=== PATIENT | male | born 1940 | race Caucasian/White ===

== ENCOUNTER 2016-09-27 18:45 | Inpatient (IN) | payer MEDICARE, BC ==
[~2016-09-27] VITALS: Ht 162.6 cm; Wt 65.9 kg
--- NOTE | 2016-09-27 19:11 | EKG ---
[address] [address] Test Date: 2016-09-27 Test Time: 19:10:01 Pat Name: DARIUS HAYS Department: Room: Gender: M Home Aide: : 1940 Requested By: ANTONIO BRANDON Order Number: [id number] Reading MD: Te Garcia Measurements Intervals [place] Rate: 66 P: [place]: QRS: -23 QRSD: 146 T: 24 QT: 434 QTc: 457 Interpretive Statements ATRIAL FLUTTER LEFTWARD AXIS RIGHT BUNDLE BRANCH BLOCK Electronically Signed On 10-04-2016 14:20:34 CDT by Te Garcia
--- NOTE | 2016-09-27 19:40 | ED.ADGEN ---
Past History Past Medical History: A-Fib (ANTONIO SINGH DO) Adult General Chief Complaint Chief Complaint Encounter for medical clearance for psychiatric admission (ANTONIO SINGH DO) HPI HPI Patient is a 76[facility] with history of [facility] who presents for medical evaluation for psychiatric admission after demonstrating aggressive and combative behavior to [facility] staff members. Patient's alert, cooperative on ED evaluation. Patient reported recent illnesses , fall injury or missed medications. Patient denies complaint on exam. History is limited by cognitive impairment. (ANTONIO SINGH DO) Review of Systems Review of Systems Review symptoms as per history of present illness. All other review symptoms are negative. (ANTONIO SINGH DO) Physical Exam Physical Exam Constitutional: Well developed, well nourished, no acute distress, non-toxic appearance. HENT: Normocephalic, atraumatic, bilateral external ears normal, oropharynx moist, no oral exudates, nose normal. Eyes: PERRLA, EOMI, conjunctiva normal. Neck: Normal range of motion, no tenderness. Cardiovascular:Heart rate regular rhythm, no murmur. Lungs & Thorax: Respirations nonlabored, lung sounds clear. Abdomen: Bowel sounds normal, soft, no tenderness. Skin: Warm, dry, no erythema. Back: No tenderness, no CVA tenderness. Extremities: No tenderness. Neurologic: Alert and oriented X 1, normal motor function, normal sensory function, no focal deficits noted. Psychologic: Affect normal, judgement normal, mood normal. (ANTONIO SINGH DO) Current Patient Data Vital Signs Vital Signs Date Time Temp Pulse Resp B/P Pulse Ox O2 Delivery O2 Flow Rate FiO2 09/27/16 19:00 98.6 66 20 97 Room Air (JASEN STAPLES MD) Lab Results Laboratory Tests Test 09/27/16 19:00 09/27/16 19:15 White Blood Count 7.8x10^3/uL (4.0-11.0) Red Blood Count 4.28x10^6/uL (4.30-5.70) L Hemoglobin 11.7g/dL (13.0-17.5) L Hematocrit 35.4% (39.0-53.0) L Mean Corpuscular Volume 83fL (79-100) Mean Corpuscular Hemoglobin 27pg (25-35) Mean Corpuscular Hemoglobin Concent 33g/dL (31-37) Red Cell Distribution Width 15.3% (11.5-14.5) H Platelet Count 439x10^3/uL (140-400) H Neutrophils (%) (Auto) 64% (31-73) Lymphocytes (%) (Auto) 21% (24-48) L Monocytes (%) (Auto) 9% (0-9) Eosinophils (%) (Auto) 6% (0-3) H Basophils (%) (Auto) 1% (0-3) Neutrophils # (Auto) 5.0x10^3uL (1.8-7.7) Lymphocytes # (Auto) 1.7x10^3/uL (1.0-4.8) Monocytes # (Auto) 0.7x10^3/uL (0.0-1.1) Eosinophils # (Auto) 0.4x10^3/uL (0.0-0.7) Basophils # (Auto) 0.0x10^3/uL (0.0-0.2) Prothrombin Time 10.8SEC (9.4-11.4) Prothrombin Time INR 1.1 (0.9-1.1) Sodium Level 136mmol/L (136-145) Potassium Level 4.5mmol/L (3.5-5.1) Chloride Level 100mmol/L (98-107) Carbon Dioxide Level 30mmol/L (21-32) Anion Gap 6 (6-14) Blood Urea Nitrogen 26mg/dL (8-26) Creatinine 1.4mg/dL (0.7-1.3) H Estimated GFR (Cockcroft-Gault) 49.0 BUN/Creatinine Ratio 19 (6-20) Glucose Level 140mg/dL (70-99) H Calcium Level 8.9mg/dL (8.5-10.1) Magnesium Level 2.1mg/dL (1.8-2.4) Total Bilirubin 0.3mg/dL (0.2-1.0) Aspartate Amino Transferase (AST) 15U/L (15-37) Alanine Aminotransferase (ALT) 23U/L (16-63) Alkaline Phosphatase 131U/L (46-116) H Total Protein 7.3g/dL (6.4-8.2) Albumin 3.3g/dL (3.4-5.0) L Albumin/Globulin Ratio 0.8 (1.0-1.7) L Urine Collection Type Unknown Urine Color Yellow Urine Clarity Clear Urine pH 6.5 Urine Specific [place] 1.015 Urine Protein Neg (NEG-TRACE) Urine Glucose (UA) 250mg/dL (NEG) Urine Ketones (Stick) Negmg/dL (NEG) Urine Blood Trace (NEG) Urine Nitrite Neg (NEG) Urine Bilirubin Neg (NEG) Urine Urobilinogen Dipstick 0.2mg/dL (0.2 mg/dL) Urine Leukocyte Esterase Neg (NEG) Urine RBC Occ/HPF (0-2) Urine WBC Occ/HPF (0-4) Urine Squamous Epithelial Cells Few/LPF Urine Bacteria 0/HPF (0-FEW) (JASEN STAPLES MD) EKG EKG [EKG: A flutter, ventricular rate 66.] (ANTONIO SINGH DO) Radiology/Procedures Radiology/Procedures [] (ANTONIO SINGH DO) Impressions: Encounter for medical clearance. (ANTONIO SINGH DO) Course & Med Decision Making Course & Med Decision Making Pertinent Labs and Imaging studies reviewed. (See chart for details) [] (ANTONIO SINGH DO) Course & Med Decision Making Patient checked out to me pending labs and medical clearance for [facility]. Patient's been resting comfortably ER. He is awake alert. He is oriented to person and place but not to year or date. He does know the month. He doesn't recall why he is here today. He is asked for some chips and soda which I provided for EKG today shows atrial flutter with a slight left axis deviation. There is some early right bundle-branch block. There is no acute ST or T-wave changes noted. Per Dr. Singh, atrial flutter is previously known and is chronic. He is rate controlled. Labs are essentially clinically unremarkable today. Urinalysis shows no evidence of infection. Chest x-ray shows surgical hardware but no acute changes per the emergency physician. As noted, he is resting currently, stable vital signs, awake and alert and cooperative. He is medically cleared for admission to [facility] unit. (JASEN STAPLES MD) Final Impression Final Impression [] Problems: (ANTONIO SINGH DO) Dragon Disclaimer Dragon Disclaimer This electronic medical record was generated, in whole or in part, using a voice recognition dictation system. (ANTONIO SINGH DO) ANTONIO SINGH DO Sep 27, 2016 19:39 JASEN STAPLES MD Sep 27, 2016 21:51
[2016-09-27 19:46] LABS: BASO % 1 % (0-3); EOS # 0.4 x10^3/uL (0.0-0.7); EOS % 6 % (0-3); HEMATOCRIT 35.4 % (39.0-53.0); HEMOGLOBIN 11.7 g/dL (13.0-17.5); LYMPH # 1.7 x10^3/uL (1.0-4.8); LYMPH % 21 % (24-48); MEAN CORPUSCULAR HEMOGLOBIN 27 pg (25-35); MEAN CORPUSCULAR HGB CONC 33 g/dL (31-37); MEAN CORPUSCULAR VOLUME 83 fL (79-100); MONO # 0.7 x10^3/uL (0.0-1.1); MONO % 9 % (0-9); NEUT % 64 % (31-73); PLATELET COUNT 439 x10^3/uL (140-400); RED BLOOD COUNT 4.28 x10^6/uL (4.30-5.70); RED CELL DISTRIBUTION WIDTH 15.3 % (11.5-14.5); WHITE BLOOD COUNT 7.8 x10^3/uL (4.0-11.0)
[2016-09-27 19:55] LABS: ALBUMIN 3.3 g/dL (3.4-5.0); ALBUMIN/GLOBULIN RATIO 0.8 (1.0-1.7); CALCIUM 8.9 mg/dL (8.5-10.1); CREATININE 1.4 mg/dL (0.7-1.3); MAGNESIUM 2.1 mg/dL (1.8-2.4); POTASSIUM 4.5 mmol/L (3.5-5.1); TOTAL BILIRUBIN 0.3 mg/dL (0.2-1.0); TOTAL PROTEIN 7.3 g/dL (6.4-8.2)
[2016-09-27 20:28] LABS: BILIRUBIN,URINE NEG (NEG); CLARITY,URINE CLEAR; COLOR,URINE YELLOW; GLUCOSE,URINE 250 mg/dL (NEG); NITRITE,URINE NEG (NEG); UROBILINOGEN,URINE 0.2 mg/dL (0.2 mg/dL)
[2016-09-27 20:29] LABS: BACTERIA,URINE 0 /HPF (0-FEW); RBC,URINE OCC /HPF (0-2); SQUAMOUS EPITHELIAL CELL,UR FEW /LPF; WBC,URINE OCC /HPF (0-4)
[2016-09-27] MEDS ORDERED: METO25TA4 PO (22:09)
[2016-09-27] MEDS ORDERED: MIRT15TA3 PO (22:10)
[2016-09-27] MEDS ORDERED: MULT-208 PO (22:11)
[2016-09-27] MEDS ORDERED: ASPI325T4 PO (22:13)
[2016-09-27] MEDS ORDERED: ATOR40TA59 PO (22:14)
[2016-09-27] MEDS ORDERED: FERR-26 PO (22:15)
[2016-09-27] MEDS ORDERED: FLUV50TA2 PO (22:17)
[2016-09-27] MEDS ORDERED: GABA-585 PO (22:18)
[2016-09-27] MEDS ORDERED: METF500T4 PO (22:19)
[2016-09-27] MEDS ORDERED: HYDR50CA2 PO (22:20)
[2016-09-27] MEDS ORDERED: ACET325T9 PO (22:22)
[2016-09-27] MEDS ORDERED: MAG355OR12 PO (22:23)
[2016-09-27] MEDS ORDERED: MAG HYDROX/AL HYDROX/SIMETH 30 ML ORAL.SUSP PO PRN (22:45)
[2016-09-27] MEDS ORDERED: ACETAMINOPHEN 325 MG TABLET PO PRN (22:45)
[2016-09-27 22:47] VITALS: BP 159/95
--- NOTE | 2016-09-28 01:18 | ACF ---
Admission Criteria Forms PSYCHIATRIC DISORDERS Clinical Indications for Inpatient Care (Place 'X' for any and all applicable criteria): Ongoing inpatient care may be needed for ANY ONE of the following(1)(2)(3)(4)(6) (7)(8): [X]I. Danger to self or others not manageable at lower level of care. [ ]II. Grave disability (eg, inability to perform self care necessary at lower level of care) [ ]III. Agitation or inappropriate behavior interfering with care for primary condition (eg, attempting to discontinue lines or drains prematurely, unable to cooperate with respiratory care) [ ]IV. Severe disability or disorder indicated by ALL of the following: [ ]a) Severe behavioral health disorder-related symptoms or condition indicated by ANY ONE of the following: [ ]i) Severe problem with cognition, memory, judgment, or impulse control [ ]ii) Severe clinical manifestations (eg, hallucinations, delusions, other acute psychotic symptoms, mino, extreme agitation or anxiety) [ ]b) Patient management at lower level of care is not feasible until acute intervention or modification is initiated. Extended stay beyond goal length of stay for the primary condition may be indicated when ANY ONE of the following is present: (1)(2)(3)(4): [ ]a) Patient is a danger to self or others and not manageable at lower level of care. [ ]b) Behavior crisis management, including physical or chemical restraints, is required and is not available at a lower level of care. [ ]c) Behavioral symptoms (e.g., agitation, somnolence, inappropriate behavior) are present, and are not manageable at a lower level of care. [ ]d) Patient cannot understand follow-up treatment and crisis plan. [ ]e) Provider and supports are not sufficiently available at lower level of care. [ ]f) Patient cannot participate (e.g., verify absence of plan for harm) and is in needed of monitoring. The original [employer] content created by [employer] has been revised. The portions of the content which have been revised are identified through the use of italic text or in bold, and [facility] has neither reviewed nor approved the modified material. All other unmodified content is copyright [facility]. Please see references footnoted in the original [facility] edition 2016 Admission Criteria Met?: Yes LIAM MCDANIEL Sep 28, 2016 01:18
[2016-09-28] MEDS: HYDROXYZINE HCL 25 MG TABLET PO SCH ×3 (05:26→19:54)
[2016-09-28 07:17] VITALS: BP 105/64
[2016-09-28] MEDS: METFORMIN 500 MG TABLET. PO SCH ×2 (08:00→17:00)
[2016-09-28] MEDS: ASPIRIN 325 MG TABLET PO SCH (08:34)
[2016-09-28] MEDS: FERROUS SULFATE 325 MG TABLET PO SCH (08:34)
[2016-09-28] MEDS: MULTIVITAMIN with MINERAL TABLET. PO SCH (08:35)
[2016-09-28] MEDS: METOPROLOL TART IMMED RELEASE 25 MG TABLET PO SCH ×2 (08:35→19:53)
[2016-09-28] MEDS: GABAPENTIN 100 MG CAPSULE. PO SCH ×3 (08:35→19:53)
--- NOTE | 2016-09-28 08:49 | RAD ---
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 The heart appears to be within normal limits in size. The pulmonary vascularity is normal. There is minimal atelectasis or scarring in the left lateral costophrenic angle. The lungs are otherwise clear. No significant pleural fluid is seen. IMPRESSION: 1. 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 2. Minimal atelectasis or scarring in the left lateral costophrenic angle.
--- NOTE | 2016-09-28 13:20 | HP ---
ADMIT DATE: 09/28/2016 This is a medical history and physical for the senior behavior unit. REASON FOR ADMISSION TO THE SENIOR BEHAVIORAL UNIT: This is a 76-year-old gentleman, who resides at [facility], seen him multiple times out and about in the senior care, although I do not personally take care of him. Basically, the patient has been swearing, having tactile hallucinations such as thinking he has bugs or tapes on him, pacing, exit seeking, yelling at staff in a threatening manner and very intimidating and picking at the skin. Indeed, in the multiple times that I have had occasion to observe him at [facility], he does pace and wondered continuously; however, he has been usually nonverbal and does not get into any kind of to altercations with anyone. PAST MEDICAL HISTORY: Significant for TIAs, type 2 diabetes, major depressive disorder, he has a history of scabies, repeated falls, Alzheimer's disease, chronic atrial fibrillation, BPH, hyperlipidemia, hypertension, coronary artery disease, status post bypass, and weakness. ALLERGIES: None. MEDICATIONS: Reviewed and are available on the MAR. Noted fluvoxamine was increased to 50 mg on 08/08/2016 at bedtime, gabapentin 100 mg t.i.d. added on 08/08/2016, and hydroxyzine for itching. No other added medications. SOCIAL HISTORY: The patient denies tobacco or alcohol use. 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 PAST SURGICAL HISTORY: Open heart surgery, 5-vessel. REVIEW OF SYSTEMS: He has no particular complaints. OBJECTIVE: VITAL SIGNS: Blood pressure 105/64, temperature 97.5, pulse is 49 this morning, and O2 sat 95% on room air. Height 64 inches, weight 145.31 pounds. GENERAL: A 76-year-old male, in no acute distress. The patient is extremely hard of hearing. HEENT: His TMs were intact. There were not occluded by wax. His eyes were clear. Pupils are equal, round, and reactive to light. Extraocular muscles are intact. His vision is 20/50 without glasses. Mouth is clear. He only has a few teeth. NECK: Supple, without adenopathy. There were no carotid bruits. LUNGS: Clear to auscultation. CARDIOVASCULAR: Regular rhythm and rate. Did not discern any atrial fibrillation at the moment. ABDOMEN: Soft, nontender. EXTREMITIES: Without edema. SKIN: The patient has multiple areas of previous scratching with white scars, but he also has three open sores on his posterior neck that are around the size of a dime about stage II wounds with some drainage. MUSCULOSKELETAL: Passes to get up and go test. 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 NEUROLOGIC: Cranial nerves able to follow directions, a little bit more difficult with the hearing problem. The patient also has a mental state, funny , which gives him time to process the information. We have to speak him very loudly. LABORATORY DATA: Hemoglobin 11.7, hematocrit 35.4. Chemistry: Creatinine 1.4. Alkaline phosphatase 131, albumin is 3.3. Urinalysis is clear. Coags are negative. ASSESSMENT: A 76-year-old with, 1. Tactile hallucinations. 2. Neurocognitive impairment. 3. Chronic picking behavior with open sores on his posterior neck. 4. Coronary artery disease. 5. Bradycardia. 6. History of atrial fibrillation. 7. Chronic kidney disease, stage 3. 8. Mild protein malnutrition. PLAN: Wound care consult may have to decrease his metoprolol because of the bradycardia. Monitor his other problems and follow along with Dr. Chacon. LYNNE CR DO DR: CAROL/tiny JOB#: [id number] / [id number]
[2016-09-28 16:18] VITALS: BP 147/65
[2016-09-28 18:11] LABS: T3 TOTAL 82 ng/dL (71-180); THYROXINE 5.4 ug/dL (4.5-12.0)
[2016-09-28] MEDS: FLUVOXAMINE MALEATE 25 MG TABLET PO SCH (19:55)
[2016-09-28] MEDS: MIRTAZAPINE 7.5 MG TABLET. PO SCH (19:56)
[2016-09-28] MEDS: ATORVASTATIN CALCIUM 20 MG TABLET PO SCH (19:56)
--- NOTE | 2016-09-28 21:05 | PDOC ---
Exam Mendez Demential Exam: Mendez Note: Please also refer to the separate dictated note~for this date of service dictated separately.~Patient seen individually. Discussed the patient with Nursing staff reviewed the chart.~Reviewed interim history and current functioning. Reviewed vital signs,~Labs/ Radiology~and current medications noted below. Continue current treatment with the changes noted in the dictated addendum note Assessment: Vital Signs: Vital Signs Date Time Temp Pulse Resp B/P Pulse Ox O2 Delivery O2 Flow Rate FiO2 09/28/16 19:53 98 147/65 09/28/16 16:18 97.7 18 97 09/27/16 22:47 Room Air I&O Intake and Output 09/28/16 07:00 # Voids 1 Current Medications: Meds: Current Medications Acetaminophen (Tylenol) 650 mg PRN Q4HRS PRN PO PAIN / TEMP; Start 09/27/16 at 22:45 Gabapentin (Neurontin) 100 mg TID PO Last administered on 09/28/16 19:53; Start 09/28/16 at 09:00 Metoprolol Tartrate (Lopressor) 37.5 mg BID PO Last administered on 09/28/16 19:53; Start 09/28/16 at 09:00 Mirtazapine (Remeron) 7.5 mg QHS PO Last administered on 09/28/16 19:56; Start 09/28/16 at 21:00 Atorvastatin Calcium (Lipitor) 40 mg QHS PO Last administered on 09/28/16 19: 56; Start 09/28/16 at 21:00 Fluvoxamine Maleate (Luvox) 50 mg HS PO Last administered on 09/28/16 19:55; Start 09/28/16 at 21:00 Hydroxyzine HCl (Atarax) 50 mg Q8HRS PO Last administered on 09/28/16 19:54; Start 09/28/16 at 06:00 Aspirin (Kayli Aspirin) 325 mg DAILY PO Last administered on 09/28/16 08:34; Start 09/28/16 at 09:00 Ferrous Sulfate (Feosol) 325 mg DAILY PO Last administered on 09/28/16 08:34; Start 09/28/16 at 09:00 Al Hydroxide/Mg Hydroxide (Mylanta Plus Xs) 30 ml PRN Q6HRS PRN PO Upset Stomach; Start 09/27/16 at 22:45 Metformin HCl (Glucophage) 500 mg BIDWMEALS PO Last administered on 09/28/16 17:00; Start 09/28/16 at 08:00 Multivitamins/ Calcium (Thera-M Plus) 1 tab DAILY PO Last administered on 08:35; Start 09/28/16 at 09:00 Neomycin/ Polymyxin/ Bacitracin (Triple Antibiotic Ointment) 1 pkt DAILY TP ; Start 09/29/16 at 09:00 Active Scripts Active Reported Maalox Maximum Strength Susp (Mag Hydrox/Al Hydrox/Simeth) 355 Ml Oral.susp 30 Ml PO PRN Q6HRS PRN LAST DOSE GIVEN: DATE: TIME: NEXT DOSE DUE: DATE: TIME: Tylenol (Acetaminophen) 325 Mg Tablet 650 Mg PO PRN Q4HRS PRN LAST DOSE GIVEN: DATE: TIME: NEXT DOSE DUE: DATE: TIME: Hydroxyzine Pamoate 50 Mg Capsule 50 Mg PO Q8HRS LAST DOSE GIVEN: DATE: TIME: NEXT DOSE DUE: DATE: TIME: Metformin Hcl 500 Mg Tablet 500 Mg PO BIDWMEALS LAST DOSE GIVEN: DATE: TIME: NEXT DOSE DUE: DATE: TIME: Gabapentin 100 Mg Capsule 100 Mg PO TID LAST DOSE GIVEN: DATE: TIME: NEXT DOSE DUE: DATE: TIME: Fluvoxamine Maleate 50 Mg Tablet 50 Mg PO HS LAST DOSE GIVEN: DATE: TIME: NEXT DOSE DUE: DATE: TIME: Ferrous Sulfate 325 Mg Tablet 325 Mg PO DAILY LAST DOSE GIVEN: DATE: TIME: NEXT DOSE DUE: DATE: TIME: Atorvastatin Calcium 40 Mg Tablet 40 Mg PO QHS LAST DOSE GIVEN: DATE: TIME: NEXT DOSE DUE: DATE: TIME: Aspirin 325 Mg Tablet 325 Mg PO DAILY LAST DOSE GIVEN: DATE: TIME: NEXT DOSE DUE: DATE: TIME: Multi-Day Vitamins (Multivitamin) 1 Each Tablet 1 Tab PO DAILY LAST DOSE GIVEN: DATE: TIME: NEXT DOSE DUE: DATE: TIME: Mirtazapine 15 Mg Tablet 7.5 Mg PO HS LAST DOSE GIVEN: DATE: TIME: NEXT DOSE DUE: DATE: TIME: Metoprolol Tartrate 25 Mg Tablet 37.5 Mg PO BID LAST DOSE GIVEN: DATE: TIME: NEXT DOSE DUE: DATE: TIME: Diagnosis: Problems: (1) Agitation (2) Anxiety disorder (3) Dementia in Alzheimer's disease with delusions (4) Dementia in Alzheimer's disease with depression (5) Impulse control disorder AZEEM GEORGE MD Sep 28, 2016 21:05
[2016-09-29 03:09] LABS: HEMOGLOBIN A1C 7.6 % (4.8-5.6)
[2016-09-29] MEDS: HYDROXYZINE HCL 25 MG TABLET PO SCH ×3 (05:32→19:37)
[2016-09-29 05:56] VITALS: BP 157/65
[2016-09-29] MEDS: GABAPENTIN 100 MG CAPSULE. PO SCH ×3 (08:59→19:36)
[2016-09-29] MEDS: FERROUS SULFATE 325 MG TABLET PO SCH (08:59)
[2016-09-29] MEDS: ASPIRIN 325 MG TABLET PO SCH (08:59)
[2016-09-29] MEDS: MULTIVITAMIN with MINERAL TABLET. PO SCH (08:59)
[2016-09-29] MEDS: METFORMIN 500 MG TABLET. PO SCH ×2 (08:59→16:49)
[2016-09-29] MEDS: METOPROLOL TART IMMED RELEASE 25 MG TABLET PO SCH ×2 (09:00→19:34)
[2016-09-29] MEDS: NEOMY/BACITR/POLYMYXIN OINT PACKET. TP SCH (09:01)
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
[2016-09-29 15:42] VITALS: BP 126/74
[2016-09-29] MEDS: FLUVOXAMINE MALEATE 25 MG TABLET PO SCH (19:35)
[2016-09-29] MEDS: MIRTAZAPINE 7.5 MG TABLET. PO SCH (19:36)
[2016-09-29] MEDS: ATORVASTATIN CALCIUM 20 MG TABLET PO SCH (19:36)
--- NOTE | 2016-09-29 21:11 | PDOC ---
Exam Mendez Demential Exam: Mendez Note: Please also refer to the separate dictated note~for this date of service dictated separately.~Patient seen individually. Discussed the patient with Nursing staff reviewed the chart.~Reviewed interim history and current functioning. Reviewed vital signs,~Labs/ Radiology~and current medications noted below. Continue current treatment with the changes noted in the dictated addendum note Assessment: Vital Signs: Vital Signs Date Time Temp Pulse Resp B/P Pulse Ox O2 Delivery O2 Flow Rate FiO2 09/29/16 19:34 70 126/74 09/29/16 15:42 97.6 20 98 09/27/16 22:47 Room Air I&O Intake and Output 09/29/16 07:00 Intake Total 1200 ml Balance 1200 ml Intake Oral 1200 ml Current Medications: Meds: Current Medications Acetaminophen (Tylenol) 650 mg PRN Q4HRS PRN PO PAIN / TEMP; Start 09/27/16 at 22:45 Gabapentin (Neurontin) 100 mg TID PO Last administered on 09/29/16 19:36; Start 09/28/16 at 09:00 Metoprolol Tartrate (Lopressor) 37.5 mg BID PO Last administered on 09/29/16 19:34; Start 09/28/16 at 09:00 Mirtazapine (Remeron) 7.5 mg QHS PO Last administered on 09/29/16 19:36; Start 09/28/16 at 21:00 Atorvastatin Calcium (Lipitor) 40 mg QHS PO Last administered on 09/29/16 19: 36; Start 09/28/16 at 21:00 Fluvoxamine Maleate (Luvox) 50 mg HS PO Last administered on 09/29/16 19:35; Start 09/28/16 at 21:00 Hydroxyzine HCl (Atarax) 50 mg Q8HRS PO Last administered on 09/29/16 19:37; Start 09/28/16 at 06:00 Aspirin (Kayli Aspirin) 325 mg DAILY PO Last administered on 09/29/16 08:59; Start 09/28/16 at 09:00 Ferrous Sulfate (Feosol) 325 mg DAILY PO Last administered on 09/29/16 08:59; Start 09/28/16 at 09:00 Al Hydroxide/Mg Hydroxide (Mylanta Plus Xs) 30 ml PRN Q6HRS PRN PO Upset Stomach; Start 09/27/16 at 22:45 Metformin HCl (Glucophage) 500 mg BIDWMEALS PO Last administered on 09/29/16 16:49; Start 09/28/16 at 08:00 Multivitamins/ Calcium (Thera-M Plus) 1 tab DAILY PO Last administered on 08:59; Start 09/28/16 at 09:00 Neomycin/ Polymyxin/ Bacitracin (Triple Antibiotic Ointment) 1 pkt DAILY TP Last administered on 09/29/16 09:01; Start 09/29/16 at 09:00 Active Scripts Active Reported Maalox Maximum Strength Susp (Mag Hydrox/Al Hydrox/Simeth) 355 Ml Oral.susp 30 Ml PO PRN Q6HRS PRN LAST DOSE GIVEN: DATE: TIME: NEXT DOSE DUE: DATE: TIME: Tylenol (Acetaminophen) 325 Mg Tablet 650 Mg PO PRN Q4HRS PRN LAST DOSE GIVEN: DATE: TIME: NEXT DOSE DUE: DATE: TIME: Hydroxyzine Pamoate 50 Mg Capsule 50 Mg PO Q8HRS LAST DOSE GIVEN: DATE: TIME: NEXT DOSE DUE: DATE: TIME: Metformin Hcl 500 Mg Tablet 500 Mg PO BIDWMEALS LAST DOSE GIVEN: DATE: TIME: NEXT DOSE DUE: DATE: TIME: Gabapentin 100 Mg Capsule 100 Mg PO TID LAST DOSE GIVEN: DATE: TIME: NEXT DOSE DUE: DATE: TIME: Fluvoxamine Maleate 50 Mg Tablet 50 Mg PO HS LAST DOSE GIVEN: DATE: TIME: NEXT DOSE DUE: DATE: TIME: Ferrous Sulfate 325 Mg Tablet 325 Mg PO DAILY LAST DOSE GIVEN: DATE: TIME: NEXT DOSE DUE: DATE: TIME: Atorvastatin Calcium 40 Mg Tablet 40 Mg PO QHS LAST DOSE GIVEN: DATE: TIME: NEXT DOSE DUE: DATE: TIME: Aspirin 325 Mg Tablet 325 Mg PO DAILY LAST DOSE GIVEN: DATE: TIME: NEXT DOSE DUE: DATE: TIME: Multi-Day Vitamins (Multivitamin) 1 Each Tablet 1 Tab PO DAILY LAST DOSE GIVEN: DATE: TIME: NEXT DOSE DUE: DATE: TIME: Mirtazapine 15 Mg Tablet 7.5 Mg PO HS LAST DOSE GIVEN: DATE: TIME: NEXT DOSE DUE: DATE: TIME: Metoprolol Tartrate 25 Mg Tablet 37.5 Mg PO BID LAST DOSE GIVEN: DATE: TIME: NEXT DOSE DUE: DATE: TIME: Diagnosis: Problems: (1) Agitation (2) Anxiety disorder (3) Dementia in Alzheimer's disease with delusions (4) Dementia in Alzheimer's disease with depression (5) Impulse control disorder AZEEM GEORGE MD Sep 29, 2016 21:11
[2016-09-30] MEDS: HYDROXYZINE HCL 25 MG TABLET PO SCH ×3 (05:11→19:35)
[2016-09-30] MEDS: GABAPENTIN 100 MG CAPSULE. PO SCH ×3 (08:40→19:28)
[2016-09-30] MEDS: FERROUS SULFATE 325 MG TABLET PO SCH (08:41)
[2016-09-30] MEDS: METFORMIN 500 MG TABLET. PO SCH ×2 (08:41→17:29)
[2016-09-30] MEDS: MULTIVITAMIN with MINERAL TABLET. PO SCH (08:41)
[2016-09-30] MEDS: ASPIRIN 325 MG TABLET PO SCH (08:41)
[2016-09-30] MEDS: METOPROLOL TART IMMED RELEASE 25 MG TABLET PO SCH ×2 (08:42→19:28)
[2016-09-30] MEDS: NEOMY/BACITR/POLYMYXIN OINT PACKET. TP SCH (08:44)
[2016-09-30 15:28] VITALS: BP 115/64
[2016-09-30] MEDS: ATORVASTATIN CALCIUM 20 MG TABLET PO SCH (19:27)
[2016-09-30] MEDS: MIRTAZAPINE 7.5 MG TABLET. PO SCH (19:28)
[2016-09-30] MEDS: FLUVOXAMINE MALEATE 25 MG TABLET PO SCH (19:35)
[2016-09-30] MEDS: QUEtiapine 25 MG TABLET. PO SCH (19:37)
--- NOTE | 2016-09-30 21:03 | PDOC ---
Exam Mendez Demential Exam: Mendez Note: Please also refer to the separate dictated note~for this date of service dictated separately.~Patient seen individually. Discussed the patient with Nursing staff reviewed the chart.~Reviewed interim history and current functioning. Reviewed vital signs,~Labs/ Radiology~and current medications noted below. Continue current treatment with the changes noted in the dictated addendum note Assessment: Vital Signs: Vital Signs Date Time Temp Pulse Resp B/P Pulse Ox O2 Delivery O2 Flow Rate FiO2 09/30/16 19:28 62 115/64 09/30/16 15:28 97.7 20 96 09/27/16 22:47 Room Air I&O Intake and Output 09/30/16 07:00 Intake Total 1320 ml Balance 1320 ml Intake Oral 1320 ml # Voids 1 Current Medications: Meds: Current Medications Acetaminophen (Tylenol) 650 mg PRN Q4HRS PRN PO PAIN / TEMP; Start 09/27/16 at 22:45 Gabapentin (Neurontin) 100 mg TID PO Last administered on 09/30/16 19:28; Start 09/28/16 at 09:00 Metoprolol Tartrate (Lopressor) 37.5 mg BID PO Last administered on 09/30/16 19:28; Start 09/28/16 at 09:00 Mirtazapine (Remeron) 7.5 mg QHS PO Last administered on 09/30/16 19:28; Start 09/28/16 at 21:00 Atorvastatin Calcium (Lipitor) 40 mg QHS PO Last administered on 09/30/16 19: 27; Start 09/28/16 at 21:00 Fluvoxamine Maleate (Luvox) 50 mg HS PO Last administered on 09/29/16 19:35; Start 09/28/16 at 21:00; Stop 09/30/16 at 15:32; Status DC Hydroxyzine HCl (Atarax) 50 mg Q8HRS PO Last administered on 09/30/16 19:35; Start 09/28/16 at 06:00 Aspirin (Kayli Aspirin) 325 mg DAILY PO Last administered on 09/30/16 08:41; Start 09/28/16 at 09:00 Ferrous Sulfate (Feosol) 325 mg DAILY PO Last administered on 09/30/16 08:41; Start 09/28/16 at 09:00 Al Hydroxide/Mg Hydroxide (Mylanta Plus Xs) 30 ml PRN Q6HRS PRN PO Upset Stomach; Start 09/27/16 at 22:45 Metformin HCl (Glucophage) 500 mg BIDWMEALS PO Last administered on 09/30/16 17:29; Start 09/28/16 at 08:00 Multivitamins/ Calcium (Thera-M Plus) 1 tab DAILY PO Last administered on 08:41; Start 09/28/16 at 09:00 Neomycin/ Polymyxin/ Bacitracin (Triple Antibiotic Ointment) 1 pkt DAILY TP Last administered on 09/30/16 08:44; Start 09/29/16 at 09:00 Fluvoxamine Maleate (Luvox) 75 mg HS PO Last administered on 09/30/16 19:35; Start 09/30/16 at 21:00 Quetiapine Fumarate (SEROquel) 25 mg HS PO Last administered on 09/30/16 19:37 ; Start 09/30/16 at 21:00 Active Scripts Active Reported Maalox Maximum Strength Susp (Mag Hydrox/Al Hydrox/Simeth) 355 Ml Oral.susp 30 Ml PO PRN Q6HRS PRN LAST DOSE GIVEN: DATE: TIME: NEXT DOSE DUE: DATE: TIME: Tylenol (Acetaminophen) 325 Mg Tablet 650 Mg PO PRN Q4HRS PRN LAST DOSE GIVEN: DATE: TIME: NEXT DOSE DUE: DATE: TIME: Hydroxyzine Pamoate 50 Mg Capsule 50 Mg PO Q8HRS LAST DOSE GIVEN: DATE: TIME: NEXT DOSE DUE: DATE: TIME: Metformin Hcl 500 Mg Tablet 500 Mg PO BIDWMEALS LAST DOSE GIVEN: DATE: TIME: NEXT DOSE DUE: DATE: TIME: Gabapentin 100 Mg Capsule 100 Mg PO TID LAST DOSE GIVEN: DATE: TIME: NEXT DOSE DUE: DATE: TIME: Fluvoxamine Maleate 50 Mg Tablet 50 Mg PO HS LAST DOSE GIVEN: DATE: TIME: NEXT DOSE DUE: DATE: TIME: Ferrous Sulfate 325 Mg Tablet 325 Mg PO DAILY LAST DOSE GIVEN: DATE: TIME: NEXT DOSE DUE: DATE: TIME: Atorvastatin Calcium 40 Mg Tablet 40 Mg PO QHS LAST DOSE GIVEN: DATE: TIME: NEXT DOSE DUE: DATE: TIME: Aspirin 325 Mg Tablet 325 Mg PO DAILY LAST DOSE GIVEN: DATE: TIME: NEXT DOSE DUE: DATE: TIME: Multi-Day Vitamins (Multivitamin) 1 Each Tablet 1 Tab PO DAILY LAST DOSE GIVEN: DATE: TIME: NEXT DOSE DUE: DATE: TIME: Mirtazapine 15 Mg Tablet 7.5 Mg PO HS LAST DOSE GIVEN: DATE: TIME: NEXT DOSE DUE: DATE: TIME: Metoprolol Tartrate 25 Mg Tablet 37.5 Mg PO BID LAST DOSE GIVEN: DATE: TIME: NEXT DOSE DUE: DATE: TIME: Diagnosis: Problems: (1) Agitation (2) Anxiety disorder (3) Dementia in Alzheimer's disease with delusions (4) Dementia in Alzheimer's disease with depression (5) Impulse control disorder AZEEM GEORGE MD Sep 30, 2016 21:03
--- NOTE | 2016-09-30 23:09 | PN ---
DATE: 09/29/2016 PSYCHIATRIC PROGRESS NOTE This is a late entry 09/29/2016 covers the elements not covered in my initial note. SUBJECTIVE: The patient was staffed at a treatment team meeting with the entire team morning of 09/29/2016. Reviewed the patient's history at length, diagnosis, medications. Sleeping about 5 hours. Appetite 100%, cooperative, withdrawn, a little labile. He denies active hallucinations as I met with him in the evening 09/29/2016. REVIEW OF SYSTEMS: No CV, , pulmonary, eye, ENT system symptoms on review, still somewhat dysphoric, anxious. MENTAL STATUS EXAM: Oriented to himself and situation. Speech has some latency, coherent. Abstraction fair, computation impaired, language function intact, attention span short, mood and affect somewhat withdrawn. LABORATORY DATA: Reviewed. IMPRESSION: Major neurocognitive disorder, vascular with delusion, depression; anxiety disorder, unspecified; OCD. PLAN: Continue Remeron 7.5 mg at bedtime, Luvox is 50 mg at bedtime will be increased to 75 mg at bedtime and we will add Seroquel 25 mg at bedtime to augment as a mood stabilizer. Adjust further as clinically indicated. AZEEM GEORGE MD DR: FERMÍN/tiny JOB#: [id number] / [id number]
[2016-10-01] MEDS: HYDROXYZINE HCL 25 MG TABLET PO SCH ×3 (06:01→19:40)
[2016-10-01 06:32] VITALS: BP 107/52
[2016-10-01] MEDS: METOPROLOL TART IMMED RELEASE 25 MG TABLET PO SCH ×2 (09:00→19:39)
[2016-10-01] MEDS: FERROUS SULFATE 325 MG TABLET PO SCH (09:16)
[2016-10-01] MEDS: ASPIRIN 325 MG TABLET PO SCH (09:16)
[2016-10-01] MEDS: METFORMIN 500 MG TABLET. PO SCH ×2 (09:16→17:07)
[2016-10-01] MEDS: MULTIVITAMIN with MINERAL TABLET. PO SCH (09:17)
[2016-10-01] MEDS: GABAPENTIN 100 MG CAPSULE. PO SCH ×3 (09:18→19:41)
[2016-10-01] MEDS: NEOMY/BACITR/POLYMYXIN OINT PACKET. TP SCH (09:18)
[2016-10-01] MEDS: AMOXICILLIN/K CLAV 875/125MG TABLET. PO SCH ×3 (12:11→19:39)
[2016-10-01 16:14] VITALS: BP 124/66
[2016-10-01] MEDS: MIRTAZAPINE 7.5 MG TABLET. PO SCH (19:39)
[2016-10-01] MEDS: FLUVOXAMINE MALEATE 25 MG TABLET PO SCH (19:40)
[2016-10-01] MEDS: QUEtiapine 25 MG TABLET. PO SCH (19:40)
[2016-10-01] MEDS: ATORVASTATIN CALCIUM 20 MG TABLET PO SCH (19:40)
--- NOTE | 2016-10-01 21:11 | PDOC ---
Exam Mendez Demential Exam: Mendez Note: Please also refer to the separate dictated note~for this date of service dictated separately.~Patient seen individually. Discussed the patient with Nursing staff reviewed the chart.~Reviewed interim history and current functioning. Reviewed vital signs,~Labs/ Radiology~and current medications noted below. Continue current treatment with the changes noted in the dictated addendum note Assessment: Vital Signs: Vital Signs Date Time Temp Pulse Resp B/P Pulse Ox O2 Delivery O2 Flow Rate FiO2 10/01/16 19:39 73 124/66 10/01/16 16:14 97.8 16 96 10/01/16 06:32 Room Air I&O Intake and Output 10/01/16 07:00 Intake Total 840 ml Balance 840 ml Intake Oral 840 ml Current Medications: Meds: Current Medications Acetaminophen (Tylenol) 650 mg PRN Q4HRS PRN PO PAIN / TEMP; Start 09/27/16 at 22:45 Gabapentin (Neurontin) 100 mg TID PO Last administered on 10/01/16 19:41; Start 09/28/16 at 09:00 Metoprolol Tartrate (Lopressor) 37.5 mg BID PO Last administered on 10/01/16 19:39; Start 09/28/16 at 09:00 Mirtazapine (Remeron) 7.5 mg QHS PO Last administered on 10/01/16 19:39; Start 09/28/16 at 21:00 Atorvastatin Calcium (Lipitor) 40 mg QHS PO Last administered on 10/01/16 19: 40; Start 09/28/16 at 21:00 Fluvoxamine Maleate (Luvox) 50 mg HS PO Last administered on 09/29/16 19:35; Start 09/28/16 at 21:00; Stop 09/30/16 at 15:32; Status DC Hydroxyzine HCl (Atarax) 50 mg Q8HRS PO Last administered on 10/01/16 19:40; Start 09/28/16 at 06:00 Aspirin (Kayli Aspirin) 325 mg DAILY PO Last administered on 10/01/16 09:16; Start 09/28/16 at 09:00 Ferrous Sulfate (Feosol) 325 mg DAILY PO Last administered on 10/01/16 09:16; Start 09/28/16 at 09:00 Al Hydroxide/Mg Hydroxide (Mylanta Plus Xs) 30 ml PRN Q6HRS PRN PO Upset Stomach; Start 09/27/16 at 22:45 Metformin HCl (Glucophage) 500 mg BIDWMEALS PO Last administered on 10/01/16 17:07; Start 09/28/16 at 08:00 Multivitamins/ Calcium (Thera-M Plus) 1 tab DAILY PO Last administered on 09:17; Start 09/28/16 at 09:00 Neomycin/ Polymyxin/ Bacitracin (Triple Antibiotic Ointment) 1 pkt DAILY TP Last administered on 10/01/16 09:18; Start 09/29/16 at 09:00 Fluvoxamine Maleate (Luvox) 75 mg HS PO Last administered on 10/01/16 19:40; Start 09/30/16 at 21:00 Quetiapine Fumarate (SEROquel) 25 mg HS PO Last administered on 10/01/16 19:40 ; Start 09/30/16 at 21:00 Amoxicillin/ Clavulanate Potassium (Augmentin 875/ 125mg) 1 tab BID PO Last administered on 10/01/16 19:39; Start 10/01/16 at 10:30; Stop 10/11/16 at 10:29 Active Scripts Active Reported Maalox Maximum Strength Susp (Mag Hydrox/Al Hydrox/Simeth) 355 Ml Oral.susp 30 Ml PO PRN Q6HRS PRN LAST DOSE GIVEN: DATE: TIME: NEXT DOSE DUE: DATE: TIME: Tylenol (Acetaminophen) 325 Mg Tablet 650 Mg PO PRN Q4HRS PRN LAST DOSE GIVEN: DATE: TIME: NEXT DOSE DUE: DATE: TIME: Hydroxyzine Pamoate 50 Mg Capsule 50 Mg PO Q8HRS LAST DOSE GIVEN: DATE: TIME: NEXT DOSE DUE: DATE: TIME: Metformin Hcl 500 Mg Tablet 500 Mg PO BIDWMEALS LAST DOSE GIVEN: DATE: TIME: NEXT DOSE DUE: DATE: TIME: Gabapentin 100 Mg Capsule 100 Mg PO TID LAST DOSE GIVEN: DATE: TIME: NEXT DOSE DUE: DATE: TIME: Fluvoxamine Maleate 50 Mg Tablet 50 Mg PO HS LAST DOSE GIVEN: DATE: TIME: NEXT DOSE DUE: DATE: TIME: Ferrous Sulfate 325 Mg Tablet 325 Mg PO DAILY LAST DOSE GIVEN: DATE: TIME: NEXT DOSE DUE: DATE: TIME: Atorvastatin Calcium 40 Mg Tablet 40 Mg PO QHS LAST DOSE GIVEN: DATE: TIME: NEXT DOSE DUE: DATE: TIME: Aspirin 325 Mg Tablet 325 Mg PO DAILY LAST DOSE GIVEN: DATE: TIME: NEXT DOSE DUE: DATE: TIME: Multi-Day Vitamins (Multivitamin) 1 Each Tablet 1 Tab PO DAILY LAST DOSE GIVEN: DATE: TIME: NEXT DOSE DUE: DATE: TIME: Mirtazapine 15 Mg Tablet 7.5 Mg PO HS LAST DOSE GIVEN: DATE: TIME: NEXT DOSE DUE: DATE: TIME: Metoprolol Tartrate 25 Mg Tablet 37.5 Mg PO BID LAST DOSE GIVEN: DATE: TIME: NEXT DOSE DUE: DATE: TIME: Diagnosis: Problems: (1) Agitation (2) Anxiety disorder (3) Dementia in Alzheimer's disease with delusions (4) Dementia in Alzheimer's disease with depression (5) Impulse control disorder AZEEM GEORGE MD Oct 01, 2016 21:11
[2016-10-02] MEDS: HYDROXYZINE HCL 25 MG TABLET PO SCH ×3 (06:41→19:50)
[2016-10-02 07:05] VITALS: BP 117/75
[2016-10-02 08:14] LABS: BASO % 1 % (0-3); EOS # 0.4 x10^3/uL (0.0-0.7); EOS % 6 % (0-3); HEMATOCRIT 37.7 % (39.0-53.0); HEMOGLOBIN 12.2 g/dL (13.0-17.5); LYMPH # 1.9 x10^3/uL (1.0-4.8); LYMPH % 25 % (24-48); MEAN CORPUSCULAR HEMOGLOBIN 27 pg (25-35); MEAN CORPUSCULAR HGB CONC 32 g/dL (31-37); MEAN CORPUSCULAR VOLUME 83 fL (79-100); MONO # 0.5 x10^3/uL (0.0-1.1); MONO % 6 % (0-9); NEUT % 63 % (31-73); PLATELET COUNT 458 x10^3/uL (140-400); RED BLOOD COUNT 4.54 x10^6/uL (4.30-5.70); RED CELL DISTRIBUTION WIDTH 15.3 % (11.5-14.5); WHITE BLOOD COUNT 7.8 x10^3/uL (4.0-11.0)
[2016-10-02 08:22] LABS: ALBUMIN 3.5 g/dL (3.4-5.0); ALBUMIN/GLOBULIN RATIO 0.8 (1.0-1.7); CREATININE 1.5 mg/dL (0.7-1.3); GFR 45.3; POTASSIUM 4.7 mmol/L (3.5-5.1); TOTAL BILIRUBIN 0.4 mg/dL (0.2-1.0); TOTAL PROTEIN 7.7 g/dL (6.4-8.2)
[2016-10-02] MEDS: AMOXICILLIN/K CLAV 875/125MG TABLET. PO SCH ×2 (08:41→19:49)
[2016-10-02] MEDS: FERROUS SULFATE 325 MG TABLET PO SCH (08:41)
[2016-10-02] MEDS: ASPIRIN 325 MG TABLET PO SCH (08:41)
[2016-10-02] MEDS: METFORMIN 500 MG TABLET. PO SCH ×2 (08:41→17:10)
[2016-10-02] MEDS: GABAPENTIN 100 MG CAPSULE. PO SCH ×3 (08:42→19:49)
[2016-10-02] MEDS: MULTIVITAMIN with MINERAL TABLET. PO SCH (08:42)
[2016-10-02] MEDS: METOPROLOL TART IMMED RELEASE 25 MG TABLET PO SCH ×2 (08:42→19:49)
[2016-10-02] MEDS: NEOMY/BACITR/POLYMYXIN OINT PACKET. TP SCH (08:42)
[2016-10-02 17:08] VITALS: BP 133/77
--- NOTE | 2016-10-02 18:43 | PN ---
DATE: 09/30/2016 PSYCHIATRIC PROGRESS NOTE This is late entry of 09/30/2016, covers elements not covered in my initial note. SUBJECTIVE: Per nursing report, the patient has been isolated, slept 7-1/4 hours. No hallucinations/tactile hallucinations noted by nursing staff, but he is obsessive, anxious. REVIEW OF SYSTEMS: No CV, , pulmonary, eye system symptoms on review. I met with him in his room. Reliability somewhat poor. MENTAL STATUS EXAMINATION: Oriented to himself and situation. Speech has some latency, often responses monosyllabic. Abstraction fair, computation impaired, language function intact. Mood and affect remain somewhat withdrawn. No active suicidal or homicidal ideation. LABORATORY DATA: Reviewed. IMPRESSION: Major neurocognitive disorder, early Alzheimer, vascular with depression, delusions, obsessive compulsive disorder; anxiety disorder, unspecified. PLAN: Luvox is increased to 75 mg a day, Remeron 7.5 at bedtime, Seroquel 25 mg at bedtime. Adjust further as clinically indicated. MAN Cristóbal GEORGE MD DR: FERMÍN/tiny JOB#: [id number] / [id number]
--- NOTE | 2016-10-02 18:43 | PN ---
DATE: 10/01/2016 PSYCHIATRIC PROGRESS NOTE This is a late entry of 10/01/2016 covers elements not covered in my initial note. SUBJECTIVE: The previous evening the patient was complaining of bugs crawling on his skin, picking on scabs, disorganized during the day on 10/01/2016, but not having the same tactile hallucinations. Slept 6-3/4 hours. I met with him in his room. REVIEW OF SYSTEMS: Positive for tiredness. No CV, , pulmonary, eye, ENT system symptoms on review. MENTAL STATUS EXAM: Oriented to himself at times to situation. Speech moderate latency, often responses monosyllabic. Insight, judgment, recent memory is impaired. Language function intact. He is anxious, obsessive, but improved. LABORATORY DATA: Reviewed. IMPRESSION: Major neurocognitive disorder, Alzheimer, vascular with delusion, depression, obsessive compulsive disorder; anxiety disorder, unspecified. PLAN: Remeron continue to 7.5 mg at bedtime, Luvox 75 mg a day, Seroquel 25 mg at bedtime, hydroxyzine p.r.n. We will increase the Seroquel to 37.5 mg at bedtime. Make further adjustments as clinically indicated. MAN Cristóbal GEORGE MD DR: FERMÍN/tiny JOB#: [id number] / [id number]
[2016-10-02] MEDS: FLUVOXAMINE MALEATE 25 MG TABLET PO SCH (19:49)
[2016-10-02] MEDS: ATORVASTATIN CALCIUM 20 MG TABLET PO SCH (19:49)
[2016-10-02] MEDS: MIRTAZAPINE 7.5 MG TABLET. PO SCH (19:49)
[2016-10-02] MEDS ORDERED: QUEtiapine 25 MG TABLET. PO SCH (21:00)
--- NOTE | 2016-10-02 21:09 | PDOC ---
Exam Mendez Demential Exam: Mendez Note: Please also refer to the separate dictated note~for this date of service dictated separately.~Patient seen individually. Discussed the patient with Nursing staff reviewed the chart.~Reviewed interim history and current functioning. Reviewed vital signs,~Labs/ Radiology~and current medications noted below. Continue current treatment with the changes noted in the dictated addendum note Assessment: Vital Signs: Vital Signs Date Time Temp Pulse Resp B/P Pulse Ox O2 Delivery O2 Flow Rate FiO2 10/02/16 19:49 81 133/77 10/02/16 17:08 97.6 16 97 10/01/16 06:32 Room Air I&O Intake and Output 10/02/16 07:00 Intake Total 960 ml Balance 960 ml Intake Oral 960 ml Labs: Laboratory Tests Test 10/02/16 07:40 White Blood Count 7.8x10^3/uL (4.0-11.0) Red Blood Count 4.54x10^6/uL (4.30-5.70) Hemoglobin 12.2g/dL (13.0-17.5) L Hematocrit 37.7% (39.0-53.0) L Mean Corpuscular Volume 83fL (79-100) Mean Corpuscular Hemoglobin 27pg (25-35) Mean Corpuscular Hemoglobin Concent 32g/dL (31-37) Red Cell Distribution Width 15.3% (11.5-14.5) H Platelet Count 458x10^3/uL (140-400) H Neutrophils (%) (Auto) 63% (31-73) Lymphocytes (%) (Auto) 25% (24-48) Monocytes (%) (Auto) 6% (0-9) Eosinophils (%) (Auto) 6% (0-3) H Basophils (%) (Auto) 1% (0-3) Neutrophils # (Auto) 5.0x10^3uL (1.8-7.7) Lymphocytes # (Auto) 1.9x10^3/uL (1.0-4.8) Monocytes # (Auto) 0.5x10^3/uL (0.0-1.1) Eosinophils # (Auto) 0.4x10^3/uL (0.0-0.7) Basophils # (Auto) 0.0x10^3/uL (0.0-0.2) Sodium Level 140mmol/L (136-145) Potassium Level 4.7mmol/L (3.5-5.1) Chloride Level 103mmol/L (98-107) Carbon Dioxide Level 30mmol/L (21-32) Anion Gap 7 (6-14) Blood Urea Nitrogen 20mg/dL (8-26) Creatinine 1.5mg/dL (0.7-1.3) H Estimated GFR (Cockcroft-Gault) 45.3 BUN/Creatinine Ratio 13 (6-20) Glucose Level 120mg/dL (70-99) H Calcium Level 9.0mg/dL (8.5-10.1) Total Bilirubin 0.4mg/dL (0.2-1.0) Aspartate Amino Transferase (AST) 16U/L (15-37) Alanine Aminotransferase (ALT) 22U/L (16-63) Alkaline Phosphatase 124U/L (46-116) H Total Protein 7.7g/dL (6.4-8.2) Albumin 3.5g/dL (3.4-5.0) Albumin/Globulin Ratio 0.8 (1.0-1.7) L Current Medications: Meds: Current Medications Acetaminophen (Tylenol) 650 mg PRN Q4HRS PRN PO PAIN / TEMP; Start 09/27/16 at 22:45 Gabapentin (Neurontin) 100 mg TID PO Last administered on 10/02/16 19:49; Start 09/28/16 at 09:00 Metoprolol Tartrate (Lopressor) 37.5 mg BID PO Last administered on 10/02/16 19:49; Start 09/28/16 at 09:00 Mirtazapine (Remeron) 7.5 mg QHS PO Last administered on 10/02/16 19:49; Start 09/28/16 at 21:00 Atorvastatin Calcium (Lipitor) 40 mg QHS PO Last administered on 10/02/16 19: 49; Start 09/28/16 at 21:00 Fluvoxamine Maleate (Luvox) 50 mg HS PO Last administered on 09/29/16 19:35; Start 09/28/16 at 21:00; Stop 09/30/16 at 15:32; Status DC Hydroxyzine HCl (Atarax) 50 mg Q8HRS PO Last administered on 10/02/16 19:50; Start 09/28/16 at 06:00 Aspirin (Kayli Aspirin) 325 mg DAILY PO Last administered on 10/02/16 08:41; Start 09/28/16 at 09:00 Ferrous Sulfate (Feosol) 325 mg DAILY PO Last administered on 10/02/16 08:41; Start 09/28/16 at 09:00 Al Hydroxide/Mg Hydroxide (Mylanta Plus Xs) 30 ml PRN Q6HRS PRN PO Upset Stomach; Start 09/27/16 at 22:45 Metformin HCl (Glucophage) 500 mg BIDWMEALS PO Last administered on 10/02/16 17:10; Start 09/28/16 at 08:00; Stop 10/02/16 at 17:57; Status DC Multivitamins/ Calcium (Thera-M Plus) 1 tab DAILY PO Last administered on 08:42; Start 09/28/16 at 09:00 Neomycin/ Polymyxin/ Bacitracin (Triple Antibiotic Ointment) 1 pkt DAILY TP Last administered on 10/02/16 08:42; Start 09/29/16 at 09:00 Fluvoxamine Maleate (Luvox) 75 mg HS PO Last administered on 10/02/16 19:49; Start 09/30/16 at 21:00 Quetiapine Fumarate (SEROquel) 25 mg HS PO Last administered on 10/01/16 19:40 ; Start 09/30/16 at 21:00; Stop 10/02/16 at 11:10; Status DC Amoxicillin/ Clavulanate Potassium (Augmentin 875/ 125mg) 1 tab BID PO Last administered on 10/02/16 19:49; Start 10/01/16 at 10:30; Stop 10/11/16 at 10:29 Quetiapine Fumarate (SEROquel) 37.5 mg HS PO Last administered on 10/02/16 19: 51; Start 10/02/16 at 21:00 Active Scripts Active Reported Maalox Maximum Strength Susp (Mag Hydrox/Al Hydrox/Simeth) 355 Ml Oral.susp 30 Ml PO PRN Q6HRS PRN LAST DOSE GIVEN: DATE: TIME: NEXT DOSE DUE: DATE: TIME: Tylenol (Acetaminophen) 325 Mg Tablet 650 Mg PO PRN Q4HRS PRN LAST DOSE GIVEN: DATE: TIME: NEXT DOSE DUE: DATE: TIME: Hydroxyzine Pamoate 50 Mg Capsule 50 Mg PO Q8HRS LAST DOSE GIVEN: DATE: TIME: NEXT DOSE DUE: DATE: TIME: Metformin Hcl 500 Mg Tablet 500 Mg PO BIDWMEALS LAST DOSE GIVEN: DATE: TIME: NEXT DOSE DUE: DATE: TIME: Gabapentin 100 Mg Capsule 100 Mg PO TID LAST DOSE GIVEN: DATE: TIME: NEXT DOSE DUE: DATE: TIME: Fluvoxamine Maleate 50 Mg Tablet 50 Mg PO HS LAST DOSE GIVEN: DATE: TIME: NEXT DOSE DUE: DATE: TIME: Ferrous Sulfate 325 Mg Tablet 325 Mg PO DAILY LAST DOSE GIVEN: DATE: TIME: NEXT DOSE DUE: DATE: TIME: Atorvastatin Calcium 40 Mg Tablet 40 Mg PO QHS LAST DOSE GIVEN: DATE: TIME: NEXT DOSE DUE: DATE: TIME: Aspirin 325 Mg Tablet 325 Mg PO DAILY LAST DOSE GIVEN: DATE: TIME: NEXT DOSE DUE: DATE: TIME: Multi-Day Vitamins (Multivitamin) 1 Each Tablet 1 Tab PO DAILY LAST DOSE GIVEN: DATE: TIME: NEXT DOSE DUE: DATE: TIME: Mirtazapine 15 Mg Tablet 7.5 Mg PO HS LAST DOSE GIVEN: DATE: TIME: NEXT DOSE DUE: DATE: TIME: Metoprolol Tartrate 25 Mg Tablet 37.5 Mg PO BID LAST DOSE GIVEN: DATE: TIME: NEXT DOSE DUE: DATE: TIME: Diagnosis: Problems: (1) Agitation (2) Anxiety disorder (3) Dementia in Alzheimer's disease with delusions (4) Dementia in Alzheimer's disease with depression (5) Impulse control disorder AZEEM GEORGE MD Oct 02, 2016 21:09
[2016-10-03] MEDS: HYDROXYZINE HCL 25 MG TABLET PO SCH ×3 (06:15→19:27)
[2016-10-03 06:59] VITALS: BP 143/82
[2016-10-03] MEDS: ASPIRIN 325 MG TABLET PO SCH (08:46)
[2016-10-03] MEDS: AMOXICILLIN/K CLAV 875/125MG TABLET. PO SCH ×2 (08:46→19:26)
[2016-10-03] MEDS: FERROUS SULFATE 325 MG TABLET PO SCH (08:46)
[2016-10-03] MEDS: METOPROLOL TART IMMED RELEASE 25 MG TABLET PO SCH ×2 (08:47→19:27)
[2016-10-03] MEDS: MULTIVITAMIN with MINERAL TABLET. PO SCH (08:47)
[2016-10-03] MEDS: NEOMY/BACITR/POLYMYXIN OINT PACKET. TP SCH (08:47)
[2016-10-03] MEDS: GABAPENTIN 100 MG CAPSULE. PO SCH ×3 (08:47→19:27)
[2016-10-03 16:16] VITALS: BP 145/75
--- NOTE | 2016-10-03 18:12 | PN ---
DATE: 10/02/2016 PSYCHIATRIC PROGRESS NOTE This is late entry of 10/02/2016, covers elements not covered in my initial note. SUBJECTIVE: Overall, the patient remains somewhat withdrawn, has not been aggressive, remains hard of hearing, refuses to keep the dressing on the back of his neck, picks at wound, pulled that dressing, anxious, restless. REVIEW OF SYSTEMS: No CV, , pulmonary, eye, ENT system symptoms on review. Reliability poor. I met with him in his room. MENTAL STATUS EXAMINATION: Oriented to himself and situation, somewhat hard of hearing. Speech is coherent, abstraction fair, computation impaired, language function intact, attention span short, mood and affect somewhat labile. LABORATORY DATA: Reviewed. IMPRESSION: Major neurocognitive disorder, Alzheimer, vascular with depression, delusions; anxiety disorder, unspecified; impulse control disorder, unspecified; obsessive-compulsive disorder. PLAN: Maintain Remeron 7.5 at bedtime, Luvox 75 mg a day, increase Seroquel to 50 mg at bedtime and continue hydroxyzine p.r.n. Adjust as clinically indicated. MAN Cristóbal GEORGE MD DR: FERMÍN/tiny JOB#: [id number] / [id number]
[2016-10-03] MEDS: ATORVASTATIN CALCIUM 20 MG TABLET PO SCH (19:26)
[2016-10-03] MEDS: FLUVOXAMINE MALEATE 25 MG TABLET PO SCH (19:27)
[2016-10-03] MEDS: MIRTAZAPINE 7.5 MG TABLET. PO SCH (19:27)
[2016-10-03] MEDS: QUEtiapine 50 MG TABLET. PO SCH (20:11)
--- NOTE | 2016-10-03 23:48 | PDOC ---
Exam Mendez Demential Exam: Mendez Note: Please also refer to the separate dictated note~for this date of service dictated separately.~Patient seen individually. Discussed the patient with Nursing staff reviewed the chart.~Reviewed interim history and current functioning. Reviewed vital signs,~Labs/ Radiology~and current medications noted below. Continue current treatment with the changes noted in the dictated addendum note Assessment: Vital Signs: Vital Signs Date Time Temp Pulse Resp B/P Pulse Ox O2 Delivery O2 Flow Rate FiO2 10/03/16 19:27 99 145/75 10/03/16 16:16 98.2 22 96 10/01/16 06:32 Room Air I&O Intake and Output 10/03/16 07:00 Intake Total 840 ml Balance 840 ml Intake Oral 840 ml Current Medications: Meds: Current Medications Acetaminophen (Tylenol) 650 mg PRN Q4HRS PRN PO PAIN / TEMP; Start 09/27/16 at 22:45 Gabapentin (Neurontin) 100 mg TID PO Last administered on 10/03/16 19:27; Start 09/28/16 at 09:00 Metoprolol Tartrate (Lopressor) 37.5 mg BID PO Last administered on 10/03/16 19:27; Start 09/28/16 at 09:00 Mirtazapine (Remeron) 7.5 mg QHS PO Last administered on 10/03/16 19:27; Start 09/28/16 at 21:00 Atorvastatin Calcium (Lipitor) 40 mg QHS PO Last administered on 10/03/16 19: 26; Start 09/28/16 at 21:00 Fluvoxamine Maleate (Luvox) 50 mg HS PO Last administered on 09/29/16 19:35; Start 09/28/16 at 21:00; Stop 09/30/16 at 15:32; Status DC Hydroxyzine HCl (Atarax) 50 mg Q8HRS PO Last administered on 10/03/16 19:27; Start 09/28/16 at 06:00 Aspirin (Kayli Aspirin) 325 mg DAILY PO Last administered on 10/03/16 08:46; Start 09/28/16 at 09:00 Ferrous Sulfate (Feosol) 325 mg DAILY PO Last administered on 10/03/16 08:46; Start 09/28/16 at 09:00 Al Hydroxide/Mg Hydroxide (Mylanta Plus Xs) 30 ml PRN Q6HRS PRN PO Upset Stomach; Start 09/27/16 at 22:45 Metformin HCl (Glucophage) 500 mg BIDWMEALS PO Last administered on 10/02/16 17:10; Start 09/28/16 at 08:00; Stop 10/02/16 at 17:57; Status DC Multivitamins/ Calcium (Thera-M Plus) 1 tab DAILY PO Last administered on 08:47; Start 09/28/16 at 09:00 Neomycin/ Polymyxin/ Bacitracin (Triple Antibiotic Ointment) 1 pkt DAILY TP Last administered on 10/03/16 08:47; Start 09/29/16 at 09:00 Fluvoxamine Maleate (Luvox) 75 mg HS PO Last administered on 10/03/16 19:27; Start 09/30/16 at 21:00 Quetiapine Fumarate (SEROquel) 25 mg HS PO Last administered on 10/01/16 19:40 ; Start 09/30/16 at 21:00; Stop 10/02/16 at 11:10; Status DC Amoxicillin/ Clavulanate Potassium (Augmentin 875/ 125mg) 1 tab BID PO Last administered on 10/03/16 19:26; Start 10/01/16 at 10:30; Stop 10/11/16 at 10:29 Quetiapine Fumarate (SEROquel) 37.5 mg HS PO Last administered on 10/02/16 19: 51; Start 10/02/16 at 21:00; Stop 10/03/16 at 13:44; Status DC Quetiapine Fumarate (SEROquel) 50 mg HS PO Last administered on 10/03/16 20:11 ; Start 10/03/16 at 21:00 Active Scripts Active Reported Maalox Maximum Strength Susp (Mag Hydrox/Al Hydrox/Simeth) 355 Ml Oral.susp 30 Ml PO PRN Q6HRS PRN LAST DOSE GIVEN: DATE: TIME: NEXT DOSE DUE: DATE: TIME: Tylenol (Acetaminophen) 325 Mg Tablet 650 Mg PO PRN Q4HRS PRN LAST DOSE GIVEN: DATE: TIME: NEXT DOSE DUE: DATE: TIME: Hydroxyzine Pamoate 50 Mg Capsule 50 Mg PO Q8HRS LAST DOSE GIVEN: DATE: TIME: NEXT DOSE DUE: DATE: TIME: Metformin Hcl 500 Mg Tablet 500 Mg PO BIDWMEALS LAST DOSE GIVEN: DATE: TIME: NEXT DOSE DUE: DATE: TIME: Gabapentin 100 Mg Capsule 100 Mg PO TID LAST DOSE GIVEN: DATE: TIME: NEXT DOSE DUE: DATE: TIME: Fluvoxamine Maleate 50 Mg Tablet 50 Mg PO HS LAST DOSE GIVEN: DATE: TIME: NEXT DOSE DUE: DATE: TIME: Ferrous Sulfate 325 Mg Tablet 325 Mg PO DAILY LAST DOSE GIVEN: DATE: TIME: NEXT DOSE DUE: DATE: TIME: Atorvastatin Calcium 40 Mg Tablet 40 Mg PO QHS LAST DOSE GIVEN: DATE: TIME: NEXT DOSE DUE: DATE: TIME: Aspirin 325 Mg Tablet 325 Mg PO DAILY LAST DOSE GIVEN: DATE: TIME: NEXT DOSE DUE: DATE: TIME: Multi-Day Vitamins (Multivitamin) 1 Each Tablet 1 Tab PO DAILY LAST DOSE GIVEN: DATE: TIME: NEXT DOSE DUE: DATE: TIME: Mirtazapine 15 Mg Tablet 7.5 Mg PO HS LAST DOSE GIVEN: DATE: TIME: NEXT DOSE DUE: DATE: TIME: Metoprolol Tartrate 25 Mg Tablet 37.5 Mg PO BID LAST DOSE GIVEN: DATE: TIME: NEXT DOSE DUE: DATE: TIME: Diagnosis: Problems: (1) Anxiety disorder (2) Dementia in Alzheimer's disease with delusions (3) Dementia in Alzheimer's disease with depression (4) Impulse control disorder (5) Agitation AZEEM GEORGE MD Oct 03, 2016 23:48
[2016-10-04] MEDS: HYDROXYZINE HCL 25 MG TABLET PO SCH ×3 (05:35→21:14)
[2016-10-04 06:21] VITALS: BP 121/74
[2016-10-04] MEDS: GABAPENTIN 100 MG CAPSULE. PO SCH ×3 (10:12→21:14)
[2016-10-04] MEDS: AMOXICILLIN/K CLAV 875/125MG TABLET. PO SCH ×2 (10:12→21:13)
[2016-10-04] MEDS: MULTIVITAMIN with MINERAL TABLET. PO SCH (10:13)
[2016-10-04] MEDS: FERROUS SULFATE 325 MG TABLET PO SCH (10:13)
[2016-10-04] MEDS: ASPIRIN 325 MG TABLET PO SCH (10:13)
[2016-10-04] MEDS: METOPROLOL TART IMMED RELEASE 25 MG TABLET PO SCH ×2 (10:13→21:14)
[2016-10-04] MEDS: NEOMY/BACITR/POLYMYXIN OINT PACKET. TP SCH (10:14)
[2016-10-04 16:23] VITALS: BP 131/71
[2016-10-04] MEDS: FLUVOXAMINE MALEATE 25 MG TABLET PO SCH (21:13)
[2016-10-04] MEDS: ATORVASTATIN CALCIUM 20 MG TABLET PO SCH (21:13)
[2016-10-04] MEDS: QUEtiapine 50 MG TABLET. PO SCH (21:14)
[2016-10-04] MEDS: MIRTAZAPINE 15 MG TABLET PO SCH (21:15)
--- NOTE | 2016-10-04 21:46 | PDOC ---
Exam Mendez Demential Exam: Mendez Note: Please also refer to the separate dictated note~for this date of service dictated separately.~Patient seen individually. Discussed the patient with Nursing staff reviewed the chart.~Reviewed interim history and current functioning. Reviewed vital signs,~Labs/ Radiology~and current medications noted below. Continue current treatment with the changes noted in the dictated addendum note Assessment: Vital Signs: Vital Signs Date Time Temp Pulse Resp B/P Pulse Ox O2 Delivery O2 Flow Rate FiO2 10/04/16 21:14 80 131/71 10/04/16 16:23 98.4 16 97 10/01/16 06:32 Room Air I&O Intake and Output 10/04/16 07:00 Intake Total 840 ml Balance 840 ml Intake Oral 840 ml Current Medications: Meds: Current Medications Acetaminophen (Tylenol) 650 mg PRN Q4HRS PRN PO PAIN / TEMP; Start 09/27/16 at 22:45 Gabapentin (Neurontin) 100 mg TID PO Last administered on 10/04/16 21:14; Start 09/28/16 at 09:00 Metoprolol Tartrate (Lopressor) 37.5 mg BID PO Last administered on 10/04/16 21:14; Start 09/28/16 at 09:00 Mirtazapine (Remeron) 7.5 mg QHS PO Last administered on 10/03/16 19:27; Start 09/28/16 at 21:00; Stop 10/04/16 at 19:10; Status DC Atorvastatin Calcium (Lipitor) 40 mg QHS PO Last administered on 10/04/16 21: 13; Start 09/28/16 at 21:00 Fluvoxamine Maleate (Luvox) 50 mg HS PO Last administered on 09/29/16 19:35; Start 09/28/16 at 21:00; Stop 09/30/16 at 15:32; Status DC Hydroxyzine HCl (Atarax) 50 mg Q8HRS PO Last administered on 10/04/16 21:14; Start 09/28/16 at 06:00 Aspirin (Kayli Aspirin) 325 mg DAILY PO Last administered on 10/04/16 10:13; Start 09/28/16 at 09:00 Ferrous Sulfate (Feosol) 325 mg DAILY PO Last administered on 10/04/16 10:13; Start 09/28/16 at 09:00 Al Hydroxide/Mg Hydroxide (Mylanta Plus Xs) 30 ml PRN Q6HRS PRN PO Upset Stomach; Start 09/27/16 at 22:45 Metformin HCl (Glucophage) 500 mg BIDWMEALS PO Last administered on 10/02/16 17:10; Start 09/28/16 at 08:00; Stop 10/02/16 at 17:57; Status DC Multivitamins/ Calcium (Thera-M Plus) 1 tab DAILY PO Last administered on 10:13; Start 09/28/16 at 09:00 Neomycin/ Polymyxin/ Bacitracin (Triple Antibiotic Ointment) 1 pkt DAILY TP Last administered on 10/04/16 10:14; Start 09/29/16 at 09:00 Fluvoxamine Maleate (Luvox) 75 mg HS PO Last administered on 10/04/16 21:13; Start 09/30/16 at 21:00 Quetiapine Fumarate (SEROquel) 25 mg HS PO Last administered on 10/01/16 19:40 ; Start 09/30/16 at 21:00; Stop 10/02/16 at 11:10; Status DC Amoxicillin/ Clavulanate Potassium (Augmentin 875/ 125mg) 1 tab BID PO Last administered on 10/04/16 21:13; Start 10/01/16 at 10:30; Stop 10/11/16 at 10:29 Quetiapine Fumarate (SEROquel) 37.5 mg HS PO Last administered on 10/02/16 19: 51; Start 10/02/16 at 21:00; Stop 10/03/16 at 13:44; Status DC Quetiapine Fumarate (SEROquel) 50 mg HS PO Last administered on 10/04/16 21:14 ; Start 10/03/16 at 21:00 Mirtazapine (Remeron) 15 mg QHS PO Last administered on 10/04/16 21:15; Start 10/04/16 at 21:00 Active Scripts Active Reported Maalox Maximum Strength Susp (Mag Hydrox/Al Hydrox/Simeth) 355 Ml Oral.susp 30 Ml PO PRN Q6HRS PRN LAST DOSE GIVEN: DATE: TIME: NEXT DOSE DUE: DATE: TIME: Tylenol (Acetaminophen) 325 Mg Tablet 650 Mg PO PRN Q4HRS PRN LAST DOSE GIVEN: DATE: TIME: NEXT DOSE DUE: DATE: TIME: Hydroxyzine Pamoate 50 Mg Capsule 50 Mg PO Q8HRS LAST DOSE GIVEN: DATE: TIME: NEXT DOSE DUE: DATE: TIME: Metformin Hcl 500 Mg Tablet 500 Mg PO BIDWMEALS LAST DOSE GIVEN: DATE: TIME: NEXT DOSE DUE: DATE: TIME: Gabapentin 100 Mg Capsule 100 Mg PO TID LAST DOSE GIVEN: DATE: TIME: NEXT DOSE DUE: DATE: TIME: Fluvoxamine Maleate 50 Mg Tablet 50 Mg PO HS LAST DOSE GIVEN: DATE: TIME: NEXT DOSE DUE: DATE: TIME: Ferrous Sulfate 325 Mg Tablet 325 Mg PO DAILY LAST DOSE GIVEN: DATE: TIME: NEXT DOSE DUE: DATE: TIME: Atorvastatin Calcium 40 Mg Tablet 40 Mg PO QHS LAST DOSE GIVEN: DATE: TIME: NEXT DOSE DUE: DATE: TIME: Aspirin 325 Mg Tablet 325 Mg PO DAILY LAST DOSE GIVEN: DATE: TIME: NEXT DOSE DUE: DATE: TIME: Multi-Day Vitamins (Multivitamin) 1 Each Tablet 1 Tab PO DAILY LAST DOSE GIVEN: DATE: TIME: NEXT DOSE DUE: DATE: TIME: Mirtazapine 15 Mg Tablet 7.5 Mg PO HS LAST DOSE GIVEN: DATE: TIME: NEXT DOSE DUE: DATE: TIME: Metoprolol Tartrate 25 Mg Tablet 37.5 Mg PO BID LAST DOSE GIVEN: DATE: TIME: NEXT DOSE DUE: DATE: TIME: Diagnosis: Problems: (1) Agitation (2) Anxiety disorder (3) Dementia in Alzheimer's disease with delusions (4) Dementia in Alzheimer's disease with depression (5) Impulse control disorder AZEEM GEORGE MD Oct 04, 2016 21:46
--- NOTE | 2016-10-05 03:57 | PN ---
DATE: 10/03/2016 This is a late entry for 10/03/2016, covers the elements not covered in my initial note. SUBJECTIVE: The patient did reasonably well the previous night, somewhat withdrawn to his room, quite hard of hearing. No CV, , Pulmonary, eye system symptoms on review. Hard of hearing. Reliability poor. MENTAL STATUS EXAM: Oriented to himself and situation. Speech moderate latency, often responses monosyllabic. Abstraction fair, computation impaired, language function intact. Mood and affect somewhat withdrawn. LABORATORY DATA: Reviewed. IMPRESSION: Major neurocognitive disorder, Alzheimer, vascular with depression, delusions and behavioral disturbance. Rest diagnosis unchanged. PLAN: Maintain Remeron 7.5 at bedtime, Luvox 75 at bedtime for his marked OCD symptoms, Seroquel 50 at bedtime, hydroxyzine p.r.n. May need to increase Luvox further in due course. AZEEM GEORGE MD DR: FERMÍN/tiny JOB#: [id number] / [id number]
[2016-10-05] MEDS: HYDROXYZINE HCL 25 MG TABLET PO SCH ×3 (06:00→19:42)
[2016-10-05] MEDS: METOPROLOL TART IMMED RELEASE 25 MG TABLET PO SCH ×2 (09:00→19:42)
[2016-10-05] MEDS: NEOMY/BACITR/POLYMYXIN OINT PACKET. TP SCH (09:33)
[2016-10-05] MEDS: AMOXICILLIN/K CLAV 875/125MG TABLET. PO SCH ×2 (09:33→19:37)
[2016-10-05] MEDS: GABAPENTIN 100 MG CAPSULE. PO SCH ×3 (09:33→19:41)
[2016-10-05] MEDS: ASPIRIN 325 MG TABLET PO SCH (09:33)
[2016-10-05] MEDS: MULTIVITAMIN with MINERAL TABLET. PO SCH (09:33)
[2016-10-05] MEDS: FERROUS SULFATE 325 MG TABLET PO SCH (09:33)
[2016-10-05 15:57] VITALS: BP 136/63
[2016-10-05] MEDS: FLUVOXAMINE MALEATE 25 MG TABLET PO SCH (19:37)
[2016-10-05] MEDS: MIRTAZAPINE 15 MG TABLET PO SCH (19:41)
[2016-10-05] MEDS: QUEtiapine 50 MG TABLET. PO SCH (19:41)
[2016-10-05] MEDS: ATORVASTATIN CALCIUM 20 MG TABLET PO SCH (19:42)
--- NOTE | 2016-10-05 21:13 | PDOC ---
Exam Mendez Demential Exam: Mendez Note: Please also refer to the separate dictated note~for this date of service dictated separately.~Patient seen individually. Discussed the patient with Nursing staff reviewed the chart.~Reviewed interim history and current functioning. Reviewed vital signs,~Labs/ Radiology~and current medications noted below. Continue current treatment with the changes noted in the dictated addendum note Assessment: Vital Signs: Vital Signs Date Time Temp Pulse Resp B/P Pulse Ox O2 Delivery O2 Flow Rate FiO2 10/05/16 19:42 75 136/63 10/05/16 15:57 97.8 20 97 10/01/16 06:32 Room Air I&O Intake and Output 10/05/16 07:00 Intake Total 840 ml Balance 840 ml Intake Oral 840 ml Current Medications: Meds: Current Medications Acetaminophen (Tylenol) 650 mg PRN Q4HRS PRN PO PAIN / TEMP; Start 09/27/16 at 22:45 Gabapentin (Neurontin) 100 mg TID PO Last administered on 10/05/16 19:41; Start 09/28/16 at 09:00 Metoprolol Tartrate (Lopressor) 37.5 mg BID PO Last administered on 10/05/16 19:42; Start 09/28/16 at 09:00 Mirtazapine (Remeron) 7.5 mg QHS PO Last administered on 10/03/16 19:27; Start 09/28/16 at 21:00; Stop 10/04/16 at 19:10; Status DC Atorvastatin Calcium (Lipitor) 40 mg QHS PO Last administered on 10/05/16 19: 42; Start 09/28/16 at 21:00 Fluvoxamine Maleate (Luvox) 50 mg HS PO Last administered on 09/29/16 19:35; Start 09/28/16 at 21:00; Stop 09/30/16 at 15:32; Status DC Hydroxyzine HCl (Atarax) 50 mg Q8HRS PO Last administered on 10/05/16 19:42; Start 09/28/16 at 06:00 Aspirin (Kayli Aspirin) 325 mg DAILY PO Last administered on 10/05/16 09:33; Start 09/28/16 at 09:00 Ferrous Sulfate (Feosol) 325 mg DAILY PO Last administered on 10/05/16 09:33; Start 09/28/16 at 09:00 Al Hydroxide/Mg Hydroxide (Mylanta Plus Xs) 30 ml PRN Q6HRS PRN PO Upset Stomach; Start 09/27/16 at 22:45 Metformin HCl (Glucophage) 500 mg BIDWMEALS PO Last administered on 10/02/16 17:10; Start 09/28/16 at 08:00; Stop 10/02/16 at 17:57; Status DC Multivitamins/ Calcium (Thera-M Plus) 1 tab DAILY PO Last administered on 09:33; Start 09/28/16 at 09:00 Neomycin/ Polymyxin/ Bacitracin (Triple Antibiotic Ointment) 1 pkt DAILY TP Last administered on 10/05/16 09:33; Start 09/29/16 at 09:00 Fluvoxamine Maleate (Luvox) 75 mg HS PO Last administered on 10/05/16 19:37; Start 09/30/16 at 21:00 Quetiapine Fumarate (SEROquel) 25 mg HS PO Last administered on 10/01/16 19:40 ; Start 09/30/16 at 21:00; Stop 10/02/16 at 11:10; Status DC Amoxicillin/ Clavulanate Potassium (Augmentin 875/ 125mg) 1 tab BID PO Last administered on 10/05/16 19:37; Start 10/01/16 at 10:30; Stop 10/11/16 at 10:29 Quetiapine Fumarate (SEROquel) 37.5 mg HS PO Last administered on 10/02/16 19: 51; Start 10/02/16 at 21:00; Stop 10/03/16 at 13:44; Status DC Quetiapine Fumarate (SEROquel) 50 mg HS PO Last administered on 10/05/16 19:41 ; Start 10/03/16 at 21:00 Mirtazapine (Remeron) 15 mg QHS PO Last administered on 10/05/16 19:41; Start 10/04/16 at 21:00 Buspirone HCl (Buspar) 5 mg DAILY PO ; Start 10/06/16 at 09:00 Active Scripts Active Reported Maalox Maximum Strength Susp (Mag Hydrox/Al Hydrox/Simeth) 355 Ml Oral.susp 30 Ml PO PRN Q6HRS PRN LAST DOSE GIVEN: DATE: TIME: NEXT DOSE DUE: DATE: TIME: Tylenol (Acetaminophen) 325 Mg Tablet 650 Mg PO PRN Q4HRS PRN LAST DOSE GIVEN: DATE: TIME: NEXT DOSE DUE: DATE: TIME: Hydroxyzine Pamoate 50 Mg Capsule 50 Mg PO Q8HRS LAST DOSE GIVEN: DATE: TIME: NEXT DOSE DUE: DATE: TIME: Metformin Hcl 500 Mg Tablet 500 Mg PO BIDWMEALS LAST DOSE GIVEN: DATE: TIME: NEXT DOSE DUE: DATE: TIME: Gabapentin 100 Mg Capsule 100 Mg PO TID LAST DOSE GIVEN: DATE: TIME: NEXT DOSE DUE: DATE: TIME: Fluvoxamine Maleate 50 Mg Tablet 50 Mg PO HS LAST DOSE GIVEN: DATE: TIME: NEXT DOSE DUE: DATE: TIME: Ferrous Sulfate 325 Mg Tablet 325 Mg PO DAILY LAST DOSE GIVEN: DATE: TIME: NEXT DOSE DUE: DATE: TIME: Atorvastatin Calcium 40 Mg Tablet 40 Mg PO QHS LAST DOSE GIVEN: DATE: TIME: NEXT DOSE DUE: DATE: TIME: Aspirin 325 Mg Tablet 325 Mg PO DAILY LAST DOSE GIVEN: DATE: TIME: NEXT DOSE DUE: DATE: TIME: Multi-Day Vitamins (Multivitamin) 1 Each Tablet 1 Tab PO DAILY LAST DOSE GIVEN: DATE: TIME: NEXT DOSE DUE: DATE: TIME: Mirtazapine 15 Mg Tablet 7.5 Mg PO HS LAST DOSE GIVEN: DATE: TIME: NEXT DOSE DUE: DATE: TIME: Metoprolol Tartrate 25 Mg Tablet 37.5 Mg PO BID LAST DOSE GIVEN: DATE: TIME: NEXT DOSE DUE: DATE: TIME: Diagnosis: Problems: (1) Agitation (2) Anxiety disorder (3) Dementia in Alzheimer's disease with delusions (4) Dementia in Alzheimer's disease with depression (5) Impulse control disorder AZEEM GEORGE MD Oct 05, 2016 21:13
[2016-10-06] MEDS: HYDROXYZINE HCL 25 MG TABLET PO SCH ×3 (06:25→20:45)
[2016-10-06 06:51] VITALS: BP 173/138
[2016-10-06 08:12] VITALS: BP 155/88
[2016-10-06] MEDS: NEOMY/BACITR/POLYMYXIN OINT PACKET. TP SCH (09:00)
--- NOTE | 2016-10-06 09:58 | PN ---
DATE: 10/04/2016 This is a late entry for 10/04/2016, covers elements not covered in my initial note. SUBJECTIVE: The patient remains isolated, spends much time in his room, somewhat obsessively scratching compulsively the wound on his neck. REVIEW OF SYSTEMS: Hard of hearing, I had to talk loudly into his ear, slept just 5 hours. No CV, , pulmonary, eye system symptoms on review. Reliability poor. MENTAL STATUS EXAM: Oriented to himself and at times to situation. Speech has some latency, often responses monosyllabic. Abstraction fair, computation impaired, language function intact, attention span short. Mood and affect still somewhat anxious, labile and withdrawn, but better than before. LABORATORY DATA: Reviewed. IMPRESSION: Major neurocognitive disorder, Alzheimer, vascular with depression, history of delusions, obsessive compulsive disorder; anxiety disorder, unspecified. PLAN: Increase Remeron to 15 mg at bedtime, maintain Luvox 75 mg at bedtime, Seroquel 50 at bedtime, hydroxyzine p.r.n. Adjust further as clinically indicated. MAN Cristóbal GEORGE MD DR: FERMÍN/tiny JOB#: [id number] / [id number]
[2016-10-06] MEDS: busPIRone 5 MG TABLET. PO SCH (10:07)
[2016-10-06] MEDS: METOPROLOL TART IMMED RELEASE 25 MG TABLET PO SCH ×2 (10:08→20:42)
[2016-10-06] MEDS: MULTIVITAMIN with MINERAL TABLET. PO SCH (10:08)
[2016-10-06] MEDS: AMOXICILLIN/K CLAV 875/125MG TABLET. PO SCH ×2 (10:08→20:42)
[2016-10-06] MEDS: GABAPENTIN 100 MG CAPSULE. PO SCH ×3 (10:08→20:42)
[2016-10-06] MEDS: FERROUS SULFATE 325 MG TABLET PO SCH (10:08)
[2016-10-06] MEDS: ASPIRIN 325 MG TABLET PO SCH (10:08)
[2016-10-06 15:52] VITALS: BP 128/65
[2016-10-06] MEDS: FLUVOXAMINE MALEATE 25 MG TABLET PO SCH (20:41)
[2016-10-06] MEDS: ATORVASTATIN CALCIUM 20 MG TABLET PO SCH (20:42)
[2016-10-06] MEDS: QUEtiapine 50 MG TABLET. PO SCH (20:42)
[2016-10-06] MEDS: MIRTAZAPINE 15 MG TABLET PO SCH (20:42)
--- NOTE | 2016-10-06 21:15 | PDOC ---
Exam Mendez Demential Exam: Mendez Note: Please also refer to the separate dictated note~for this date of service dictated separately.~Patient seen individually. Discussed the patient with Nursing staff reviewed the chart.~Reviewed interim history and current functioning. Reviewed vital signs,~Labs/ Radiology~and current medications noted below. Continue current treatment with the changes noted in the dictated addendum note Assessment: Vital Signs: Vital Signs Date Time Temp Pulse Resp B/P Pulse Ox O2 Delivery O2 Flow Rate FiO2 10/06/16 20:42 80 128/65 10/06/16 15:52 98.1 20 97 10/01/16 06:32 Room Air I&O Intake and Output 10/06/16 07:00 Intake Total 1440 ml Balance 1440 ml Intake Oral 1440 ml Current Medications: Meds: Current Medications Acetaminophen (Tylenol) 650 mg PRN Q4HRS PRN PO PAIN / TEMP; Start 09/27/16 at 22:45 Gabapentin (Neurontin) 100 mg TID PO Last administered on 10/06/16 20:42; Start 09/28/16 at 09:00 Metoprolol Tartrate (Lopressor) 37.5 mg BID PO Last administered on 10/06/16 20:42; Start 09/28/16 at 09:00 Mirtazapine (Remeron) 7.5 mg QHS PO Last administered on 10/03/16 19:27; Start 09/28/16 at 21:00; Stop 10/04/16 at 19:10; Status DC Atorvastatin Calcium (Lipitor) 40 mg QHS PO Last administered on 10/06/16 20: 42; Start 09/28/16 at 21:00 Fluvoxamine Maleate (Luvox) 50 mg HS PO Last administered on 09/29/16 19:35; Start 09/28/16 at 21:00; Stop 09/30/16 at 15:32; Status DC Hydroxyzine HCl (Atarax) 50 mg Q8HRS PO Last administered on 10/06/16 20:45; Start 09/28/16 at 06:00 Aspirin (Kayli Aspirin) 325 mg DAILY PO Last administered on 10/06/16 10:08; Start 09/28/16 at 09:00 Ferrous Sulfate (Feosol) 325 mg DAILY PO Last administered on 10/06/16 10:08; Start 09/28/16 at 09:00 Al Hydroxide/Mg Hydroxide (Mylanta Plus Xs) 30 ml PRN Q6HRS PRN PO Upset Stomach; Start 09/27/16 at 22:45 Metformin HCl (Glucophage) 500 mg BIDWMEALS PO Last administered on 10/02/16 17:10; Start 09/28/16 at 08:00; Stop 10/02/16 at 17:57; Status DC Multivitamins/ Calcium (Thera-M Plus) 1 tab DAILY PO Last administered on 10:08; Start 09/28/16 at 09:00 Neomycin/ Polymyxin/ Bacitracin (Triple Antibiotic Ointment) 1 pkt DAILY TP Last administered on 10/06/16 09:00; Start 09/29/16 at 09:00 Fluvoxamine Maleate (Luvox) 75 mg HS PO Last administered on 10/06/16 20:41; Start 09/30/16 at 21:00 Quetiapine Fumarate (SEROquel) 25 mg HS PO Last administered on 10/01/16 19:40 ; Start 09/30/16 at 21:00; Stop 10/02/16 at 11:10; Status DC Amoxicillin/ Clavulanate Potassium (Augmentin 875/ 125mg) 1 tab BID PO Last administered on 10/06/16 20:42; Start 10/01/16 at 10:30; Stop 10/11/16 at 10:29 Quetiapine Fumarate (SEROquel) 37.5 mg HS PO Last administered on 10/02/16 19: 51; Start 10/02/16 at 21:00; Stop 10/03/16 at 13:44; Status DC Quetiapine Fumarate (SEROquel) 50 mg HS PO Last administered on 10/06/16 20:42 ; Start 10/03/16 at 21:00 Mirtazapine (Remeron) 15 mg QHS PO Last administered on 10/06/16 20:42; Start 10/04/16 at 21:00 Buspirone HCl (Buspar) 5 mg DAILY PO Last administered on 10/06/16 10:07; Start 10/06/16 at 09:00 Active Scripts Active Reported Maalox Maximum Strength Susp (Mag Hydrox/Al Hydrox/Simeth) 355 Ml Oral.susp 30 Ml PO PRN Q6HRS PRN LAST DOSE GIVEN: DATE: TIME: NEXT DOSE DUE: DATE: TIME: Tylenol (Acetaminophen) 325 Mg Tablet 650 Mg PO PRN Q4HRS PRN LAST DOSE GIVEN: DATE: TIME: NEXT DOSE DUE: DATE: TIME: Hydroxyzine Pamoate 50 Mg Capsule 50 Mg PO Q8HRS LAST DOSE GIVEN: DATE: TIME: NEXT DOSE DUE: DATE: TIME: Metformin Hcl 500 Mg Tablet 500 Mg PO BIDWMEALS LAST DOSE GIVEN: DATE: TIME: NEXT DOSE DUE: DATE: TIME: Gabapentin 100 Mg Capsule 100 Mg PO TID LAST DOSE GIVEN: DATE: TIME: NEXT DOSE DUE: DATE: TIME: Fluvoxamine Maleate 50 Mg Tablet 50 Mg PO HS LAST DOSE GIVEN: DATE: TIME: NEXT DOSE DUE: DATE: TIME: Ferrous Sulfate 325 Mg Tablet 325 Mg PO DAILY LAST DOSE GIVEN: DATE: TIME: NEXT DOSE DUE: DATE: TIME: Atorvastatin Calcium 40 Mg Tablet 40 Mg PO QHS LAST DOSE GIVEN: DATE: TIME: NEXT DOSE DUE: DATE: TIME: Aspirin 325 Mg Tablet 325 Mg PO DAILY LAST DOSE GIVEN: DATE: TIME: NEXT DOSE DUE: DATE: TIME: Multi-Day Vitamins (Multivitamin) 1 Each Tablet 1 Tab PO DAILY LAST DOSE GIVEN: DATE: TIME: NEXT DOSE DUE: DATE: TIME: Mirtazapine 15 Mg Tablet 7.5 Mg PO HS LAST DOSE GIVEN: DATE: TIME: NEXT DOSE DUE: DATE: TIME: Metoprolol Tartrate 25 Mg Tablet 37.5 Mg PO BID LAST DOSE GIVEN: DATE: TIME: NEXT DOSE DUE: DATE: TIME: Diagnosis: Problems: (1) Agitation (2) Anxiety disorder (3) Dementia in Alzheimer's disease with delusions (4) Dementia in Alzheimer's disease with depression (5) Impulse control disorder AZEEM GEORGE MD Oct 06, 2016 21:15
[2016-10-07 05:57] VITALS: BP 152/75
[2016-10-07] MEDS: HYDROXYZINE HCL 25 MG TABLET PO SCH ×3 (06:12→19:20)
[2016-10-07] MEDS: AMOXICILLIN/K CLAV 875/125MG TABLET. PO SCH ×2 (08:33→19:19)
[2016-10-07] MEDS: FERROUS SULFATE 325 MG TABLET PO SCH (08:33)
[2016-10-07] MEDS: MULTIVITAMIN with MINERAL TABLET. PO SCH (08:34)
[2016-10-07] MEDS: GABAPENTIN 100 MG CAPSULE. PO SCH ×3 (08:34→19:19)
[2016-10-07] MEDS: METOPROLOL TART IMMED RELEASE 25 MG TABLET PO SCH ×2 (08:34→19:20)
[2016-10-07] MEDS: ASPIRIN 325 MG TABLET PO SCH (08:34)
[2016-10-07] MEDS: busPIRone 5 MG TABLET. PO SCH ×2 (08:34→19:21)
[2016-10-07] MEDS: NEOMY/BACITR/POLYMYXIN OINT PACKET. TP SCH (08:36)
[2016-10-07 15:47] VITALS: BP 139/84
[2016-10-07] MEDS: FLUVOXAMINE MALEATE 25 MG TABLET PO SCH (19:19)
[2016-10-07] MEDS: QUEtiapine 50 MG TABLET. PO SCH (19:19)
[2016-10-07] MEDS: MIRTAZAPINE 15 MG TABLET PO SCH (19:19)
[2016-10-07] MEDS: ATORVASTATIN CALCIUM 20 MG TABLET PO SCH (19:20)
--- NOTE | 2016-10-08 01:38 | PDOC ---
Exam Mendez Demential Exam: Mendez Note: Please also refer to the separate dictated note~for this date of service dictated separately.~Patient seen individually. Discussed the patient with Nursing staff reviewed the chart.~Reviewed interim history and current functioning. Reviewed vital signs,~Labs/ Radiology~and current medications noted below. Continue current treatment with the changes noted in the dictated addendum note Assessment: Vital Signs: Vital Signs Date Time Temp Pulse Resp B/P Pulse Ox O2 Delivery O2 Flow Rate FiO2 10/07/16 19:20 81 139/84 10/07/16 15:47 97.7 18 98 Room Air I&O Intake and Output 10/07/16 07:00 Intake Total 1040 ml Balance 1040 ml Intake Oral 1040 ml # Voids 2 Labs: Laboratory Tests Test 10/07/16 16:40 Glucose (Fingerstick) 167mg/dL (70-99) H Current Medications: Meds: Current Medications Acetaminophen (Tylenol) 650 mg PRN Q4HRS PRN PO PAIN / TEMP; Start 09/27/16 at 22:45 Gabapentin (Neurontin) 100 mg TID PO Last administered on 10/07/16 19:19; Start 09/28/16 at 09:00 Metoprolol Tartrate (Lopressor) 37.5 mg BID PO Last administered on 10/07/16 19:20; Start 09/28/16 at 09:00 Mirtazapine (Remeron) 7.5 mg QHS PO Last administered on 10/03/16 19:27; Start 09/28/16 at 21:00; Stop 10/04/16 at 19:10; Status DC Atorvastatin Calcium (Lipitor) 40 mg QHS PO Last administered on 10/07/16 19: 20; Start 09/28/16 at 21:00 Fluvoxamine Maleate (Luvox) 50 mg HS PO Last administered on 09/29/16 19:35; Start 09/28/16 at 21:00; Stop 09/30/16 at 15:32; Status DC Hydroxyzine HCl (Atarax) 50 mg Q8HRS PO Last administered on 10/07/16 19:20; Start 09/28/16 at 06:00 Aspirin (Kayli Aspirin) 325 mg DAILY PO Last administered on 10/07/16 08:34; Start 09/28/16 at 09:00 Ferrous Sulfate (Feosol) 325 mg DAILY PO Last administered on 10/07/16 08:33; Start 09/28/16 at 09:00 Al Hydroxide/Mg Hydroxide (Mylanta Plus Xs) 30 ml PRN Q6HRS PRN PO Upset Stomach; Start 09/27/16 at 22:45 Metformin HCl (Glucophage) 500 mg BIDWMEALS PO Last administered on 10/02/16 17:10; Start 09/28/16 at 08:00; Stop 10/02/16 at 17:57; Status DC Multivitamins/ Calcium (Thera-M Plus) 1 tab DAILY PO Last administered on 08:34; Start 09/28/16 at 09:00 Neomycin/ Polymyxin/ Bacitracin (Triple Antibiotic Ointment) 1 pkt DAILY TP Last administered on 10/07/16 08:36; Start 09/29/16 at 09:00 Fluvoxamine Maleate (Luvox) 75 mg HS PO Last administered on 10/07/16 19:19; Start 09/30/16 at 21:00 Quetiapine Fumarate (SEROquel) 25 mg HS PO Last administered on 10/01/16 19:40 ; Start 09/30/16 at 21:00; Stop 10/02/16 at 11:10; Status DC Amoxicillin/ Clavulanate Potassium (Augmentin 875/ 125mg) 1 tab BID PO Last administered on 10/07/16 19:19; Start 10/01/16 at 10:30; Stop 10/11/16 at 10:29 Quetiapine Fumarate (SEROquel) 37.5 mg HS PO Last administered on 10/02/16 19: 51; Start 10/02/16 at 21:00; Stop 10/03/16 at 13:44; Status DC Quetiapine Fumarate (SEROquel) 50 mg HS PO Last administered on 10/07/16 19:19 ; Start 10/03/16 at 21:00 Mirtazapine (Remeron) 15 mg QHS PO Last administered on 10/07/16 19:19; Start 10/04/16 at 21:00 Buspirone HCl (Buspar) 5 mg DAILY PO Last administered on 10/07/16 08:34; Start 10/06/16 at 09:00; Stop 10/07/16 at 16:51; Status DC Buspirone HCl (Buspar) 5 mg BID PO Last administered on 10/07/16 19:21; Start 10/07/16 at 21:00 Glimepiride (Amaryl) 1 mg DAILYWBKFT PO ; Start 10/08/16 at 08:00 Active Scripts Active Reported Maalox Maximum Strength Susp (Mag Hydrox/Al Hydrox/Simeth) 355 Ml Oral.susp 30 Ml PO PRN Q6HRS PRN LAST DOSE GIVEN: DATE: TIME: NEXT DOSE DUE: DATE: TIME: Tylenol (Acetaminophen) 325 Mg Tablet 650 Mg PO PRN Q4HRS PRN LAST DOSE GIVEN: DATE: TIME: NEXT DOSE DUE: DATE: TIME: Hydroxyzine Pamoate 50 Mg Capsule 50 Mg PO Q8HRS LAST DOSE GIVEN: DATE: TIME: NEXT DOSE DUE: DATE: TIME: Metformin Hcl 500 Mg Tablet 500 Mg PO BIDWMEALS LAST DOSE GIVEN: DATE: TIME: NEXT DOSE DUE: DATE: TIME: Gabapentin 100 Mg Capsule 100 Mg PO TID LAST DOSE GIVEN: DATE: TIME: NEXT DOSE DUE: DATE: TIME: Fluvoxamine Maleate 50 Mg Tablet 50 Mg PO HS LAST DOSE GIVEN: DATE: TIME: NEXT DOSE DUE: DATE: TIME: Ferrous Sulfate 325 Mg Tablet 325 Mg PO DAILY LAST DOSE GIVEN: DATE: TIME: NEXT DOSE DUE: DATE: TIME: Atorvastatin Calcium 40 Mg Tablet 40 Mg PO QHS LAST DOSE GIVEN: DATE: TIME: NEXT DOSE DUE: DATE: TIME: Aspirin 325 Mg Tablet 325 Mg PO DAILY LAST DOSE GIVEN: DATE: TIME: NEXT DOSE DUE: DATE: TIME: Multi-Day Vitamins (Multivitamin) 1 Each Tablet 1 Tab PO DAILY LAST DOSE GIVEN: DATE: TIME: NEXT DOSE DUE: DATE: TIME: Mirtazapine 15 Mg Tablet 7.5 Mg PO HS LAST DOSE GIVEN: DATE: TIME: NEXT DOSE DUE: DATE: TIME: Metoprolol Tartrate 25 Mg Tablet 37.5 Mg PO BID LAST DOSE GIVEN: DATE: TIME: NEXT DOSE DUE: DATE: TIME: Diagnosis: Problems: (1) Agitation (2) Anxiety disorder (3) Dementia in Alzheimer's disease with delusions (4) Dementia in Alzheimer's disease with depression (5) Impulse control disorder DORIS,MAN M MD Oct 07, 2016 21:06
[2016-10-08] MEDS: HYDROXYZINE HCL 25 MG TABLET PO SCH ×3 (04:51→20:11)
[2016-10-08 06:06] VITALS: BP 119/70
[2016-10-08] MEDS: AMOXICILLIN/K CLAV 875/125MG TABLET. PO SCH ×2 (09:27→20:11)
[2016-10-08] MEDS: GLIMEPIRIDE 1 MG TABLET PO SCH (09:27)
[2016-10-08] MEDS: ASPIRIN 325 MG TABLET PO SCH (09:27)
[2016-10-08] MEDS: busPIRone 5 MG TABLET. PO SCH ×2 (09:28→20:11)
[2016-10-08] MEDS: FERROUS SULFATE 325 MG TABLET PO SCH (09:28)
[2016-10-08] MEDS: MULTIVITAMIN with MINERAL TABLET. PO SCH (09:31)
[2016-10-08] MEDS: GABAPENTIN 100 MG CAPSULE. PO SCH ×3 (09:31→20:11)
[2016-10-08] MEDS: METOPROLOL TART IMMED RELEASE 25 MG TABLET PO SCH ×2 (09:31→20:13)
[2016-10-08] MEDS: NEOMY/BACITR/POLYMYXIN OINT PACKET. TP SCH (09:32)
[2016-10-08 09:41] LABS: BASO % 1 % (0-3); EOS # 0.6 x10^3/uL (0.0-0.7); EOS % 7 % (0-3); HEMATOCRIT 36.4 % (39.0-53.0); HEMOGLOBIN 11.9 g/dL (13.0-17.5); LYMPH # 1.6 x10^3/uL (1.0-4.8); LYMPH % 20 % (24-48); MEAN CORPUSCULAR HEMOGLOBIN 27 pg (25-35); MEAN CORPUSCULAR HGB CONC 33 g/dL (31-37); MEAN CORPUSCULAR VOLUME 83 fL (79-100); MONO # 0.6 x10^3/uL (0.0-1.1); MONO % 8 % (0-9); NEUT # 5.2 x10^3uL (1.8-7.7); NEUT % 65 % (31-73); PLATELET COUNT 407 x10^3/uL (140-400); RED BLOOD COUNT 4.38 x10^6/uL (4.30-5.70); RED CELL DISTRIBUTION WIDTH 14.9 % (11.5-14.5)
[2016-10-08 09:42] LABS: BASO # 0.1 x10^3/uL (0.0-0.2)
[2016-10-08 09:59] LABS: ALBUMIN 3.1 g/dL (3.4-5.0); ALBUMIN/GLOBULIN RATIO 0.8 (1.0-1.7); CALCIUM 8.6 mg/dL (8.5-10.1); CREATININE 1.6 mg/dL (0.7-1.3); POTASSIUM 4.4 mmol/L (3.5-5.1); TOTAL BILIRUBIN 0.4 mg/dL (0.2-1.0)
--- NOTE | 2016-10-08 12:00 | PN ---
DATE: 10/05/2016 PSYCHIATRIC PROGRESS NOTE This is a late entry of 10/05/2016 covers elements not covered in my initial note. SUBJECTIVE: Per nursing report, the patient has been withdrawn, spends much time in his room. Yelled at nursing staff that he was hungry even though he just had his meal, gets little anxious. REVIEW OF SYSTEMS: Hard of hearing. No CV, , Pulmonary, eye system symptoms on review. MENTAL STATUS EXAM: Oriented to himself, often verbal responses monosyllabic. Insight, judgment, recent and remote memory, attention, concentration, fund of knowledge poor, consistent with his diagnosis as mentioned in my initial note. PLAN: Start BuSpar 5 mg daily increase gradually. Maintain Remeron, Luvox, Seroquel along with hydroxyzine p.r.n. Adjust as indicated. MAN Cristóbal GEORGE MD DR: FERMÍN/tiny JOB#: [id number] / [id number]
--- NOTE | 2016-10-08 12:04 | PN ---
DATE: 10/06/2016 PSYCHIATRIC PROGRESS NOTE This is a late entry of 10/06/2016 covers elements not covered in my initial note. SUBJECTIVE: The patient was staffed at treatment team meeting the morning of 10/06/2016 seen individually at some length. The patient is sleeping about 7 hours. Appetite 90% somewhat withdrawn, isolated, not aggressive. He is anxious obsessively picking on his wounds gets agitated, very easily. REVIEW OF SYSTEMS: Hard of hearing. No CV, , Pulmonary, eye system symptoms on review. MENTAL STATUS EXAM: Oriented to himself. Insight, judgment, recent and remote memory, attention, concentration, fund of knowledge poor, consistent with his diagnosis mentioned in my initial note. PLAN: Continue current psychotropics. We will increase the BuSpar to 5 mg twice a day. Make further adjustments as clinically indicated. MAN Cristóabl GEORGE MD DR: FERMÍN/tiny JOB#: [id number] / [id number]
[2016-10-08 16:36] VITALS: BP 126/59
[2016-10-08] MEDS: FLUVOXAMINE MALEATE 25 MG TABLET PO SCH (20:10)
[2016-10-08] MEDS: QUEtiapine 50 MG TABLET. PO SCH (20:11)
[2016-10-08] MEDS: MIRTAZAPINE 15 MG TABLET PO SCH (20:11)
[2016-10-08] MEDS: ATORVASTATIN CALCIUM 20 MG TABLET PO SCH (20:11)
--- NOTE | 2016-10-08 22:33 | PDOC ---
Exam Mendez Demential Exam: Mendez Note: Please also refer to the separate dictated note~for this date of service dictated separately.~Patient seen individually. Discussed the patient with Nursing staff reviewed the chart.~Reviewed interim history and current functioning. Reviewed vital signs,~Labs/ Radiology~and current medications noted below. Continue current treatment with the changes noted in the dictated addendum note Assessment: Vital Signs: Vital Signs Date Time Temp Pulse Resp B/P Pulse Ox O2 Delivery O2 Flow Rate FiO2 10/08/16 20:13 68 126/59 10/08/16 16:36 97.9 18 97 10/08/16 06:06 99.0 10/07/16 15:47 Room Air I&O Intake and Output 10/08/16 07:00 Intake Total 1260 ml Balance 1260 ml Intake Oral 1260 ml # Voids 1 Labs: Laboratory Tests Test 10/08/16 09:25 White Blood Count 8.0x10^3/uL (4.0-11.0) Red Blood Count 4.38x10^6/uL (4.30-5.70) Hemoglobin 11.9g/dL (13.0-17.5) L Hematocrit 36.4% (39.0-53.0) L Mean Corpuscular Volume 83fL (79-100) Mean Corpuscular Hemoglobin 27pg (25-35) Mean Corpuscular Hemoglobin Concent 33g/dL (31-37) Red Cell Distribution Width 14.9% (11.5-14.5) H Platelet Count 407x10^3/uL (140-400) H Neutrophils (%) (Auto) 65% (31-73) Lymphocytes (%) (Auto) 20% (24-48) L Monocytes (%) (Auto) 8% (0-9) Eosinophils (%) (Auto) 7% (0-3) H Basophils (%) (Auto) 1% (0-3) Neutrophils # (Auto) 5.2x10^3uL (1.8-7.7) Lymphocytes # (Auto) 1.6x10^3/uL (1.0-4.8) Monocytes # (Auto) 0.6x10^3/uL (0.0-1.1) Eosinophils # (Auto) 0.6x10^3/uL (0.0-0.7) Basophils # (Auto) 0.1x10^3/uL (0.0-0.2) Sodium Level 140mmol/L (136-145) Potassium Level 4.4mmol/L (3.5-5.1) Chloride Level 103mmol/L (98-107) Carbon Dioxide Level 31mmol/L (21-32) Anion Gap 6 (6-14) Blood Urea Nitrogen 21mg/dL (8-26) Creatinine 1.6mg/dL (0.7-1.3) H Estimated GFR (Cockcroft-Gault) 42.0 BUN/Creatinine Ratio 13 (6-20) Glucose Level 233mg/dL (70-99) H Calcium Level 8.6mg/dL (8.5-10.1) Total Bilirubin 0.4mg/dL (0.2-1.0) Aspartate Amino Transferase (AST) 14U/L (15-37) L Alanine Aminotransferase (ALT) 22U/L (16-63) Alkaline Phosphatase 117U/L (46-116) H Total Protein 7.0g/dL (6.4-8.2) Albumin 3.1g/dL (3.4-5.0) L Albumin/Globulin Ratio 0.8 (1.0-1.7) L Current Medications: Meds: Current Medications Acetaminophen (Tylenol) 650 mg PRN Q4HRS PRN PO PAIN / TEMP; Start 09/27/16 at 22:45 Gabapentin (Neurontin) 100 mg TID PO Last administered on 10/08/16 20:11; Start 09/28/16 at 09:00 Metoprolol Tartrate (Lopressor) 37.5 mg BID PO Last administered on 10/08/16 20:13; Start 09/28/16 at 09:00 Mirtazapine (Remeron) 7.5 mg QHS PO Last administered on 10/03/16 19:27; Start 09/28/16 at 21:00; Stop 10/04/16 at 19:10; Status DC Atorvastatin Calcium (Lipitor) 40 mg QHS PO Last administered on 10/08/16 20: 11; Start 09/28/16 at 21:00 Fluvoxamine Maleate (Luvox) 50 mg HS PO Last administered on 09/29/16 19:35; Start 09/28/16 at 21:00; Stop 09/30/16 at 15:32; Status DC Hydroxyzine HCl (Atarax) 50 mg Q8HRS PO Last administered on 10/08/16 20:11; Start 09/28/16 at 06:00 Aspirin (Kayli Aspirin) 325 mg DAILY PO Last administered on 10/08/16 09:27; Start 09/28/16 at 09:00 Ferrous Sulfate (Feosol) 325 mg DAILY PO Last administered on 10/08/16 09:28; Start 09/28/16 at 09:00 Al Hydroxide/Mg Hydroxide (Mylanta Plus Xs) 30 ml PRN Q6HRS PRN PO Upset Stomach; Start 09/27/16 at 22:45 Metformin HCl (Glucophage) 500 mg BIDWMEALS PO Last administered on 10/02/16 17:10; Start 09/28/16 at 08:00; Stop 10/02/16 at 17:57; Status DC Multivitamins/ Calcium (Thera-M Plus) 1 tab DAILY PO Last administered on 09:31; Start 09/28/16 at 09:00 Neomycin/ Polymyxin/ Bacitracin (Triple Antibiotic Ointment) 1 pkt DAILY TP Last administered on 10/08/16 09:32; Start 09/29/16 at 09:00 Fluvoxamine Maleate (Luvox) 75 mg HS PO Last administered on 10/08/16 20:10; Start 09/30/16 at 21:00 Quetiapine Fumarate (SEROquel) 25 mg HS PO Last administered on 10/01/16 19:40 ; Start 09/30/16 at 21:00; Stop 10/02/16 at 11:10; Status DC Amoxicillin/ Clavulanate Potassium (Augmentin 875/ 125mg) 1 tab BID PO Last administered on 10/08/16 20:11; Start 10/01/16 at 10:30; Stop 10/11/16 at 10:29 Quetiapine Fumarate (SEROquel) 37.5 mg HS PO Last administered on 10/02/16 19: 51; Start 10/02/16 at 21:00; Stop 10/03/16 at 13:44; Status DC Quetiapine Fumarate (SEROquel) 50 mg HS PO Last administered on 10/08/16 20:11 ; Start 10/03/16 at 21:00 Mirtazapine (Remeron) 15 mg QHS PO Last administered on 10/08/16 20:11; Start 10/04/16 at 21:00 Buspirone HCl (Buspar) 5 mg DAILY PO Last administered on 10/07/16 08:34; Start 10/06/16 at 09:00; Stop 10/07/16 at 16:51; Status DC Buspirone HCl (Buspar) 5 mg BID PO Last administered on 10/08/16 20:11; Start 10/07/16 at 21:00 Glimepiride (Amaryl) 1 mg DAILYWBKFT PO Last administered on 10/08/16 09:27; Start 10/08/16 at 08:00 Active Scripts Active Reported Maalox Maximum Strength Susp (Mag Hydrox/Al Hydrox/Simeth) 355 Ml Oral.susp 30 Ml PO PRN Q6HRS PRN LAST DOSE GIVEN: DATE: TIME: NEXT DOSE DUE: DATE: TIME: Tylenol (Acetaminophen) 325 Mg Tablet 650 Mg PO PRN Q4HRS PRN LAST DOSE GIVEN: DATE: TIME: NEXT DOSE DUE: DATE: TIME: Hydroxyzine Pamoate 50 Mg Capsule 50 Mg PO Q8HRS LAST DOSE GIVEN: DATE: TIME: NEXT DOSE DUE: DATE: TIME: Metformin Hcl 500 Mg Tablet 500 Mg PO BIDWMEALS LAST DOSE GIVEN: DATE: TIME: NEXT DOSE DUE: DATE: TIME: Gabapentin 100 Mg Capsule 100 Mg PO TID LAST DOSE GIVEN: DATE: TIME: NEXT DOSE DUE: DATE: TIME: Fluvoxamine Maleate 50 Mg Tablet 50 Mg PO HS LAST DOSE GIVEN: DATE: TIME: NEXT DOSE DUE: DATE: TIME: Ferrous Sulfate 325 Mg Tablet 325 Mg PO DAILY LAST DOSE GIVEN: DATE: TIME: NEXT DOSE DUE: DATE: TIME: Atorvastatin Calcium 40 Mg Tablet 40 Mg PO QHS LAST DOSE GIVEN: DATE: TIME: NEXT DOSE DUE: DATE: TIME: Aspirin 325 Mg Tablet 325 Mg PO DAILY LAST DOSE GIVEN: DATE: TIME: NEXT DOSE DUE: DATE: TIME: Multi-Day Vitamins (Multivitamin) 1 Each Tablet 1 Tab PO DAILY LAST DOSE GIVEN: DATE: TIME: NEXT DOSE DUE: DATE: TIME: Mirtazapine 15 Mg Tablet 7.5 Mg PO HS LAST DOSE GIVEN: DATE: TIME: NEXT DOSE DUE: DATE: TIME: Metoprolol Tartrate 25 Mg Tablet 37.5 Mg PO BID LAST DOSE GIVEN: DATE: TIME: NEXT DOSE DUE: DATE: TIME: Diagnosis: Problems: (1) Agitation (2) Anxiety disorder (3) Dementia in Alzheimer's disease with delusions (4) Dementia in Alzheimer's disease with depression (5) Impulse control disorder AZEEM GEORGE MD Oct 08, 2016 22:33
[2016-10-09] MEDS: HYDROXYZINE HCL 25 MG TABLET PO SCH ×3 (05:06→20:41)
[2016-10-09 06:12] VITALS: BP 151/95
[2016-10-09] MEDS: AMOXICILLIN/K CLAV 875/125MG TABLET. PO SCH ×2 (08:51→20:41)
[2016-10-09] MEDS: GLIMEPIRIDE 1 MG TABLET PO SCH (08:51)
[2016-10-09] MEDS: FERROUS SULFATE 325 MG TABLET PO SCH (08:52)
[2016-10-09] MEDS: busPIRone 5 MG TABLET. PO SCH ×2 (08:52→20:42)
[2016-10-09] MEDS: ASPIRIN 325 MG TABLET PO SCH (08:52)
[2016-10-09] MEDS: METOPROLOL TART IMMED RELEASE 25 MG TABLET PO SCH ×2 (08:52→20:42)
[2016-10-09] MEDS: NEOMY/BACITR/POLYMYXIN OINT PACKET. TP SCH (08:53)
[2016-10-09] MEDS: GABAPENTIN 100 MG CAPSULE. PO SCH ×3 (08:53→20:41)
[2016-10-09] MEDS: MULTIVITAMIN with MINERAL TABLET. PO SCH (08:53)
[2016-10-09 17:43] VITALS: BP 128/80
[2016-10-09] MEDS: ATORVASTATIN CALCIUM 20 MG TABLET PO SCH (20:33)
[2016-10-09] MEDS: FLUVOXAMINE MALEATE 25 MG TABLET PO SCH (20:33)
[2016-10-09] MEDS: QUEtiapine 50 MG TABLET. PO SCH (20:41)
[2016-10-09] MEDS: MIRTAZAPINE 15 MG TABLET PO SCH (20:41)
[2016-10-10] MEDS ORDERED: GLIM1TAB2 PO (02:37)
[2016-10-10] MEDS ORDERED: AMOX1TAB11 PO (02:40)
[2016-10-10] MEDS ORDERED: NEOM1PAC TP (02:46)
[2016-10-10] MEDS ORDERED: QUET50TA5 PO (02:50)
[2016-10-10] MEDS ORDERED: BUSP5TAB PO (02:53)
--- NOTE | 2016-10-10 04:31 | PN ---
DATE: 10/08/2016 PSYCHIATRIC PROGRESS NOTE This is a late entry for 10/08/2016, covers elements not covered in my initial note. SUBJECTIVE: The patient remains confused, withdrawn, spending much time in bed, not aggressive. REVIEW OF SYSTEMS: No CV, , pulmonary, eye system symptoms on review. Reliability poor. MENTAL STATUS EXAM: Often verbal responses monosyllabic, hard of hearing. Insight, judgment, recent and remote memory, attention, concentration, fund of knowledge poor, consistent with his diagnosis mentioned in my initial note. LABORATORY DATA: Reviewed. IMPRESSION: As mentioned in my initial note. PLAN: Continue current psychotropics. MAN Cristóbal GEORGE MD DR: FERMÍN/tiny JOB#: [id number] / [id number]
[2016-10-10] MEDS: HYDROXYZINE HCL 25 MG TABLET PO SCH (05:48)
[2016-10-10 06:11] VITALS: BP 145/75
[2016-10-10] MEDS: AMOXICILLIN/K CLAV 875/125MG TABLET. PO SCH (08:30)
[2016-10-10] MEDS: busPIRone 5 MG TABLET. PO SCH (08:30)
[2016-10-10] MEDS: MULTIVITAMIN with MINERAL TABLET. PO SCH (08:30)
[2016-10-10] MEDS: FERROUS SULFATE 325 MG TABLET PO SCH (08:30)
[2016-10-10] MEDS: ASPIRIN 325 MG TABLET PO SCH (08:30)
[2016-10-10] MEDS: GLIMEPIRIDE 1 MG TABLET PO SCH (08:30)
[2016-10-10] MEDS: GABAPENTIN 100 MG CAPSULE. PO SCH (08:30)
[2016-10-10 08:31] VITALS: BP 145/75
[2016-10-10] MEDS: METOPROLOL TART IMMED RELEASE 25 MG TABLET PO SCH (08:31)
[2016-10-10] MEDS: NEOMY/BACITR/POLYMYXIN OINT PACKET. TP SCH (08:33)
--- NOTE | 2016-10-10 14:15 | PN ---
DATE: 10/07/2016 PSYCHIATRIC PROGRESS NOTE This is a late entry for 10/07/2016, covers the elements not covered in my initial note. SUBJECTIVE: The patient remains confused, hard of hearing. REVIEW OF SYSTEMS: No CV, , pulmonary, eye system symptoms on review. Reliability poor. MENTAL STATUS EXAM: Oriented to himself. Insight, judgment, recent and remote memory, attention, concentration, fund of knowledge poor, consistent with his diagnosis mentioned in my initial note. LABORATORY DATA: Reviewed. IMPRESSION: Unchanged from initial note. PLAN: Continue psychotropics, Remeron, Luvox, Seroquel, hydroxyzine p.r.n. and BuSpar. Adjust as indicated. AZEEM GEORGE MD DR: FERMÍN/tiny JOB#: [id number] / [id number]
--- NOTE | 2016-10-11 07:16 | PN ---
DATE: 10/09/2016 PSYCHIATRIC PROGRESS NOTE This is a late entry for 10/09/2016. SUBJECTIVE: The patient was seen individually evening of 10/09/2016. Discussed with nursing staff, reviewed the chart. Overall, per nursing report, the patient had a good night and good day on 10/09/2016. He remains confused. OBJECTIVE: VITAL SIGNS: Temperature 97.4, pulse 83, BP 145/75. REVIEW OF SYSTEMS: Hard of hearing. No CV, , pulmonary, eye, ENT system symptoms on review. Reliability poor. MENTAL STATUS EXAM: Oriented to himself. Insight, judgment, recent and remote memory, attention, concentration, fund of knowledge poor, consistent with his IMPRESSION: Major neurocognitive disorder, Alzheimer, vascular with depression, delusion and behavioral disturbance; anxiety disorder, unspecified; impulse control disorder, unspecified. PLAN: Continue BuSpar 5 mg b.i.d., hydroxyzine 50 mg b.i.d., may need to be reduced plus p.r.n., Seroquel 50 mg at bedtime, Luvox 75 mg a day, Remeron 15 mg h.s. MAN Cristóbal GEORGE MD DR: FERMÍN/tiny JOB#: [id number] / [id number]
--- NOTE | 2016-10-11 18:32 | DS ---
DATE OF DISCHARGE: 10/10/2016 DISCHARGE SUMMARY/PSYCHIATRIC PROGRESS NOTE REASON FOR ADMISSION: Please refer to the admission history for details. Briefly, the patient is a 76-year-old male referred to us from [facility] by Dr. Tavarez, his primary care physician after the patient was cursing, having tactile hallucination, believed there were bugs on him on the nape of his neck. He was picking at his skin obsessively, pacing, exit seeking, yelling in staff spaces and threatening staff members. jail staff had called me as an emergency. We had attempted adjustments in his psychotropics with antipsychotics, he failed all of this thus resulting in this referral. SIGNIFICANT FINDINGS AND CLINICAL COURSE: Following admission, the patient was seen daily individually by myself, followed medically per Dr. Coronel and Dr. Turner. He remained extremely hard of hearing, confused, paranoid, delusional, aggressive initially at admission, but at times would withdraw to his room. Adjustments were made in his psychotropics and he seemed to respond to a combination of Remeron 15 mg at bedtime, Luvox 75 mg at bedtime, Seroquel 50 mg at bedtime, hydroxyzine 50 mg q.8h. p.r.n. and 50 mg b.i.d. along with BuSpar 5 mg b.i.d. Prior to discharge on 10/10/2016, temperature 97.4, BP 145/75, pulse 83, respirations 18. REVIEW OF SYSTEMS: Hard of hearing. No CV, , pulmonary, eye system symptoms on review. Reliability poor. MENTAL STATUS EXAMINATION: Oriented to himself. Insight, judgment, recent memory is impaired. Language function is intact. Attention span is short. Mood and affect, lability was improved. Not aggressive. No suicidal or homicidal ideation at discharge. FINAL DIAGNOSES: Major neurocognitive disorder, Alzheimer, vascular with delusion, depression, obsessive compulsive disorder; anxiety disorder, unspecified; impulse control disorder, unspecified, rest diagnoses unchanged. DISCHARGE MEDICATIONS: Please refer to the MRAD. DISCHARGE INSTRUCTIONS: Outpatient psychiatric and medical followup at the custodial with Dr. Tavarez and myself. Time for discharge day management greater than 30 minutes. AZEEM GEORGE MD DR: FERMÍN/tiny JOB#: [id number] / [id number]
== END 2016-10-10 12:10 | DRG 884 ==
LOC: ER 18:45 → GEROPSY 22:25
PROVIDERS: ADMIT Psychiatry & Neurology Psychiatry; ATTEND Psychiatry & Neurology Psychiatry
DX: F01.51 Vascular dementia, unspecified severity, with behavioral disturbance (principal); R44.2 Other hallucinations; E44.1 Mild protein-calorie malnutrition; F02.81 Dementia in other diseases classified elsewhere, unspecified severity, with behavioral disturbance; G30.0 Alzheimer's disease with early onset; E11.22 Type 2 diabetes mellitus with diabetic chronic kidney disease; E78.5 Hyperlipidemia, unspecified; F42.9 Obsessive-compulsive disorder, unspecified; F63.9 Impulse disorder, unspecified; F41.9 Anxiety disorder, unspecified; F32.9 Major depressive disorder, single episode, unspecified; I12.9 Hypertensive chronic kidney disease with stage 1 through stage 4 chronic kidney disease, or unspecified chronic kidney disease; I25.10 Atherosclerotic heart disease of native coronary artery without angina pectoris; N18.3 Chronic kidney disease, stage 3 (moderate); Z66 Do not resuscitate; N40.0 Benign prostatic hyperplasia without lower urinary tract symptoms; H91.90 Unspecified hearing loss, unspecified ear; R00.1 Bradycardia, unspecified; R29.6 Repeated falls; I48.2 Chronic atrial fibrillation; Z79.899 Other long term (current) drug therapy; Z86.73 Personal history of transient ischemic attack (TIA), and cerebral infarction without residual deficits; Z95.1 Presence of aortocoronary bypass graft; Z68.24 Body mass index [BMI] 24.0-24.9, adult
CPT/HCPCS: 36415; 71010; 80053; 80061; 81001; 82306; 82607; 82947; 83036; 83540; 83550; 83735; 84436; 84443; 84480; 85027; 85610; 86592; 86593; 87070; 87186; 93005; 99285-25

== ENCOUNTER 2017-04-12 21:10 | Inpatient (IN) | payer MEDICARE ==
[~2017-04-12] VITALS: Ht 172.7 cm; Wt 71.8 kg
[~2017-04-12 21:10] MED LIST: ACET325T9 PO; AMOX1TAB11 PO; ASPI325T8 PO; ATOR40TA59 PO; BUSP5TAB PO; FERR-26 PO; FLUV50TA2 PO; GABA-585 PO; GLIM1TAB2 PO; HYDR50CA2 PO; MAG355OR12 PO; METF500T4 PO; METO25TA4 PO; MIRT15TA3 PO; MULT-208 PO; NEOM1PAC TP; QUET50TA5 PO
[2017-04-12 21:44] LABS: BASO # 0.1 x10^3/uL (0.0-0.2); BASO % 1 % (0-3); EOS # 0.2 x10^3/uL (0.0-0.7); EOS % 3 % (0-3); HEMATOCRIT 38.1 % (39.0-53.0); HEMOGLOBIN 12.7 g/dL (13.0-17.5); LYMPH # 1.4 x10^3/uL (1.0-4.8); LYMPH % 22 % (24-48); MEAN CORPUSCULAR HEMOGLOBIN 27 pg (25-35); MEAN CORPUSCULAR HGB CONC 33 g/dL (31-37); MEAN CORPUSCULAR VOLUME 80 fL (79-100); MONO # 0.9 x10^3/uL (0.0-1.1); MONO % 14 % (0-9); NEUT # 3.9 x10^3uL (1.8-7.7); NEUT % 60 % (31-73); PLATELET COUNT 396 x10^3/uL (140-400); RED CELL DISTRIBUTION WIDTH 15.3 % (11.5-14.5); WHITE BLOOD COUNT 6.5 x10^3/uL (4.0-11.0)
--- NOTE | 2017-04-12 21:55 | EKG ---
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
[2017-04-12 21:58] LABS: ALBUMIN 3.3 g/dL (3.4-5.0); ALBUMIN/GLOBULIN RATIO 0.7 (1.0-1.7); CALCIUM 8.5 mg/dL (8.5-10.1); CREATININE 1.8 mg/dL (0.7-1.3); GFR 36.6; POTASSIUM 4.3 mmol/L (3.5-5.1); TOTAL BILIRUBIN 0.2 mg/dL (0.2-1.0); TOTAL PROTEIN 8.2 g/dL (6.4-8.2)
[2017-04-12] MEDS ORDERED: ONDANSETRON PF 4 MG/2 ML VIAL. IV PRN (22:30)
[2017-04-12 23:37] VITALS: BP 165/81
[2017-04-13] MEDS ORDERED: FLUV100T2 PO
[2017-04-13] MEDS ORDERED: ASPI325T11 PO
[2017-04-13] MEDS ORDERED: QUET25TA PO (00:06)
[2017-04-13] MEDS ORDERED: MULT1TAB52 PO (00:06)
[2017-04-13] MEDS ORDERED: GLIP5TAB10 PO (00:07)
[2017-04-13] MEDS ORDERED: TAMS0.4C97 PO (00:55)
[2017-04-13 03:28] LABS: BASO % 0 % (0-3); EOS # 0.1 x10^3/uL (0.0-0.7); EOS % 2 % (0-3); HEMATOCRIT 37.6 % (39.0-53.0); HEMOGLOBIN 12.4 g/dL (13.0-17.5); LYMPH # 1.5 x10^3/uL (1.0-4.8); LYMPH % 20 % (24-48); MEAN CORPUSCULAR HEMOGLOBIN 26 pg (25-35); MEAN CORPUSCULAR HGB CONC 33 g/dL (31-37); MEAN CORPUSCULAR VOLUME 79 fL (79-100); MONO % 14 % (0-9); NEUT # 4.9 x10^3uL (1.8-7.7); NEUT % 64 % (31-73); PLATELET COUNT 368 x10^3/uL (140-400); RED BLOOD COUNT 4.75 x10^6/uL (4.30-5.70); RED CELL DISTRIBUTION WIDTH 14.8 % (11.5-14.5); WHITE BLOOD COUNT 7.7 x10^3/uL (4.0-11.0)
[2017-04-13] MEDS ORDERED: Influenza vaccine per PROTOCOL. MC PRN (03:30)
[2017-04-13 04:12] LABS: CALCIUM 8.2 mg/dL (8.5-10.1); CREATININE 1.8 mg/dL (0.7-1.3); GFR 36.6; POTASSIUM 4.3 mmol/L (3.5-5.1)
--- NOTE | 2017-04-13 04:25 | ED.ADGEN ---
Past History Past Medical History: A-Fib Past Surgical History: Other Alcohol Use: None Drug Use: None Adult General Chief Complaint Chief Complaint Chest pain HPI HPI Patient is a 77-year-old male with advanced dementia who presents with complaints of chest pain and possible indigestion after eating meal. Patient found belching clutching chest prior to ED arrival at nursing facility. On EMS transport States Symptoms Returned after Belching. Patient Currently Denies Pain on ED Arrival. He Denies All Complaints. History Is Limited Due To the Patient's Dementia. [] Review of Systems Review of Systems Review symptoms as per history of present illness. Current Medications Current Medications Current Medications Medications (Trade) Dose Ordered Sig/Felipe Start Time Stop Time Status Last Admin Dose Admin Ondansetron HCl (Zofran) 4 mg PRN Q4HRS PRN 04/12/17 22:30 04/13/17 22:29 Allergies Allergies Allergies Coded Allergies Type Severity Reaction Last Updated Verified No Known Drug Allergies 09/27/16 No Physical Exam Physical Exam Constitutional: Well developed, well nourished, no acute distress, non-toxic appearance. [] HENT: Normocephalic, atraumatic, bilateral external ears normal, oropharynx moist, no oral exudates, nose normal. [] Eyes: PERRLA, EOMI, conjunctiva normal, no discharge. [] Neck: Normal range of motion, no tenderness, supple, no stridor. [] Cardiovascular:Heart rate regular rhythm, no murmur [] Lungs & Thorax: Bilateral breath sounds clear to auscultation [] Abdomen: Bowel sounds normal, soft, no tenderness, no masses, no pulsatile masses. [] Skin: Warm, dry, no erythema, no rash. [] Back: No tenderness, no CVA tenderness. [] Extremities: No tenderness, no cyanosis, no clubbing, ROM intact, no edema. [] Neurologic: Alert and oriented to person, normal motor function, normal sensory function, no focal deficits noted. [] Psychologic: Affect normal, judgement normal, mood normal. [] Current Patient Data Vital Signs Vital Signs Date Time Temp Pulse Resp B/P (MAP) Pulse Ox O2 Delivery O2 Flow Rate FiO2 04/12/17 22:43 79 16 134/77 (96) 96 Room Air 04/12/17 21:38 98.3 Lab Results Laboratory Tests Test 04/12/17 21:27 White Blood Count 6.5 x10^3/uL (4.0-11.0) Red Blood Count 4.80 x10^6/uL (4.30-5.70) Hemoglobin 12.7 g/dL (13.0-17.5) L Hematocrit 38.1 % (39.0-53.0) L Mean Corpuscular Volume 80 fL (79-100) Mean Corpuscular Hemoglobin 27 pg (25-35) Mean Corpuscular Hemoglobin Concent 33 g/dL (31-37) Red Cell Distribution Width 15.3 % (11.5-14.5) H Platelet Count 396 x10^3/uL (140-400) Neutrophils (%) (Auto) 60 % (31-73) Lymphocytes (%) (Auto) 22 % (24-48) L Monocytes (%) (Auto) 14 % (0-9) H Eosinophils (%) (Auto) 3 % (0-3) Basophils (%) (Auto) 1 % (0-3) Neutrophils # (Auto) 3.9 x10^3uL (1.8-7.7) Lymphocytes # (Auto) 1.4 x10^3/uL (1.0-4.8) Monocytes # (Auto) 0.9 x10^3/uL (0.0-1.1) Eosinophils # (Auto) 0.2 x10^3/uL (0.0-0.7) Basophils # (Auto) 0.1 x10^3/uL (0.0-0.2) Sodium Level 138 mmol/L (136-145) Potassium Level 4.3 mmol/L (3.5-5.1) Chloride Level 101 mmol/L (98-107) Carbon Dioxide Level 27 mmol/L (21-32) Anion Gap 10 (6-14) Blood Urea Nitrogen 32 mg/dL (8-26) H Creatinine 1.8 mg/dL (0.7-1.3) H Estimated GFR (Cockcroft-Gault) 36.6 BUN/Creatinine Ratio 18 (6-20) Glucose Level 196 mg/dL (70-99) H Calcium Level 8.5 mg/dL (8.5-10.1) Total Bilirubin 0.2 mg/dL (0.2-1.0) Aspartate Amino Transferase (AST) 20 U/L (15-37) Alanine Aminotransferase (ALT) 28 U/L (16-63) Alkaline Phosphatase 150 U/L (46-116) H Creatine Kinase 64 U/L (39-308) Troponin I Quantitative < 0.017 ng/mL (0-0.055) Total Protein 8.2 g/dL (6.4-8.2) Albumin 3.3 g/dL (3.4-5.0) L Albumin/Globulin Ratio 0.7 (1.0-1.7) L EKG EKG [EKG reviewed, no acute changes.] Radiology/Procedures Radiology/Procedures [Chest x-ray: No infiltrate on urinary ED read.] Course & Med Decision Making Course & Med Decision Making Pertinent Labs and Imaging studies reviewed. (See chart for details) [] Final Impression Final Impression [] Problems: Dragon Disclaimer Dragon Disclaimer This electronic medical record was generated, in whole or in part, using a voice recognition dictation system. ANTONIO BRANDON DO Apr 13, 2017 04:25
[2017-04-13 06:03] VITALS: BP 115/69
[2017-04-13] MEDS ORDERED: MAG HYDROX/AL HYDROX/SIMETH 30 ML ORAL.SUSP PO PRN (07:45)
[2017-04-13] MEDS ORDERED: ACETAMINOPHEN 325 MG TABLET PO PRN (07:45)
--- NOTE | 2017-04-13 08:08 | RAD ---
Portable chest, 04/12/2017: History: Chest pain An aortic valvular prosthesis is in place. The heart is at the upper limits of normal in size. There is an increasing opacity in the left lateral costophrenic angle suggesting atelectasis/infiltrate. A prominent epicardial fat pad accentuated by patient rotation may be contributing to this appearance. The right lung is clear. Moderate spurring is present in the spine. IMPRESSION: Mild left basilar atelectasis/infiltrate.
--- NOTE | 2017-04-13 08:49 | EKG ---
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
[2017-04-13] MEDS: NEOMYCIN/BACITRAC/POLY TOPICAL OINTMENT 28GM TUBE. TP SCH ×3 (09:00→20:11)
[2017-04-13] MEDS ORDERED: PANTOPRAZOLE IV PUSH 40 MG VIAL. IVP ONE (09:00)
[2017-04-13 09:55] VITALS: BP 114/69
[2017-04-13] MEDS: SUCRALFATE 1 GM/10 ML ORAL.SUSP. PEG SCH ×4 (09:57→20:04)
[2017-04-13] MEDS: METOPROLOL TART IMMED RELEASE 25 MG TABLET PO SCH ×2 (09:59→20:05)
[2017-04-13] MEDS: glipiZIDE 5 MG TABLET PO SCH (09:59)
[2017-04-13] MEDS: GABAPENTIN 100 MG CAPSULE. PO SCH ×3 (09:59→20:05)
[2017-04-13] MEDS ORDERED: FLU VACC QS2017-18 (36MOS+)/PF 0.5 ML SYRINGE. VAX IM ONE (10:00)
[2017-04-13] MEDS ORDERED: MVI, ADULT NO.4 WITH VIT K 10 ML, FOLIC ACID 1 MG, THIAMINE 100 MG in IV DEXTROSE 5 %-0... IV SCH ×4 (10:00)
--- NOTE | 2017-04-13 12:10 | EKG ---
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
--- NOTE | 2017-04-13 12:43 | PDOC2 ---
CONSULT Date of Admission DATE: 04/13/17 TIME: 12:43 Reason for Consult: chest pain Problem List Problems Medical Problems: (1) Chest pain Status: Acute History of Present Illness Mr Govea is a 77 year old male with history of coronary artery disease and dementia who was transported from a nursing facility for complaints of chest pain. He was apparently found after a meal belching and clutching his chest complaining of pain. He was transported to the ED for evaluation. this am he apparently had a reoccurance of symptoms after eating breakfast. He very hard of hearing and much of his history is obtained from the chart. He currently is resting quietly and denies chest pain, dyspnea or other complaints. Past Medical History CAD, hypertension, hyperlipidemia, atrial fibrillation, TIA, Alzheimer's dementia, BPH, diabetes mellitus, anxiety and depression, recurrent falls. 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 Current Medications Current Medications Ondansetron HCl (Zofran) 4 mg PRN Q4HRS PRN IV NAUSEA/VOMITING Last administered on 04/13/17 09:59; Start 04/12/17 at 22:30; Stop 04/13/17 at 22:29 Influenza Virus Vaccine Quadrival (Fluarix Quad [id number] Syringe) 0.5 ml ONCE ONCE VAX IM ; Start 04/13/17 at 10:00; Stop 04/13/17 at 10:01; Status DC Info (FLU VACCINE per PROTOCOL) 1 ea PRN 1X PRN MC PER PROTOCOL; Start at 03:30; Status Cancel Acetaminophen (Tylenol) 650 mg PRN Q4HRS PRN PO PAIN / TEMP; Start 04/13/17 at 07:45 Aspirin (Aspirin Enteric Coated) 325 mg DAILY08 PO ; Start 04/13/17 at 08:00 Buspirone HCl (Buspar) 5 mg BID PO ; Start 04/13/17 at 09:00 Ferrous Sulfate (Feosol) 325 mg DAILY PO ; Start 04/13/17 at 09:00 Fluvoxamine Maleate (Luvox) 100 mg DAILY PO ; Start 04/13/17 at 09:00 Gabapentin (Neurontin) 100 mg TID PO Last administered on 04/13/17 09:59; Start 04/13/17 at 09:00 Glipizide (Glucotrol) 5 mg DAILY PO Last administered on 04/13/17 09:59; Start 04/13/17 at 09:00 Al Hydroxide/Mg Hydroxide (Mylanta Plus Xs) 30 ml PRN Q6HRS PRN PO Upset Stomach; Start 04/13/17 at 07:45 Metoprolol Tartrate (Lopressor) 37.5 mg BID PO Last administered on 04/13/17 09:59; Start 04/13/17 at 09:00 Mirtazapine (Remeron) 15 mg HS PO ; Start 04/13/17 at 21:00 Neomycin/ Polymyxin/ Bacitracin (Triple Antibiotic) 1 jenaro TID TP ; Start at 09:00 Quetiapine Fumarate (SEROquel) 25 mg HS PO ; Start 04/13/17 at 21:00 Atorvastatin Calcium (Lipitor) 40 mg QHS PO ; Start 04/13/17 at 21:00 Hydroxyzine Pamoate (Vistaril) 50 mg Q8HRS PO ; Start 04/13/17 at 09:00 Multivitamins/ Calcium (Thera-M Plus) 1 tab DAILY PO ; Start 04/13/17 at 09:00 Pantoprazole Sodium (Protonix Vial) 40 mg 1X ONCE IVP Last administered on 09:57; Start 04/13/17 at 09:00; Stop 04/13/17 at 09:01; Status DC Sucralfate (Carafate) 1 gm QIDACHS PEG Last administered on 04/13/17 11:59; Start 04/13/17 at 08:45 Multivitamins/ Minerals 10 ml/ Folic Acid 1 mg/ Thiamine HCl 100 mg/Dextrose/ Sodium Chloride 1,011.2 ml @ 100.009 mls/hr DAILY IV Last administered on 04/13 12:00; Start 04/13/17 at 10:00 Nitroglycerin (Nitrostat) 0.4 mg PRN Q5MIN PRN SL CHEST PAIN; Start 04/13/17 at 12:30; Status UNV Active Scripts Active Reported Glipizide 5 Mg Tablet 5 Mg PO DAILY Multivitamins (Multivitamin) 1 Each Tablet 1 Each PO DAILY Quetiapine Fumarate 25 Mg Tablet 25 Mg PO HS Fluvoxamine Maleate 100 Mg Tablet 100 Mg PO DAILY Aspirin Ec (Aspirin) 325 Mg Tablet.dr 325 Mg PO DAILY08 Buspirone Hcl 5 Mg Tablet 5 Mg PO BID Triple Antibiotic Ointment (Neomy Sulf/Bacitra/Polymyxin B) 1 Each Packet 1 Each TP TID Maalox Maximum Strength Susp (Mag Hydrox/Al Hydrox/Simeth) 355 Ml Oral.susp 30 Ml PO PRN Q6HRS PRN LAST DOSE GIVEN: DATE: TIME: NEXT DOSE DUE: DATE: TIME: Tylenol (Acetaminophen) 325 Mg Tablet 650 Mg PO PRN Q4HRS PRN LAST DOSE GIVEN: DATE: TIME: NEXT DOSE DUE: DATE: TIME: Hydroxyzine Pamoate 50 Mg Capsule 50 Mg PO Q8HRS LAST DOSE GIVEN: DATE: TIME: NEXT DOSE DUE: DATE: TIME: Gabapentin 100 Mg Capsule 100 Mg PO TID LAST DOSE GIVEN: DATE: TIME: NEXT DOSE DUE: DATE: TIME: Ferrous Sulfate 325 Mg Tablet 325 Mg PO DAILY LAST DOSE GIVEN: DATE: TIME: NEXT DOSE DUE: DATE: TIME: Atorvastatin Calcium 40 Mg Tablet 40 Mg PO QHS LAST DOSE GIVEN: DATE: TIME: NEXT DOSE DUE: DATE: TIME: Mirtazapine 15 Mg Tablet 15 Mg PO HS LAST DOSE GIVEN: DATE: TIME: NEXT DOSE DUE: DATE: TIME: Metoprolol Tartrate 25 Mg Tablet 37.5 Mg PO BID LAST DOSE GIVEN: DATE: TIME: NEXT DOSE DUE: DATE: TIME: Allergies: Coded Allergies: No Known Drug Allergies (Unverified , 09/27/16) Review of System as per HPI General: Alert, Cooperative, No acute distress Lungs: Clear to auscultation, Normal air movement Heart: Other (IRR without gallops, clicks or rubs) Abdomen: Normal bowel sounds, Soft Extremities: No cyanosis, Normal pulses Neuro: Normal speech, Strength at 5/5 X4 ext Psych/Mental Status: Mood NL VITALS Vital Signs Date Time Temp Pulse Resp B/P (MAP) Pulse Ox O2 Delivery O2 Flow Rate FiO2 04/13/17 09:59 114 114/69 04/13/17 09:55 97.9 18 95 Room Air Labs Laboratory Tests Test 04/12/17 21:27 04/13/17 03:20 04/13/17 09:13 04/13/17 10:04 White Blood Count 6.5 x10^3/uL (4.0-11.0) 7.7 x10^3/uL (4.0-11.0) Red Blood Count 4.80 x10^6/uL (4.30-5.70) 4.75 x10^6/uL (4.30-5.70) Hemoglobin 12.7 g/dL (13.0-17.5) 12.4 g/dL (13.0-17.5) Hematocrit 38.1 % (39.0-53.0) 37.6 % (39.0-53.0) Mean Corpuscular Volume 80 fL (79-100) 79 fL (79-100) Mean Corpuscular Hemoglobin 27 pg (25-35) 26 pg (25-35) Mean Corpuscular Hemoglobin Concent 33 g/dL (31-37) 33 g/dL (31-37) Red Cell Distribution Width 15.3 % (11.5-14.5) 14.8 % (11.5-14.5) Platelet Count 396 x10^3/uL (140-400) 368 x10^3/uL (140-400) Neutrophils (%) (Auto) 60 % (31-73) 64 % (31-73) Lymphocytes (%) (Auto) 22 % (24-48) 20 % (24-48) Monocytes (%) (Auto) 14 % (0-9) 14 % (0-9) Eosinophils (%) (Auto) 3 % (0-3) 2 % (0-3) Basophils (%) (Auto) 1 % (0-3) 0 % (0-3) Neutrophils # (Auto) 3.9 x10^3uL (1.8-7.7) 4.9 x10^3uL (1.8-7.7) Lymphocytes # (Auto) 1.4 x10^3/uL (1.0-4.8) 1.5 x10^3/uL (1.0-4.8) Monocytes # (Auto) 0.9 x10^3/uL (0.0-1.1) 1.0 x10^3/uL (0.0-1.1) Eosinophils # (Auto) 0.2 x10^3/uL (0.0-0.7) 0.1 x10^3/uL (0.0-0.7) Basophils # (Auto) 0.1 x10^3/uL (0.0-0.2) 0.0 x10^3/uL (0.0-0.2) Sodium Level 138 mmol/L (136-145) 137 mmol/L (136-145) Potassium Level 4.3 mmol/L (3.5-5.1) 4.3 mmol/L (3.5-5.1) Chloride Level 101 mmol/L (98-107) 102 mmol/L (98-107) Carbon Dioxide Level 27 mmol/L (21-32) 24 mmol/L (21-32) Anion Gap 10 (6-14) 11 (6-14) Blood Urea Nitrogen 32 mg/dL (8-26) 27 mg/dL (8-26) Creatinine 1.8 mg/dL (0.7-1.3) 1.8 mg/dL (0.7-1.3) Estimated GFR (Cockcroft-Gault) 36.6 36.6 BUN/Creatinine Ratio 18 (6-20) Glucose Level 196 mg/dL (70-99) 189 mg/dL (70-99) Calcium Level 8.5 mg/dL (8.5-10.1) 8.2 mg/dL (8.5-10.1) Total Bilirubin 0.2 mg/dL (0.2-1.0) Aspartate Amino Transf (AST/SGOT) 20 U/L (15-37) Alanine Aminotransferase (ALT/SGPT) 28 U/L (16-63) Alkaline Phosphatase 150 U/L (46-116) Creatine Kinase 64 U/L (39-308) Troponin I Quantitative < 0.017 ng/mL (0-0.055) < 0.017 ng/mL (0-0.055) < 0.017 ng/mL (0-0.055) Total Protein 8.2 g/dL (6.4-8.2) Albumin 3.3 g/dL (3.4-5.0) Albumin/Globulin Ratio 0.7 (1.0-1.7) Glucose (Fingerstick) 201 mg/dL (70-99) Test 04/13/17 11:51 Glucose (Fingerstick) 153 mg/dL (70-99) Images EKG - atrial flutter, RBBB, no acute abn CXR - IMPRESSION: Mild left basilar atelectasis/infiltrate. Assessment/Plan 1. chest pain, atypical 2. CAD/CABG status 3. atrial flutter 4. hypertension 5. hyperlipidemia 6. renal insufficiency 7. diabetes mellitus 8. Alzheimer dementia Chest pain is more atypical in nature, CE negative x 3, suspect GI etiology. Will check echocardiogram. Suggest resume home medications including ASA, statin, beta hossein. Check lipids. Increase metoprolol as needed/tolerated for rate control. No anticoagulation due to frequent falls. Continue supportive care. 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
[2017-04-13] MEDS ORDERED: NITROGLYCERIN SUBLINGUAL 0.4 MG BOTTLE OF 25. SL PRN (13:30)
[2017-04-13] MEDS: hydrOXYzine PAMOATE 25 MG CAPSULE PO SCH ×3 (14:00→20:04)
[2017-04-13] MEDS: MULTIVITAMIN with MINERAL TABLET. PO SCH (15:27)
[2017-04-13] MEDS: FERROUS SULFATE 325 MG TABLET. PO SCH (15:27)
[2017-04-13] MEDS: ASPIRIN ENTERIC COATED 325 MG TABLET.DR. PO SCH (15:27)
[2017-04-13] MEDS: busPIRone 5 MG TABLET. PO SCH ×2 (15:27→20:05)
--- NOTE | 2017-04-13 17:08 | HP ---
ADMIT DATE: REASON FOR ADMISSION: Chest pain. HISTORY OF PRESENT ILLNESS: This is a 77-year-old gentleman who resides at [facility] in [place]. Last night according to the nursing staff, who I called myself, he was in the room, doubled over in pain, was having chest pain, short of breath, pale and nausea, and complained of dizziness. His vital signs at that time were blood pressure 155/85, pulse of 98 and his sats were 99%. They were not able to get hold anyone of his family and he was transferred to the Emergency Room at [place]. PAST MEDICAL HISTORY: TIAs, severe hearing loss, type 2 diabetes, major depressive disorder, history of scabies, repeated falls, Alzheimer's disease, chronic AFib, BPH, hyperlipidemia, hypertension, coronary artery disease, status post bypass and weakness. [facility] because of increasing hallucinations and yelling at staff, which is not characteristic of his personality. SOCIAL HISTORY: Denies tobacco or alcohol use. 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 PAST SURGICAL HISTORY: Open heart surgery, 5-vessel. REVIEW OF SYSTEMS: The patient does not have his hearing aid, is very hard to interview, but right now, he had just thrown up his breakfast and is not feeling particularly well. Review of systems according to the nursing staff is positive for some GERD symptoms. OBJECTIVE: VITAL SIGNS: Blood pressure 114/69, pulse of 114, respirations 18, pulse ox 95% on room air. GENERAL: The patient was lying in bed. He is very hard of hearing. HEENT: His eyes were clear. Nose patent. Throat clear. NECK: Supple. LUNGS: Clear. CARDIOVASCULAR: Irregular rhythm and rate. ABDOMEN: Soft, nontender. EXTREMITIES: Without edema. SKIN: He has chronic picking behavior and several open lesions. LABORATORY DATA: Hemoglobin 12.4, hematocrit 37.6. Glucose is high 100s and low 200s. Troponins negative x 2. BUN 27, creatinine 1.8, slightly more than his normal. IMAGING: EKG, questionable atrial fibrillation/flutter. Please see Cardiology note. ASSESSMENT: 1. Chest pain, suspicious for angina. 2. Questionable gastroesophageal reflux disease with esophagitis. 3. Severe hard of hearing. 4. History of atrial fibrillation. 5. Chronic kidney disease, stage 3. 6. Mild protein malnutrition. PLAN: To establish how further to go on him as far as aggressiveness as he is a DNR and Cardiology is helping with this. We will do an upper GI with small bowel followthrough tomorrow, put him on Protonix and some Carafate and we will get a repeat EKG. LYNNE CR DO DR: CAROL/tiny JOB#: [id number] / [id number]
--- NOTE | 2017-04-13 17:14 | CARD ---
APPROVED REPORT EXAM: Two-dimensional and M-mode echocardiogram with Doppler and color Doppler. Other Information Quality : Average INDICATION CAD Chest Pain 2D DIMENSIONS Left Atrium(2D)4.6 (1.6-4.0cm)IVSd1.3 (0.7-1.1cm) Aortic Root(2D)2.7 (2.0-3.7cm)LVDd4.0 (3.9-5.9cm) LVOT Diameter2.0 (1.8-2.4cm)PWd1.3 (0.7-1.1cm) LVDs2.9 (2.5-4.0cm)FS (%) 28.0 % SV38.3 mlLVEF(%)54.7 (>50%) Aortic Valve AoV Peak Harjit.216.4cm/sAoV VTI38.9cm AO Peak GR.18.7mmHgLVOT Peak Harjit.92.5cm/s LVOT VTI 18.97cmAO Mean GR.11mmHg CASH (VMAX)1.45ex5QSX (VTI)1.51cm2 Mitral Valve MV E Njaqwysd208.1cm/sMV DECEL [id number] MV A Velocity0.4cm/sE/A Osnxd305.3 Tricuspid Valve TR P. Ynaznpcz279kk/sRAP [id number] TR Peak Gr.68apNmZUSE91pnTj LEFT VENTRICLE The left ventricle is normal size. There is mild to moderate concentric left ventricular hypertrophy. Left ventricle systolic function is normal. The Ejection Fraction is 50-55%. There is normal LV segm ental wall motion. RIGHT VENTRICLE The right ventricle is normal size. The right ventricular systolic function is normal. ATRIA The left atrium is moderately dilated. The right atrium is moderately dilated. Interatrial septum jenaro ears mobile. AORTIC VALVE The aortic valve is calcified but opens well. Doppler and Color Flow revealed trace aortic regurgitat ion. There is mild valvular aortic stenosis. MITRAL VALVE The mitral valve is calcified but opens well. There is no evidence of mitral valve prolapse. There is no mitral valve stenosis. Doppler and Color-flow revealed mild mitral regurgitation. TRICUSPID VALVE The tricuspid valve is normal in structure and function. Doppler and Color Flow revealed mild tricusp id regurgitation. There is no pulmonary hypertension. The PA pressure was estimated at 21 mmHg. There is no tricuspid valve stenosis. PULMONIC VALVE The pulmonary valve is normal in structure and function. Doppler and Color Flow revealed no pulmonic valvular regurgitation. There is no pulmonic valvular stenosis. GREAT VESSELS The aortic root is normal in size. The ascending aorta is normal in size. The IVC is normal in size a nd collapses >50% with inspiration. PERICARDIAL EFFUSION There is no pleural effusion. There is no evidence of significant pericardial effusion. Critical Notification Critical Value: No <Conclusion> Left ventricle systolic function is normal. The Ejection Fraction is 50-55%. There is normal LV segmental wall motion. The left atrium is moderately dilated. Mild valvular aortic stenosis. Mild mitral regurgitation. Mild tricuspid regurgitation. The PA pressure was estimated at 21 mmHg. There is no evidence of significant pericardial effusion.
[2017-04-13 18:05] VITALS: BP 117/70
[2017-04-13] MEDS ORDERED: ATORVASTATIN CALCIUM 20 MG TABLET PO SCH (21:00)
[2017-04-13] MEDS ORDERED: MIRTAZAPINE 15 MG TABLET PO SCH (21:00)
[2017-04-13] MEDS ORDERED: QUEtiapine 25 MG TABLET. PO SCH (21:00)
[2017-04-13 21:41] VITALS: BP 110/70
[2017-04-14] MEDS: hydrOXYzine PAMOATE 25 MG CAPSULE PO SCH (06:00)
[2017-04-14 07:19] VITALS: BP 122/62
--- NOTE | 2017-04-14 09:14 | PDOC ---
PROGRESS NOTES Diagnosis Problem Problems Medical Problems: (1) Chest pain Status: Acute Assessment Problems Medical Problems: (1) Chest pain Status: Acute 1. chest pain, atypical - SD ruled out. Normal LV function and wall motion by echo. No recurrent pain. Continue medical therapy with aspirin, beta hossein and statin. 2. CAD/CABG status - angina free. Continue medical therapy. 3. atrial flutter - chronic, rate controlled 4. hypertension - controlled. 5. hyperlipidemia - lipids pending, continue statin. 6. renal insufficiency - improved with fluids, likely CKD stage 3 7. diabetes mellitus - per PCP 8. Alzheimer dementia - per PCP Problems: Subjective pain free, denies dyspnea, palpitations or lightheadedness. resting quietly Objective Echo - Left ventricle systolic function is normal. The Ejection Fraction is 50-55%. There is normal LV segmental wall motion. The left atrium is moderately dilated. Mild valvular aortic stenosis. Mild mitral regurgitation. Mild tricuspid regurgitation. The PA pressure was estimated at 21 mmHg. There is no evidence of significant pericardial effusion. Vital Signs Date Time Temp Pulse Resp B/P (MAP) Pulse Ox O2 Delivery O2 Flow Rate FiO2 04/14/17 07:19 98.2 91 20 122/62 (82) 94 Room Air Abdomen: Normal bowel sounds, Soft, No tenderness Heart: Normal S1, Normal S2, Other (irregular rhythm, no significant murmurs, no gallops, clicks or rubs) Extremities: No cyanosis, Normal pulses General: Alert, Cooperative, No acute distress HEENT: Atraumatic, EOMI, Other (very hard of hearing) Lungs: Clear to auscultation, Normal air movement Neuro: Normal speech Psych/Mental Status: Mood NL Review of Relevant I have reviewed the following items kai (where applicable) has been applied. Labs Laboratory Tests Test 04/12/17 21:27 04/13/17 02:25 04/13/17 03:20 04/13/17 09:13 White Blood Count 6.5 x10^3/uL (4.0-11.0) 7.7 x10^3/uL (4.0-11.0) Red Blood Count 4.80 x10^6/uL (4.30-5.70) 4.75 x10^6/uL (4.30-5.70) Hemoglobin 12.7 g/dL (13.0-17.5) 12.4 g/dL (13.0-17.5) Hematocrit 38.1 % (39.0-53.0) 37.6 % (39.0-53.0) Mean Corpuscular Volume 80 fL (79-100) 79 fL (79-100) Mean Corpuscular Hemoglobin 27 pg (25-35) 26 pg (25-35) Mean Corpuscular Hemoglobin Concent 33 g/dL (31-37) 33 g/dL (31-37) Red Cell Distribution Width 15.3 % (11.5-14.5) 14.8 % (11.5-14.5) Platelet Count 396 x10^3/uL (140-400) 368 x10^3/uL (140-400) Neutrophils (%) (Auto) 60 % (31-73) 64 % (31-73) Lymphocytes (%) (Auto) 22 % (24-48) 20 % (24-48) Monocytes (%) (Auto) 14 % (0-9) 14 % (0-9) Eosinophils (%) (Auto) 3 % (0-3) 2 % (0-3) Basophils (%) (Auto) 1 % (0-3) 0 % (0-3) Neutrophils # (Auto) 3.9 x10^3uL (1.8-7.7) 4.9 x10^3uL (1.8-7.7) Lymphocytes # (Auto) 1.4 x10^3/uL (1.0-4.8) 1.5 x10^3/uL (1.0-4.8) Monocytes # (Auto) 0.9 x10^3/uL (0.0-1.1) 1.0 x10^3/uL (0.0-1.1) Eosinophils # (Auto) 0.2 x10^3/uL (0.0-0.7) 0.1 x10^3/uL (0.0-0.7) Basophils # (Auto) 0.1 x10^3/uL (0.0-0.2) 0.0 x10^3/uL (0.0-0.2) Sodium Level 138 mmol/L (136-145) 137 mmol/L (136-145) Potassium Level 4.3 mmol/L (3.5-5.1) 4.3 mmol/L (3.5-5.1) Chloride Level 101 mmol/L (98-107) 102 mmol/L (98-107) Carbon Dioxide Level 27 mmol/L (21-32) 24 mmol/L (21-32) Anion Gap 10 (6-14) 11 (6-14) Blood Urea Nitrogen 32 mg/dL (8-26) 27 mg/dL (8-26) Creatinine 1.8 mg/dL (0.7-1.3) 1.8 mg/dL (0.7-1.3) Estimated GFR (Cockcroft-Gault) 36.6 36.6 BUN/Creatinine Ratio 18 (6-20) Glucose Level 196 mg/dL (70-99) 189 mg/dL (70-99) Calcium Level 8.5 mg/dL (8.5-10.1) 8.2 mg/dL (8.5-10.1) Total Bilirubin 0.2 mg/dL (0.2-1.0) Aspartate Amino Transf (AST/SGOT) 20 U/L (15-37) Alanine Aminotransferase (ALT/SGPT) 28 U/L (16-63) Alkaline Phosphatase 150 U/L (46-116) Creatine Kinase 64 U/L (39-308) Troponin I Quantitative < 0.017 ng/mL (0-0.055) < 0.017 ng/mL (0-0.055) < 0.017 ng/mL (0-0.055) Total Protein 8.2 g/dL (6.4-8.2) Albumin 3.3 g/dL (3.4-5.0) Albumin/Globulin Ratio 0.7 (1.0-1.7) Nasal Screen MRSA (PCR) Negative (Negative) Test 04/13/17 10:04 04/13/17 11:51 04/13/17 16:23 04/13/17 19:13 Glucose (Fingerstick) 201 mg/dL (70-99) 153 mg/dL (70-99) 219 mg/dL (70-99) 283 mg/dL (70-99) Test 04/14/17 07:14 Glucose (Fingerstick) 131 mg/dL (70-99) Medications Current Medications Ondansetron HCl (Zofran) 4 mg PRN Q4HRS PRN IV NAUSEA/VOMITING Last administered on 04/13/17 09:59; Start 04/12/17 at 22:30; Stop 04/13/17 at 22:30 ; Status DC Influenza Virus Vaccine Quadrival (Fluarix Quad [id number] Syringe) 0.5 ml ONCE ONCE VAX IM Last administered on 04/13/17 20:09; Start 04/13/17 at 10:00; Stop 04/13/17 at 10:01; Status DC Info (FLU VACCINE per PROTOCOL) 1 ea PRN 1X PRN MC PER PROTOCOL; Start at 03:30; Status Cancel Acetaminophen (Tylenol) 650 mg PRN Q4HRS PRN PO PAIN / TEMP; Start 04/13/17 at 07:45 Aspirin (Aspirin Enteric Coated) 325 mg DAILY08 PO Last administered on 15:27; Start 04/13/17 at 08:00 Buspirone HCl (Buspar) 5 mg BID PO Last administered on 04/13/17 20:05; Start 04/13/17 at 09:00 Ferrous Sulfate (Feosol) 325 mg DAILY PO Last administered on 04/13/17 15:27; Start 04/13/17 at 09:00 Fluvoxamine Maleate (Luvox) 100 mg DAILY PO Last administered on 04/13/17 15: 27; Start 04/13/17 at 09:00 Gabapentin (Neurontin) 100 mg TID PO Last administered on 04/13/17 20:05; Start 04/13/17 at 09:00 Glipizide (Glucotrol) 5 mg DAILY PO Last administered on 04/13/17 09:59; Start 04/13/17 at 09:00 Al Hydroxide/Mg Hydroxide (Mylanta Plus Xs) 30 ml PRN Q6HRS PRN PO Upset Stomach; Start 04/13/17 at 07:45 Metoprolol Tartrate (Lopressor) 37.5 mg BID PO Last administered on 04/13/17 09:59; Start 04/13/17 at 09:00 Mirtazapine (Remeron) 15 mg HS PO Last administered on 04/13/17 20:04; Start 04/13/17 at 21:00 Neomycin/ Polymyxin/ Bacitracin (Triple Antibiotic) 1 jenaro TID TP Last administered on 04/13/17 20:11; Start 04/13/17 at 09:00 Quetiapine Fumarate (SEROquel) 25 mg HS PO Last administered on 04/13/17 20:04 ; Start 04/13/17 at 21:00 Atorvastatin Calcium (Lipitor) 40 mg QHS PO Last administered on 04/13/17 20: 05; Start 04/13/17 at 21:00 Hydroxyzine Pamoate (Vistaril) 50 mg Q8HRS PO Last administered on 04/13/17 20 :04; Start 04/13/17 at 09:00 Multivitamins/ Calcium (Thera-M Plus) 1 tab DAILY PO Last administered on 15:27; Start 04/13/17 at 09:00 Pantoprazole Sodium (Protonix Vial) 40 mg 1X ONCE IVP Last administered on 09:57; Start 04/13/17 at 09:00; Stop 04/13/17 at 09:01; Status DC Sucralfate (Carafate) 1 gm QIDACHS PEG Last administered on 04/13/17 20:04; Start 04/13/17 at 08:45 Multivitamins/ Minerals 10 ml/ Folic Acid 1 mg/ Thiamine HCl 100 mg/Dextrose/ Sodium Chloride 1,011.2 ml @ 100.009 mls/hr DAILY IV Last administered on 04/13 12:00; Start 04/13/17 at 10:00 Nitroglycerin (Nitrostat) 0.4 mg PRN Q5MIN PRN SL CHEST PAIN; Start 04/13/17 at 13:30 Active Scripts Active Reported Glipizide 5 Mg Tablet 5 Mg PO DAILY Multivitamins (Multivitamin) 1 Each Tablet 1 Each PO DAILY Quetiapine Fumarate 25 Mg Tablet 25 Mg PO HS Fluvoxamine Maleate 100 Mg Tablet 100 Mg PO DAILY Aspirin Ec (Aspirin) 325 Mg Tablet.dr 325 Mg PO DAILY08 Buspirone Hcl 5 Mg Tablet 5 Mg PO BID Triple Antibiotic Ointment (Neomy Sulf/Bacitra/Polymyxin B) 1 Each Packet 1 Each TP TID Maalox Maximum Strength Susp (Mag Hydrox/Al Hydrox/Simeth) 355 Ml Oral.susp 30 Ml PO PRN Q6HRS PRN LAST DOSE GIVEN: DATE: TIME: NEXT DOSE DUE: DATE: TIME: Tylenol (Acetaminophen) 325 Mg Tablet 650 Mg PO PRN Q4HRS PRN LAST DOSE GIVEN: DATE: TIME: NEXT DOSE DUE: DATE: TIME: Hydroxyzine Pamoate 50 Mg Capsule 50 Mg PO Q8HRS LAST DOSE GIVEN: DATE: TIME: NEXT DOSE DUE: DATE: TIME: Gabapentin 100 Mg Capsule 100 Mg PO TID LAST DOSE GIVEN: DATE: TIME: NEXT DOSE DUE: DATE: TIME: Ferrous Sulfate 325 Mg Tablet 325 Mg PO DAILY LAST DOSE GIVEN: DATE: TIME: NEXT DOSE DUE: DATE: TIME: Atorvastatin Calcium 40 Mg Tablet 40 Mg PO QHS LAST DOSE GIVEN: DATE: TIME: NEXT DOSE DUE: DATE: TIME: Mirtazapine 15 Mg Tablet 15 Mg PO HS LAST DOSE GIVEN: DATE: TIME: NEXT DOSE DUE: DATE: TIME: Metoprolol Tartrate 25 Mg Tablet 37.5 Mg PO BID LAST DOSE GIVEN: DATE: TIME: NEXT DOSE DUE: DATE: TIME: Vitals/I & O Vital Sign - Last 24 Hours 04/13/17 04/13/17 04/13/17 04/13/17 09:55 09:59 18:05 20:00 Temp 97.9 98.1 Pulse 114 114 62 Resp 18 20 B/P (MAP) 114/69 (84) 114/69 117/70 (86) Pulse Ox 95 96 O2 Delivery Room Air Room Air Room Air 04/13/17 04/13/17 04/14/17 20:05 21:41 07:19 Temp 97.5 98.2 Pulse 49 79 91 Resp 20 20 B/P (MAP) 117/70 110/70 (83) 122/62 (82) Pulse Ox 95 94 O2 Delivery Room Air Room Air GEORGETTE SOSA APRN Apr 14, 2017 09:14
[2017-04-14 09:22] VITALS: BP 122/62
[2017-04-14] MEDS: MULTIVITAMIN with MINERAL TABLET. PO SCH (09:22)
[2017-04-14] MEDS: busPIRone 5 MG TABLET. PO SCH (09:22)
[2017-04-14] MEDS: glipiZIDE 5 MG TABLET PO SCH (09:22)
[2017-04-14] MEDS: ASPIRIN ENTERIC COATED 325 MG TABLET.DR. PO SCH (09:22)
[2017-04-14] MEDS: SUCRALFATE 1 GM/10 ML ORAL.SUSP. PEG SCH (09:22)
[2017-04-14] MEDS: FERROUS SULFATE 325 MG TABLET. PO SCH (09:22)
[2017-04-14] MEDS: METOPROLOL TART IMMED RELEASE 25 MG TABLET PO SCH (09:22)
[2017-04-14] MEDS: GABAPENTIN 100 MG CAPSULE. PO SCH (09:22)
[2017-04-14] MEDS: NEOMYCIN/BACITRAC/POLY TOPICAL OINTMENT 28GM TUBE. TP SCH (09:23)
--- NOTE | 2017-04-14 09:24 | RAD ---
Indication: Vomiting. Patient ingested thin and thick barium and imaging of the esophagus, stomach and proximal small bowel was performed. 2.1 minutes of fluoroscopy time was utilized. 10 images were obtained. The preliminary radiograph is unremarkable. The esophagus has a smooth contour. No mass or stricture is identified. No significant hiatal hernia or gastroesophageal reflux is identified. The stomach has a normal contour. There is prompt emptying into the small bowel loops. No mass or ulceration is seen. Impression: Unremarkable upper GI.
[2017-04-14] MEDS ORDERED: PANT40TA3 PO (10:24)
--- NOTE | 2017-04-14 11:56 | PDOC3 ---
Discharge Summary Visit Information Date of Admission: Apr 13, 2017 Date of Discharge: Apr 14, 2017 Final Diagnosis Problems Medical Problems: (1) Chest pain Status: Acute Problems: (1) Chest pain Status: Acute 1. chest pain, atypical - UT ruled out. Normal LV function and wall motion by echo. No recurrent pain. Continue medical therapy with aspirin, beta hossein and statin. 2. CAD/CABG status - angina free. Continue medical therapy. 3. atrial flutter - chronic, rate controlled 4. hypertension - controlled. 5. hyperlipidemia - lipids pending, continue statin. 6. renal insufficiency - improved with fluids, likely CKD stage 3 7. diabetes mellitus - per PCP 8. Alzheimer dementia - per PCP 9.GERD Problems: Brief Hospital Course Allergies Allergies Coded Allergies Type Severity Reaction Last Updated Verified No Known Drug Allergies 09/27/16 No Vital Signs Vital Signs Date Time Temp Pulse Resp B/P (MAP) Pulse Ox O2 Delivery O2 Flow Rate FiO2 04/14/17 09:22 91 122/62 04/14/17 08:00 Room Air 04/14/17 07:19 98.2 20 94 Lab Results Laboratory Tests Test 04/12/17 21:27 04/13/17 02:25 04/13/17 03:20 04/13/17 09:13 White Blood Count 6.5 x10^3/uL (4.0-11.0) 7.7 x10^3/uL (4.0-11.0) Red Blood Count 4.80 x10^6/uL (4.30-5.70) 4.75 x10^6/uL (4.30-5.70) Hemoglobin 12.7 g/dL (13.0-17.5) 12.4 g/dL (13.0-17.5) Hematocrit 38.1 % (39.0-53.0) 37.6 % (39.0-53.0) Mean Corpuscular Volume 80 fL (79-100) 79 fL (79-100) Mean Corpuscular Hemoglobin 27 pg (25-35) 26 pg (25-35) Mean Corpuscular Hemoglobin Concent 33 g/dL (31-37) 33 g/dL (31-37) Red Cell Distribution Width 15.3 % (11.5-14.5) 14.8 % (11.5-14.5) Platelet Count 396 x10^3/uL (140-400) 368 x10^3/uL (140-400) Neutrophils (%) (Auto) 60 % (31-73) 64 % (31-73) Lymphocytes (%) (Auto) 22 % (24-48) 20 % (24-48) Monocytes (%) (Auto) 14 % (0-9) 14 % (0-9) Eosinophils (%) (Auto) 3 % (0-3) 2 % (0-3) Basophils (%) (Auto) 1 % (0-3) 0 % (0-3) Neutrophils # (Auto) 3.9 x10^3uL (1.8-7.7) 4.9 x10^3uL (1.8-7.7) Lymphocytes # (Auto) 1.4 x10^3/uL (1.0-4.8) 1.5 x10^3/uL (1.0-4.8) Monocytes # (Auto) 0.9 x10^3/uL (0.0-1.1) 1.0 x10^3/uL (0.0-1.1) Eosinophils # (Auto) 0.2 x10^3/uL (0.0-0.7) 0.1 x10^3/uL (0.0-0.7) Basophils # (Auto) 0.1 x10^3/uL (0.0-0.2) 0.0 x10^3/uL (0.0-0.2) Sodium Level 138 mmol/L (136-145) 137 mmol/L (136-145) Potassium Level 4.3 mmol/L (3.5-5.1) 4.3 mmol/L (3.5-5.1) Chloride Level 101 mmol/L (98-107) 102 mmol/L (98-107) Carbon Dioxide Level 27 mmol/L (21-32) 24 mmol/L (21-32) Anion Gap 10 (6-14) 11 (6-14) Blood Urea Nitrogen 32 mg/dL (8-26) 27 mg/dL (8-26) Creatinine 1.8 mg/dL (0.7-1.3) 1.8 mg/dL (0.7-1.3) Estimated GFR (Cockcroft-Gault) 36.6 36.6 BUN/Creatinine Ratio 18 (6-20) Glucose Level 196 mg/dL (70-99) 189 mg/dL (70-99) Calcium Level 8.5 mg/dL (8.5-10.1) 8.2 mg/dL (8.5-10.1) Total Bilirubin 0.2 mg/dL (0.2-1.0) Aspartate Amino Transf (AST/SGOT) 20 U/L (15-37) Alanine Aminotransferase (ALT/SGPT) 28 U/L (16-63) Alkaline Phosphatase 150 U/L (46-116) Creatine Kinase 64 U/L (39-308) Troponin I Quantitative < 0.017 ng/mL (0-0.055) < 0.017 ng/mL (0-0.055) < 0.017 ng/mL (0-0.055) Total Protein 8.2 g/dL (6.4-8.2) Albumin 3.3 g/dL (3.4-5.0) Albumin/Globulin Ratio 0.7 (1.0-1.7) Nasal Screen MRSA (PCR) Negative (Negative) Test 04/13/17 10:04 04/13/17 11:51 04/13/17 16:23 04/13/17 19:13 Glucose (Fingerstick) 201 mg/dL (70-99) 153 mg/dL (70-99) 219 mg/dL (70-99) 283 mg/dL (70-99) Test 04/14/17 07:14 04/14/17 11:16 Glucose (Fingerstick) 131 mg/dL (70-99) 162 mg/dL (70-99) Brief Hospital Course Mr. Govea is a 77 old [sex] who presented with [ ] HISTORY OF PRESENT ILLNESS: This is a 77-year-old gentleman who resides at [facility] in [place]. Last night 04/12 according to the nursing staff, who I called myself, he was in the room, doubled over in pain, was having chest pain, short of breath, pale and nausea, and complained of dizziness. His vital signs at that time were blood pressure 155/85, pulse of 98 and his sats were 99%. They were not able to get hold anyone of his family and he was transferred to the Emergency Room at [facility]. HE WAS WORKED UP AND UT WAS RULED OUT. UGI NORMAL. NO EKG CHANGES. [facility] WAS CONC[facility] RBBB BUT THAT WAS PRESENT ON AN EKG IN SEPTEMBER OF 2016. HE WILL BE SENT HOME ON A SHORT COURSE OF PROTONIX. Discharge Information Condition at Discharge: Improved Disposition/Orders: D/C to Another Facility Dischare Medications Current Medications Ondansetron HCl (Zofran) 4 mg PRN Q4HRS PRN IV NAUSEA/VOMITING Last administered on 04/13/17 09:59; Start 04/12/17 at 22:30; Stop 04/13/17 at 22:30 ; Status DC Influenza Virus Vaccine Quadrival (Fluarix Quad [id number] Syringe) 0.5 ml ONCE ONCE VAX IM Last administered on 04/13/17 20:09; Start 04/13/17 at 10:00; Stop 04/13/17 at 10:01; Status DC Info (FLU VACCINE per PROTOCOL) 1 ea PRN 1X PRN MC PER PROTOCOL; Start at 03:30; Status Cancel Acetaminophen (Tylenol) 650 mg PRN Q4HRS PRN PO PAIN / TEMP; Start 04/13/17 at 07:45 Aspirin (Aspirin Enteric Coated) 325 mg DAILY08 PO Last administered on 09:22; Start 04/13/17 at 08:00 Buspirone HCl (Buspar) 5 mg BID PO Last administered on 04/14/17 09:22; Start 04/13/17 at 09:00 Ferrous Sulfate (Feosol) 325 mg DAILY PO Last administered on 04/14/17 09:22; Start 04/13/17 at 09:00 Fluvoxamine Maleate (Luvox) 100 mg DAILY PO Last administered on 04/14/17 09: 23; Start 04/13/17 at 09:00 Gabapentin (Neurontin) 100 mg TID PO Last administered on 04/14/17 09:22; Start 04/13/17 at 09:00 Glipizide (Glucotrol) 5 mg DAILY PO Last administered on 04/14/17 09:22; Start 04/13/17 at 09:00 Al Hydroxide/Mg Hydroxide (Mylanta Plus Xs) 30 ml PRN Q6HRS PRN PO Upset Stomach; Start 04/13/17 at 07:45 Metoprolol Tartrate (Lopressor) 37.5 mg BID PO Last administered on 04/14/17 09:22; Start 04/13/17 at 09:00 Mirtazapine (Remeron) 15 mg HS PO Last administered on 04/13/17 20:04; Start 04/13/17 at 21:00 Neomycin/ Polymyxin/ Bacitracin (Triple Antibiotic) 1 jenaro TID TP Last administered on 04/14/17 09:23; Start 04/13/17 at 09:00 Quetiapine Fumarate (SEROquel) 25 mg HS PO Last administered on 04/13/17 20:04 ; Start 04/13/17 at 21:00 Atorvastatin Calcium (Lipitor) 40 mg QHS PO Last administered on 04/13/17 20: 05; Start 04/13/17 at 21:00 Hydroxyzine Pamoate (Vistaril) 50 mg Q8HRS PO Last administered on 04/13/17 20 :04; Start 04/13/17 at 09:00 Multivitamins/ Calcium (Thera-M Plus) 1 tab DAILY PO Last administered on 09:22; Start 04/13/17 at 09:00 Pantoprazole Sodium (Protonix Vial) 40 mg 1X ONCE IVP Last administered on 09:57; Start 04/13/17 at 09:00; Stop 04/13/17 at 09:01; Status DC Sucralfate (Carafate) 1 gm QIDACHS PEG Last administered on 04/14/17 09:22; Start 04/13/17 at 08:45 Multivitamins/ Minerals 10 ml/ Folic Acid 1 mg/ Thiamine HCl 100 mg/Dextrose/ Sodium Chloride 1,011.2 ml @ 100.009 mls/hr DAILY IV Last administered on 04/13 12:00; Start 04/13/17 at 10:00 Nitroglycerin (Nitrostat) 0.4 mg PRN Q5MIN PRN SL CHEST PAIN; Start 04/13/17 at 13:30 Active Scripts Active Protonix (Pantoprazole Sodium) 40 Mg Tablet. 1 Tab PO DAILY Reported Glipizide 5 Mg Tablet 5 Mg PO DAILY LAST DOSE GIVEN: DATE: TODAY TIME: AM NEXT DOSE DUE: DATE: ORR TIME: AM Multivitamins (Multivitamin) 1 Each Tablet 1 Each PO DAILY LAST DOSE GIVEN: DATE: TIME: AM NEXT DOSE DUE: DATE: TIME: AM Quetiapine Fumarate 25 Mg Tablet 25 Mg PO HS LAST DOSE GIVEN: DATE: YES TIME: AT BEDTIME NEXT DOSE DUE: DATE: TIME: AT BEDTIME Fluvoxamine Maleate 100 Mg Tablet 100 Mg PO DAILY LAST DOSE GIVEN: DATE: TODAY TIME: AM NEXT DOSE DUE: DATE: ORR TIME: AM Aspirin Ec (Aspirin) 325 Mg Tablet.dr 325 Mg PO DAILY08 LAST DOSE GIVEN: DATE: TODAY TIME: AM NEXT DOSE DUE: DATE: TIME: AM Buspirone Hcl 5 Mg Tablet 5 Mg PO BID LAST DOSE GIVEN: DATE: TIME: AM NEXT DOSE DUE: DATE: TODAY TIME: PM Triple Antibiotic Ointment (Neomy Sulf/Bacitra/Polymyxin B) 1 Each Packet 1 Each TP TID LAST DOSE GIVEN: DATE: TIME: AM NEXT DOSE DUE: DATE: TODAY TIME: AFTERNOON Maalox Maximum Strength Susp (Mag Hydrox/Al Hydrox/Simeth) 355 Ml Oral.susp 30 Ml PO PRN Q6HRS PRN LAST DOSE GIVEN: DATE: NOT GIVEN TODAY NEXT DOSE DUE: DATE: TIME: IF AND WHEN NEEDED Tylenol (Acetaminophen) 325 Mg Tablet 650 Mg PO PRN Q4HRS PRN LAST DOSE GIVEN: DATE: NOT GIVEN TODAY TIME: NEXT DOSE DUE: DATE: TIME: IF AND WHEN NEEDED Hydroxyzine Pamoate 50 Mg Capsule 50 Mg PO Q8HRS LAST DOSE GIVEN: DATE: TODAY TIME: 0600 NEXT DOSE DUE: DATE: TODAY TIME: 1400 Gabapentin 100 Mg Capsule 100 Mg PO TID LAST DOSE GIVEN: DATE: TIME: AM NEXT DOSE DUE: DATE: TODAY TIME: AFTERNOON Ferrous Sulfate 325 Mg Tablet 325 Mg PO DAILY LAST DOSE GIVEN: DATE: TIME: AM NEXT DOSE DUE: DATE: TIME: AM Atorvastatin Calcium 40 Mg Tablet 40 Mg PO QHS LAST DOSE GIVEN: DATE: YESTER TIME: AT BEDTIME NEXT DOSE DUE: DATE: TIME: AT BEDTIME Mirtazapine 15 Mg Tablet 15 Mg PO HS LAST DOSE GIVEN: DATE: YESTER TIME: AT BEDTIME NEXT DOSE DUE: DATE: TODAY TIME: AT BEDTIME Metoprolol Tartrate 25 Mg Tablet 37.5 Mg PO BID LAST DOSE GIVEN: DATE: TODAY TIME: AM NEXT DOSE DUE: DATE: TODAY TIME: PM Patient Instructions Patient Instuctions DISCHARGE BACK TO [facility] [place]. FOR MEDICATIONS SEE LYNNE DEL CID DO Apr 14, 2017 11:56
== END 2017-04-14 12:30 | disposition home or self-care (01) | DRG 313 ==
LOC: ER 21:10 → 1 SOUTH 22:58 → OBSVTOIN 04-13 10:32
PROVIDERS: ADMIT Family Medicine; ATTEND Family Medicine
DX: R07.89 Other chest pain (principal); I25.10 Atherosclerotic heart disease of native coronary artery without angina pectoris; E11.22 Type 2 diabetes mellitus with diabetic chronic kidney disease; I48.92 Unspecified atrial flutter; I48.2 Chronic atrial fibrillation; E44.1 Mild protein-calorie malnutrition; G30.9 Alzheimer's disease, unspecified; F02.80 Dementia in other diseases classified elsewhere, unspecified severity, without behavioral disturbance, psychotic disturbance, mood disturbance, and anxiety; E78.5 Hyperlipidemia, unspecified; F32.9 Major depressive disorder, single episode, unspecified; H91.90 Unspecified hearing loss, unspecified ear; Z68.24 Body mass index [BMI] 24.0-24.9, adult; F41.9 Anxiety disorder, unspecified; I12.9 Hypertensive chronic kidney disease with stage 1 through stage 4 chronic kidney disease, or unspecified chronic kidney disease; K21.9 Gastro-esophageal reflux disease without esophagitis; N18.3 Chronic kidney disease, stage 3 (moderate); N40.0 Benign prostatic hyperplasia without lower urinary tract symptoms; R29.6 Repeated falls; Z66 Do not resuscitate; Z79.84 Long term (current) use of oral hypoglycemic drugs; Z79.899 Other long term (current) drug therapy; Z86.73 Personal history of transient ischemic attack (TIA), and cerebral infarction without residual deficits; Z95.1 Presence of aortocoronary bypass graft
CPT/HCPCS: 36415; 71010; 74240; 80048; 80053; 80061; 82550; 82947; 84484; 85025; 87641; 90686; 93005; 93306; C9113; G0378; G0379; J2405; Q0177; 99285-25

== ENCOUNTER 2017-12-11 20:15 | Inpatient (IN) | payer OTHER, MEDICARE ==
[~2017-12-11] VITALS: Ht 165.1 cm; Wt 73.3 kg
[~2017-12-11 20:15] MED LIST changes: +ASPI325T11 PO; -FERR-26 PO; +FERR325T14 PO; +FLUV100T2 PO; +GLIP5TAB10 PO; -METF500T4 PO; +METF500T5 PO; +MULT1TAB52 PO; +PANT40TA3 PO; +QUET25TA PO; +TAMS0.4C97 PO
--- NOTE | 2017-12-11 20:56 | PDOC ---
Exam Note: Mendez Note: Please also refer to the separate dictated note~for this date of service dictated separately.~Patient seen individually. Discussed the patient with Nursing staff reviewed the chart.~Reviewed interim history and current functioning. Reviewed vital signs,~Labs/ Radiology~and current medications noted below. Continue current treatment with the changes noted in the dictated addendum note Current Medications: Meds: Active Scripts Active Protonix (Pantoprazole Sodium) 40 Mg Tablet. 1 Tab PO DAILY Reported Glipizide 5 Mg Tablet 5 Mg PO DAILY LAST DOSE GIVEN: DATE: TODAY TIME: AM NEXT DOSE DUE: DATE: TOMORROW TIME: AM Multivitamins (Multivitamin) 1 Each Tablet 1 Each PO DAILY LAST DOSE GIVEN: DATE: TIME: AM NEXT DOSE DUE: DATE: TOMORROW TIME: AM Quetiapine Fumarate 25 Mg Tablet 25 Mg PO HS LAST DOSE GIVEN: DATE: YESTERDAY TIME: AT BEDTIME NEXT DOSE DUE: DATE: TODAY TIME: AT BEDTIME Fluvoxamine Maleate 100 Mg Tablet 100 Mg PO DAILY LAST DOSE GIVEN: DATE: TIME: AM NEXT DOSE DUE: DATE: TOMORROW TIME: AM Aspirin Ec (Aspirin) 325 Mg Tablet. 325 Mg PO DAILY08 LAST DOSE GIVEN: DATE: TIME: AM NEXT DOSE DUE: DATE: TOMORROW TIME: AM Buspirone Hcl 5 Mg Tablet 5 Mg PO BID LAST DOSE GIVEN: DATE: TIME: AM NEXT DOSE DUE: DATE: TODAY TIME: PM Triple Antibiotic Ointment (Neomy Sulf/Bacitra/Polymyxin B) 1 Each Packet 1 Each TP TID LAST DOSE GIVEN: DATE: TIME: AM NEXT DOSE DUE: DATE: TODAY TIME: AFTERNOON Maalox Maximum Strength Susp (Mag Hydrox/Al Hydrox/Simeth) 355 Ml Oral.susp 30 Ml PO PRN Q6HRS PRN LAST DOSE GIVEN: DATE: NOT GIVEN TODAY NEXT DOSE DUE: DATE: TODAY TIME: IF AND WHEN NEEDED Tylenol (Acetaminophen) 325 Mg Tablet 650 Mg PO PRN Q4HRS PRN LAST DOSE GIVEN: DATE: NOT GIVEN TODAY TIME: NEXT DOSE DUE: DATE: TODAY TIME: IF AND WHEN NEEDED Hydroxyzine Pamoate 50 Mg Capsule 50 Mg PO Q8HRS LAST DOSE GIVEN: DATE: TIME: 0600 NEXT DOSE DUE: DATE: TODAY TIME: 1400 Gabapentin 100 Mg Capsule 100 Mg PO TID LAST DOSE GIVEN: DATE: TODAY TIME: AM NEXT DOSE DUE: DATE: TODAY TIME: AFTERNOON Ferrous Sulfate 325 Mg Tablet 325 Mg PO DAILY LAST DOSE GIVEN: DATE: TODAY TIME: AM NEXT DOSE DUE: DATE: TOMORROW TIME: AM Atorvastatin Calcium 40 Mg Tablet 40 Mg PO QHS LAST DOSE GIVEN: DATE: YESTER TIME: AT BEDTIME NEXT DOSE DUE: DATE: TODAY TIME: AT BEDTIME Mirtazapine 15 Mg Tablet 15 Mg PO HS LAST DOSE GIVEN: DATE: YESTER TIME: AT BEDTIME NEXT DOSE DUE: DATE: TODAY TIME: AT BEDTIME Metoprolol Tartrate 25 Mg Tablet 37.5 Mg PO BID LAST DOSE GIVEN: DATE: TODAY TIME: AM NEXT DOSE DUE: DATE: TODAY TIME: PM I have reviewed the current psychotropics carefully including drug interactions. Risk benefit ratio favors no change other than as noted in my dictated progress note. Diagnosis: Problems: (1) Agitation (2) Anxiety disorder (3) Dementia in Alzheimer's disease with delusions (4) Dementia in Alzheimer's disease with depression (5) Impulse control disorder AZEEM GEORGE MD Dec 11, 2017 20:56
[2017-12-11] MEDS ORDERED: ACETAMINOPHEN 325 MG TABLET PO PRN ×2 (22:00→22:30)
[2017-12-11] MEDS ORDERED: MAGNESIUM HYDROXIDE 2,400 MG/30 ML ORAL.SUSP. PO PRN (22:00)
[2017-12-11] MEDS ORDERED: METHYL SALICYLATE/MENTHOL TOPICAL OINTMENT 29GM TUBE. TP PRN (22:00)
[2017-12-11] MEDS ORDERED: MAG HYDROX/AL HYDROX/SIMETH 30 ML ORAL.SUSP PO PRN ×2 (22:00→22:30)
[2017-12-11] MEDS ORDERED: FLUV50TA2 PO (22:26)
[2017-12-11] MEDS ORDERED: GLIP5TAB10 PO (22:26)
--- NOTE | 2017-12-11 22:30 | EKG ---
[address] [address] Test Date: 2017-12-11 Test Time: 22:25:43 Pat Name: DARIUS HAYS Department: Room: [facility] 1 Gender: M Regional Driver: KAJAL : [id number] Requested By: AZEEM GEORGE Order Number: [id number] Reading MD: Te Garcia MD Measurements Intervals [place] Rate: 65 P: 35 AK: 198 QRS: 11 QRSD: 94 T: 28 QT: 382 QTc: 398 Interpretive Statements SINUS RHYTHM NON-SPECIFIC ST/T CHANGES Electronically Signed On 12-12-2017 11:12:07 CDT by Te Garcia MD
[2017-12-11 22:43] LABS: BASO # 0.1 x10^3/uL (0.0-0.2); BASO % 1 % (0-3); EOS # 0.3 x10^3/uL (0.0-0.7); EOS % 5 % (0-3); HEMATOCRIT 36.3 % (39.0-53.0); HEMOGLOBIN 11.7 g/dL (13.0-17.5); LYMPH # 1.6 x10^3/uL (1.0-4.8); LYMPH % 23 % (24-48); MEAN CORPUSCULAR HEMOGLOBIN 25 pg (25-35); MEAN CORPUSCULAR HGB CONC 32 g/dL (31-37); MEAN CORPUSCULAR VOLUME 77 fL (79-100); MONO # 0.5 x10^3/uL (0.0-1.1); MONO % 7 % (0-9); NEUT # 4.7 x10^3uL (1.8-7.7); NEUT % 65 % (31-73); PLATELET COUNT 399 x10^3/uL (140-400); RED BLOOD COUNT 4.73 x10^6/uL (4.30-5.70); RED CELL DISTRIBUTION WIDTH 14.6 % (11.5-14.5); WHITE BLOOD COUNT 7.3 x10^3/uL (4.0-11.0)
[2017-12-11 22:53] LABS: ALBUMIN 3.2 g/dL (3.4-5.0); ALBUMIN/GLOBULIN RATIO 0.8 (1.0-1.7); CALCIUM 8.6 mg/dL (8.5-10.1); CREATININE 1.9 mg/dL (0.7-1.3); GFR 34.4; MAGNESIUM 1.9 mg/dL (1.8-2.4); POTASSIUM 4.4 mmol/L (3.5-5.1); TOTAL BILIRUBIN 0.3 mg/dL (0.2-1.0); TOTAL PROTEIN 7.4 g/dL (6.4-8.2)
[2017-12-12 01:45] VITALS: BP 145/84
[2017-12-12] MEDS: QUEtiapine 25 MG TABLET. PO SCH ×3 (02:26→20:21)
[2017-12-12] MEDS: hydrOXYzine PAMOATE 25 MG CAPSULE PO SCH ×4 (02:26→20:19)
[2017-12-12] MEDS: busPIRone 5 MG TABLET. PO SCH ×2 (02:26→08:36)
[2017-12-12] MEDS: GABAPENTIN 100 MG CAPSULE. PO SCH ×4 (02:26→20:18)
[2017-12-12] MEDS: MIRTAZAPINE 15 MG TABLET PO SCH ×2 (02:27→20:19)
[2017-12-12 04:11] LABS: BACTERIA,URINE 0 /HPF (0-FEW); BILIRUBIN,URINE NEG (NEG); CLARITY,URINE CLEAR; COLOR,URINE YELLOW; GLUCOSE,URINE 100 mg/dL (NEG); NITRITE,URINE NEG (NEG); SQUAMOUS EPITHELIAL CELL,UR OCC /LPF; UROBILINOGEN,URINE 0.2 mg/dL (0.2 mg/dL); WBC,URINE 0 /HPF (0-4)
[2017-12-12 04:12] LABS: RBC,URINE 0 /HPF (0-2)
[2017-12-12] MEDS ORDERED: hydrOXYzine PAMOATE 25 MG CAPSULE PO SCH (06:00)
[2017-12-12 06:33] VITALS: BP 104/67
[2017-12-12] MEDS: MULTIVITAMIN with MINERAL TABLET. PO SCH (08:40)
[2017-12-12] MEDS: METOPROLOL TART IMMED RELEASE 25 MG TABLET PO SCH ×2 (08:41→20:20)
[2017-12-12] MEDS: PANTOPRAZOLE 40 MG TABLET. PO SCH (08:41)
[2017-12-12] MEDS: FERROUS SULFATE 325 MG TABLET. PO SCH (08:41)
[2017-12-12] MEDS: ASPIRIN ENTERIC COATED 325 MG TABLET.DR. PO SCH (08:41)
[2017-12-12] MEDS: glipiZIDE 5 MG TABLET PO SCH ×2 (08:41→17:14)
[2017-12-12] MEDS: NEOMY/BACITR/POLYMYXIN OINT PACKET. TP SCH ×3 (08:43→20:25)
[2017-12-12] MEDS ORDERED: busPIRone 5 MG TABLET. PO SCH (09:00)
[2017-12-12] MEDS ORDERED: QUEtiapine 25 MG TABLET. PO SCH (09:00)
[2017-12-12] MEDS ORDERED: GABAPENTIN 100 MG CAPSULE. PO SCH (09:00)
[2017-12-12 14:52] LABS: THYROID STIM HORMONE (TSH) 1.968 uIU/mL (0.358-3.740)
[2017-12-12 16:21] VITALS: BP 136/79
[2017-12-12] MEDS: ATORVASTATIN CALCIUM 20 MG TABLET PO SCH (20:25)
[2017-12-12] MEDS: busPIRone 10 MG TABLET. PO SCH (20:26)
--- NOTE | 2017-12-12 20:37 | PDOC ---
Exam Note: Mendez Note: Please also refer to the separate dictated note~for this date of service dictated separately.~Patient seen individually. Discussed the patient with Nursing staff reviewed the chart.~Reviewed interim history and current functioning. Reviewed vital signs,~Labs/ Radiology~and current medications noted below. Continue current treatment with the changes noted in the dictated addendum note Assessment: Vital Signs: Vital Signs Date Time Temp Pulse Resp B/P (MAP) Pulse Ox O2 Delivery O2 Flow Rate FiO2 12/12/17 20:20 67 136/79 12/12/17 16:21 97.1 18 95 12/12/17 01:45 Room Air I&O Intake and Output 12/12/17 06:59 Intake Total 120 ml Balance 120 ml Intake Oral 120 ml Labs: Laboratory Tests Test 12/11/17 22:34 12/12/17 03:30 12/12/17 07:39 12/12/17 19:05 White Blood Count 7.3 x10^3/uL (4.0-11.0) Red Blood Count 4.73 x10^6/uL (4.30-5.70) Hemoglobin 11.7 g/dL (13.0-17.5) L Hematocrit 36.3 % (39.0-53.0) L Mean Corpuscular Volume 77 fL (79-100) L Mean Corpuscular Hemoglobin 25 pg (25-35) Mean Corpuscular Hemoglobin Concent 32 g/dL (31-37) Red Cell Distribution Width 14.6 % (11.5-14.5) H Platelet Count 399 x10^3/uL (140-400) Neutrophils (%) (Auto) 65 % (31-73) Lymphocytes (%) (Auto) 23 % (24-48) L Monocytes (%) (Auto) 7 % (0-9) Eosinophils (%) (Auto) 5 % (0-3) H Basophils (%) (Auto) 1 % (0-3) Neutrophils # (Auto) 4.7 x10^3uL (1.8-7.7) Lymphocytes # (Auto) 1.6 x10^3/uL (1.0-4.8) Monocytes # (Auto) 0.5 x10^3/uL (0.0-1.1) Eosinophils # (Auto) 0.3 x10^3/uL (0.0-0.7) Basophils # (Auto) 0.1 x10^3/uL (0.0-0.2) Sodium Level 135 mmol/L (136-145) L Potassium Level 4.4 mmol/L (3.5-5.1) Chloride Level 100 mmol/L (98-107) Carbon Dioxide Level 31 mmol/L (21-32) Anion Gap 4 (6-14) L Blood Urea Nitrogen 25 mg/dL (8-26) Creatinine 1.9 mg/dL (0.7-1.3) H Estimated GFR (Cockcroft-Gault) 34.4 BUN/Creatinine Ratio 13 (6-20) Glucose Level 236 mg/dL (70-99) H Calcium Level 8.6 mg/dL (8.5-10.1) Magnesium Level 1.9 mg/dL (1.8-2.4) Iron Level 48 ug/dL (65-175) L Total Iron Binding Capacity 264 ug/dL (250-450) Iron Saturation 18 % (15-34) Total Bilirubin 0.3 mg/dL (0.2-1.0) Aspartate Amino Transferase (AST) 13 U/L (15-37) L Alanine Aminotransferase (ALT) 16 U/L (16-63) Alkaline Phosphatase 150 U/L (46-116) H Total Protein 7.4 g/dL (6.4-8.2) Albumin 3.2 g/dL (3.4-5.0) L Albumin/Globulin Ratio 0.8 (1.0-1.7) L Triglycerides Level 159 mg/dL (0-150) H Cholesterol Level 166 mg/dL (0-200) LDL Cholesterol, Calculated 98 mg/dL (0-100) VLDL Cholesterol, Calculated 31 mg/dL (0-40) Non-HDL Cholesterol Calculated 129 mg/dL (0-129) HDL Cholesterol 37 mg/dL (40-60) L Cholesterol/HDL Ratio 4.0 Vitamin B12 Level 508 pg/mL (247-911) 25-Hydroxy Vitamin D Total 21.5 ng/mL (30-100) L Thyroid Stimulating Hormone (TSH) 1.968 uIU/mL (0.358-3.740) Treponema pallidum Antibody Nonreactive (Nonreactive) Urine Collection Type Unknown Urine Color Yellow Urine Clarity Clear Urine pH 6.0 Urine Specific [place] 1.015 Urine Protein Neg (NEG-TRACE) Urine Glucose (UA) 100 mg/dL (NEG) Urine Ketones (Stick) Neg mg/dL (NEG) Urine Blood Neg (NEG) Urine Nitrite Neg (NEG) Urine Bilirubin Neg (NEG) Urine Urobilinogen Dipstick 0.2 mg/dL (0.2 mg/dL) Urine Leukocyte Esterase Neg (NEG) Urine RBC 0 /HPF (0-2) Urine WBC 0 /HPF (0-4) Urine Squamous Epithelial Cells Occ /LPF Urine Bacteria 0 /HPF (0-FEW) Glucose (Fingerstick) 142 mg/dL (70-99) H 270 mg/dL (70-99) H Current Medications: Meds: Current Medications Acetaminophen (Tylenol) 650 mg PRN Q6HRS PRN PO PAIN / TEMP; Start 12/11/17 at 22:00; Status Cancel Multi-Ingredient Ointment (Analgesic [place]) 1 jenaro PRN QID PRN TP MUSCLE PAIN; Start 12/11/17 at 22:00 Al Hydroxide/Mg Hydroxide (Mylanta Plus Xs) 15 ml PRN AFTMEALHC PRN PO DYSPEPSIA; Start 12/11/17 at 22:00; Status Cancel Magnesium Hydroxide (Milk Of Magnesia) 2,400 mg PRN QHS PRN PO CONSTIPATION; Start 12/11/17 at 22:00 Buspirone HCl (Buspar) 5 mg BID PO ; Start 12/12/17 at 09:00; Stop 12/12/17 at 09: 00; Status DC Hydroxyzine Pamoate (Vistaril) 50 mg Q8HRS PO ; Start 12/12/17 at 06:00; Stop 12/12/17 at 06:00; Status DC Mirtazapine (Remeron) 15 mg QHS PO ; Start 12/12/17 at 21:00; Stop 12/12/17 at 21: 00; Status DC Acetaminophen (Tylenol) 650 mg PRN Q4HRS PRN PO PAIN / TEMP; Start 12/11/17 at 22:30 Aspirin (Aspirin Enteric Coated) 325 mg DAILY08 PO Last administered on at 08:41; Start 12/12/17 at 08:00 Ferrous Sulfate (Feosol) 325 mg DAILY PO Last administered on 12/12/17at 08:41; Start 12/12/17 at 09:00 Gabapentin (Neurontin) 100 mg TID PO ; Start 12/12/17 at 09:00; Stop 12/12/17 at 09:00; Status DC Al Hydroxide/Mg Hydroxide (Mylanta Plus Xs) 30 ml PRN Q6HRS PRN PO Upset Stomach; Start 12/11/17 at 22:30 Metoprolol Tartrate (Lopressor) 37.5 mg BID PO Last administered on 12/12/17at 20 :20; Start 12/12/17 at 09:00 Neomycin/ Polymyxin/ Bacitracin (Triple Antibiotic Ointment) 1 pkt TID TP Last administered on 12/12/17 20:25; Start 12/12/17 at 09:00 Atorvastatin Calcium (Lipitor) 40 mg QHS PO Last administered on 12/12/17at 20:25 ; Start 12/12/17 at 21:00 Glipizide (Glucotrol) 5 mg BIDBFRMEAL PO Last administered on 12/12/17at 17:14; Start 12/12/17 at 07:30 Multivitamins/ Calcium (Thera-M Plus) 1 tab DAILY PO Last administered on at 08:40; Start 12/12/17 at 09:00 Pantoprazole Sodium (Protonix) 40 mg DAILY PO Last administered on 12/12/17at 08: 41; Start 12/12/17 at 09:00 Fluvoxamine Maleate (Luvox) 75 mg DAILY PO Last administered on 12/12/17at 08:40 ; Start 12/12/17 at 09:00 Quetiapine Fumarate (SEROquel) 25 mg BID PO ; Start 12/12/17 at 09:00; Stop at 09:00; Status DC Buspirone HCl (Buspar) 5 mg BID PO Last administered on 12/12/17at 08:36; Start 12/12/17 at 02:30; Stop 12/12/17 at 18:30; Status DC Gabapentin (Neurontin) 100 mg TID PO Last administered on 12/12/17at 20:18; Start 12/12/17 at 02:30 Hydroxyzine Pamoate (Vistaril) 50 mg Q8HRS PO Last administered on 12/12/17at 20: 19; Start 12/12/17 at 02:30 Mirtazapine (Remeron) 15 mg QHS PO Last administered on 12/12/17at 20:19; Start 12/12/17 at 02:30 Quetiapine Fumarate (SEROquel) 25 mg BID PO Last administered on 12/12/17at 20:21 ; Start 12/12/17 at 02:30 Buspirone HCl (Buspar) 10 mg BID PO Last administered on 12/12/17at 20:26; Start 12/12/17 at 21:00 Trazodone HCl (Desyrel) 50 mg PRN DAILY PRN PO INSOMNIA, OCTOBER REPEAT X1; Start 12/12/17 at 18:30 Active Scripts Active Protonix (Pantoprazole Sodium) 40 Mg Tablet. 1 Tab PO DAILY Reported Glipizide 5 Mg Tablet 5 Mg PO BID Fluvoxamine Maleate 50 Mg Tablet 75 Mg PO DAILY Multivitamins (Multivitamin) 1 Each Tablet 1 Each PO DAILY LAST DOSE GIVEN: DATE: TODAY TIME: AM NEXT DOSE DUE: DATE: TOMORROW TIME: AM Quetiapine Fumarate 25 Mg Tablet 25 Mg PO BID LAST DOSE GIVEN: DATE: YESTERDAY TIME: AT BEDTIME NEXT DOSE DUE: DATE: TODAY TIME: AT BEDTIME Aspirin Ec (Aspirin) 325 Mg Tablet. 325 Mg PO DAILY08 LAST DOSE GIVEN: DATE: TODAY TIME: AM NEXT DOSE DUE: DATE: TOMORROW TIME: AM Buspirone Hcl 5 Mg Tablet 5 Mg PO BID LAST DOSE GIVEN: DATE: TODAY TIME: AM NEXT DOSE DUE: DATE: TODAY TIME: PM Triple Antibiotic Ointment (Neomy Sulf/Bacitra/Polymyxin B) 1 Each Packet 1 Each TP TID LAST DOSE GIVEN: DATE: TODAY TIME: AM NEXT DOSE DUE: DATE: TODAY TIME: AFTERNOON Maalox Maximum Strength Susp (Mag Hydrox/Al Hydrox/Simeth) 355 Ml Oral.susp 30 Ml PO PRN Q6HRS PRN LAST DOSE GIVEN: DATE: NOT GIVEN TODAY NEXT DOSE DUE: DATE: TODAY TIME: IF AND WHEN NEEDED Tylenol (Acetaminophen) 325 Mg Tablet 650 Mg PO PRN Q4HRS PRN LAST DOSE GIVEN: DATE: NOT GIVEN TODAY TIME: NEXT DOSE DUE: DATE: TODAY TIME: IF AND WHEN NEEDED Hydroxyzine Pamoate 50 Mg Capsule 50 Mg PO Q8HRS LAST DOSE GIVEN: DATE: TODAY TIME: 0600 NEXT DOSE DUE: DATE: TODAY TIME: 1400 Gabapentin 100 Mg Capsule 100 Mg PO TID LAST DOSE GIVEN: DATE: TIME: AM NEXT DOSE DUE: DATE: TODAY TIME: AFTERNOON Ferrous Sulfate 325 Mg Tablet 325 Mg PO DAILY LAST DOSE GIVEN: DATE: TIME: AM NEXT DOSE DUE: DATE: TOMORROW TIME: AM Atorvastatin Calcium 40 Mg Tablet 40 Mg PO QHS LAST DOSE GIVEN: DATE: YESTERDAY TIME: AT BEDTIME NEXT DOSE DUE: DATE: TODAY TIME: AT BEDTIME Mirtazapine 15 Mg Tablet 15 Mg PO HS LAST DOSE GIVEN: DATE: YES TIME: AT BEDTIME NEXT DOSE DUE: DATE: TIME: AT BEDTIME Metoprolol Tartrate 25 Mg Tablet 37.5 Mg PO BID LAST DOSE GIVEN: DATE: TIME: AM NEXT DOSE DUE: DATE: TIME: PM I have reviewed the current psychotropics carefully including drug interactions. Risk benefit ratio favors no change other than as noted in my dictated progress note. Diagnosis: Problems: (1) Anxiety disorder (2) Dementia in Alzheimer's disease with delusions (3) Dementia in Alzheimer's disease with depression (4) Impulse control disorder (5) Agitation AZEEM GEORGE MD Dec 12, 2017 20:37
[2017-12-12] MEDS ORDERED: MIRTAZAPINE 15 MG TABLET PO SCH (21:00)
[2017-12-12 21:12] LABS: THYROXINE 5.7 ug/dL (4.5-12.0)
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
[2017-12-12] MEDS: traZODone 50 MG TABLET. PO PRN (23:20)
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
[2017-12-13] MEDS: traZODone 50 MG TABLET. PO PRN ×2 (03:06→22:57)
[2017-12-13 04:11] LABS: HEMOGLOBIN A1C 9.2 % (4.8-5.6)
[2017-12-13] MEDS: hydrOXYzine PAMOATE 25 MG CAPSULE PO SCH ×3 (05:47→20:09)
[2017-12-13 06:13] VITALS: BP 121/59
[2017-12-13] MEDS: METOPROLOL TART IMMED RELEASE 25 MG TABLET PO SCH ×2 (08:12→20:08)
[2017-12-13] MEDS: PANTOPRAZOLE 40 MG TABLET. PO SCH (08:14)
[2017-12-13] MEDS: busPIRone 10 MG TABLET. PO SCH ×2 (08:14→20:09)
[2017-12-13] MEDS: glipiZIDE 5 MG TABLET PO SCH ×2 (08:14→17:00)
[2017-12-13] MEDS: QUEtiapine 25 MG TABLET. PO SCH (08:14)
[2017-12-13] MEDS: GABAPENTIN 100 MG CAPSULE. PO SCH ×4 (08:14→20:09)
[2017-12-13] MEDS: ASPIRIN ENTERIC COATED 325 MG TABLET.DR. PO SCH (08:14)
[2017-12-13] MEDS: FERROUS SULFATE 325 MG TABLET. PO SCH (08:14)
[2017-12-13] MEDS: MULTIVITAMIN with MINERAL TABLET. PO SCH (08:14)
[2017-12-13] MEDS: NEOMY/BACITR/POLYMYXIN OINT PACKET. TP SCH ×3 (08:15→20:10)
[2017-12-13 16:12] VITALS: BP 133/81
[2017-12-13] MEDS: ATORVASTATIN CALCIUM 20 MG TABLET PO SCH (20:09)
[2017-12-13] MEDS: MIRTAZAPINE 15 MG TABLET PO SCH (20:09)
[2017-12-13] MEDS: QUEtiapine 50 MG TABLET. PO SCH (20:11)
--- NOTE | 2017-12-13 20:32 | PDOC ---
Exam Note: Mendez Note: Please also refer to the separate dictated note~for this date of service dictated separately.~Patient seen individually. Discussed the patient with Nursing staff reviewed the chart.~Reviewed interim history and current functioning. Reviewed vital signs,~Labs/ Radiology~and current medications noted below. Continue current treatment with the changes noted in the dictated addendum note Assessment: Vital Signs: Vital Signs Date Time Temp Pulse Resp B/P (MAP) Pulse Ox O2 Delivery O2 Flow Rate FiO2 12/13/17 20:08 87 133/81 12/13/17 16:12 18 97 12/12/17 16:21 97.1 12/12/17 01:45 Room Air I&O Intake and Output 12/13/17 07:00 Intake Total 1740 ml Balance 1740 ml Intake Oral 1740 ml # Bowel Movements 1 Labs: Laboratory Tests Test 12/13/17 07:01 Glucose (Fingerstick) 260 mg/dL (70-99) H Current Medications: Meds: Current Medications Acetaminophen (Tylenol) 650 mg PRN Q6HRS PRN PO PAIN / TEMP; Start 12/11/17 at 22:00; Status Cancel Multi-Ingredient Ointment (Analgesic [place]) 1 jenaro PRN QID PRN TP MUSCLE PAIN; Start 12/11/17 at 22:00 Al Hydroxide/Mg Hydroxide (Mylanta Plus Xs) 15 ml PRN AFTMEALHC PRN PO DYSPEPSIA; Start 12/11/17 at 22:00; Status Cancel Magnesium Hydroxide (Milk Of Magnesia) 2,400 mg PRN QHS PRN PO CONSTIPATION; Start 12/11/17 at 22:00 Buspirone HCl (Buspar) 5 mg BID PO ; Start 12/12/17 at 09:00; Stop 12/12/17 at 09: 00; Status DC Hydroxyzine Pamoate (Vistaril) 50 mg Q8HRS PO ; Start 12/12/17 at 06:00; Stop 12/12/17 at 06:00; Status DC Mirtazapine (Remeron) 15 mg QHS PO ; Start 12/12/17 at 21:00; Stop 12/12/17 at 21: 00; Status DC Acetaminophen (Tylenol) 650 mg PRN Q4HRS PRN PO PAIN / TEMP; Start 12/11/17 at 22:30 Aspirin (Aspirin Enteric Coated) 325 mg DAILY08 PO Last administered on 08:14; Start 12/12/17 at 08:00 Ferrous Sulfate (Feosol) 325 mg DAILY PO Last administered on 12/13/17at 08:14; Start 12/12/17 at 09:00 Gabapentin (Neurontin) 100 mg TID PO ; Start 12/12/17 at 09:00; Stop 12/12/17 at 09:00; Status DC Al Hydroxide/Mg Hydroxide (Mylanta Plus Xs) 30 ml PRN Q6HRS PRN PO Upset Stomach; Start 12/11/17 at 22:30 Metoprolol Tartrate (Lopressor) 37.5 mg BID PO Last administered on 12/13/17 20 :08; Start 12/12/17 at 09:00 Neomycin/ Polymyxin/ Bacitracin (Triple Antibiotic Ointment) 1 pkt TID TP Last administered on 12/13/17 20:10; Start 12/12/17 at 09:00 Atorvastatin Calcium (Lipitor) 40 mg QHS PO Last administered on 12/13/17 20:09 ; Start 12/12/17 at 21:00 Glipizide (Glucotrol) 5 mg BIDBFRMEAL PO Last administered on 12/13/17 17:00; Start 12/12/17 at 07:30 Multivitamins/ Calcium (Thera-M Plus) 1 tab DAILY PO Last administered on 08:14; Start 12/12/17 at 09:00 Pantoprazole Sodium (Protonix) 40 mg DAILY PO Last administered on 12/13/17 08: 14; Start 12/12/17 at 09:00 Fluvoxamine Maleate (Luvox) 75 mg DAILY PO Last administered on 12/13/17 08:14 ; Start 12/12/17 at 09:00 Quetiapine Fumarate (SEROquel) 25 mg BID PO ; Start 12/12/17 at 09:00; Stop at 09:00; Status DC Buspirone HCl (Buspar) 5 mg BID PO Last administered on 12/12/17at 08:36; Start 12/12/17 at 02:30; Stop 12/12/17 at 18:30; Status DC Gabapentin (Neurontin) 100 mg TID PO Last administered on 12/13/17 20:09; Start 12/12/17 at 02:30 Hydroxyzine Pamoate (Vistaril) 50 mg Q8HRS PO Last administered on 12/13/17at 20: 09; Start 12/12/17 at 02:30 Mirtazapine (Remeron) 15 mg QHS PO Last administered on 12/13/17 20:09; Start 12/12/17 at 02:30 Quetiapine Fumarate (SEROquel) 25 mg BID PO Last administered on 12/13/17at 08:14 ; Start 12/12/17 at 02:30; Stop 12/13/17 at 17:14; Status DC Buspirone HCl (Buspar) 10 mg BID PO Last administered on 12/13/17at 20:09; Start 12/12/17 at 21:00 Trazodone HCl (Desyrel) 50 mg PRN DAILY PRN PO INSOMNIA, MAY REPEAT X1 Last administered on 12/13/17at 03:06; Start 12/12/17 at 18:30 Quetiapine Fumarate (SEROquel) 25 mg DAILY PO ; Start 12/14/17 at 09:00 Quetiapine Fumarate (SEROquel) 50 mg QHS PO Last administered on 12/13/17at 20:11 ; Start 12/13/17 at 21:00 Active Scripts Active Protonix (Pantoprazole Sodium) 40 Mg Tablet. 1 Tab PO DAILY Reported Glipizide 5 Mg Tablet 5 Mg PO BID Fluvoxamine Maleate 50 Mg Tablet 75 Mg PO DAILY Multivitamins (Multivitamin) 1 Each Tablet 1 Each PO DAILY LAST DOSE GIVEN: DATE: TODAY TIME: AM NEXT DOSE DUE: DATE: TOMORROW TIME: AM Quetiapine Fumarate 25 Mg Tablet 25 Mg PO BID LAST DOSE GIVEN: DATE: YESTERDAY TIME: AT BEDTIME NEXT DOSE DUE: DATE: TODAY TIME: AT BEDTIME Aspirin Ec (Aspirin) 325 Mg Tablet. 325 Mg PO DAILY08 LAST DOSE GIVEN: DATE: TODAY TIME: AM NEXT DOSE DUE: DATE: TOMORROW TIME: AM Buspirone Hcl 5 Mg Tablet 5 Mg PO BID LAST DOSE GIVEN: DATE: TODAY TIME: AM NEXT DOSE DUE: DATE: TODAY TIME: PM Triple Antibiotic Ointment (Neomy Sulf/Bacitra/Polymyxin B) 1 Each Packet 1 Each TP TID LAST DOSE GIVEN: DATE: TODAY TIME: AM NEXT DOSE DUE: DATE: TODAY TIME: AFTERNOON Maalox Maximum Strength Susp (Mag Hydrox/Al Hydrox/Simeth) 355 Ml Oral.susp 30 Ml PO PRN Q6HRS PRN LAST DOSE GIVEN: DATE: NOT GIVEN TODAY NEXT DOSE DUE: DATE: TIME: IF AND WHEN NEEDED Tylenol (Acetaminophen) 325 Mg Tablet 650 Mg PO PRN Q4HRS PRN LAST DOSE GIVEN: DATE: NOT GIVEN TODAY TIME: NEXT DOSE DUE: DATE: TODAY TIME: IF AND WHEN NEEDED Hydroxyzine Pamoate 50 Mg Capsule 50 Mg PO Q8HRS LAST DOSE GIVEN: DATE: TODAY TIME: 0600 NEXT DOSE DUE: DATE: TODAY TIME: 1400 Gabapentin 100 Mg Capsule 100 Mg PO TID LAST DOSE GIVEN: DATE: TIME: AM NEXT DOSE DUE: DATE: TIME: AFTERNOON Ferrous Sulfate 325 Mg Tablet 325 Mg PO DAILY LAST DOSE GIVEN: DATE: TIME: AM NEXT DOSE DUE: DATE: TOMORROW TIME: AM Atorvastatin Calcium 40 Mg Tablet 40 Mg PO QHS LAST DOSE GIVEN: DATE: YESTERDAY TIME: AT BEDTIME NEXT DOSE DUE: DATE: TODAY TIME: AT BEDTIME Mirtazapine 15 Mg Tablet 15 Mg PO HS LAST DOSE GIVEN: DATE: YESTER TIME: AT BEDTIME NEXT DOSE DUE: DATE: TODAY TIME: AT BEDTIME Metoprolol Tartrate 25 Mg Tablet 37.5 Mg PO BID LAST DOSE GIVEN: DATE: TIME: AM NEXT DOSE DUE: DATE: TIME: PM I have reviewed the current psychotropics carefully including drug interactions. Risk benefit ratio favors no change other than as noted in my dictated progress note. Diagnosis: Problems: (1) Anxiety disorder (2) Dementia in Alzheimer's disease with delusions (3) Dementia in Alzheimer's disease with depression (4) Impulse control disorder (5) Agitation AZEEM GEORGE MD Dec 13, 2017 20:32
[2017-12-14 05:45] VITALS: BP 109/51
[2017-12-14] MEDS: hydrOXYzine PAMOATE 25 MG CAPSULE PO SCH ×4 (06:35→20:23)
[2017-12-14] MEDS ORDERED: QUEtiapine 25 MG TABLET. PO SCH (09:00)
[2017-12-14] MEDS: FERROUS SULFATE 325 MG TABLET. PO SCH (09:17)
[2017-12-14] MEDS: MULTIVITAMIN with MINERAL TABLET. PO SCH (09:18)
[2017-12-14] MEDS: NEOMY/BACITR/POLYMYXIN OINT PACKET. TP SCH ×3 (09:18→20:23)
[2017-12-14] MEDS: GABAPENTIN 100 MG CAPSULE. PO SCH ×3 (10:17→20:18)
[2017-12-14] MEDS: METOPROLOL TART IMMED RELEASE 25 MG TABLET PO SCH ×2 (10:17→20:17)
[2017-12-14] MEDS: PANTOPRAZOLE 40 MG TABLET. PO SCH (10:18)
[2017-12-14] MEDS: busPIRone 10 MG TABLET. PO SCH ×2 (10:18→20:18)
[2017-12-14] MEDS: ASPIRIN ENTERIC COATED 325 MG TABLET.DR. PO SCH (10:18)
[2017-12-14] MEDS: glipiZIDE 5 MG TABLET PO SCH ×2 (10:18→20:26)
[2017-12-14 15:57] VITALS: BP 139/82
[2017-12-14] MEDS: DIVALPROEX 125 MG CAP.SPRINK PO SCH (17:00)
[2017-12-14] MEDS: MIRTAZAPINE 15 MG TABLET PO SCH (20:16)
[2017-12-14] MEDS: QUEtiapine 50 MG TABLET. PO SCH (20:18)
[2017-12-14] MEDS: ATORVASTATIN CALCIUM 20 MG TABLET PO SCH (20:18)
--- NOTE | 2017-12-14 20:54 | PDOC ---
Exam Note: Mendez Note: Please also refer to the separate dictated note~for this date of service dictated separately.~Patient seen individually. Discussed the patient with Nursing staff reviewed the chart.~Reviewed interim history and current functioning. Reviewed vital signs,~Labs/ Radiology~and current medications noted below. Continue current treatment with the changes noted in the dictated addendum note Assessment: Vital Signs: Vital Signs Date Time Temp Pulse Resp B/P (MAP) Pulse Ox O2 Delivery O2 Flow Rate FiO2 12/14/17 20:17 89 139/82 12/14/17 15:57 98.0 18 97 12/12/17 01:45 Room Air I&O Intake and Output 12/14/17 06:59 Intake Total 1422 ml Balance 1422 ml Intake Oral 1422 ml Current Medications: Meds: Current Medications Acetaminophen (Tylenol) 650 mg PRN Q6HRS PRN PO PAIN / TEMP; Start 12/11/17 at 22:00; Status Cancel Multi-Ingredient Ointment (Analgesic [place]) 1 jenaro PRN QID PRN TP MUSCLE PAIN; Start 12/11/17 at 22:00 Al Hydroxide/Mg Hydroxide (Mylanta Plus Xs) 15 ml PRN AFTMEALHC PRN PO DYSPEPSIA; Start 12/11/17 at 22:00; Status Cancel Magnesium Hydroxide (Milk Of Magnesia) 2,400 mg PRN QHS PRN PO CONSTIPATION; Start 12/11/17 at 22:00 Buspirone HCl (Buspar) 5 mg BID PO ; Start 12/12/17 at 09:00; Stop 12/12/17 at 09: 00; Status DC Hydroxyzine Pamoate (Vistaril) 50 mg Q8HRS PO ; Start 12/12/17 at 06:00; Stop 12/12/17 at 06:00; Status DC Mirtazapine (Remeron) 15 mg QHS PO ; Start 12/12/17 at 21:00; Stop 12/12/17 at 21: 00; Status DC Acetaminophen (Tylenol) 650 mg PRN Q4HRS PRN PO PAIN / TEMP; Start 12/11/17 at 22:30 Aspirin (Aspirin Enteric Coated) 325 mg DAILY08 PO Last administered on at 10:18; Start 12/12/17 at 08:00 Ferrous Sulfate (Feosol) 325 mg DAILY PO Last administered on 12/13/17at 08:14; Start 12/12/17 at 09:00 Gabapentin (Neurontin) 100 mg TID PO ; Start 12/12/17 at 09:00; Stop 12/12/17 at 09:00; Status DC Al Hydroxide/Mg Hydroxide (Mylanta Plus Xs) 30 ml PRN Q6HRS PRN PO Upset Stomach; Start 12/11/17 at 22:30 Metoprolol Tartrate (Lopressor) 37.5 mg BID PO Last administered on 12/14/17at 20 :17; Start 12/12/17 at 09:00 Neomycin/ Polymyxin/ Bacitracin (Triple Antibiotic Ointment) 1 pkt TID TP Last administered on 12/14/17 20:23; Start 12/12/17 at 09:00 Atorvastatin Calcium (Lipitor) 40 mg QHS PO Last administered on 12/14/17 20:18 ; Start 12/12/17 at 21:00 Glipizide (Glucotrol) 5 mg BIDBFRMEAL PO Last administered on 12/14/17at 10:18; Start 12/12/17 at 07:30; Stop 12/14/17 at 16:08; Status DC Multivitamins/ Calcium (Thera-M Plus) 1 tab DAILY PO Last administered on at 08:14; Start 12/12/17 at 09:00 Pantoprazole Sodium (Protonix) 40 mg DAILY PO Last administered on 12/14/17at 10: 18; Start 12/12/17 at 09:00 Fluvoxamine Maleate (Luvox) 75 mg DAILY PO Last administered on 12/14/17at 10:18 ; Start 12/12/17 at 09:00; Stop 12/14/17 at 12:24; Status DC Quetiapine Fumarate (SEROquel) 25 mg BID PO ; Start 12/12/17 at 09:00; Stop at 09:00; Status DC Buspirone HCl (Buspar) 5 mg BID PO Last administered on 12/12/17at 08:36; Start 12/12/17 at 02:30; Stop 12/12/17 at 18:30; Status DC Gabapentin (Neurontin) 100 mg TID PO Last administered on 12/14/17 20:18; Start 12/12/17 at 02:30 Hydroxyzine Pamoate (Vistaril) 50 mg Q8HRS PO Last administered on 12/14/17 20: 23; Start 12/12/17 at 02:30 Mirtazapine (Remeron) 15 mg QHS PO Last administered on 12/14/17 20:16; Start 12/12/17 at 02:30 Quetiapine Fumarate (SEROquel) 25 mg BID PO Last administered on 12/13/17at 08:14 ; Start 12/12/17 at 02:30; Stop 12/13/17 at 17:14; Status DC Buspirone HCl (Buspar) 10 mg BID PO Last administered on 12/14/17 20:18; Start 12/12/17 at 21:00 Trazodone HCl (Desyrel) 50 mg PRN DAILY PRN PO INSOMNIA, MAY REPEAT X1 Last administered on 12/13/17at 22:57; Start 12/12/17 at 18:30 Quetiapine Fumarate (SEROquel) 25 mg DAILY PO Last administered on 12/14/17at 10: 19; Start 12/14/17 at 09:00; Stop 12/14/17 at 12:09; Status DC Quetiapine Fumarate (SEROquel) 50 mg QHS PO Last administered on 12/14/17at 20:18 ; Start 12/13/17 at 21:00 Fluvoxamine Maleate (Luvox) 100 mg QHS PO ; Start 12/14/17 at 21:00; Stop at 21:00; Status DC Divalproex Sodium (Depakote Sprinkles) 125 mg BID@0900,1700 PO Last administered on 12/14/17at 17:00; Start 12/14/17 at 17:00 Olanzapine (ZyPREXA ZYDIS) 2.5 mg PRN Q2HR PRN PO PSYCHOSIS/AGITATION; Start at 12:15 Quetiapine Fumarate (SEROquel) 25 mg DAILY PO ; Start 12/15/17 at 09:00 Fluvoxamine Maleate (Luvox) 100 mg DAILY PO ; Start 12/15/17 at 09:00 Glipizide (Glucotrol) 10 mg DAILY PO ; Start 12/15/17 at 09:00 Glipizide (Glucotrol) 5 mg QHS PO Last administered on 12/14/17at 20:26; Start at 21:00 Insulin Glargine (Lantus) 10 units QHS SQ ; Start 12/14/17 at 21:00 Active Scripts Active Protonix (Pantoprazole Sodium) 40 Mg Tablet. 1 Tab PO DAILY Reported Glipizide 5 Mg Tablet 5 Mg PO BID Fluvoxamine Maleate 50 Mg Tablet 75 Mg PO DAILY Multivitamins (Multivitamin) 1 Each Tablet 1 Each PO DAILY LAST DOSE GIVEN: DATE: TODAY TIME: AM NEXT DOSE DUE: DATE: TOMORROW TIME: AM Quetiapine Fumarate 25 Mg Tablet 25 Mg PO BID LAST DOSE GIVEN: DATE: YESTERDAY TIME: AT BEDTIME NEXT DOSE DUE: DATE: TODAY TIME: AT BEDTIME Aspirin Ec (Aspirin) 325 Mg Tablet.dr 325 Mg PO DAILY08 LAST DOSE GIVEN: DATE: TODAY TIME: AM NEXT DOSE DUE: DATE: TOMORROW TIME: AM Buspirone Hcl 5 Mg Tablet 5 Mg PO BID LAST DOSE GIVEN: DATE: TODAY TIME: AM NEXT DOSE DUE: DATE: TODAY TIME: PM Triple Antibiotic Ointment (Neomy Sulf/Bacitra/Polymyxin B) 1 Each Packet 1 Each TP TID LAST DOSE GIVEN: DATE: TODAY TIME: AM NEXT DOSE DUE: DATE: TODAY TIME: AFTERNOON Maalox Maximum Strength Susp (Mag Hydrox/Al Hydrox/Simeth) 355 Ml Oral.susp 30 Ml PO PRN Q6HRS PRN LAST DOSE GIVEN: DATE: NOT GIVEN TODAY NEXT DOSE DUE: DATE: TODAY TIME: IF AND WHEN NEEDED Tylenol (Acetaminophen) 325 Mg Tablet 650 Mg PO PRN Q4HRS PRN LAST DOSE GIVEN: DATE: NOT GIVEN TODAY TIME: NEXT DOSE DUE: DATE: TODAY TIME: IF AND WHEN NEEDED Hydroxyzine Pamoate 50 Mg Capsule 50 Mg PO Q8HRS LAST DOSE GIVEN: DATE: TODAY TIME: 0600 NEXT DOSE DUE: DATE: TODAY TIME: 1400 Gabapentin 100 Mg Capsule 100 Mg PO TID LAST DOSE GIVEN: DATE: TODAY TIME: AM NEXT DOSE DUE: DATE: TODAY TIME: AFTERNOON Ferrous Sulfate 325 Mg Tablet 325 Mg PO DAILY LAST DOSE GIVEN: DATE: TODAY TIME: AM NEXT DOSE DUE: DATE: TOMORROW TIME: AM Atorvastatin Calcium 40 Mg Tablet 40 Mg PO QHS LAST DOSE GIVEN: DATE: YESTERDAY TIME: AT BEDTIME NEXT DOSE DUE: DATE: TODAY TIME: AT BEDTIME Mirtazapine 15 Mg Tablet 15 Mg PO HS LAST DOSE GIVEN: DATE: YESTERDAY TIME: AT BEDTIME NEXT DOSE DUE: DATE: TODAY TIME: AT BEDTIME Metoprolol Tartrate 25 Mg Tablet 37.5 Mg PO BID LAST DOSE GIVEN: DATE: TODAY TIME: AM NEXT DOSE DUE: DATE: TODAY TIME: PM I have reviewed the current psychotropics carefully including drug interactions. Risk benefit ratio favors no change other than as noted in my dictated progress note. Diagnosis: Problems: (1) Anxiety disorder (2) Dementia in Alzheimer's disease with delusions (3) Dementia in Alzheimer's disease with depression (4) Impulse control disorder (5) Agitation AZEEM GEORGE MD Dec 14, 2017 20:54
--- NOTE | 2017-12-14 21:43 | PN ---
DATE: 12/13/2017 PSYCHIATRIC PROGRESS NOTE This late entry 12/13/2017 covers elements not covered in my initial note 12/13/2017. SUBJECTIVE: I met with the patient in the evening. The patient slept 2-1/4 hours previous evening, extremely hard of hearing, appeared quite confused, wanting a tractor in the morning because he needs to get the bailey for the cows. UA on 12/11/2017 was negative. Slept 2-1/4 hours. REVIEW OF SYSTEMS: Hard of hearing. No CV, , pulmonary, eye system symptoms on review. Reliability poor. MENTAL STATUS EXAM: Oriented to himself. Insight, judgment, recent and remote memory, attention, concentration, fund of knowledge poor, consistent with his diagnosis mentioned in my initial note. PLAN: Increase Seroquel from 25 mg b.i.d. to 25 mg in the morning and 50 mg at night. Continue rest psychotropics unchanged from initial note. AZEEM GEORGE MD DR: FERMÍN/tiny JOB#: [id number] / [id number]
[2017-12-14] MEDS: INSULIN GLARGINE 300 UNITS/3 ML INSULN.PEN. SQ SCH (23:00)
[2017-12-15 05:45] VITALS: BP 105/71
[2017-12-15] MEDS: hydrOXYzine PAMOATE 25 MG CAPSULE PO SCH ×3 (06:14→20:06)
[2017-12-15] MEDS: PANTOPRAZOLE 40 MG TABLET. PO SCH (10:38)
[2017-12-15] MEDS: ASPIRIN ENTERIC COATED 325 MG TABLET.DR. PO SCH (10:38)
[2017-12-15] MEDS: DIVALPROEX 125 MG CAP.SPRINK PO SCH ×2 (10:38→17:36)
[2017-12-15] MEDS: MULTIVITAMIN with MINERAL TABLET. PO SCH (10:38)
[2017-12-15] MEDS: FERROUS SULFATE 325 MG TABLET. PO SCH (10:39)
[2017-12-15] MEDS: METOPROLOL TART IMMED RELEASE 25 MG TABLET PO SCH ×2 (10:39→20:01)
[2017-12-15] MEDS: busPIRone 10 MG TABLET. PO SCH ×2 (10:39→19:46)
[2017-12-15] MEDS: GABAPENTIN 100 MG CAPSULE. PO SCH ×3 (10:39→19:46)
[2017-12-15] MEDS: QUEtiapine 25 MG TABLET. PO SCH (10:41)
[2017-12-15] MEDS: NEOMY/BACITR/POLYMYXIN OINT PACKET. TP SCH ×3 (10:41→20:04)
[2017-12-15] MEDS: glipiZIDE 5 MG TABLET PO SCH ×3 (10:41→20:03)
[2017-12-15 16:34] VITALS: BP 132/70
[2017-12-15] MEDS: MIRTAZAPINE 15 MG TABLET PO SCH (19:46)
[2017-12-15] MEDS: ATORVASTATIN CALCIUM 20 MG TABLET PO SCH (19:46)
[2017-12-15] MEDS: QUEtiapine 50 MG TABLET. PO SCH (19:47)
[2017-12-15] MEDS: INSULIN GLARGINE 300 UNITS/3 ML INSULN.PEN. SQ SCH (20:06)
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
--- NOTE | 2017-12-15 23:01 | PDOC ---
Exam Note: Mendez Note: Please also refer to the separate dictated note~for this date of service dictated separately.~Patient seen individually. Discussed the patient with Nursing staff reviewed the chart.~Reviewed interim history and current functioning. Reviewed vital signs,~Labs/ Radiology~and current medications noted below. Continue current treatment with the changes noted in the dictated addendum note Assessment: Vital Signs: Vital Signs Date Time Temp Pulse Resp B/P (MAP) Pulse Ox O2 Delivery O2 Flow Rate FiO2 12/15/17 20:01 64 132/70 12/15/17 16:34 97.9 16 95 Room Air I&O Intake and Output 12/15/17 06:59 Intake Total 320 ml Balance 320 ml Intake Oral 320 ml # Voids 1 Labs: Laboratory Tests Test 12/15/17 06:59 Glucose (Fingerstick) 124 mg/dL (70-99) H Current Medications: Meds: Current Medications Acetaminophen (Tylenol) 650 mg PRN Q6HRS PRN PO PAIN / TEMP; Start 12/11/17 at 22:00; Status Cancel Multi-Ingredient Ointment (Analgesic [place]) 1 jenaro PRN QID PRN TP MUSCLE PAIN; Start 12/11/17 at 22:00 Al Hydroxide/Mg Hydroxide (Mylanta Plus Xs) 15 ml PRN AFTMEALHC PRN PO DYSPEPSIA; Start 12/11/17 at 22:00; Status Cancel Magnesium Hydroxide (Milk Of Magnesia) 2,400 mg PRN QHS PRN PO CONSTIPATION; Start 12/11/17 at 22:00 Buspirone HCl (Buspar) 5 mg BID PO ; Start 12/12/17 at 09:00; Stop 12/12/17 at 09: 00; Status DC Hydroxyzine Pamoate (Vistaril) 50 mg Q8HRS PO ; Start 12/12/17 at 06:00; Stop 12/12/17 at 06:00; Status DC Mirtazapine (Remeron) 15 mg QHS PO ; Start 12/12/17 at 21:00; Stop 12/12/17 at 21: 00; Status DC Acetaminophen (Tylenol) 650 mg PRN Q4HRS PRN PO PAIN / TEMP; Start 12/11/17 at 22:30 Aspirin (Aspirin Enteric Coated) 325 mg DAILY08 PO Last administered on 10:38; Start 12/12/17 at 08:00 Ferrous Sulfate (Feosol) 325 mg DAILY PO Last administered on 12/15/17 10:39; Start 12/12/17 at 09:00 Gabapentin (Neurontin) 100 mg TID PO ; Start 12/12/17 at 09:00; Stop 12/12/17 at 09:00; Status DC Al Hydroxide/Mg Hydroxide (Mylanta Plus Xs) 30 ml PRN Q6HRS PRN PO Upset Stomach; Start 12/11/17 at 22:30 Metoprolol Tartrate (Lopressor) 37.5 mg BID PO Last administered on 12/15/17 20 :01; Start 12/12/17 at 09:00 Neomycin/ Polymyxin/ Bacitracin (Triple Antibiotic Ointment) 1 pkt TID TP Last administered on 12/14/17 20:23; Start 12/12/17 at 09:00 Atorvastatin Calcium (Lipitor) 40 mg QHS PO Last administered on 12/15/17at 19:46 ; Start 12/12/17 at 21:00 Glipizide (Glucotrol) 5 mg BIDBFRMEAL PO Last administered on 12/14/17 10:18; Start 12/12/17 at 07:30; Stop 12/14/17 at 16:08; Status DC Multivitamins/ Calcium (Thera-M Plus) 1 tab DAILY PO Last administered on 10:38; Start 12/12/17 at 09:00 Pantoprazole Sodium (Protonix) 40 mg DAILY PO Last administered on 12/15/17at 10: 38; Start 12/12/17 at 09:00 Fluvoxamine Maleate (Luvox) 75 mg DAILY PO Last administered on 12/14/17 10:18 ; Start 12/12/17 at 09:00; Stop 12/14/17 at 12:24; Status DC Quetiapine Fumarate (SEROquel) 25 mg BID PO ; Start 12/12/17 at 09:00; Stop at 09:00; Status DC Buspirone HCl (Buspar) 5 mg BID PO Last administered on 12/12/17at 08:36; Start 12/12/17 at 02:30; Stop 12/12/17 at 18:30; Status DC Gabapentin (Neurontin) 100 mg TID PO Last administered on 12/15/17 19:46; Start 12/12/17 at 02:30 Hydroxyzine Pamoate (Vistaril) 50 mg Q8HRS PO Last administered on 12/15/17 20: 06; Start 12/12/17 at 02:30 Mirtazapine (Remeron) 15 mg QHS PO Last administered on 12/15/17 19:46; Start 12/12/17 at 02:30 Quetiapine Fumarate (SEROquel) 25 mg BID PO Last administered on 12/13/17 08:14 ; Start 12/12/17 at 02:30; Stop 12/13/17 at 17:14; Status DC Buspirone HCl (Buspar) 10 mg BID PO Last administered on 12/15/17 19:46; Start 12/12/17 at 21:00 Trazodone HCl (Desyrel) 50 mg PRN DAILY PRN PO INSOMNIA, MAY REPEAT X1 Last administered on 12/13/17at 22:57; Start 12/12/17 at 18:30 Quetiapine Fumarate (SEROquel) 25 mg DAILY PO Last administered on 12/14/17 10: 19; Start 12/14/17 at 09:00; Stop 12/14/17 at 12:09; Status DC Quetiapine Fumarate (SEROquel) 50 mg QHS PO Last administered on 12/15/17at 19:47 ; Start 12/13/17 at 21:00 Fluvoxamine Maleate (Luvox) 100 mg QHS PO ; Start 12/14/17 at 21:00; Stop at 21:00; Status DC Divalproex Sodium (Depakote Sprinkles) 125 mg BID@0900,1700 PO Last administered on 12/15/17at 17:36; Start 12/14/17 at 17:00 Olanzapine (ZyPREXA ZYDIS) 2.5 mg PRN Q2HR PRN PO PSYCHOSIS/AGITATION; Start at 12:15 Quetiapine Fumarate (SEROquel) 25 mg DAILY PO Last administered on 12/15/17at 10: 41; Start 12/15/17 at 09:00 Fluvoxamine Maleate (Luvox) 100 mg DAILY PO Last administered on 12/15/17at 10:41 ; Start 12/15/17 at 09:00 Glipizide (Glucotrol) 10 mg DAILY PO Last administered on 12/15/17at 10:41; Start 12/15/17 at 09:00 Glipizide (Glucotrol) 5 mg QHS PO Last administered on 12/14/17at 20:26; Start at 21:00 Insulin Glargine (Lantus) 10 units QHS SQ Last administered on 12/15/17at 20:06; Start 12/14/17 at 21:00 Active Scripts Active Protonix (Pantoprazole Sodium) 40 Mg Tablet. 1 Tab PO DAILY Reported Glipizide 5 Mg Tablet 5 Mg PO BID Fluvoxamine Maleate 50 Mg Tablet 75 Mg PO DAILY Multivitamins (Multivitamin) 1 Each Tablet 1 Each PO DAILY LAST DOSE GIVEN: DATE: TODAY TIME: AM NEXT DOSE DUE: DATE: TOMORROW TIME: AM Quetiapine Fumarate 25 Mg Tablet 25 Mg PO BID LAST DOSE GIVEN: DATE: YESTERDAY TIME: AT BEDTIME NEXT DOSE DUE: DATE: TODAY TIME: AT BEDTIME Aspirin Ec (Aspirin) 325 Mg Tablet. 325 Mg PO DAILY08 LAST DOSE GIVEN: DATE: TODAY TIME: AM NEXT DOSE DUE: DATE: TOMORROW TIME: AM Buspirone Hcl 5 Mg Tablet 5 Mg PO BID LAST DOSE GIVEN: DATE: TODAY TIME: AM NEXT DOSE DUE: DATE: TODAY TIME: PM Triple Antibiotic Ointment (Neomy Sulf/Bacitra/Polymyxin B) 1 Each Packet 1 Each TP TID LAST DOSE GIVEN: DATE: TODAY TIME: AM NEXT DOSE DUE: DATE: TODAY TIME: AFTERNOON Maalox Maximum Strength Susp (Mag Hydrox/Al Hydrox/Simeth) 355 Ml Oral.susp 30 Ml PO PRN Q6HRS PRN LAST DOSE GIVEN: DATE: NOT GIVEN TODAY NEXT DOSE DUE: DATE: TODAY TIME: IF AND WHEN NEEDED Tylenol (Acetaminophen) 325 Mg Tablet 650 Mg PO PRN Q4HRS PRN LAST DOSE GIVEN: DATE: NOT GIVEN TODAY TIME: NEXT DOSE DUE: DATE: TODAY TIME: IF AND WHEN NEEDED Hydroxyzine Pamoate 50 Mg Capsule 50 Mg PO Q8HRS LAST DOSE GIVEN: DATE: TODAY TIME: 0600 NEXT DOSE DUE: DATE: TODAY TIME: 1400 Gabapentin 100 Mg Capsule 100 Mg PO TID LAST DOSE GIVEN: DATE: TIME: AM NEXT DOSE DUE: DATE: TODAY TIME: AFTERNOON Ferrous Sulfate 325 Mg Tablet 325 Mg PO DAILY LAST DOSE GIVEN: DATE: TODAY TIME: AM NEXT DOSE DUE: DATE: TOMORROW TIME: AM Atorvastatin Calcium 40 Mg Tablet 40 Mg PO QHS LAST DOSE GIVEN: DATE: YESTER TIME: AT BEDTIME NEXT DOSE DUE: DATE: TIME: AT BEDTIME Mirtazapine 15 Mg Tablet 15 Mg PO HS LAST DOSE GIVEN: DATE: YESTER TIME: AT BEDTIME NEXT DOSE DUE: DATE: TIME: AT BEDTIME Metoprolol Tartrate 25 Mg Tablet 37.5 Mg PO BID LAST DOSE GIVEN: DATE: TODAY TIME: AM NEXT DOSE DUE: DATE: TODAY TIME: PM I have reviewed the current psychotropics carefully including drug interactions. Risk benefit ratio favors no change other than as noted in my dictated progress note. Diagnosis: Problems: (1) Anxiety disorder (2) Dementia in Alzheimer's disease with delusions (3) Dementia in Alzheimer's disease with depression (4) Impulse control disorder (5) Agitation AZEEM GEORGE MD Dec 15, 2017 23:01
[2017-12-16] MEDS: hydrOXYzine PAMOATE 25 MG CAPSULE PO SCH ×3 (06:00→08:16)
[2017-12-16 06:14] VITALS: BP 130/70
[2017-12-16] MEDS: METOPROLOL TART IMMED RELEASE 25 MG TABLET PO SCH ×2 (08:13→20:19)
[2017-12-16] MEDS: PANTOPRAZOLE 40 MG TABLET. PO SCH (08:13)
[2017-12-16] MEDS: FERROUS SULFATE 325 MG TABLET. PO SCH (08:14)
[2017-12-16] MEDS: DIVALPROEX 125 MG CAP.SPRINK PO SCH ×2 (08:14→17:22)
[2017-12-16] MEDS: ASPIRIN ENTERIC COATED 325 MG TABLET.DR. PO SCH (08:14)
[2017-12-16] MEDS: GABAPENTIN 100 MG CAPSULE. PO SCH ×3 (08:14→20:20)
[2017-12-16] MEDS: QUEtiapine 25 MG TABLET. PO SCH (08:14)
[2017-12-16] MEDS: busPIRone 10 MG TABLET. PO SCH ×2 (08:15→20:18)
[2017-12-16] MEDS: MULTIVITAMIN with MINERAL TABLET. PO SCH (08:15)
[2017-12-16] MEDS: glipiZIDE 5 MG TABLET PO SCH ×2 (08:21→20:18)
[2017-12-16] MEDS: NEOMY/BACITR/POLYMYXIN OINT PACKET. TP SCH ×3 (09:11→20:27)
[2017-12-16 16:13] VITALS: BP 112/60
[2017-12-16] MEDS: QUEtiapine 50 MG TABLET. PO SCH (20:17)
[2017-12-16] MEDS: ATORVASTATIN CALCIUM 20 MG TABLET PO SCH (20:17)
[2017-12-16] MEDS: MIRTAZAPINE 15 MG TABLET PO SCH (20:20)
[2017-12-16] MEDS: INSULIN GLARGINE 300 UNITS/3 ML INSULN.PEN. SQ SCH (20:26)
--- NOTE | 2017-12-16 22:32 | PDOC ---
Exam Note: Mendez Note: Please also refer to the separate dictated note~for this date of service dictated separately.~Patient seen individually. Discussed the patient with Nursing staff reviewed the chart.~Reviewed interim history and current functioning. Reviewed vital signs,~Labs/ Radiology~and current medications noted below. Continue current treatment with the changes noted in the dictated addendum note Assessment: Vital Signs: Vital Signs Date Time Temp Pulse Resp B/P (MAP) Pulse Ox O2 Delivery O2 Flow Rate FiO2 12/16/17 20:19 76 112/60 12/16/17 16:13 98.2 18 95 Room Air I&O Intake and Output 12/16/17 06:59 Intake Total 840 ml Balance 840 ml Intake Oral 840 ml Current Medications: Meds: Current Medications Acetaminophen (Tylenol) 650 mg PRN Q6HRS PRN PO PAIN / TEMP; Start 12/11/17 at 22:00; Status Cancel Multi-Ingredient Ointment (Analgesic [place]) 1 jenaro PRN QID PRN TP MUSCLE PAIN; Start 12/11/17 at 22:00 Al Hydroxide/Mg Hydroxide (Mylanta Plus Xs) 15 ml PRN AFTMEALHC PRN PO DYSPEPSIA; Start 12/11/17 at 22:00; Status Cancel Magnesium Hydroxide (Milk Of Magnesia) 2,400 mg PRN QHS PRN PO CONSTIPATION; Start 12/11/17 at 22:00 Buspirone HCl (Buspar) 5 mg BID PO ; Start 12/12/17 at 09:00; Stop 12/12/17 at 09: 00; Status DC Hydroxyzine Pamoate (Vistaril) 50 mg Q8HRS PO ; Start 12/12/17 at 06:00; Stop 12/12/17 at 06:00; Status DC Mirtazapine (Remeron) 15 mg QHS PO ; Start 12/12/17 at 21:00; Stop 12/12/17 at 21: 00; Status DC Acetaminophen (Tylenol) 650 mg PRN Q4HRS PRN PO PAIN / TEMP; Start 12/11/17 at 22:30 Aspirin (Aspirin Enteric Coated) 325 mg DAILY08 PO Last administered on at 08:14; Start 12/12/17 at 08:00 Ferrous Sulfate (Feosol) 325 mg DAILY PO Last administered on 12/16/17at 08:14; Start 12/12/17 at 09:00 Gabapentin (Neurontin) 100 mg TID PO ; Start 12/12/17 at 09:00; Stop 12/12/17 at 09:00; Status DC Al Hydroxide/Mg Hydroxide (Mylanta Plus Xs) 30 ml PRN Q6HRS PRN PO Upset Stomach; Start 12/11/17 at 22:30 Metoprolol Tartrate (Lopressor) 37.5 mg BID PO Last administered on 12/16/17at 20 :19; Start 12/12/17 at 09:00 Neomycin/ Polymyxin/ Bacitracin (Triple Antibiotic Ointment) 1 pkt TID TP Last administered on 12/16/17 20:27; Start 12/12/17 at 09:00 Atorvastatin Calcium (Lipitor) 40 mg QHS PO Last administered on 12/16/17 20:17 ; Start 12/12/17 at 21:00 Glipizide (Glucotrol) 5 mg BIDBFRMEAL PO Last administered on 12/14/17at 10:18; Start 12/12/17 at 07:30; Stop 12/14/17 at 16:08; Status DC Multivitamins/ Calcium (Thera-M Plus) 1 tab DAILY PO Last administered on 08:15; Start 12/12/17 at 09:00 Pantoprazole Sodium (Protonix) 40 mg DAILY PO Last administered on 12/16/17at 08: 13; Start 12/12/17 at 09:00 Fluvoxamine Maleate (Luvox) 75 mg DAILY PO Last administered on 12/14/17at 10:18 ; Start 12/12/17 at 09:00; Stop 12/14/17 at 12:24; Status DC Quetiapine Fumarate (SEROquel) 25 mg BID PO ; Start 12/12/17 at 09:00; Stop at 09:00; Status DC Buspirone HCl (Buspar) 5 mg BID PO Last administered on 12/12/17at 08:36; Start 12/12/17 at 02:30; Stop 12/12/17 at 18:30; Status DC Gabapentin (Neurontin) 100 mg TID PO Last administered on 12/16/17at 20:20; Start 12/12/17 at 02:30 Hydroxyzine Pamoate (Vistaril) 50 mg Q8HRS PO Last administered on 12/16/17 08: 14; Start 12/12/17 at 02:30 Mirtazapine (Remeron) 15 mg QHS PO Last administered on 12/16/17 20:20; Start 12/12/17 at 02:30 Quetiapine Fumarate (SEROquel) 25 mg BID PO Last administered on 12/13/17 08:14 ; Start 12/12/17 at 02:30; Stop 12/13/17 at 17:14; Status DC Buspirone HCl (Buspar) 10 mg BID PO Last administered on 12/16/17 20:18; Start 12/12/17 at 21:00 Trazodone HCl (Desyrel) 50 mg PRN DAILY PRN PO INSOMNIA, MAY REPEAT X1 Last administered on 12/13/17at 22:57; Start 12/12/17 at 18:30 Quetiapine Fumarate (SEROquel) 25 mg DAILY PO Last administered on 12/14/17 10: 19; Start 12/14/17 at 09:00; Stop 12/14/17 at 12:09; Status DC Quetiapine Fumarate (SEROquel) 50 mg QHS PO Last administered on 12/16/17 20:17 ; Start 12/13/17 at 21:00 Fluvoxamine Maleate (Luvox) 100 mg QHS PO ; Start 12/14/17 at 21:00; Stop at 21:00; Status DC Divalproex Sodium (Depakote Sprinkles) 125 mg BID@0900,1700 PO Last administered on 12/16/17 17:22; Start 12/14/17 at 17:00 Olanzapine (ZyPREXA ZYDIS) 2.5 mg PRN Q2HR PRN PO PSYCHOSIS/AGITATION; Start at 12:15 Quetiapine Fumarate (SEROquel) 25 mg DAILY PO Last administered on 12/16/17 08: 14; Start 12/15/17 at 09:00 Fluvoxamine Maleate (Luvox) 100 mg DAILY PO Last administered on 12/16/17 08:14 ; Start 12/15/17 at 09:00 Glipizide (Glucotrol) 10 mg DAILY PO Last administered on 12/16/17at 08:21; Start 12/15/17 at 09:00 Glipizide (Glucotrol) 5 mg QHS PO Last administered on 12/16/17at 20:18; Start at 21:00 Insulin Glargine (Lantus) 10 units QHS SQ Last administered on 12/16/17at 20:26; Start 12/14/17 at 21:00 Active Scripts Active Protonix (Pantoprazole Sodium) 40 Mg Tablet. 1 Tab PO DAILY Reported Glipizide 5 Mg Tablet 5 Mg PO BID Fluvoxamine Maleate 50 Mg Tablet 75 Mg PO DAILY Multivitamins (Multivitamin) 1 Each Tablet 1 Each PO DAILY LAST DOSE GIVEN: DATE: TODAY TIME: AM NEXT DOSE DUE: DATE: TOMORROW TIME: AM Quetiapine Fumarate 25 Mg Tablet 25 Mg PO BID LAST DOSE GIVEN: DATE: YESTERDAY TIME: AT BEDTIME NEXT DOSE DUE: DATE: TODAY TIME: AT BEDTIME Aspirin Ec (Aspirin) 325 Mg Tablet.dr 325 Mg PO DAILY08 LAST DOSE GIVEN: DATE: TODAY TIME: AM NEXT DOSE DUE: DATE: TOMORROW TIME: AM Buspirone Hcl 5 Mg Tablet 5 Mg PO BID LAST DOSE GIVEN: DATE: TODAY TIME: AM NEXT DOSE DUE: DATE: TODAY TIME: PM Triple Antibiotic Ointment (Neomy Sulf/Bacitra/Polymyxin B) 1 Each Packet 1 Each TP TID LAST DOSE GIVEN: DATE: TODAY TIME: AM NEXT DOSE DUE: DATE: TODAY TIME: AFTERNOON Maalox Maximum Strength Susp (Mag Hydrox/Al Hydrox/Simeth) 355 Ml Oral.susp 30 Ml PO PRN Q6HRS PRN LAST DOSE GIVEN: DATE: NOT GIVEN TODAY NEXT DOSE DUE: DATE: TODAY TIME: IF AND WHEN NEEDED Tylenol (Acetaminophen) 325 Mg Tablet 650 Mg PO PRN Q4HRS PRN LAST DOSE GIVEN: DATE: NOT GIVEN TODAY TIME: NEXT DOSE DUE: DATE: TODAY TIME: IF AND WHEN NEEDED Hydroxyzine Pamoate 50 Mg Capsule 50 Mg PO Q8HRS LAST DOSE GIVEN: DATE: TODAY TIME: 0600 NEXT DOSE DUE: DATE: TODAY TIME: 1400 Gabapentin 100 Mg Capsule 100 Mg PO TID LAST DOSE GIVEN: DATE: TODAY TIME: AM NEXT DOSE DUE: DATE: TODAY TIME: AFTERNOON Ferrous Sulfate 325 Mg Tablet 325 Mg PO DAILY LAST DOSE GIVEN: DATE: TODAY TIME: AM NEXT DOSE DUE: DATE: TOMORROW TIME: AM Atorvastatin Calcium 40 Mg Tablet 40 Mg PO QHS LAST DOSE GIVEN: DATE: YESTERDAY TIME: AT BEDTIME NEXT DOSE DUE: DATE: TODAY TIME: AT BEDTIME Mirtazapine 15 Mg Tablet 15 Mg PO HS LAST DOSE GIVEN: DATE: YESTER TIME: AT BEDTIME NEXT DOSE DUE: DATE: TODAY TIME: AT BEDTIME Metoprolol Tartrate 25 Mg Tablet 37.5 Mg PO BID LAST DOSE GIVEN: DATE: TODAY TIME: AM NEXT DOSE DUE: DATE: TODAY TIME: PM I have reviewed the current psychotropics carefully including drug interactions. Risk benefit ratio favors no change other than as noted in my dictated progress note. Diagnosis: Problems: (1) Anxiety disorder (2) Dementia in Alzheimer's disease with delusions (3) Dementia in Alzheimer's disease with depression (4) Impulse control disorder (5) Agitation AZEEM GEORGE MD Dec 16, 2017 22:32
[2017-12-17 06:02] VITALS: BP 142/73
[2017-12-17] MEDS: hydrOXYzine PAMOATE 25 MG CAPSULE PO SCH ×3 (06:06→20:44)
[2017-12-17] MEDS: busPIRone 10 MG TABLET. PO SCH ×2 (07:20→20:44)
[2017-12-17] MEDS: FERROUS SULFATE 325 MG TABLET. PO SCH (07:20)
[2017-12-17] MEDS: DIVALPROEX 125 MG CAP.SPRINK PO SCH ×2 (07:20→16:52)
[2017-12-17] MEDS: glipiZIDE 5 MG TABLET PO SCH ×2 (07:20→20:44)
[2017-12-17] MEDS: QUEtiapine 25 MG TABLET. PO SCH (07:20)
[2017-12-17] MEDS: METOPROLOL TART IMMED RELEASE 25 MG TABLET PO SCH ×2 (07:21→20:42)
[2017-12-17] MEDS: ASPIRIN ENTERIC COATED 325 MG TABLET.DR. PO SCH (07:22)
[2017-12-17] MEDS: MULTIVITAMIN with MINERAL TABLET. PO SCH (07:22)
[2017-12-17] MEDS: GABAPENTIN 100 MG CAPSULE. PO SCH ×3 (07:22→20:45)
[2017-12-17] MEDS: PANTOPRAZOLE 40 MG TABLET. PO SCH (07:22)
[2017-12-17] MEDS: NEOMY/BACITR/POLYMYXIN OINT PACKET. TP SCH ×3 (07:24→20:46)
[2017-12-17 16:13] VITALS: BP 127/65
--- NOTE | 2017-12-17 19:09 | PN ---
DATE: 12/16/2017 This is a late entry 12/16/2017, covers elements not covered in my initial note. SUBJECTIVE: I met with the patient in the evening. The patient slept 5-3/4 hours, somewhat withdrawn, compliant with medications. Appetite fair. Refused blood sugar fingerstick, gets a little irritable, not aggressive. REVIEW OF SYSTEMS: No CV, , pulmonary, eye system symptoms on review. Extremely hard of hearing, met with him in his room. MENTAL STATUS EXAM: Oriented to himself. Insight, judgment, recent and remote memory, attention, concentration, fund of knowledge poor, consistent with his diagnosis mentioned in my initial note. PLAN: Continue current psychotropics. Check labs on 12/18/2017. Adjust Depakote thereafter. MAN Cristóbal GEORGE MD DR: FERMÍN/tiny JOB#: [id number] / [id number]
--- NOTE | 2017-12-17 19:11 | PN ---
DATE: 12/15/2017 This late entry 12/15/2017 covers elements not covered in my initial note. SUBJECTIVE: I met with the patient in the evening. The patient slept 7-1/2 hours, slept much of the day, withdrawn, not aggressive. He is extremely hard of hearing. No CV, , pulmonary, eye system symptoms on review. MENTAL STATUS EXAM: Oriented to himself. Insight, judgment, recent and remote memory, attention, concentration, fund of knowledge poor, consistent with his diagnosis mentioned in my initial note. PLAN: No change from a psychiatric standpoint. Depakote will be adjusted following labs on 12/18/2017. MAN Cristóbal GEORGE MD DR: FERMÍN/tiny JOB#: [id number] / [id number]
[2017-12-17] MEDS: ATORVASTATIN CALCIUM 20 MG TABLET PO SCH (20:42)
--- NOTE | 2017-12-17 20:42 | PDOC ---
Exam Note: Mendez Note: Please also refer to the separate dictated note~for this date of service dictated separately.~Patient seen individually. Discussed the patient with Nursing staff reviewed the chart.~Reviewed interim history and current functioning. Reviewed vital signs,~Labs/ Radiology~and current medications noted below. Continue current treatment with the changes noted in the dictated addendum note Assessment: Vital Signs: Vital Signs Date Time Temp Pulse Resp B/P (MAP) Pulse Ox O2 Delivery O2 Flow Rate FiO2 12/17/17 16:13 98.2 77 18 127/65 (85) 95 12/17/17 06:02 Room Air I&O Intake and Output 12/17/17 06:59 Intake Total 800 ml Balance 800 ml Intake Oral 800 ml Labs: Laboratory Tests Test 12/17/17 07:10 Glucose (Fingerstick) 114 mg/dL (70-99) H Current Medications: Meds: Current Medications Acetaminophen (Tylenol) 650 mg PRN Q6HRS PRN PO PAIN / TEMP; Start 12/11/17 at 22:00; Status Cancel Multi-Ingredient Ointment (Analgesic [place]) 1 jenaro PRN QID PRN TP MUSCLE PAIN; Start 12/11/17 at 22:00 Al Hydroxide/Mg Hydroxide (Mylanta Plus Xs) 15 ml PRN AFTMEALHC PRN PO DYSPEPSIA; Start 12/11/17 at 22:00; Status Cancel Magnesium Hydroxide (Milk Of Magnesia) 2,400 mg PRN QHS PRN PO CONSTIPATION; Start 12/11/17 at 22:00 Buspirone HCl (Buspar) 5 mg BID PO ; Start 12/12/17 at 09:00; Stop 12/12/17 at 09: 00; Status DC Hydroxyzine Pamoate (Vistaril) 50 mg Q8HRS PO ; Start 12/12/17 at 06:00; Stop 12/12/17 at 06:00; Status DC Mirtazapine (Remeron) 15 mg QHS PO ; Start 12/12/17 at 21:00; Stop 12/12/17 at 21: 00; Status DC Acetaminophen (Tylenol) 650 mg PRN Q4HRS PRN PO PAIN / TEMP; Start 12/11/17 at 22:30 Aspirin (Aspirin Enteric Coated) 325 mg DAILY08 PO Last administered on 7/8/ 18at 07:22; Start 12/12/17 at 08:00 Ferrous Sulfate (Feosol) 325 mg DAILY PO Last administered on 12/17/17 07:20; Start 12/12/17 at 09:00 Gabapentin (Neurontin) 100 mg TID PO ; Start 12/12/17 at 09:00; Stop 12/12/17 at 09:00; Status DC Al Hydroxide/Mg Hydroxide (Mylanta Plus Xs) 30 ml PRN Q6HRS PRN PO Upset Stomach; Start 12/11/17 at 22:30 Metoprolol Tartrate (Lopressor) 37.5 mg BID PO Last administered on 12/17/17 07 :21; Start 12/12/17 at 09:00 Neomycin/ Polymyxin/ Bacitracin (Triple Antibiotic Ointment) 1 pkt TID TP Last administered on 12/17/17 13:39; Start 12/12/17 at 09:00 Atorvastatin Calcium (Lipitor) 40 mg QHS PO Last administered on 12/16/17 20:17 ; Start 12/12/17 at 21:00 Glipizide (Glucotrol) 5 mg BIDBFRMEAL PO Last administered on 12/14/17 10:18; Start 12/12/17 at 07:30; Stop 12/14/17 at 16:08; Status DC Multivitamins/ Calcium (Thera-M Plus) 1 tab DAILY PO Last administered on 07:22; Start 12/12/17 at 09:00 Pantoprazole Sodium (Protonix) 40 mg DAILY PO Last administered on 12/17/17 07: 22; Start 12/12/17 at 09:00 Fluvoxamine Maleate (Luvox) 75 mg DAILY PO Last administered on 12/14/17 10:18 ; Start 12/12/17 at 09:00; Stop 12/14/17 at 12:24; Status DC Quetiapine Fumarate (SEROquel) 25 mg BID PO ; Start 12/12/17 at 09:00; Stop at 09:00; Status DC Buspirone HCl (Buspar) 5 mg BID PO Last administered on 12/12/17at 08:36; Start 12/12/17 at 02:30; Stop 12/12/17 at 18:30; Status DC Gabapentin (Neurontin) 100 mg TID PO Last administered on 12/17/17 13:39; Start 12/12/17 at 02:30 Hydroxyzine Pamoate (Vistaril) 50 mg Q8HRS PO Last administered on 12/17/17 13: 39; Start 12/12/17 at 02:30 Mirtazapine (Remeron) 15 mg QHS PO Last administered on 12/16/17 20:20; Start 12/12/17 at 02:30 Quetiapine Fumarate (SEROquel) 25 mg BID PO Last administered on 12/13/17 08:14 ; Start 12/12/17 at 02:30; Stop 12/13/17 at 17:14; Status DC Buspirone HCl (Buspar) 10 mg BID PO Last administered on 12/17/17 07:20; Start 12/12/17 at 21:00 Trazodone HCl (Desyrel) 50 mg PRN DAILY PRN PO INSOMNIA, MAY REPEAT X1 Last administered on 12/13/17at 22:57; Start 12/12/17 at 18:30 Quetiapine Fumarate (SEROquel) 25 mg DAILY PO Last administered on 12/14/17 10: 19; Start 12/14/17 at 09:00; Stop 12/14/17 at 12:09; Status DC Quetiapine Fumarate (SEROquel) 50 mg QHS PO Last administered on 12/16/17 20:17 ; Start 12/13/17 at 21:00 Fluvoxamine Maleate (Luvox) 100 mg QHS PO ; Start 12/14/17 at 21:00; Stop at 21:00; Status DC Divalproex Sodium (Depakote Sprinkles) 125 mg BID@0900,1700 PO Last administered on 12/17/17 16:52; Start 12/14/17 at 17:00 Olanzapine (ZyPREXA ZYDIS) 2.5 mg PRN Q2HR PRN PO PSYCHOSIS/AGITATION; Start at 12:15 Quetiapine Fumarate (SEROquel) 25 mg DAILY PO Last administered on 12/17/17at 07: 20; Start 12/15/17 at 09:00 Fluvoxamine Maleate (Luvox) 100 mg DAILY PO Last administered on 12/17/17at 07:21 ; Start 12/15/17 at 09:00 Glipizide (Glucotrol) 10 mg DAILY PO Last administered on 12/17/17at 07:20; Start 12/15/17 at 09:00 Glipizide (Glucotrol) 5 mg QHS PO Last administered on 12/16/17at 20:18; Start at 21:00 Insulin Glargine (Lantus) 10 units QHS SQ Last administered on 12/16/17at 20:26; Start 12/14/17 at 21:00 Active Scripts Active Protonix (Pantoprazole Sodium) 40 Mg Tablet. 1 Tab PO DAILY Reported Glipizide 5 Mg Tablet 5 Mg PO BID Fluvoxamine Maleate 50 Mg Tablet 75 Mg PO DAILY Multivitamins (Multivitamin) 1 Each Tablet 1 Each PO DAILY LAST DOSE GIVEN: DATE: TODAY TIME: AM NEXT DOSE DUE: DATE: TOMORROW TIME: AM Quetiapine Fumarate 25 Mg Tablet 25 Mg PO BID LAST DOSE GIVEN: DATE: YESTERDAY TIME: AT BEDTIME NEXT DOSE DUE: DATE: TODAY TIME: AT BEDTIME Aspirin Ec (Aspirin) 325 Mg Tablet.dr 325 Mg PO DAILY08 LAST DOSE GIVEN: DATE: TODAY TIME: AM NEXT DOSE DUE: DATE: TOMORROW TIME: AM Buspirone Hcl 5 Mg Tablet 5 Mg PO BID LAST DOSE GIVEN: DATE: TODAY TIME: AM NEXT DOSE DUE: DATE: TODAY TIME: PM Triple Antibiotic Ointment (Neomy Sulf/Bacitra/Polymyxin B) 1 Each Packet 1 Each TP TID LAST DOSE GIVEN: DATE: TODAY TIME: AM NEXT DOSE DUE: DATE: TODAY TIME: AFTERNOON Maalox Maximum Strength Susp (Mag Hydrox/Al Hydrox/Simeth) 355 Ml Oral.susp 30 Ml PO PRN Q6HRS PRN LAST DOSE GIVEN: DATE: NOT GIVEN TODAY NEXT DOSE DUE: DATE: TODAY TIME: IF AND WHEN NEEDED Tylenol (Acetaminophen) 325 Mg Tablet 650 Mg PO PRN Q4HRS PRN LAST DOSE GIVEN: DATE: NOT GIVEN TODAY TIME: NEXT DOSE DUE: DATE: TODAY TIME: IF AND WHEN NEEDED Hydroxyzine Pamoate 50 Mg Capsule 50 Mg PO Q8HRS LAST DOSE GIVEN: DATE: TODAY TIME: 0600 NEXT DOSE DUE: DATE: TODAY TIME: 1400 Gabapentin 100 Mg Capsule 100 Mg PO TID LAST DOSE GIVEN: DATE: TIME: AM NEXT DOSE DUE: DATE: TODAY TIME: AFTERNOON Ferrous Sulfate 325 Mg Tablet 325 Mg PO DAILY LAST DOSE GIVEN: DATE: TODAY TIME: AM NEXT DOSE DUE: DATE: TOMORROW TIME: AM Atorvastatin Calcium 40 Mg Tablet 40 Mg PO QHS LAST DOSE GIVEN: DATE: YESTER TIME: AT BEDTIME NEXT DOSE DUE: DATE: TIME: AT BEDTIME Mirtazapine 15 Mg Tablet 15 Mg PO HS LAST DOSE GIVEN: DATE: YESTER TIME: AT BEDTIME NEXT DOSE DUE: DATE: TIME: AT BEDTIME Metoprolol Tartrate 25 Mg Tablet 37.5 Mg PO BID LAST DOSE GIVEN: DATE: TODAY TIME: AM NEXT DOSE DUE: DATE: TODAY TIME: PM I have reviewed the current psychotropics carefully including drug interactions. Risk benefit ratio favors no change other than as noted in my dictated progress note. Diagnosis: Problems: (1) Anxiety disorder (2) Dementia in Alzheimer's disease with delusions (3) Dementia in Alzheimer's disease with depression (4) Impulse control disorder (5) Agitation AZEEM GEORGE MD Dec 17, 2017 20:42
[2017-12-17] MEDS: MIRTAZAPINE 15 MG TABLET PO SCH (20:44)
[2017-12-17] MEDS: QUEtiapine 50 MG TABLET. PO SCH (20:44)
[2017-12-17] MEDS: INSULIN GLARGINE 300 UNITS/3 ML INSULN.PEN. SQ SCH ×2 (20:46→20:57)
[2017-12-18] MEDS: hydrOXYzine PAMOATE 25 MG CAPSULE PO SCH ×3 (05:57→19:19)
[2017-12-18 06:03] VITALS: BP 136/66
[2017-12-18 07:25] LABS: BASO # 0.1 x10^3/uL (0.0-0.2); BASO % 1 % (0-3); EOS # 0.5 x10^3/uL (0.0-0.7); EOS % 7 % (0-3); HEMATOCRIT 38.8 % (39.0-53.0); HEMOGLOBIN 12.7 g/dL (13.0-17.5); LYMPH % 26 % (24-48); MEAN CORPUSCULAR HEMOGLOBIN 25 pg (25-35); MEAN CORPUSCULAR HGB CONC 33 g/dL (31-37); MEAN CORPUSCULAR VOLUME 77 fL (79-100); MONO # 0.7 x10^3/uL (0.0-1.1); MONO % 9 % (0-9); NEUT # 4.4 x10^3uL (1.8-7.7); NEUT % 57 % (31-73); PLATELET COUNT 429 x10^3/uL (140-400); RED BLOOD COUNT 5.06 x10^6/uL (4.30-5.70); RED CELL DISTRIBUTION WIDTH 14.5 % (11.5-14.5); WHITE BLOOD COUNT 7.6 x10^3/uL (4.0-11.0)
[2017-12-18 07:34] LABS: ALBUMIN 3.2 g/dL (3.4-5.0); ALBUMIN/GLOBULIN RATIO 0.7 (1.0-1.7); ALK PHOS 130 U/L (46-116); ALT (SGPT) 20 U/L (16-63); ANION GAP 6 (6-14); AST (SGOT) 14 U/L (15-37); BLOOD UREA NITROGEN 25 mg/dL (8-26); BUN/CREATININE RATIO 16 (6-20); CALCIUM 8.9 mg/dL (8.5-10.1); CARBON DIOXIDE 33 mmol/L (21-32); CHLORIDE 102 mmol/L (98-107); CREATININE 1.6 mg/dL (0.7-1.3); GFR 41.9; GLUCOSE 117 mg/dL (70-99); POTASSIUM 4.9 mmol/L (3.5-5.1); SODIUM 141 mmol/L (136-145); TOTAL BILIRUBIN 0.3 mg/dL (0.2-1.0); TOTAL PROTEIN 7.7 g/dL (6.4-8.2)
[2017-12-18 07:36] LABS: VAL ACID 22 mcg/mL (50-100)
[2017-12-18] MEDS: FERROUS SULFATE 325 MG TABLET. PO SCH (08:16)
[2017-12-18] MEDS: busPIRone 10 MG TABLET. PO SCH ×2 (08:16→19:20)
[2017-12-18] MEDS: DIVALPROEX 125 MG CAP.SPRINK PO SCH ×3 (08:16→21:00)
[2017-12-18] MEDS: ASPIRIN ENTERIC COATED 325 MG TABLET.DR. PO SCH (08:16)
[2017-12-18] MEDS: glipiZIDE 5 MG TABLET PO SCH ×2 (08:17→19:21)
[2017-12-18] MEDS: QUEtiapine 25 MG TABLET. PO SCH (08:19)
[2017-12-18] MEDS: GABAPENTIN 100 MG CAPSULE. PO SCH ×3 (08:19→19:19)
[2017-12-18] MEDS: PANTOPRAZOLE 40 MG TABLET. PO SCH (08:19)
[2017-12-18] MEDS: METOPROLOL TART IMMED RELEASE 25 MG TABLET PO SCH ×2 (08:19→19:21)
[2017-12-18] MEDS: MULTIVITAMIN with MINERAL TABLET. PO SCH (08:20)
[2017-12-18] MEDS: NEOMY/BACITR/POLYMYXIN OINT PACKET. TP SCH ×3 (08:20→21:00)
[2017-12-18 16:01] VITALS: BP 115/53
[2017-12-18] MEDS: ATORVASTATIN CALCIUM 20 MG TABLET PO SCH (19:19)
[2017-12-18] MEDS: MIRTAZAPINE 15 MG TABLET PO SCH (19:19)
[2017-12-18] MEDS: QUEtiapine 50 MG TABLET. PO SCH (19:20)
[2017-12-18] MEDS: INSULIN GLARGINE 300 UNITS/3 ML INSULN.PEN. SQ SCH (19:26)
--- NOTE | 2017-12-18 19:58 | PDOC ---
Exam Note: Mendez Note: Please also refer to the separate dictated note~for this date of service dictated separately.~Patient seen individually. Discussed the patient with Nursing staff reviewed the chart.~Reviewed interim history and current functioning. Reviewed vital signs,~Labs/ Radiology~and current medications noted below. Continue current treatment with the changes noted in the dictated addendum note Assessment: Vital Signs: Vital Signs Date Time Temp Pulse Resp B/P (MAP) Pulse Ox O2 Delivery O2 Flow Rate FiO2 12/18/17 19:21 59 115/53 12/18/17 16:01 98.3 19 98 12/17/17 06:02 Room Air I&O Intake and Output 12/18/17 06:59 Intake Total 720 ml Balance 720 ml Intake Oral 720 ml Labs: Laboratory Tests Test 12/18/17 07:06 12/18/17 07:10 Glucose (Fingerstick) 99 mg/dL (70-99) White Blood Count 7.6 x10^3/uL (4.0-11.0) Red Blood Count 5.06 x10^6/uL (4.30-5.70) Hemoglobin 12.7 g/dL (13.0-17.5) L Hematocrit 38.8 % (39.0-53.0) L Mean Corpuscular Volume 77 fL (79-100) L Mean Corpuscular Hemoglobin 25 pg (25-35) Mean Corpuscular Hemoglobin Concent 33 g/dL (31-37) Red Cell Distribution Width 14.5 % (11.5-14.5) Platelet Count 429 x10^3/uL (140-400) H Neutrophils (%) (Auto) 57 % (31-73) Lymphocytes (%) (Auto) 26 % (24-48) Monocytes (%) (Auto) 9 % (0-9) Eosinophils (%) (Auto) 7 % (0-3) H Basophils (%) (Auto) 1 % (0-3) Neutrophils # (Auto) 4.4 x10^3uL (1.8-7.7) Lymphocytes # (Auto) 2.0 x10^3/uL (1.0-4.8) Monocytes # (Auto) 0.7 x10^3/uL (0.0-1.1) Eosinophils # (Auto) 0.5 x10^3/uL (0.0-0.7) Basophils # (Auto) 0.1 x10^3/uL (0.0-0.2) Sodium Level 141 mmol/L (136-145) Potassium Level 4.9 mmol/L (3.5-5.1) Chloride Level 102 mmol/L (98-107) Carbon Dioxide Level 33 mmol/L (21-32) H Anion Gap 6 (6-14) Blood Urea Nitrogen 25 mg/dL (8-26) Creatinine 1.6 mg/dL (0.7-1.3) H Estimated GFR (Cockcroft-Gault) 41.9 BUN/Creatinine Ratio 16 (6-20) Glucose Level 117 mg/dL (70-99) H Calcium Level 8.9 mg/dL (8.5-10.1) Total Bilirubin 0.3 mg/dL (0.2-1.0) Aspartate Amino Transferase (AST) 14 U/L (15-37) L Alanine Aminotransferase (ALT) 20 U/L (16-63) Alkaline Phosphatase 130 U/L (46-116) H Total Protein 7.7 g/dL (6.4-8.2) Albumin 3.2 g/dL (3.4-5.0) L Albumin/Globulin Ratio 0.7 (1.0-1.7) L Valproic Acid Level 22 mcg/mL (50-100) L Valproic Acid Last Dose Date 12/17/17 Valproic Acid Last Dose Time 1700 Current Medications: Meds: Current Medications Acetaminophen (Tylenol) 650 mg PRN Q6HRS PRN PO PAIN / TEMP; Start 12/11/17 at 22:00; Status Cancel Multi-Ingredient Ointment (Analgesic [place]) 1 jenaro PRN QID PRN TP MUSCLE PAIN; Start 12/11/17 at 22:00 Al Hydroxide/Mg Hydroxide (Mylanta Plus Xs) 15 ml PRN AFTMEALHC PRN PO DYSPEPSIA; Start 12/11/17 at 22:00; Status Cancel Magnesium Hydroxide (Milk Of Magnesia) 2,400 mg PRN QHS PRN PO CONSTIPATION; Start 12/11/17 at 22:00 Buspirone HCl (Buspar) 5 mg BID PO ; Start 12/12/17 at 09:00; Stop 12/12/17 at 09: 00; Status DC Hydroxyzine Pamoate (Vistaril) 50 mg Q8HRS PO ; Start 12/12/17 at 06:00; Stop 12/12/17 at 06:00; Status DC Mirtazapine (Remeron) 15 mg QHS PO ; Start 12/12/17 at 21:00; Stop 12/12/17 at 21: 00; Status DC Acetaminophen (Tylenol) 650 mg PRN Q4HRS PRN PO PAIN / TEMP; Start 12/11/17 at 22:30 Aspirin (Aspirin Enteric Coated) 325 mg DAILY08 PO Last administered on at 08:16; Start 12/12/17 at 08:00 Ferrous Sulfate (Feosol) 325 mg DAILY PO Last administered on 12/18/17at 08:16; Start 12/12/17 at 09:00 Gabapentin (Neurontin) 100 mg TID PO ; Start 12/12/17 at 09:00; Stop 12/12/17 at 09:00; Status DC Al Hydroxide/Mg Hydroxide (Mylanta Plus Xs) 30 ml PRN Q6HRS PRN PO Upset Stomach; Start 12/11/17 at 22:30 Metoprolol Tartrate (Lopressor) 37.5 mg BID PO Last administered on 12/18/17 08 :19; Start 12/12/17 at 09:00 Neomycin/ Polymyxin/ Bacitracin (Triple Antibiotic Ointment) 1 pkt TID TP Last administered on 12/18/17at 13:40; Start 12/12/17 at 09:00 Atorvastatin Calcium (Lipitor) 40 mg QHS PO Last administered on 12/18/17 19:19 ; Start 12/12/17 at 21:00 Glipizide (Glucotrol) 5 mg BIDBFRMEAL PO Last administered on 12/14/17at 10:18; Start 12/12/17 at 07:30; Stop 12/14/17 at 16:08; Status DC Multivitamins/ Calcium (Thera-M Plus) 1 tab DAILY PO Last administered on at 08:20; Start 12/12/17 at 09:00 Pantoprazole Sodium (Protonix) 40 mg DAILY PO Last administered on 12/18/17at 08: 19; Start 12/12/17 at 09:00 Fluvoxamine Maleate (Luvox) 75 mg DAILY PO Last administered on 12/14/17 10:18 ; Start 12/12/17 at 09:00; Stop 12/14/17 at 12:24; Status DC Quetiapine Fumarate (SEROquel) 25 mg BID PO ; Start 12/12/17 at 09:00; Stop at 09:00; Status DC Buspirone HCl (Buspar) 5 mg BID PO Last administered on 12/12/17at 08:36; Start 12/12/17 at 02:30; Stop 12/12/17 at 18:30; Status DC Gabapentin (Neurontin) 100 mg TID PO Last administered on 12/18/17 19:19; Start 12/12/17 at 02:30 Hydroxyzine Pamoate (Vistaril) 50 mg Q8HRS PO Last administered on 12/18/17 19: 19; Start 12/12/17 at 02:30 Mirtazapine (Remeron) 15 mg QHS PO Last administered on 12/18/17 19:19; Start 12/12/17 at 02:30 Quetiapine Fumarate (SEROquel) 25 mg BID PO Last administered on 12/13/17 08:14 ; Start 12/12/17 at 02:30; Stop 12/13/17 at 17:14; Status DC Buspirone HCl (Buspar) 10 mg BID PO Last administered on 12/18/17 19:20; Start 12/12/17 at 21:00 Trazodone HCl (Desyrel) 50 mg PRN DAILY PRN PO INSOMNIA, MAY REPEAT X1 Last administered on 12/13/17at 22:57; Start 12/12/17 at 18:30 Quetiapine Fumarate (SEROquel) 25 mg DAILY PO Last administered on 12/14/17 10: 19; Start 12/14/17 at 09:00; Stop 12/14/17 at 12:09; Status DC Quetiapine Fumarate (SEROquel) 50 mg QHS PO Last administered on 12/18/17 19:20 ; Start 12/13/17 at 21:00 Fluvoxamine Maleate (Luvox) 100 mg QHS PO ; Start 12/14/17 at 21:00; Stop at 21:00; Status DC Divalproex Sodium (Depakote Sprinkles) 125 mg BID@0900,1700 PO Last administered on 12/18/17at 17:20; Start 12/14/17 at 17:00; Stop 12/18/17 at 18:50; Status DC Olanzapine (ZyPREXA ZYDIS) 2.5 mg PRN Q2HR PRN PO PSYCHOSIS/AGITATION; Start at 12:15 Quetiapine Fumarate (SEROquel) 25 mg DAILY PO Last administered on 12/18/17at 08: 19; Start 12/15/17 at 09:00 Fluvoxamine Maleate (Luvox) 100 mg DAILY PO Last administered on 12/18/17at 08:19 ; Start 12/15/17 at 09:00 Glipizide (Glucotrol) 10 mg DAILY PO Last administered on 12/18/17at 08:17; Start 12/15/17 at 09:00 Glipizide (Glucotrol) 5 mg QHS PO Last administered on 12/17/17at 20:44; Start at 21:00 Insulin Glargine (Lantus) 10 units QHS SQ Last administered on 12/18/17at 19:26; Start 12/14/17 at 21:00 Divalproex Sodium (Depakote Sprinkles) 250 mg HS PO ; Start 12/18/17 at 21:00 Active Scripts Active Protonix (Pantoprazole Sodium) 40 Mg Tablet. 1 Tab PO DAILY Reported Glipizide 5 Mg Tablet 5 Mg PO BID Fluvoxamine Maleate 50 Mg Tablet 75 Mg PO DAILY Multivitamins (Multivitamin) 1 Each Tablet 1 Each PO DAILY LAST DOSE GIVEN: DATE: TODAY TIME: AM NEXT DOSE DUE: DATE: TOMORROW TIME: AM Quetiapine Fumarate 25 Mg Tablet 25 Mg PO BID LAST DOSE GIVEN: DATE: YESTERDAY TIME: AT BEDTIME NEXT DOSE DUE: DATE: TODAY TIME: AT BEDTIME Aspirin Ec (Aspirin) 325 Mg Tablet. 325 Mg PO DAILY08 LAST DOSE GIVEN: DATE: TODAY TIME: AM NEXT DOSE DUE: DATE: TOMORROW TIME: AM Buspirone Hcl 5 Mg Tablet 5 Mg PO BID LAST DOSE GIVEN: DATE: TODAY TIME: AM NEXT DOSE DUE: DATE: TODAY TIME: PM Triple Antibiotic Ointment (Neomy Sulf/Bacitra/Polymyxin B) 1 Each Packet 1 Each TP TID LAST DOSE GIVEN: DATE: TIME: AM NEXT DOSE DUE: DATE: TODAY TIME: AFTERNOON Maalox Maximum Strength Susp (Mag Hydrox/Al Hydrox/Simeth) 355 Ml Oral.susp 30 Ml PO PRN Q6HRS PRN LAST DOSE GIVEN: DATE: NOT GIVEN TODAY NEXT DOSE DUE: DATE: TIME: IF AND WHEN NEEDED Tylenol (Acetaminophen) 325 Mg Tablet 650 Mg PO PRN Q4HRS PRN LAST DOSE GIVEN: DATE: NOT GIVEN TODAY TIME: NEXT DOSE DUE: DATE: TIME: IF AND WHEN NEEDED Hydroxyzine Pamoate 50 Mg Capsule 50 Mg PO Q8HRS LAST DOSE GIVEN: DATE: TODAY TIME: 0600 NEXT DOSE DUE: DATE: TODAY TIME: 1400 Gabapentin 100 Mg Capsule 100 Mg PO TID LAST DOSE GIVEN: DATE: TIME: AM NEXT DOSE DUE: DATE: TIME: AFTERNOON Ferrous Sulfate 325 Mg Tablet 325 Mg PO DAILY LAST DOSE GIVEN: DATE: TODAY TIME: AM NEXT DOSE DUE: DATE: TOMORROW TIME: AM Atorvastatin Calcium 40 Mg Tablet 40 Mg PO QHS LAST DOSE GIVEN: DATE: YESTER TIME: AT BEDTIME NEXT DOSE DUE: DATE: TIME: AT BEDTIME Mirtazapine 15 Mg Tablet 15 Mg PO HS LAST DOSE GIVEN: DATE: YESTER TIME: AT BEDTIME NEXT DOSE DUE: DATE: TIME: AT BEDTIME Metoprolol Tartrate 25 Mg Tablet 37.5 Mg PO BID LAST DOSE GIVEN: DATE: TIME: AM NEXT DOSE DUE: DATE: TODAY TIME: PM I have reviewed the current psychotropics carefully including drug interactions. Risk benefit ratio favors no change other than as noted in my dictated progress note. Diagnosis: Problems: (1) Anxiety disorder (2) Dementia in Alzheimer's disease with delusions (3) Dementia in Alzheimer's disease with depression (4) Impulse control disorder (5) Agitation AZEEM GEORGE MD Dec 18, 2017 19:58
--- NOTE | 2017-12-18 22:49 | PN ---
DATE: 12/17/2017 This late entry for 12/17/2017 covers elements not covered in my initial note of 12/17/2017. SUBJECTIVE: I met with the patient in his room. The patient slept 4-1/4 hours previous evening, somewhat withdrawn, confused. REVIEW OF SYSTEMS: Hard of hearing. No CV, , pulmonary, eye, ENT system symptoms on review. MENTAL STATUS EXAM: Oriented to himself. Insight, judgment, recent and remote memory, attention, concentration, fund of knowledge poor, consistent with his diagnosis mentioned in my initial note. PLAN: Continue psychotropics from initial note. MAN Cristóbal GEORGE MD DR: FERMÍN/tiny JOB#: [id number] / [id number]
[2017-12-19] MEDS: hydrOXYzine PAMOATE 25 MG CAPSULE PO SCH ×3 (06:00→19:47)
[2017-12-19 06:06] VITALS: BP 161/89
[2017-12-19] MEDS: glipiZIDE 5 MG TABLET PO SCH ×2 (07:48→19:50)
[2017-12-19] MEDS: FERROUS SULFATE 325 MG TABLET. PO SCH (07:48)
[2017-12-19] MEDS: GABAPENTIN 100 MG CAPSULE. PO SCH ×3 (07:48→19:51)
[2017-12-19] MEDS: MULTIVITAMIN with MINERAL TABLET. PO SCH (07:49)
[2017-12-19] MEDS: QUEtiapine 25 MG TABLET. PO SCH (07:49)
[2017-12-19] MEDS: PANTOPRAZOLE 40 MG TABLET. PO SCH (07:49)
[2017-12-19] MEDS: busPIRone 10 MG TABLET. PO SCH ×2 (07:49→19:50)
[2017-12-19] MEDS: ASPIRIN ENTERIC COATED 325 MG TABLET.DR. PO SCH (07:49)
[2017-12-19] MEDS: METOPROLOL TART IMMED RELEASE 25 MG TABLET PO SCH ×2 (07:51→19:49)
[2017-12-19] MEDS: NEOMY/BACITR/POLYMYXIN OINT PACKET. TP SCH ×3 (07:53→19:50)
[2017-12-19 16:13] VITALS: BP 122/63
[2017-12-19] MEDS: DIVALPROEX 125 MG CAP.SPRINK PO SCH (19:48)
[2017-12-19] MEDS: ATORVASTATIN CALCIUM 20 MG TABLET PO SCH (19:48)
[2017-12-19] MEDS: QUEtiapine 50 MG TABLET. PO SCH (19:50)
[2017-12-19] MEDS: MIRTAZAPINE 15 MG TABLET PO SCH (19:50)
[2017-12-19] MEDS: INSULIN GLARGINE 300 UNITS/3 ML INSULN.PEN. SQ SCH (21:00)
--- NOTE | 2017-12-19 21:39 | PDOC ---
Exam Note: Mendez Note: Please also refer to the separate dictated note~for this date of service dictated separately.~Patient seen individually. Discussed the patient with Nursing staff reviewed the chart.~Reviewed interim history and current functioning. Reviewed vital signs,~Labs/ Radiology~and current medications noted below. Continue current treatment with the changes noted in the dictated addendum note Assessment: Vital Signs: Vital Signs Date Time Temp Pulse Resp B/P (MAP) Pulse Ox O2 Delivery O2 Flow Rate FiO2 12/19/17 19:49 78 122/63 12/19/17 16:13 97.2 20 97 Room Air I&O Intake and Output 12/19/17 07:00 Intake Total 1260 ml Balance 1260 ml Intake Oral 1260 ml Current Medications: Meds: Current Medications Acetaminophen (Tylenol) 650 mg PRN Q6HRS PRN PO PAIN / TEMP; Start 12/11/17 at 22:00; Status Cancel Multi-Ingredient Ointment (Analgesic [place]) 1 jenaro PRN QID PRN TP MUSCLE PAIN; Start 12/11/17 at 22:00 Al Hydroxide/Mg Hydroxide (Mylanta Plus Xs) 15 ml PRN AFTMEALHC PRN PO DYSPEPSIA; Start 12/11/17 at 22:00; Status Cancel Magnesium Hydroxide (Milk Of Magnesia) 2,400 mg PRN QHS PRN PO CONSTIPATION; Start 12/11/17 at 22:00 Buspirone HCl (Buspar) 5 mg BID PO ; Start 12/12/17 at 09:00; Stop 12/12/17 at 09: 00; Status DC Hydroxyzine Pamoate (Vistaril) 50 mg Q8HRS PO ; Start 12/12/17 at 06:00; Stop 12/12/17 at 06:00; Status DC Mirtazapine (Remeron) 15 mg QHS PO ; Start 12/12/17 at 21:00; Stop 12/12/17 at 21: 00; Status DC Acetaminophen (Tylenol) 650 mg PRN Q4HRS PRN PO PAIN / TEMP; Start 12/11/17 at 22:30 Aspirin (Aspirin Enteric Coated) 325 mg DAILY08 PO Last administered on at 07:49; Start 12/12/17 at 08:00 Ferrous Sulfate (Feosol) 325 mg DAILY PO Last administered on 12/19/17at 07:48; Start 12/12/17 at 09:00 Gabapentin (Neurontin) 100 mg TID PO ; Start 12/12/17 at 09:00; Stop 12/12/17 at 09:00; Status DC Al Hydroxide/Mg Hydroxide (Mylanta Plus Xs) 30 ml PRN Q6HRS PRN PO Upset Stomach; Start 12/11/17 at 22:30 Metoprolol Tartrate (Lopressor) 37.5 mg BID PO Last administered on 12/19/17at 19:49; Start 12/12/17 at 09:00 Neomycin/ Polymyxin/ Bacitracin (Triple Antibiotic Ointment) 1 pkt TID TP Last administered on 12/19/17 19:50; Start 12/12/17 at 09:00 Atorvastatin Calcium (Lipitor) 40 mg QHS PO Last administered on 12/19/17 19: 48; Start 12/12/17 at 21:00 Glipizide (Glucotrol) 5 mg BIDBFRMEAL PO Last administered on 12/14/17at 10:18; Start 12/12/17 at 07:30; Stop 12/14/17 at 16:08; Status DC Multivitamins/ Calcium (Thera-M Plus) 1 tab DAILY PO Last administered on at 07:49; Start 12/12/17 at 09:00 Pantoprazole Sodium (Protonix) 40 mg DAILY PO Last administered on 12/19/17at 07 :49; Start 12/12/17 at 09:00 Fluvoxamine Maleate (Luvox) 75 mg DAILY PO Last administered on 12/14/17at 10:18 ; Start 12/12/17 at 09:00; Stop 12/14/17 at 12:24; Status DC Quetiapine Fumarate (SEROquel) 25 mg BID PO ; Start 12/12/17 at 09:00; Stop at 09:00; Status DC Buspirone HCl (Buspar) 5 mg BID PO Last administered on 12/12/17at 08:36; Start 12/12/17 at 02:30; Stop 12/12/17 at 18:30; Status DC Gabapentin (Neurontin) 100 mg TID PO Last administered on 12/19/17at 19:51; Start 12/12/17 at 02:30 Hydroxyzine Pamoate (Vistaril) 50 mg Q8HRS PO Last administered on 12/19/17at 19 :47; Start 12/12/17 at 02:30 Mirtazapine (Remeron) 15 mg QHS PO Last administered on 12/19/17at 19:50; Start 12/12/17 at 02:30 Quetiapine Fumarate (SEROquel) 25 mg BID PO Last administered on 12/13/17at 08:14 ; Start 12/12/17 at 02:30; Stop 12/13/17 at 17:14; Status DC Buspirone HCl (Buspar) 10 mg BID PO Last administered on 12/19/17 19:50; Start 12/12/17 at 21:00 Trazodone HCl (Desyrel) 50 mg PRN DAILY PRN PO INSOMNIA, MAY REPEAT X1 Last administered on 12/13/17at 22:57; Start 12/12/17 at 18:30 Quetiapine Fumarate (SEROquel) 25 mg DAILY PO Last administered on 12/14/17at 10: 19; Start 12/14/17 at 09:00; Stop 12/14/17 at 12:09; Status DC Quetiapine Fumarate (SEROquel) 50 mg QHS PO Last administered on 12/19/17at 19: 50; Start 12/13/17 at 21:00 Fluvoxamine Maleate (Luvox) 100 mg QHS PO ; Start 12/14/17 at 21:00; Stop at 21:00; Status DC Divalproex Sodium (Depakote Sprinkles) 125 mg BID@0900,1700 PO Last administered on 12/18/17 17:20; Start 12/14/17 at 17:00; Stop 12/18/17 at 18:50; Status DC Olanzapine (ZyPREXA ZYDIS) 2.5 mg PRN Q2HR PRN PO PSYCHOSIS/AGITATION; Start at 12:15 Quetiapine Fumarate (SEROquel) 25 mg DAILY PO Last administered on 12/19/17at 07 :49; Start 12/15/17 at 09:00 Fluvoxamine Maleate (Luvox) 100 mg DAILY PO Last administered on 12/19/17 07: 49; Start 12/15/17 at 09:00 Glipizide (Glucotrol) 10 mg DAILY PO Last administered on 12/19/17 07:48; Start 12/15/17 at 09:00 Glipizide (Glucotrol) 5 mg QHS PO Last administered on 12/19/17 19:50; Start 12/14/17 at 21:00 Insulin Glargine (Lantus) 10 units QHS SQ Last administered on 12/18/17 19:26; Start 12/14/17 at 21:00 Divalproex Sodium (Depakote Sprinkles) 250 mg HS PO Last administered on 19:48; Start 12/18/17 at 21:00 Active Scripts Active Protonix (Pantoprazole Sodium) 40 Mg Tablet. 1 Tab PO DAILY Reported Glipizide 5 Mg Tablet 5 Mg PO BID Fluvoxamine Maleate 50 Mg Tablet 75 Mg PO DAILY Multivitamins (Multivitamin) 1 Each Tablet 1 Each PO DAILY LAST DOSE GIVEN: DATE: TODAY TIME: AM NEXT DOSE DUE: DATE: TOMORROW TIME: AM Quetiapine Fumarate 25 Mg Tablet 25 Mg PO BID LAST DOSE GIVEN: DATE: YESTERDAY TIME: AT BEDTIME NEXT DOSE DUE: DATE: TODAY TIME: AT BEDTIME Aspirin Ec (Aspirin) 325 Mg Tablet. 325 Mg PO DAILY08 LAST DOSE GIVEN: DATE: TODAY TIME: AM NEXT DOSE DUE: DATE: TOMORROW TIME: AM Buspirone Hcl 5 Mg Tablet 5 Mg PO BID LAST DOSE GIVEN: DATE: TODAY TIME: AM NEXT DOSE DUE: DATE: TODAY TIME: PM Triple Antibiotic Ointment (Neomy Sulf/Bacitra/Polymyxin B) 1 Each Packet 1 Each TP TID LAST DOSE GIVEN: DATE: TODAY TIME: AM NEXT DOSE DUE: DATE: TODAY TIME: AFTERNOON Maalox Maximum Strength Susp (Mag Hydrox/Al Hydrox/Simeth) 355 Ml Oral.susp 30 Ml PO PRN Q6HRS PRN LAST DOSE GIVEN: DATE: NOT GIVEN TODAY NEXT DOSE DUE: DATE: TODAY TIME: IF AND WHEN NEEDED Tylenol (Acetaminophen) 325 Mg Tablet 650 Mg PO PRN Q4HRS PRN LAST DOSE GIVEN: DATE: NOT GIVEN TODAY TIME: NEXT DOSE DUE: DATE: TODAY TIME: IF AND WHEN NEEDED Hydroxyzine Pamoate 50 Mg Capsule 50 Mg PO Q8HRS LAST DOSE GIVEN: DATE: TODAY TIME: 0600 NEXT DOSE DUE: DATE: TODAY TIME: 1400 Gabapentin 100 Mg Capsule 100 Mg PO TID LAST DOSE GIVEN: DATE: TIME: AM NEXT DOSE DUE: DATE: TIME: AFTERNOON Ferrous Sulfate 325 Mg Tablet 325 Mg PO DAILY LAST DOSE GIVEN: DATE: TIME: AM NEXT DOSE DUE: DATE: TOMORROW TIME: AM Atorvastatin Calcium 40 Mg Tablet 40 Mg PO QHS LAST DOSE GIVEN: DATE: YESTER TIME: AT BEDTIME NEXT DOSE DUE: DATE: TODAY TIME: AT BEDTIME Mirtazapine 15 Mg Tablet 15 Mg PO HS LAST DOSE GIVEN: DATE: YES TIME: AT BEDTIME NEXT DOSE DUE: DATE: TIME: AT BEDTIME Metoprolol Tartrate 25 Mg Tablet 37.5 Mg PO BID LAST DOSE GIVEN: DATE: TIME: AM NEXT DOSE DUE: DATE: TIME: PM I have reviewed the current psychotropics carefully including drug interactions. Risk benefit ratio favors no change other than as noted in my dictated progress note. Diagnosis: Problems: (1) Anxiety disorder (2) Dementia in Alzheimer's disease with delusions (3) Dementia in Alzheimer's disease with depression (4) Impulse control disorder (5) Agitation AZEEM GEORGE MD Dec 19, 2017 21:39
--- NOTE | 2017-12-20 01:15 | PN ---
DATE: 12/18/2017 This late entry, 12/18/2017, covers the elements not covered in my initial note, 12/18/2017. SUBJECTIVE: I met with the patient in the evening. The patient slept 4 hours previous evening. He remains confused, withdrawn, and extremely hard of hearing. REVIEW OF SYSTEMS: No CV, , pulmonary, eye system symptoms on review. Reliability poor. He is otherwise cooperative, compliant with medications. MENTAL STATUS EXAM: I met with him in his room. Hard of hearing. Insight, judgment, recent and remote memory, attention, concentration, fund of knowledge poor, consistent with his diagnosis as mentioned in my initial note. IMPRESSION: Major neurocognitive disorder, Alzheimer, vascular with delusion, depression, behavioral disturbance. Valproic acid level subtherapeutic, we will increase the Depakote from 125 mg twice a day to 250 mg twice a day. Check CBC, CMP, valproic acid level in 3 days. Continue rest unchanged. AZEEM GEORGE MD DR: FERMÍN/tiny JOB#: [id number] / [id number]
[2017-12-20] MEDS: hydrOXYzine PAMOATE 25 MG CAPSULE PO SCH ×3 (05:44→20:04)
[2017-12-20 06:02] VITALS: BP 158/83
[2017-12-20] MEDS: METOPROLOL TART IMMED RELEASE 25 MG TABLET PO SCH ×2 (08:23→20:06)
[2017-12-20] MEDS: FERROUS SULFATE 325 MG TABLET. PO SCH (08:23)
[2017-12-20] MEDS: GABAPENTIN 100 MG CAPSULE. PO SCH ×3 (08:23→20:06)
[2017-12-20] MEDS: PANTOPRAZOLE 40 MG TABLET. PO SCH (08:23)
[2017-12-20] MEDS: QUEtiapine 25 MG TABLET. PO SCH (08:23)
[2017-12-20] MEDS: ASPIRIN ENTERIC COATED 325 MG TABLET.DR. PO SCH (08:23)
[2017-12-20] MEDS: busPIRone 10 MG TABLET. PO SCH ×2 (08:23→20:06)
[2017-12-20] MEDS: MULTIVITAMIN with MINERAL TABLET. PO SCH (08:23)
[2017-12-20] MEDS: glipiZIDE 5 MG TABLET PO SCH ×2 (08:25→20:05)
[2017-12-20] MEDS: NEOMY/BACITR/POLYMYXIN OINT PACKET. TP SCH ×3 (09:49→20:04)
--- NOTE | 2017-12-20 12:43 | PN ---
DATE: 12/19/2017 PSYCHIATRIC PROGRESS NOTE This is a late entry 12/19/2017, covers elements not covered in my initial note. SUBJECTIVE: I met with the patient in the evening. The patient slept 6-3/4 hours previous evening. He is compliant with his medications, quite withdrawn, isolated, spends much time in his room. He was yelling when his blood sugar was being drawn. REVIEW OF SYSTEMS: Ambulation somewhat impaired, hard of hearing. No CV, , pulmonary, eye system symptoms on review. MENTAL STATUS EXAM: Oriented to himself. Insight, judgment, recent and remote memory, attention, concentration, fund of knowledge poor, consistent with his diagnoses mentioned in my initial note. PLAN: Continue psychotropics from initial note. Check labs level, on the Depakote adjust to reach therapeutic level. MAN ReeseChristian GEORGE MD DR: FERMÍN/tiny JOB#: [id number] / [id number]
[2017-12-20 16:02] VITALS: BP 125/66
[2017-12-20] MEDS: DIVALPROEX 125 MG CAP.SPRINK PO SCH (20:04)
[2017-12-20] MEDS: QUEtiapine 50 MG TABLET. PO SCH (20:04)
[2017-12-20] MEDS: ATORVASTATIN CALCIUM 20 MG TABLET PO SCH (20:04)
[2017-12-20] MEDS: MIRTAZAPINE 15 MG TABLET PO SCH (20:06)
[2017-12-20] MEDS: INSULIN GLARGINE 300 UNITS/3 ML INSULN.PEN. SQ SCH (20:07)
--- NOTE | 2017-12-20 20:52 | PDOC ---
Exam Note: Mendez Note: Please also refer to the separate dictated note~for this date of service dictated separately.~Patient seen individually. Discussed the patient with Nursing staff reviewed the chart.~Reviewed interim history and current functioning. Reviewed vital signs,~Labs/ Radiology~and current medications noted below. Continue current treatment with the changes noted in the dictated addendum note Assessment: Vital Signs: Vital Signs Date Time Temp Pulse Resp B/P (MAP) Pulse Ox O2 Delivery O2 Flow Rate FiO2 12/20/17 20:06 67 125/66 12/20/17 16:02 97.6 20 95 12/19/17 16:13 Room Air I&O Intake and Output 12/20/17 06:59 Intake Total 1560 ml Balance 1560 ml Intake Oral 1560 ml Labs: Laboratory Tests Test 12/20/17 07:22 Glucose (Fingerstick) 101 mg/dL (70-99) H Current Medications: Meds: Current Medications Acetaminophen (Tylenol) 650 mg PRN Q6HRS PRN PO PAIN / TEMP; Start 12/11/17 at 22:00; Status Cancel Multi-Ingredient Ointment (Analgesic [place]) 1 jenaro PRN QID PRN TP MUSCLE PAIN; Start 12/11/17 at 22:00 Al Hydroxide/Mg Hydroxide (Mylanta Plus Xs) 15 ml PRN AFTMEALHC PRN PO DYSPEPSIA; Start 12/11/17 at 22:00; Status Cancel Magnesium Hydroxide (Milk Of Magnesia) 2,400 mg PRN QHS PRN PO CONSTIPATION; Start 12/11/17 at 22:00 Buspirone HCl (Buspar) 5 mg BID PO ; Start 12/12/17 at 09:00; Stop 12/12/17 at 09: 00; Status DC Hydroxyzine Pamoate (Vistaril) 50 mg Q8HRS PO ; Start 12/12/17 at 06:00; Stop 12/12/17 at 06:00; Status DC Mirtazapine (Remeron) 15 mg QHS PO ; Start 12/12/17 at 21:00; Stop 12/12/17 at 21: 00; Status DC Acetaminophen (Tylenol) 650 mg PRN Q4HRS PRN PO PAIN / TEMP; Start 12/11/17 at 22:30 Aspirin (Aspirin Enteric Coated) 325 mg DAILY08 PO Last administered on 08:23; Start 12/12/17 at 08:00 Ferrous Sulfate (Feosol) 325 mg DAILY PO Last administered on 12/20/17at 08:23; Start 12/12/17 at 09:00 Gabapentin (Neurontin) 100 mg TID PO ; Start 12/12/17 at 09:00; Stop 12/12/17 at 09:00; Status DC Al Hydroxide/Mg Hydroxide (Mylanta Plus Xs) 30 ml PRN Q6HRS PRN PO Upset Stomach; Start 12/11/17 at 22:30 Metoprolol Tartrate (Lopressor) 37.5 mg BID PO Last administered on 12/20/17 20:06; Start 12/12/17 at 09:00 Neomycin/ Polymyxin/ Bacitracin (Triple Antibiotic Ointment) 1 pkt TID TP Last administered on 12/20/17 20:04; Start 12/12/17 at 09:00 Atorvastatin Calcium (Lipitor) 40 mg QHS PO Last administered on 12/20/17 20: 04; Start 12/12/17 at 21:00 Glipizide (Glucotrol) 5 mg BIDBFRMEAL PO Last administered on 12/14/17 10:18; Start 12/12/17 at 07:30; Stop 12/14/17 at 16:08; Status DC Multivitamins/ Calcium (Thera-M Plus) 1 tab DAILY PO Last administered on at 08:23; Start 12/12/17 at 09:00 Pantoprazole Sodium (Protonix) 40 mg DAILY PO Last administered on 12/20/17at 08 :23; Start 12/12/17 at 09:00 Fluvoxamine Maleate (Luvox) 75 mg DAILY PO Last administered on 12/14/17at 10:18 ; Start 12/12/17 at 09:00; Stop 12/14/17 at 12:24; Status DC Quetiapine Fumarate (SEROquel) 25 mg BID PO ; Start 12/12/17 at 09:00; Stop at 09:00; Status DC Buspirone HCl (Buspar) 5 mg BID PO Last administered on 12/12/17at 08:36; Start 12/12/17 at 02:30; Stop 12/12/17 at 18:30; Status DC Gabapentin (Neurontin) 100 mg TID PO Last administered on 12/20/17 20:06; Start 12/12/17 at 02:30 Hydroxyzine Pamoate (Vistaril) 50 mg Q8HRS PO Last administered on 12/20/17 20 :04; Start 12/12/17 at 02:30 Mirtazapine (Remeron) 15 mg QHS PO Last administered on 12/20/17 20:06; Start 12/12/17 at 02:30 Quetiapine Fumarate (SEROquel) 25 mg BID PO Last administered on 12/13/17 08:14 ; Start 12/12/17 at 02:30; Stop 12/13/17 at 17:14; Status DC Buspirone HCl (Buspar) 10 mg BID PO Last administered on 12/20/17 20:06; Start 12/12/17 at 21:00 Trazodone HCl (Desyrel) 50 mg PRN DAILY PRN PO INSOMNIA, MAY REPEAT X1 Last administered on 12/13/17at 22:57; Start 12/12/17 at 18:30 Quetiapine Fumarate (SEROquel) 25 mg DAILY PO Last administered on 12/14/17 10: 19; Start 12/14/17 at 09:00; Stop 12/14/17 at 12:09; Status DC Quetiapine Fumarate (SEROquel) 50 mg QHS PO Last administered on 12/20/17at 20: 04; Start 12/13/17 at 21:00 Fluvoxamine Maleate (Luvox) 100 mg QHS PO ; Start 12/14/17 at 21:00; Stop at 21:00; Status DC Divalproex Sodium (Depakote Sprinkles) 125 mg BID@0900,1700 PO Last administered on 12/18/17 17:20; Start 12/14/17 at 17:00; Stop 12/18/17 at 18:50; Status DC Olanzapine (ZyPREXA ZYDIS) 2.5 mg PRN Q2HR PRN PO PSYCHOSIS/AGITATION; Start at 12:15 Quetiapine Fumarate (SEROquel) 25 mg DAILY PO Last administered on 12/20/17 08 :23; Start 12/15/17 at 09:00 Fluvoxamine Maleate (Luvox) 100 mg DAILY PO Last administered on 12/20/17 08: 23; Start 12/15/17 at 09:00 Glipizide (Glucotrol) 10 mg DAILY PO Last administered on 12/20/17 08:25; Start 12/15/17 at 09:00 Glipizide (Glucotrol) 5 mg QHS PO Last administered on 12/20/17 20:05; Start 12/14/17 at 21:00 Insulin Glargine (Lantus) 10 units QHS SQ Last administered on 12/20/17 20:07 ; Start 12/14/17 at 21:00 Divalproex Sodium (Depakote Sprinkles) 250 mg HS PO Last administered on 20:04; Start 12/18/17 at 21:00 Active Scripts Active Protonix (Pantoprazole Sodium) 40 Mg Tablet.dr 1 Tab PO DAILY Reported Glipizide 5 Mg Tablet 5 Mg PO BID Fluvoxamine Maleate 50 Mg Tablet 75 Mg PO DAILY Multivitamins (Multivitamin) 1 Each Tablet 1 Each PO DAILY LAST DOSE GIVEN: DATE: TODAY TIME: AM NEXT DOSE DUE: DATE: TOMORROW TIME: AM Quetiapine Fumarate 25 Mg Tablet 25 Mg PO BID LAST DOSE GIVEN: DATE: YESTERDAY TIME: AT BEDTIME NEXT DOSE DUE: DATE: TODAY TIME: AT BEDTIME Aspirin Ec (Aspirin) 325 Mg Tablet.dr 325 Mg PO DAILY08 LAST DOSE GIVEN: DATE: TODAY TIME: AM NEXT DOSE DUE: DATE: TOMORROW TIME: AM Buspirone Hcl 5 Mg Tablet 5 Mg PO BID LAST DOSE GIVEN: DATE: TODAY TIME: AM NEXT DOSE DUE: DATE: TODAY TIME: PM Triple Antibiotic Ointment (Neomy Sulf/Bacitra/Polymyxin B) 1 Each Packet 1 Each TP TID LAST DOSE GIVEN: DATE: TODAY TIME: AM NEXT DOSE DUE: DATE: TODAY TIME: AFTERNOON Maalox Maximum Strength Susp (Mag Hydrox/Al Hydrox/Simeth) 355 Ml Oral.susp 30 Ml PO PRN Q6HRS PRN LAST DOSE GIVEN: DATE: NOT GIVEN TODAY NEXT DOSE DUE: DATE: TODAY TIME: IF AND WHEN NEEDED Tylenol (Acetaminophen) 325 Mg Tablet 650 Mg PO PRN Q4HRS PRN LAST DOSE GIVEN: DATE: NOT GIVEN TODAY TIME: NEXT DOSE DUE: DATE: TODAY TIME: IF AND WHEN NEEDED Hydroxyzine Pamoate 50 Mg Capsule 50 Mg PO Q8HRS LAST DOSE GIVEN: DATE: TODAY TIME: 0600 NEXT DOSE DUE: DATE: TODAY TIME: 1400 Gabapentin 100 Mg Capsule 100 Mg PO TID LAST DOSE GIVEN: DATE: TIME: AM NEXT DOSE DUE: DATE: TODAY TIME: AFTERNOON Ferrous Sulfate 325 Mg Tablet 325 Mg PO DAILY LAST DOSE GIVEN: DATE: TODAY TIME: AM NEXT DOSE DUE: DATE: TOMORROW TIME: AM Atorvastatin Calcium 40 Mg Tablet 40 Mg PO QHS LAST DOSE GIVEN: DATE: YESTER TIME: AT BEDTIME NEXT DOSE DUE: DATE: TODAY TIME: AT BEDTIME Mirtazapine 15 Mg Tablet 15 Mg PO HS LAST DOSE GIVEN: DATE: YESTER TIME: AT BEDTIME NEXT DOSE DUE: DATE: TIME: AT BEDTIME Metoprolol Tartrate 25 Mg Tablet 37.5 Mg PO BID LAST DOSE GIVEN: DATE: TODAY TIME: AM NEXT DOSE DUE: DATE: TODAY TIME: PM I have reviewed the current psychotropics carefully including drug interactions. Risk benefit ratio favors no change other than as noted in my dictated progress note. Diagnosis: Problems: (1) Anxiety disorder (2) Dementia in Alzheimer's disease with delusions (3) Dementia in Alzheimer's disease with depression (4) Impulse control disorder (5) Agitation AZEEM GEORGE MD Dec 20, 2017 20:52
[2017-12-21] MEDS: hydrOXYzine PAMOATE 25 MG CAPSULE PO SCH ×3 (05:56→19:33)
[2017-12-21 06:20] VITALS: BP 173/83
[2017-12-21 07:27] LABS: BASO # 0.1 x10^3/uL (0.0-0.2); BASO % 1 % (0-3); EOS # 0.4 x10^3/uL (0.0-0.7); EOS % 6 % (0-3); HEMATOCRIT 39.2 % (39.0-53.0); HEMOGLOBIN 12.7 g/dL (13.0-17.5); LYMPH % 26 % (24-48); MEAN CORPUSCULAR HEMOGLOBIN 25 pg (25-35); MEAN CORPUSCULAR HGB CONC 33 g/dL (31-37); MEAN CORPUSCULAR VOLUME 76 fL (79-100); MONO # 0.7 x10^3/uL (0.0-1.1); MONO % 9 % (0-9); NEUT # 4.6 x10^3uL (1.8-7.7); NEUT % 60 % (31-73); PLATELET COUNT 419 x10^3/uL (140-400); RED BLOOD COUNT 5.15 x10^6/uL (4.30-5.70); RED CELL DISTRIBUTION WIDTH 14.7 % (11.5-14.5); WHITE BLOOD COUNT 7.7 x10^3/uL (4.0-11.0)
[2017-12-21 07:56] LABS: ALBUMIN 3.4 g/dL (3.4-5.0); ALBUMIN/GLOBULIN RATIO 0.8 (1.0-1.7); CALCIUM 9.4 mg/dL (8.5-10.1); CREATININE 1.6 mg/dL (0.7-1.3); GFR 41.9; POTASSIUM 5.4 mmol/L (3.5-5.1); TOTAL BILIRUBIN 0.3 mg/dL (0.2-1.0); TOTAL PROTEIN 7.5 g/dL (6.4-8.2)
[2017-12-21 08:02] LABS: VAL ACID 27 mcg/mL (50-100)
[2017-12-21] MEDS: MULTIVITAMIN with MINERAL TABLET. PO SCH (08:26)
[2017-12-21] MEDS: ASPIRIN ENTERIC COATED 325 MG TABLET.DR. PO SCH (08:28)
[2017-12-21] MEDS: glipiZIDE 5 MG TABLET PO SCH ×2 (08:28→19:33)
[2017-12-21] MEDS: FERROUS SULFATE 325 MG TABLET. PO SCH (08:29)
[2017-12-21] MEDS: METOPROLOL TART IMMED RELEASE 25 MG TABLET PO SCH ×2 (08:29→19:32)
[2017-12-21] MEDS: GABAPENTIN 100 MG CAPSULE. PO SCH ×3 (08:29→19:32)
[2017-12-21] MEDS: QUEtiapine 25 MG TABLET. PO SCH (08:29)
[2017-12-21] MEDS: busPIRone 10 MG TABLET. PO SCH ×2 (08:29→19:33)
[2017-12-21] MEDS: PANTOPRAZOLE 40 MG TABLET. PO SCH (08:31)
[2017-12-21] MEDS: NEOMY/BACITR/POLYMYXIN OINT PACKET. TP SCH ×3 (09:00→19:50)
[2017-12-21 16:29] VITALS: BP 124/65
[2017-12-21] MEDS: ATORVASTATIN CALCIUM 20 MG TABLET PO SCH (19:31)
[2017-12-21] MEDS: DIVALPROEX 125 MG CAP.SPRINK PO SCH (19:33)
[2017-12-21] MEDS: MIRTAZAPINE 15 MG TABLET PO SCH (19:40)
[2017-12-21] MEDS: QUEtiapine 50 MG TABLET. PO SCH (19:40)
[2017-12-21] MEDS: INSULIN GLARGINE 300 UNITS/3 ML INSULN.PEN. SQ SCH (19:41)
--- NOTE | 2017-12-21 20:51 | PDOC ---
Exam Note: Mendez Note: Please also refer to the separate dictated note~for this date of service dictated separately.~Patient seen individually. Discussed the patient with Nursing staff reviewed the chart.~Reviewed interim history and current functioning. Reviewed vital signs,~Labs/ Radiology~and current medications noted below. Continue current treatment with the changes noted in the dictated addendum note Assessment: Vital Signs: Vital Signs Date Time Temp Pulse Resp B/P (MAP) Pulse Ox O2 Delivery O2 Flow Rate FiO2 12/21/17 19:32 79 124/65 12/21/17 16:29 98.2 18 98 12/19/17 16:13 Room Air I&O Intake and Output 12/21/17 07:00 Intake Total 1740 ml Balance 1740 ml Intake Oral 1740 ml Labs: Laboratory Tests Test 12/21/17 07:11 12/21/17 07:14 Glucose (Fingerstick) 81 mg/dL (70-99) White Blood Count 7.7 x10^3/uL (4.0-11.0) Red Blood Count 5.15 x10^6/uL (4.30-5.70) Hemoglobin 12.7 g/dL (13.0-17.5) L Hematocrit 39.2 % (39.0-53.0) Mean Corpuscular Volume 76 fL (79-100) L Mean Corpuscular Hemoglobin 25 pg (25-35) Mean Corpuscular Hemoglobin Concent 33 g/dL (31-37) Red Cell Distribution Width 14.7 % (11.5-14.5) H Platelet Count 419 x10^3/uL (140-400) H Neutrophils (%) (Auto) 60 % (31-73) Lymphocytes (%) (Auto) 26 % (24-48) Monocytes (%) (Auto) 9 % (0-9) Eosinophils (%) (Auto) 6 % (0-3) H Basophils (%) (Auto) 1 % (0-3) Neutrophils # (Auto) 4.6 x10^3uL (1.8-7.7) Lymphocytes # (Auto) 2.0 x10^3/uL (1.0-4.8) Monocytes # (Auto) 0.7 x10^3/uL (0.0-1.1) Eosinophils # (Auto) 0.4 x10^3/uL (0.0-0.7) Basophils # (Auto) 0.1 x10^3/uL (0.0-0.2) Sodium Level 141 mmol/L (136-145) Potassium Level 5.4 mmol/L (3.5-5.1) H Chloride Level 104 mmol/L (98-107) Carbon Dioxide Level 34 mmol/L (21-32) H Anion Gap 3 (6-14) L Blood Urea Nitrogen 26 mg/dL (8-26) Creatinine 1.6 mg/dL (0.7-1.3) H Estimated GFR (Cockcroft-Gault) 41.9 BUN/Creatinine Ratio 16 (6-20) Glucose Level 79 mg/dL (70-99) Calcium Level 9.4 mg/dL (8.5-10.1) Total Bilirubin 0.3 mg/dL (0.2-1.0) Aspartate Amino Transferase (AST) 17 U/L (15-37) Alanine Aminotransferase (ALT) 20 U/L (16-63) Alkaline Phosphatase 125 U/L (46-116) H Total Protein 7.5 g/dL (6.4-8.2) Albumin 3.4 g/dL (3.4-5.0) Albumin/Globulin Ratio 0.8 (1.0-1.7) L Valproic Acid Level 27 mcg/mL (50-100) L Valproic Acid Last Dose Date 12/20/2017 Valproic Acid Last Dose Time 1700 Current Medications: Meds: Current Medications Acetaminophen (Tylenol) 650 mg PRN Q6HRS PRN PO PAIN / TEMP; Start 12/11/17 at 22:00; Status Cancel Multi-Ingredient Ointment (Analgesic [place]) 1 jenaro PRN QID PRN TP MUSCLE PAIN; Start 12/11/17 at 22:00 Al Hydroxide/Mg Hydroxide (Mylanta Plus Xs) 15 ml PRN AFTMEALHC PRN PO DYSPEPSIA; Start 12/11/17 at 22:00; Status Cancel Magnesium Hydroxide (Milk Of Magnesia) 2,400 mg PRN QHS PRN PO CONSTIPATION; Start 12/11/17 at 22:00 Buspirone HCl (Buspar) 5 mg BID PO ; Start 12/12/17 at 09:00; Stop 12/12/17 at 09: 00; Status DC Hydroxyzine Pamoate (Vistaril) 50 mg Q8HRS PO ; Start 12/12/17 at 06:00; Stop 12/12/17 at 06:00; Status DC Mirtazapine (Remeron) 15 mg QHS PO ; Start 12/12/17 at 21:00; Stop 12/12/17 at 21: 00; Status DC Acetaminophen (Tylenol) 650 mg PRN Q4HRS PRN PO PAIN / TEMP; Start 12/11/17 at 22:30 Aspirin (Aspirin Enteric Coated) 325 mg DAILY08 PO Last administered on 08:28; Start 12/12/17 at 08:00 Ferrous Sulfate (Feosol) 325 mg DAILY PO Last administered on 12/21/17at 08:29; Start 12/12/17 at 09:00 Gabapentin (Neurontin) 100 mg TID PO ; Start 12/12/17 at 09:00; Stop 12/12/17 at 09:00; Status DC Al Hydroxide/Mg Hydroxide (Mylanta Plus Xs) 30 ml PRN Q6HRS PRN PO Upset Stomach; Start 12/11/17 at 22:30 Metoprolol Tartrate (Lopressor) 37.5 mg BID PO Last administered on 12/21/17 19:32; Start 12/12/17 at 09:00 Neomycin/ Polymyxin/ Bacitracin (Triple Antibiotic Ointment) 1 pkt TID TP Last administered on 12/21/17at 19:50; Start 12/12/17 at 09:00 Atorvastatin Calcium (Lipitor) 40 mg QHS PO Last administered on 12/21/17 19: 31; Start 12/12/17 at 21:00 Glipizide (Glucotrol) 5 mg BIDBFRMEAL PO Last administered on 12/14/17at 10:18; Start 12/12/17 at 07:30; Stop 12/14/17 at 16:08; Status DC Multivitamins/ Calcium (Thera-M Plus) 1 tab DAILY PO Last administered on 08:26; Start 12/12/17 at 09:00 Pantoprazole Sodium (Protonix) 40 mg DAILY PO Last administered on 12/21/17at 08 :31; Start 12/12/17 at 09:00 Fluvoxamine Maleate (Luvox) 75 mg DAILY PO Last administered on 12/14/17 10:18 ; Start 12/12/17 at 09:00; Stop 12/14/17 at 12:24; Status DC Quetiapine Fumarate (SEROquel) 25 mg BID PO ; Start 12/12/17 at 09:00; Stop at 09:00; Status DC Buspirone HCl (Buspar) 5 mg BID PO Last administered on 12/12/17at 08:36; Start 12/12/17 at 02:30; Stop 12/12/17 at 18:30; Status DC Gabapentin (Neurontin) 100 mg TID PO Last administered on 12/21/17 19:32; Start 12/12/17 at 02:30 Hydroxyzine Pamoate (Vistaril) 50 mg Q8HRS PO Last administered on 12/21/17 19 :33; Start 12/12/17 at 02:30 Mirtazapine (Remeron) 15 mg QHS PO Last administered on 12/21/17 19:40; Start 12/12/17 at 02:30 Quetiapine Fumarate (SEROquel) 25 mg BID PO Last administered on 12/13/17 08:14 ; Start 12/12/17 at 02:30; Stop 12/13/17 at 17:14; Status DC Buspirone HCl (Buspar) 10 mg BID PO Last administered on 12/21/17 19:33; Start 12/12/17 at 21:00 Trazodone HCl (Desyrel) 50 mg PRN DAILY PRN PO INSOMNIA, MAY REPEAT X1 Last administered on 12/13/17at 22:57; Start 12/12/17 at 18:30 Quetiapine Fumarate (SEROquel) 25 mg DAILY PO Last administered on 12/14/17 10: 19; Start 12/14/17 at 09:00; Stop 12/14/17 at 12:09; Status DC Quetiapine Fumarate (SEROquel) 50 mg QHS PO Last administered on 12/21/17 19: 40; Start 12/13/17 at 21:00 Fluvoxamine Maleate (Luvox) 100 mg QHS PO ; Start 12/14/17 at 21:00; Stop at 21:00; Status DC Divalproex Sodium (Depakote Sprinkles) 125 mg BID@0900,1700 PO Last administered on 12/18/17 17:20; Start 12/14/17 at 17:00; Stop 12/18/17 at 18:50; Status DC Olanzapine (ZyPREXA ZYDIS) 2.5 mg PRN Q2HR PRN PO PSYCHOSIS/AGITATION; Start at 12:15 Quetiapine Fumarate (SEROquel) 25 mg DAILY PO Last administered on 12/21/17 08 :29; Start 12/15/17 at 09:00 Fluvoxamine Maleate (Luvox) 100 mg DAILY PO Last administered on 12/21/17 08: 26; Start 12/15/17 at 09:00 Glipizide (Glucotrol) 10 mg DAILY PO Last administered on 12/21/17 08:28; Start 12/15/17 at 09:00 Glipizide (Glucotrol) 5 mg QHS PO Last administered on 12/21/17 19:33; Start 12/14/17 at 21:00 Insulin Glargine (Lantus) 10 units QHS SQ Last administered on 12/21/17 19:41 ; Start 12/14/17 at 21:00 Divalproex Sodium (Depakote Sprinkles) 250 mg HS PO Last administered on 19:33; Start 12/18/17 at 21:00 Active Scripts Active Protonix (Pantoprazole Sodium) 40 Mg Tablet. 1 Tab PO DAILY Reported Glipizide 5 Mg Tablet 5 Mg PO BID Fluvoxamine Maleate 50 Mg Tablet 75 Mg PO DAILY Multivitamins (Multivitamin) 1 Each Tablet 1 Each PO DAILY LAST DOSE GIVEN: DATE: TODAY TIME: AM NEXT DOSE DUE: DATE: TOMORROW TIME: AM Quetiapine Fumarate 25 Mg Tablet 25 Mg PO BID LAST DOSE GIVEN: DATE: YESTERDAY TIME: AT BEDTIME NEXT DOSE DUE: DATE: TODAY TIME: AT BEDTIME Aspirin Ec (Aspirin) 325 Mg Tablet. 325 Mg PO DAILY08 LAST DOSE GIVEN: DATE: TODAY TIME: AM NEXT DOSE DUE: DATE: TOMORROW TIME: AM Buspirone Hcl 5 Mg Tablet 5 Mg PO BID LAST DOSE GIVEN: DATE: TODAY TIME: AM NEXT DOSE DUE: DATE: TODAY TIME: PM Triple Antibiotic Ointment (Neomy Sulf/Bacitra/Polymyxin B) 1 Each Packet 1 Each TP TID LAST DOSE GIVEN: DATE: TIME: AM NEXT DOSE DUE: DATE: TODAY TIME: AFTERNOON Maalox Maximum Strength Susp (Mag Hydrox/Al Hydrox/Simeth) 355 Ml Oral.susp 30 Ml PO PRN Q6HRS PRN LAST DOSE GIVEN: DATE: NOT GIVEN TODAY NEXT DOSE DUE: DATE: TIME: IF AND WHEN NEEDED Tylenol (Acetaminophen) 325 Mg Tablet 650 Mg PO PRN Q4HRS PRN LAST DOSE GIVEN: DATE: NOT GIVEN TODAY TIME: NEXT DOSE DUE: DATE: TIME: IF AND WHEN NEEDED Hydroxyzine Pamoate 50 Mg Capsule 50 Mg PO Q8HRS LAST DOSE GIVEN: DATE: TIME: 0600 NEXT DOSE DUE: DATE: TIME: 1400 Gabapentin 100 Mg Capsule 100 Mg PO TID LAST DOSE GIVEN: DATE: TIME: AM NEXT DOSE DUE: DATE: TIME: AFTERNOON Ferrous Sulfate 325 Mg Tablet 325 Mg PO DAILY LAST DOSE GIVEN: DATE: TODAY TIME: AM NEXT DOSE DUE: DATE: TOMORROW TIME: AM Atorvastatin Calcium 40 Mg Tablet 40 Mg PO QHS LAST DOSE GIVEN: DATE: YESTER TIME: AT BEDTIME NEXT DOSE DUE: DATE: TIME: AT BEDTIME Mirtazapine 15 Mg Tablet 15 Mg PO HS LAST DOSE GIVEN: DATE: YESTER TIME: AT BEDTIME NEXT DOSE DUE: DATE: TIME: AT BEDTIME Metoprolol Tartrate 25 Mg Tablet 37.5 Mg PO BID LAST DOSE GIVEN: DATE: TIME: AM NEXT DOSE DUE: DATE: TODAY TIME: PM I have reviewed the current psychotropics carefully including drug interactions. Risk benefit ratio favors no change other than as noted in my dictated progress note. Diagnosis: Problems: (1) Anxiety disorder (2) Dementia in Alzheimer's disease with delusions (3) Dementia in Alzheimer's disease with depression (4) Impulse control disorder (5) Agitation AZEEM GEORGE MD Dec 21, 2017 20:51
[2017-12-22] MEDS: hydrOXYzine PAMOATE 25 MG CAPSULE PO SCH ×3 (05:38→19:49)
[2017-12-22 06:01] VITALS: BP 115/59
[2017-12-22] MEDS: MULTIVITAMIN with MINERAL TABLET. PO SCH (08:16)
[2017-12-22] MEDS: PANTOPRAZOLE 40 MG TABLET. PO SCH (08:16)
[2017-12-22] MEDS: METOPROLOL TART IMMED RELEASE 25 MG TABLET PO SCH ×2 (08:18→19:55)
[2017-12-22] MEDS: busPIRone 10 MG TABLET. PO SCH ×2 (08:18→19:49)
[2017-12-22] MEDS: ASPIRIN ENTERIC COATED 325 MG TABLET.DR. PO SCH (08:18)
[2017-12-22] MEDS: glipiZIDE 5 MG TABLET PO SCH ×2 (08:18→19:49)
[2017-12-22] MEDS: QUEtiapine 25 MG TABLET. PO SCH (08:18)
[2017-12-22] MEDS: GABAPENTIN 100 MG CAPSULE. PO SCH ×3 (08:18→19:50)
[2017-12-22] MEDS: FERROUS SULFATE 325 MG TABLET. PO SCH (08:18)
[2017-12-22] MEDS: NEOMY/BACITR/POLYMYXIN OINT PACKET. TP SCH ×3 (08:19→19:58)
[2017-12-22 16:41] VITALS: BP 108/65
[2017-12-22] MEDS: DIVALPROEX 125 MG CAP.SPRINK PO SCH (19:49)
[2017-12-22] MEDS: ATORVASTATIN CALCIUM 20 MG TABLET PO SCH (19:50)
[2017-12-22] MEDS: MIRTAZAPINE 15 MG TABLET PO SCH (19:54)
[2017-12-22] MEDS: QUEtiapine 50 MG TABLET. PO SCH (19:54)
[2017-12-22] MEDS: INSULIN GLARGINE 300 UNITS/3 ML INSULN.PEN. SQ SCH (19:57)
[2017-12-22] MEDS: SODIUM BICARBONATE 650 MG TABLET PO SCH (20:58)
--- NOTE | 2017-12-22 22:04 | PN ---
DATE: 12/20/2017 PSYCHIATRIC PROGRESS NOTE This late entry 12/20/2017 covers elements not covered in my initial note. SUBJECTIVE: Met with the patient in the evening. The patient slept 7 hours previous evening, remains isolative, spends much time in bed. He is extremely hard of hearing. We will [facility] the [facility] and check labs in the morning. He has been less combative with fingersticks. REVIEW OF SYSTEMS: Hard of hearing. No CV, , pulmonary, eye system symptoms on review. Reliability is poor. MENTAL STATUS EXAM: Oriented to himself. Insight, judgment, recent, remote memory, attention, concentration, fund of knowledge is poor, consistent with his diagnoses mentioned in my initial note. PLAN: No change from a psychiatric standpoint from initial note. MAN Cristóbal GEORGE MD DR: FERMÍN/tiny JOB#: [id number] / [id number]
--- NOTE | 2017-12-22 22:20 | PN ---
DATE: 12/21/2017 PSYCHIATRIC PROGRESS NOTE This is a late entry 12/21/2017 covers elements not covered in my initial note. SUBJECTIVE: The patient was staffed at a treatment team meeting with the entire team in the morning, seen individually in the evening. The patient has been isolative, somewhat loud at times, refused showers and fingersticks, does redirect. REVIEW OF SYSTEMS: Extremely hard of hearing, met with him in his room. No CV, , pulmonary, eye system symptoms on review. Reliability is poor. MENTAL STATUS EXAM: Oriented to himself. Insight, judgment, recent, remote memory, attention, concentration, fund of knowledge is poor, consistent with his diagnoses mentioned in my initial note. LABORATORY DATA: Valproic acid level is 27, subtherapeutic, but clinically adequate for now. If aggression resurfaces, we will adjust the Depakote upward. IMPRESSION: Unchanged from initial note. PLAN: No change from a psychiatric standpoint from initial note. AZEEM GEORGE MD DR: FERMÍN/tiny JOB#: [id number] / [id number]
--- NOTE | 2017-12-22 23:03 | PDOC ---
Exam Note: Mendez Note: Please also refer to the separate dictated note~for this date of service dictated separately.~Patient seen individually. Discussed the patient with Nursing staff reviewed the chart.~Reviewed interim history and current functioning. Reviewed vital signs,~Labs/ Radiology~and current medications noted below. Continue current treatment with the changes noted in the dictated addendum note Assessment: Vital Signs: Vital Signs Date Time Temp Pulse Resp B/P (MAP) Pulse Ox O2 Delivery O2 Flow Rate FiO2 12/22/17 19:55 60 108/65 12/22/17 16:41 97.8 16 95 12/19/17 16:13 Room Air I&O Intake and Output 12/22/17 07:00 Intake Total 870 ml Balance 870 ml Intake Oral 870 ml Labs: Laboratory Tests Test 12/22/17 07:12 Glucose (Fingerstick) 247 mg/dL (70-99) H Current Medications: Meds: Current Medications Acetaminophen (Tylenol) 650 mg PRN Q6HRS PRN PO PAIN / TEMP; Start 12/11/17 at 22:00; Status Cancel Multi-Ingredient Ointment (Analgesic [place]) 1 jenaro PRN QID PRN TP MUSCLE PAIN; Start 12/11/17 at 22:00 Al Hydroxide/Mg Hydroxide (Mylanta Plus Xs) 15 ml PRN AFTMEALHC PRN PO DYSPEPSIA; Start 12/11/17 at 22:00; Status Cancel Magnesium Hydroxide (Milk Of Magnesia) 2,400 mg PRN QHS PRN PO CONSTIPATION; Start 12/11/17 at 22:00 Buspirone HCl (Buspar) 5 mg BID PO ; Start 12/12/17 at 09:00; Stop 12/12/17 at 09: 00; Status DC Hydroxyzine Pamoate (Vistaril) 50 mg Q8HRS PO ; Start 12/12/17 at 06:00; Stop 12/12/17 at 06:00; Status DC Mirtazapine (Remeron) 15 mg QHS PO ; Start 12/12/17 at 21:00; Stop 12/12/17 at 21: 00; Status DC Acetaminophen (Tylenol) 650 mg PRN Q4HRS PRN PO PAIN / TEMP; Start 12/11/17 at 22:30 Aspirin (Aspirin Enteric Coated) 325 mg DAILY08 PO Last administered on 08:18; Start 12/12/17 at 08:00 Ferrous Sulfate (Feosol) 325 mg DAILY PO Last administered on 12/22/17at 08:18; Start 12/12/17 at 09:00 Gabapentin (Neurontin) 100 mg TID PO ; Start 12/12/17 at 09:00; Stop 12/12/17 at 09:00; Status DC Al Hydroxide/Mg Hydroxide (Mylanta Plus Xs) 30 ml PRN Q6HRS PRN PO Upset Stomach; Start 12/11/17 at 22:30 Metoprolol Tartrate (Lopressor) 37.5 mg BID PO Last administered on 12/22/17 08:18; Start 12/12/17 at 09:00 Neomycin/ Polymyxin/ Bacitracin (Triple Antibiotic Ointment) 1 pkt TID TP Last administered on 12/22/17 19:58; Start 12/12/17 at 09:00 Atorvastatin Calcium (Lipitor) 40 mg QHS PO Last administered on 12/22/17 19: 50; Start 12/12/17 at 21:00 Glipizide (Glucotrol) 5 mg BIDBFRMEAL PO Last administered on 12/14/17 10:18; Start 12/12/17 at 07:30; Stop 12/14/17 at 16:08; Status DC Multivitamins/ Calcium (Thera-M Plus) 1 tab DAILY PO Last administered on at 08:16; Start 12/12/17 at 09:00 Pantoprazole Sodium (Protonix) 40 mg DAILY PO Last administered on 12/22/17at 08 :16; Start 12/12/17 at 09:00 Fluvoxamine Maleate (Luvox) 75 mg DAILY PO Last administered on 12/14/17at 10:18 ; Start 12/12/17 at 09:00; Stop 12/14/17 at 12:24; Status DC Quetiapine Fumarate (SEROquel) 25 mg BID PO ; Start 12/12/17 at 09:00; Stop at 09:00; Status DC Buspirone HCl (Buspar) 5 mg BID PO Last administered on 12/12/17at 08:36; Start 12/12/17 at 02:30; Stop 12/12/17 at 18:30; Status DC Gabapentin (Neurontin) 100 mg TID PO Last administered on 12/22/17 19:50; Start 12/12/17 at 02:30 Hydroxyzine Pamoate (Vistaril) 50 mg Q8HRS PO Last administered on 12/22/17 19 :49; Start 12/12/17 at 02:30 Mirtazapine (Remeron) 15 mg QHS PO Last administered on 12/22/17 19:54; Start 12/12/17 at 02:30 Quetiapine Fumarate (SEROquel) 25 mg BID PO Last administered on 12/13/17 08:14 ; Start 12/12/17 at 02:30; Stop 12/13/17 at 17:14; Status DC Buspirone HCl (Buspar) 10 mg BID PO Last administered on 12/22/17 19:49; Start 12/12/17 at 21:00 Trazodone HCl (Desyrel) 50 mg PRN DAILY PRN PO INSOMNIA, MAY REPEAT X1 Last administered on 12/13/17 22:57; Start 12/12/17 at 18:30 Quetiapine Fumarate (SEROquel) 25 mg DAILY PO Last administered on 12/14/17 10: 19; Start 12/14/17 at 09:00; Stop 12/14/17 at 12:09; Status DC Quetiapine Fumarate (SEROquel) 50 mg QHS PO Last administered on 12/22/17 19: 54; Start 12/13/17 at 21:00 Fluvoxamine Maleate (Luvox) 100 mg QHS PO ; Start 12/14/17 at 21:00; Stop at 21:00; Status DC Divalproex Sodium (Depakote Sprinkles) 125 mg BID@0900,1700 PO Last administered on 12/18/17 17:20; Start 12/14/17 at 17:00; Stop 12/18/17 at 18:50; Status DC Olanzapine (ZyPREXA ZYDIS) 2.5 mg PRN Q2HR PRN PO PSYCHOSIS/AGITATION; Start at 12:15 Quetiapine Fumarate (SEROquel) 25 mg DAILY PO Last administered on 12/22/17 08 :18; Start 12/15/17 at 09:00 Fluvoxamine Maleate (Luvox) 100 mg DAILY PO Last administered on 12/22/17 08: 16; Start 12/15/17 at 09:00 Glipizide (Glucotrol) 10 mg DAILY PO Last administered on 12/22/17 08:18; Start 12/15/17 at 09:00 Glipizide (Glucotrol) 5 mg QHS PO Last administered on 12/22/17 19:49; Start 12/14/17 at 21:00 Insulin Glargine (Lantus) 10 units QHS SQ Last administered on 12/22/17 19:57 ; Start 12/14/17 at 21:00 Divalproex Sodium (Depakote Sprinkles) 250 mg HS PO Last administered on 19:49; Start 12/18/17 at 21:00 Sodium Bicarbonate 650 mg TID PO Last administered on 12/22/17at 20:58; Start at 21:00 Active Scripts Active Protonix (Pantoprazole Sodium) 40 Mg Tablet. 1 Tab PO DAILY Reported Glipizide 5 Mg Tablet 5 Mg PO BID Fluvoxamine Maleate 50 Mg Tablet 75 Mg PO DAILY Multivitamins (Multivitamin) 1 Each Tablet 1 Each PO DAILY LAST DOSE GIVEN: DATE: TODAY TIME: AM NEXT DOSE DUE: DATE: TOMORROW TIME: AM Quetiapine Fumarate 25 Mg Tablet 25 Mg PO BID LAST DOSE GIVEN: DATE: YESTERDAY TIME: AT BEDTIME NEXT DOSE DUE: DATE: TODAY TIME: AT BEDTIME Aspirin Ec (Aspirin) 325 Mg Tablet. 325 Mg PO DAILY08 LAST DOSE GIVEN: DATE: TODAY TIME: AM NEXT DOSE DUE: DATE: TOMORROW TIME: AM Buspirone Hcl 5 Mg Tablet 5 Mg PO BID LAST DOSE GIVEN: DATE: TODAY TIME: AM NEXT DOSE DUE: DATE: TODAY TIME: PM Triple Antibiotic Ointment (Neomy Sulf/Bacitra/Polymyxin B) 1 Each Packet 1 Each TP TID LAST DOSE GIVEN: DATE: TODAY TIME: AM NEXT DOSE DUE: DATE: TODAY TIME: AFTERNOON Maalox Maximum Strength Susp (Mag Hydrox/Al Hydrox/Simeth) 355 Ml Oral.susp 30 Ml PO PRN Q6HRS PRN LAST DOSE GIVEN: DATE: NOT GIVEN TODAY NEXT DOSE DUE: DATE: TODAY TIME: IF AND WHEN NEEDED Tylenol (Acetaminophen) 325 Mg Tablet 650 Mg PO PRN Q4HRS PRN LAST DOSE GIVEN: DATE: NOT GIVEN TODAY TIME: NEXT DOSE DUE: DATE: TODAY TIME: IF AND WHEN NEEDED Hydroxyzine Pamoate 50 Mg Capsule 50 Mg PO Q8HRS LAST DOSE GIVEN: DATE: TODAY TIME: 0600 NEXT DOSE DUE: DATE: TODAY TIME: 1400 Gabapentin 100 Mg Capsule 100 Mg PO TID LAST DOSE GIVEN: DATE: TODAY TIME: AM NEXT DOSE DUE: DATE: TODAY TIME: AFTERNOON Ferrous Sulfate 325 Mg Tablet 325 Mg PO DAILY LAST DOSE GIVEN: DATE: TODAY TIME: AM NEXT DOSE DUE: DATE: TOMORROW TIME: AM Atorvastatin Calcium 40 Mg Tablet 40 Mg PO QHS LAST DOSE GIVEN: DATE: YESTER TIME: AT BEDTIME NEXT DOSE DUE: DATE: TIME: AT BEDTIME Mirtazapine 15 Mg Tablet 15 Mg PO HS LAST DOSE GIVEN: DATE: YESTER TIME: AT BEDTIME NEXT DOSE DUE: DATE: TODAY TIME: AT BEDTIME Metoprolol Tartrate 25 Mg Tablet 37.5 Mg PO BID LAST DOSE GIVEN: DATE: TIME: AM NEXT DOSE DUE: DATE: TODAY TIME: PM I have reviewed the current psychotropics carefully including drug interactions. Risk benefit ratio favors no change other than as noted in my dictated progress note. Diagnosis: Problems: (1) Anxiety disorder (2) Dementia in Alzheimer's disease with delusions (3) Dementia in Alzheimer's disease with depression (4) Impulse control disorder (5) Agitation AZEEM GEORGE MD Dec 22, 2017 23:03
[2017-12-23] MEDS: traZODone 50 MG TABLET. PO PRN (01:21)
[2017-12-23 05:45] VITALS: BP 115/72
[2017-12-23] MEDS: hydrOXYzine PAMOATE 25 MG CAPSULE PO SCH ×3 (06:00→19:59)
[2017-12-23] MEDS: FERROUS SULFATE 325 MG TABLET. PO SCH (07:41)
[2017-12-23] MEDS: busPIRone 10 MG TABLET. PO SCH ×2 (07:41→19:59)
[2017-12-23] MEDS: QUEtiapine 25 MG TABLET. PO SCH (07:41)
[2017-12-23] MEDS: MULTIVITAMIN with MINERAL TABLET. PO SCH (07:41)
[2017-12-23] MEDS: PANTOPRAZOLE 40 MG TABLET. PO SCH (07:41)
[2017-12-23] MEDS: ASPIRIN ENTERIC COATED 325 MG TABLET.DR. PO SCH (07:42)
[2017-12-23] MEDS: GABAPENTIN 100 MG CAPSULE. PO SCH ×3 (07:42→19:57)
[2017-12-23] MEDS: METOPROLOL TART IMMED RELEASE 25 MG TABLET PO SCH ×2 (07:43→19:58)
[2017-12-23] MEDS: SODIUM BICARBONATE 650 MG TABLET PO SCH ×3 (07:47→19:58)
[2017-12-23] MEDS: glipiZIDE 5 MG TABLET PO SCH ×2 (07:47→20:00)
[2017-12-23] MEDS: NEOMY/BACITR/POLYMYXIN OINT PACKET. TP SCH ×3 (07:47→19:57)
[2017-12-23 15:55] VITALS: BP 125/67
[2017-12-23] MEDS ORDERED: DIVA125C PO (18:07)
[2017-12-23] MEDS ORDERED: INSU100I13 SQ (18:10)
[2017-12-23] MEDS ORDERED: MAGN2400 PO (18:11)
[2017-12-23] MEDS ORDERED: MENT113G6 TP (18:11)
[2017-12-23] MEDS ORDERED: OLAN5TAB5 PO (18:12)
[2017-12-23] MEDS ORDERED: PANT40TA3 PO (18:13)
[2017-12-23] MEDS ORDERED: QUET50TA5 PO (18:14)
[2017-12-23] MEDS ORDERED: SODI650T PO (18:15)
[2017-12-23] MEDS ORDERED: TRAZ-85 PO (18:16)
[2017-12-23] MEDS ORDERED: GLIP10TA13 PO (18:16)
[2017-12-23] MEDS: QUEtiapine 50 MG TABLET. PO SCH (19:59)
[2017-12-23] MEDS: MIRTAZAPINE 15 MG TABLET PO SCH (20:00)
[2017-12-23] MEDS: DIVALPROEX 125 MG CAP.SPRINK PO SCH (20:00)
[2017-12-23] MEDS: ATORVASTATIN CALCIUM 20 MG TABLET PO SCH (20:00)
[2017-12-23] MEDS: INSULIN GLARGINE 300 UNITS/3 ML INSULN.PEN. SQ SCH (20:09)
--- NOTE | 2017-12-23 22:24 | PN ---
DATE: 12/22/2017 This is a late entry, 12/22/2017, covers the elements not covered in my initial note, 12/22/2017. SUBJECTIVE: I met with the patient in the evening in his room. The patient slept 6 hours previous evening. The patient has a raised potassium. Dr. Turner is addressing this. He was started on sodium bicarbonate t.i.d. Behaviorally, he is doing better, remains confused. REVIEW OF SYSTEMS: Hard of hearing. No CV, , pulmonary, eye system symptoms on review. MENTAL STATUS EXAM: Oriented to himself. Insight, judgment, recent and remote memory, attention, concentration, fund of knowledge poor, consistent with his diagnosis as mentioned in my initial note. PLAN: Continue psychotropics as mentioned in my initial note. Adjust further as clinically indicated. MAN Cristóbal GEORGE MD DR: FERMÍN/tiny JOB#: [id number] / [id number]
--- NOTE | 2017-12-23 23:01 | PDOC ---
Exam Note: Mendez Note: Please also refer to the separate dictated note~for this date of service dictated separately.~Patient seen individually. Discussed the patient with Nursing staff reviewed the chart.~Reviewed interim history and current functioning. Reviewed vital signs,~Labs/ Radiology~and current medications noted below. Continue current treatment with the changes noted in the dictated addendum note Assessment: Vital Signs: Vital Signs Date Time Temp Pulse Resp B/P (MAP) Pulse Ox O2 Delivery O2 Flow Rate FiO2 12/23/17 19:58 84 125/67 12/23/17 15:55 98.0 17 99 12/19/17 16:13 Room Air I&O Intake and Output 12/23/17 06:59 Intake Total 1260 ml Balance 1260 ml Intake Oral 1260 ml # Voids 1 Labs: Laboratory Tests Test 12/23/17 07:23 Glucose (Fingerstick) 117 mg/dL (70-99) H Current Medications: Meds: Current Medications Acetaminophen (Tylenol) 650 mg PRN Q6HRS PRN PO PAIN / TEMP; Start 12/11/17 at 22:00; Status Cancel Multi-Ingredient Ointment (Analgesic [place]) 1 asher PRN QID PRN TP MUSCLE PAIN; Start 12/11/17 at 22:00 Al Hydroxide/Mg Hydroxide (Mylanta Plus Xs) 15 ml PRN AFTMEALHC PRN PO DYSPEPSIA; Start 12/11/17 at 22:00; Status Cancel Magnesium Hydroxide (Milk Of Magnesia) 2,400 mg PRN QHS PRN PO CONSTIPATION; Start 12/11/17 at 22:00 Buspirone HCl (Buspar) 5 mg BID PO ; Start 12/12/17 at 09:00; Stop 12/12/17 at 09: 00; Status DC Hydroxyzine Pamoate (Vistaril) 50 mg Q8HRS PO ; Start 12/12/17 at 06:00; Stop 12/12/17 at 06:00; Status DC Mirtazapine (Remeron) 15 mg QHS PO ; Start 12/12/17 at 21:00; Stop 12/12/17 at 21: 00; Status DC Acetaminophen (Tylenol) 650 mg PRN Q4HRS PRN PO PAIN / TEMP; Start 12/11/17 at 22:30 Aspirin (Aspirin Enteric Coated) 325 mg DAILY08 PO Last administered on 07:42; Start 12/12/17 at 08:00 Ferrous Sulfate (Feosol) 325 mg DAILY PO Last administered on 12/23/17at 07:41; Start 12/12/17 at 09:00 Gabapentin (Neurontin) 100 mg TID PO ; Start 12/12/17 at 09:00; Stop 12/12/17 at 09:00; Status DC Al Hydroxide/Mg Hydroxide (Mylanta Plus Xs) 30 ml PRN Q6HRS PRN PO Upset Stomach; Start 12/11/17 at 22:30 Metoprolol Tartrate (Lopressor) 37.5 mg BID PO Last administered on 12/23/17 19:58; Start 12/12/17 at 09:00 Neomycin/ Polymyxin/ Bacitracin (Triple Antibiotic Ointment) 1 pkt TID TP Last administered on 12/23/17 19:57; Start 12/12/17 at 09:00 Atorvastatin Calcium (Lipitor) 40 mg QHS PO Last administered on 12/23/17at 20: 00; Start 12/12/17 at 21:00 Glipizide (Glucotrol) 5 mg BIDBFRMEAL PO Last administered on 12/14/17 10:18; Start 12/12/17 at 07:30; Stop 12/14/17 at 16:08; Status DC Multivitamins/ Calcium (Thera-M Plus) 1 tab DAILY PO Last administered on at 07:41; Start 12/12/17 at 09:00 Pantoprazole Sodium (Protonix) 40 mg DAILY PO Last administered on 12/23/17at 07 :41; Start 12/12/17 at 09:00 Fluvoxamine Maleate (Luvox) 75 mg DAILY PO Last administered on 12/14/17at 10:18 ; Start 12/12/17 at 09:00; Stop 12/14/17 at 12:24; Status DC Quetiapine Fumarate (SEROquel) 25 mg BID PO ; Start 12/12/17 at 09:00; Stop at 09:00; Status DC Buspirone HCl (Buspar) 5 mg BID PO Last administered on 12/12/17at 08:36; Start 12/12/17 at 02:30; Stop 12/12/17 at 18:30; Status DC Gabapentin (Neurontin) 100 mg TID PO Last administered on 12/23/17at 19:57; Start 12/12/17 at 02:30 Hydroxyzine Pamoate (Vistaril) 50 mg Q8HRS PO Last administered on 12/23/17at 19 :59; Start 12/12/17 at 02:30 Mirtazapine (Remeron) 15 mg QHS PO Last administered on 12/23/17at 20:00; Start 12/12/17 at 02:30 Quetiapine Fumarate (SEROquel) 25 mg BID PO Last administered on 12/13/17at 08:14 ; Start 12/12/17 at 02:30; Stop 12/13/17 at 17:14; Status DC Buspirone HCl (Buspar) 10 mg BID PO Last administered on 12/23/17at 19:59; Start 12/12/17 at 21:00 Trazodone HCl (Desyrel) 50 mg PRN DAILY PRN PO INSOMNIA, MAY REPEAT X1 Last administered on 12/23/17at 01:21; Start 12/12/17 at 18:30 Quetiapine Fumarate (SEROquel) 25 mg DAILY PO Last administered on 12/14/17at 10: 19; Start 12/14/17 at 09:00; Stop 12/14/17 at 12:09; Status DC Quetiapine Fumarate (SEROquel) 50 mg QHS PO Last administered on 12/23/17at 19: 59; Start 12/13/17 at 21:00; Stop 12/23/17 at 21:16; Status DC Fluvoxamine Maleate (Luvox) 100 mg QHS PO ; Start 12/14/17 at 21:00; Stop at 21:00; Status DC Divalproex Sodium (Depakote Sprinkles) 125 mg BID@0900,1700 PO Last administered on 12/18/17at 17:20; Start 12/14/17 at 17:00; Stop 12/18/17 at 18:50; Status DC Olanzapine (ZyPREXA ZYDIS) 2.5 mg PRN Q2HR PRN PO PSYCHOSIS/AGITATION; Start at 12:15 Quetiapine Fumarate (SEROquel) 25 mg DAILY PO Last administered on 12/23/17 07 :41; Start 12/15/17 at 09:00 Fluvoxamine Maleate (Luvox) 100 mg DAILY PO Last administered on 12/23/17at 07: 41; Start 12/15/17 at 09:00 Glipizide (Glucotrol) 10 mg DAILY PO Last administered on 12/23/17 07:47; Start 12/15/17 at 09:00 Glipizide (Glucotrol) 5 mg QHS PO Last administered on 12/23/17 20:00; Start 12/14/17 at 21:00 Insulin Glargine (Lantus) 10 units QHS SQ Last administered on 12/22/17 19:57 ; Start 12/14/17 at 21:00 Divalproex Sodium (Depakote Sprinkles) 250 mg HS PO Last administered on 20:00; Start 12/18/17 at 21:00 Sodium Bicarbonate 650 mg TID PO Last administered on 12/23/17 19:58; Start at 21:00 Quetiapine Fumarate (SEROquel) 62.5 mg QHS PO ; Start 12/24/17 at 21:00 Active Scripts Active Protonix (Pantoprazole Sodium) 40 Mg Tablet. 1 Tab PO DAILY Reported Trazodone Hcl 50 Mg Tablet 50 Mg PO PRN QHS PRN Glipizide 10 Mg Tablet 10 Mg PO DAILY Sodium Bicarbonate 650 Mg Tablet 650 Mg PO TID Seroquel (Quetiapine Fumarate) 50 Mg Tablet 50 Mg PO HS Protonix (Pantoprazole Sodium) 40 Mg Tablet. 40 Mg PO DAILY Zyprexa Zydis (Olanzapine) 5 Mg Tab.rapdis 2.5 Mg PO PRN Q2HR PRN [place] (Menthol) 113 Gm Gel..gram. 1 Asher TP PRN QID PRN Milk Of Magnesia (Magnesium Hydroxide) 2,400 Mg/10 Ml Oral.susp 2,400 Mg PO PRN QHS PRN Lantus Solostar (Insulin Glargine,Hum.rec.anlog) 100 Unit/1 Ml Insuln.pen 10 Unit SQ QHS Depakote Sprinkle (Divalproex Sodium) 125 Mg Cap.sprink 250 Mg PO HS Glipizide 5 Mg Tablet 5 Mg PO BID Fluvoxamine Maleate 50 Mg Tablet 75 Mg PO DAILY Multivitamins (Multivitamin) 1 Each Tablet 1 Each PO DAILY LAST DOSE GIVEN: DATE: TODAY TIME: AM NEXT DOSE DUE: DATE: ORR TIME: AM Quetiapine Fumarate 25 Mg Tablet 25 Mg PO BID LAST DOSE GIVEN: DATE: YESTER TIME: AT BEDTIME NEXT DOSE DUE: DATE: TODAY TIME: AT BEDTIME Aspirin Ec (Aspirin) 325 Mg Tablet.dr 325 Mg PO DAILY08 LAST DOSE GIVEN: DATE: TODAY TIME: AM NEXT DOSE DUE: DATE: ORR TIME: AM Buspirone Hcl 5 Mg Tablet 5 Mg PO BID LAST DOSE GIVEN: DATE: TIME: AM NEXT DOSE DUE: DATE: TODAY TIME: PM Triple Antibiotic Ointment (Neomy Sulf/Bacitra/Polymyxin B) 1 Each Packet 1 Each TP TID LAST DOSE GIVEN: DATE: TIME: AM NEXT DOSE DUE: DATE: TODAY TIME: AFTERNOON Maalox Maximum Strength Susp (Mag Hydrox/Al Hydrox/Simeth) 355 Ml Oral.susp 30 Ml PO PRN Q6HRS PRN LAST DOSE GIVEN: DATE: NOT GIVEN TODAY NEXT DOSE DUE: DATE: TIME: IF AND WHEN NEEDED Tylenol (Acetaminophen) 325 Mg Tablet 650 Mg PO PRN Q4HRS PRN LAST DOSE GIVEN: DATE: NOT GIVEN TODAY TIME: NEXT DOSE DUE: DATE: TIME: IF AND WHEN NEEDED Hydroxyzine Pamoate 50 Mg Capsule 50 Mg PO Q8HRS LAST DOSE GIVEN: DATE: TIME: 0600 NEXT DOSE DUE: DATE: TODAY TIME: 1400 Gabapentin 100 Mg Capsule 100 Mg PO TID LAST DOSE GIVEN: DATE: TODAY TIME: AM NEXT DOSE DUE: DATE: TODAY TIME: AFTERNOON Ferrous Sulfate 325 Mg Tablet 325 Mg PO DAILY LAST DOSE GIVEN: DATE: TODAY TIME: AM NEXT DOSE DUE: DATE: ORR TIME: AM Atorvastatin Calcium 40 Mg Tablet 40 Mg PO QHS LAST DOSE GIVEN: DATE: YESTER TIME: AT BEDTIME NEXT DOSE DUE: DATE: TODAY TIME: AT BEDTIME Mirtazapine 15 Mg Tablet 15 Mg PO HS LAST DOSE GIVEN: DATE: YESTER TIME: AT BEDTIME NEXT DOSE DUE: DATE: TODAY TIME: AT BEDTIME Metoprolol Tartrate 25 Mg Tablet 37.5 Mg PO BID LAST DOSE GIVEN: DATE: TODAY TIME: AM NEXT DOSE DUE: DATE: TODAY TIME: PM I have reviewed the current psychotropics carefully including drug interactions. Risk benefit ratio favors no change other than as noted in my dictated progress note. Diagnosis: Problems: (1) Anxiety disorder (2) Dementia in Alzheimer's disease with delusions (3) Dementia in Alzheimer's disease with depression (4) Impulse control disorder (5) Agitation AZEEM GEORGE MD Dec 23, 2017 23:01
[2017-12-24 05:50] VITALS: BP 136/67
[2017-12-24] MEDS: hydrOXYzine PAMOATE 25 MG CAPSULE PO SCH ×3 (06:15→21:22)
[2017-12-24] MEDS: glipiZIDE 5 MG TABLET PO SCH ×2 (07:51→21:22)
[2017-12-24] MEDS: NEOMY/BACITR/POLYMYXIN OINT PACKET. TP SCH ×3 (07:52→21:22)
[2017-12-24] MEDS: MULTIVITAMIN with MINERAL TABLET. PO SCH (07:52)
[2017-12-24] MEDS: busPIRone 10 MG TABLET. PO SCH ×2 (07:52→21:24)
[2017-12-24] MEDS: ASPIRIN ENTERIC COATED 325 MG TABLET.DR. PO SCH (07:52)
[2017-12-24] MEDS: PANTOPRAZOLE 40 MG TABLET. PO SCH (07:52)
[2017-12-24] MEDS: GABAPENTIN 100 MG CAPSULE. PO SCH ×3 (07:52→21:22)
[2017-12-24] MEDS: FERROUS SULFATE 325 MG TABLET. PO SCH (07:52)
[2017-12-24] MEDS: SODIUM BICARBONATE 650 MG TABLET PO SCH ×3 (07:52→21:26)
[2017-12-24] MEDS: QUEtiapine 25 MG TABLET. PO SCH (07:52)
[2017-12-24] MEDS: METOPROLOL TART IMMED RELEASE 25 MG TABLET PO SCH ×2 (07:53→21:00)
[2017-12-24 15:58] VITALS: BP 112/50
--- NOTE | 2017-12-24 18:45 | PN ---
DATE: 12/23/2017 PSYCHIATRIC PROGRESS NOTE This late entry, date of service 12/23/2017, covers elements not covered in my initial note. SUBJECTIVE: I met with the patient in the evening. The patient slept 4 hours previous evening. Complains of feeling cold and nursing staff will adjust his room temperature thermostat. He is withdrawn, compliant, refused insulin. His obsessive picking on his skin is better. REVIEW OF SYSTEMS: No CV, , pulmonary, eye system symptoms on review. Extremely hard of hearing. MENTAL STATUS EXAM: Oriented to himself. Insight, judgment, recent and remote memory, attention, concentration, fund of knowledge poor, consistent with his diagnoses mentioned in my initial note. PLAN: Increase 50 mg Seroquel at bedtime to 62.5 mg. Continue rest unchanged. Transition to group home 12/25/2017. MAN Cristóbal GEORGE MD DR: FERMÍN/tiny JOB#: [id number] / [id number]
--- NOTE | 2017-12-24 20:55 | PDOC ---
Exam Note: Mendez Note: Please also refer to the separate dictated note~for this date of service dictated separately.~Patient seen individually. Discussed the patient with Nursing staff reviewed the chart.~Reviewed interim history and current functioning. Reviewed vital signs,~Labs/ Radiology~and current medications noted below. Continue current treatment with the changes noted in the dictated addendum note Assessment: Vital Signs: Vital Signs Date Time Temp Pulse Resp B/P (MAP) Pulse Ox O2 Delivery O2 Flow Rate FiO2 12/24/17 15:58 98.3 81 16 112/50 (70) 94 12/19/17 16:13 Room Air I&O Intake and Output 12/24/17 06:59 Intake Total 1560 ml Balance 1560 ml Intake Oral 1560 ml # Voids 1 Labs: Laboratory Tests Test 12/24/17 07:17 Glucose (Fingerstick) 142 mg/dL (70-99) H Current Medications: Meds: Current Medications Acetaminophen (Tylenol) 650 mg PRN Q6HRS PRN PO PAIN / TEMP; Start 12/11/17 at 22:00; Status Cancel Multi-Ingredient Ointment (Analgesic [place]) 1 asher PRN QID PRN TP MUSCLE PAIN; Start 12/11/17 at 22:00 Al Hydroxide/Mg Hydroxide (Mylanta Plus Xs) 15 ml PRN AFTMEALHC PRN PO DYSPEPSIA; Start 12/11/17 at 22:00; Status Cancel Magnesium Hydroxide (Milk Of Magnesia) 2,400 mg PRN QHS PRN PO CONSTIPATION; Start 12/11/17 at 22:00 Buspirone HCl (Buspar) 5 mg BID PO ; Start 12/12/17 at 09:00; Stop 12/12/17 at 09: 00; Status DC Hydroxyzine Pamoate (Vistaril) 50 mg Q8HRS PO ; Start 12/12/17 at 06:00; Stop 12/12/17 at 06:00; Status DC Mirtazapine (Remeron) 15 mg QHS PO ; Start 12/12/17 at 21:00; Stop 12/12/17 at 21: 00; Status DC Acetaminophen (Tylenol) 650 mg PRN Q4HRS PRN PO PAIN / TEMP; Start 12/11/17 at 22:30 Aspirin (Aspirin Enteric Coated) 325 mg DAILY08 PO Last administered on at 07:52; Start 12/12/17 at 08:00 Ferrous Sulfate (Feosol) 325 mg DAILY PO Last administered on 12/24/17at 07:52; Start 12/12/17 at 09:00 Gabapentin (Neurontin) 100 mg TID PO ; Start 12/12/17 at 09:00; Stop 12/12/17 at 09:00; Status DC Al Hydroxide/Mg Hydroxide (Mylanta Plus Xs) 30 ml PRN Q6HRS PRN PO Upset Stomach; Start 12/11/17 at 22:30 Metoprolol Tartrate (Lopressor) 37.5 mg BID PO Last administered on 12/24/17at 07:53; Start 12/12/17 at 09:00 Neomycin/ Polymyxin/ Bacitracin (Triple Antibiotic Ointment) 1 pkt TID TP Last administered on 12/24/17at 12:50; Start 12/12/17 at 09:00 Atorvastatin Calcium (Lipitor) 40 mg QHS PO Last administered on 12/23/17at 20: 00; Start 12/12/17 at 21:00 Glipizide (Glucotrol) 5 mg BIDBFRMEAL PO Last administered on 12/14/17at 10:18; Start 12/12/17 at 07:30; Stop 12/14/17 at 16:08; Status DC Multivitamins/ Calcium (Thera-M Plus) 1 tab DAILY PO Last administered on at 07:52; Start 12/12/17 at 09:00 Pantoprazole Sodium (Protonix) 40 mg DAILY PO Last administered on 12/24/17at 07 :52; Start 12/12/17 at 09:00 Fluvoxamine Maleate (Luvox) 75 mg DAILY PO Last administered on 12/14/17at 10:18 ; Start 12/12/17 at 09:00; Stop 12/14/17 at 12:24; Status DC Quetiapine Fumarate (SEROquel) 25 mg BID PO ; Start 12/12/17 at 09:00; Stop at 09:00; Status DC Buspirone HCl (Buspar) 5 mg BID PO Last administered on 12/12/17at 08:36; Start 12/12/17 at 02:30; Stop 12/12/17 at 18:30; Status DC Gabapentin (Neurontin) 100 mg TID PO Last administered on 12/24/17at 12:49; Start 12/12/17 at 02:30 Hydroxyzine Pamoate (Vistaril) 50 mg Q8HRS PO Last administered on 12/24/17at 12 :49; Start 12/12/17 at 02:30 Mirtazapine (Remeron) 15 mg QHS PO Last administered on 12/23/17at 20:00; Start 12/12/17 at 02:30 Quetiapine Fumarate (SEROquel) 25 mg BID PO Last administered on 12/13/17at 08:14 ; Start 12/12/17 at 02:30; Stop 12/13/17 at 17:14; Status DC Buspirone HCl (Buspar) 10 mg BID PO Last administered on 12/24/17at 07:52; Start 12/12/17 at 21:00 Trazodone HCl (Desyrel) 50 mg PRN DAILY PRN PO INSOMNIA, MAY REPEAT X1 Last administered on 12/23/17at 01:21; Start 12/12/17 at 18:30 Quetiapine Fumarate (SEROquel) 25 mg DAILY PO Last administered on 12/14/17at 10: 19; Start 12/14/17 at 09:00; Stop 12/14/17 at 12:09; Status DC Quetiapine Fumarate (SEROquel) 50 mg QHS PO Last administered on 12/23/17at 19: 59; Start 12/13/17 at 21:00; Stop 12/23/17 at 21:16; Status DC Fluvoxamine Maleate (Luvox) 100 mg QHS PO ; Start 12/14/17 at 21:00; Stop at 21:00; Status DC Divalproex Sodium (Depakote Sprinkles) 125 mg BID@0900,1700 PO Last administered on 12/18/17at 17:20; Start 12/14/17 at 17:00; Stop 12/18/17 at 18:50; Status DC Olanzapine (ZyPREXA ZYDIS) 2.5 mg PRN Q2HR PRN PO PSYCHOSIS/AGITATION; Start at 12:15 Quetiapine Fumarate (SEROquel) 25 mg DAILY PO Last administered on 12/24/17 07 :52; Start 12/15/17 at 09:00 Fluvoxamine Maleate (Luvox) 100 mg DAILY PO Last administered on 12/24/17 07: 52; Start 12/15/17 at 09:00 Glipizide (Glucotrol) 10 mg DAILY PO Last administered on 12/24/17 07:51; Start 12/15/17 at 09:00 Glipizide (Glucotrol) 5 mg QHS PO Last administered on 12/23/17 20:00; Start 12/14/17 at 21:00 Insulin Glargine (Lantus) 10 units QHS SQ Last administered on 12/22/17 19:57 ; Start 12/14/17 at 21:00 Divalproex Sodium (Depakote Sprinkles) 250 mg HS PO Last administered on 20:00; Start 12/18/17 at 21:00 Sodium Bicarbonate 650 mg TID PO Last administered on 12/24/17at 12:49; Start at 21:00 Quetiapine Fumarate (SEROquel) 62.5 mg QHS PO ; Start 12/24/17 at 21:00 Active Scripts Active Protonix (Pantoprazole Sodium) 40 Mg Tablet.dr 1 Tab PO DAILY Reported Trazodone Hcl 50 Mg Tablet 50 Mg PO PRN QHS PRN Glipizide 10 Mg Tablet 10 Mg PO DAILY Sodium Bicarbonate 650 Mg Tablet 650 Mg PO TID Seroquel (Quetiapine Fumarate) 50 Mg Tablet 50 Mg PO HS Protonix (Pantoprazole Sodium) 40 Mg Tablet.dr 40 Mg PO DAILY Zyprexa Zydis (Olanzapine) 5 Mg Tab.rapdis 2.5 Mg PO PRN Q2HR PRN Bengay (Menthol) 113 Gm Gel..gram. 1 Asher TP PRN QID PRN Milk Of Magnesia (Magnesium Hydroxide) 2,400 Mg/10 Ml Oral.susp 2,400 Mg PO PRN QHS PRN Lantus Solostar (Insulin Glargine,Hum.rec.anlog) 100 Unit/1 Ml Insuln.pen 10 Unit SQ QHS Depakote Sprinkle (Divalproex Sodium) 125 Mg Cap.sprink 250 Mg PO HS Glipizide 5 Mg Tablet 5 Mg PO BID Fluvoxamine Maleate 50 Mg Tablet 75 Mg PO DAILY Multivitamins (Multivitamin) 1 Each Tablet 1 Each PO DAILY LAST DOSE GIVEN: DATE: TODAY TIME: AM NEXT DOSE DUE: DATE: ORR TIME: AM Quetiapine Fumarate 25 Mg Tablet 25 Mg PO BID LAST DOSE GIVEN: DATE: YESTER TIME: AT BEDTIME NEXT DOSE DUE: DATE: TIME: AT BEDTIME Aspirin Ec (Aspirin) 325 Mg Tablet.dr 325 Mg PO DAILY08 LAST DOSE GIVEN: DATE: TODAY TIME: AM NEXT DOSE DUE: DATE: ORR TIME: AM Buspirone Hcl 5 Mg Tablet 5 Mg PO BID LAST DOSE GIVEN: DATE: TIME: AM NEXT DOSE DUE: DATE: TODAY TIME: PM Triple Antibiotic Ointment (Neomy Sulf/Bacitra/Polymyxin B) 1 Each Packet 1 Each TP TID LAST DOSE GIVEN: DATE: TIME: AM NEXT DOSE DUE: DATE: TIME: AFTERNOON Maalox Maximum Strength Susp (Mag Hydrox/Al Hydrox/Simeth) 355 Ml Oral.susp 30 Ml PO PRN Q6HRS PRN LAST DOSE GIVEN: DATE: NOT GIVEN TODAY NEXT DOSE DUE: DATE: TIME: IF AND WHEN NEEDED Tylenol (Acetaminophen) 325 Mg Tablet 650 Mg PO PRN Q4HRS PRN LAST DOSE GIVEN: DATE: NOT GIVEN TODAY TIME: NEXT DOSE DUE: DATE: TIME: IF AND WHEN NEEDED Hydroxyzine Pamoate 50 Mg Capsule 50 Mg PO Q8HRS LAST DOSE GIVEN: DATE: TIME: 0600 NEXT DOSE DUE: DATE: TODAY TIME: 1400 Gabapentin 100 Mg Capsule 100 Mg PO TID LAST DOSE GIVEN: DATE: TODAY TIME: AM NEXT DOSE DUE: DATE: TODAY TIME: AFTERNOON Ferrous Sulfate 325 Mg Tablet 325 Mg PO DAILY LAST DOSE GIVEN: DATE: TODAY TIME: AM NEXT DOSE DUE: DATE: ORR TIME: AM Atorvastatin Calcium 40 Mg Tablet 40 Mg PO QHS LAST DOSE GIVEN: DATE: YESTER TIME: AT BEDTIME NEXT DOSE DUE: DATE: TODAY TIME: AT BEDTIME Mirtazapine 15 Mg Tablet 15 Mg PO HS LAST DOSE GIVEN: DATE: YESTER TIME: AT BEDTIME NEXT DOSE DUE: DATE: TODAY TIME: AT BEDTIME Metoprolol Tartrate 25 Mg Tablet 37.5 Mg PO BID LAST DOSE GIVEN: DATE: TODAY TIME: AM NEXT DOSE DUE: DATE: TODAY TIME: PM I have reviewed the current psychotropics carefully including drug interactions. Risk benefit ratio favors no change other than as noted in my dictated progress note. Diagnosis: Problems: (1) Anxiety disorder (2) Dementia in Alzheimer's disease with delusions (3) Dementia in Alzheimer's disease with depression (4) Impulse control disorder (5) Agitation AZEEM GEORGE MD Dec 24, 2017 20:55
[2017-12-24] MEDS ORDERED: QUEtiapine 25 MG TABLET. PO SCH (21:00)
[2017-12-24] MEDS: INSULIN GLARGINE 300 UNITS/3 ML INSULN.PEN. SQ SCH (21:00)
[2017-12-24] MEDS: DIVALPROEX 125 MG CAP.SPRINK PO SCH (21:22)
[2017-12-24] MEDS: ATORVASTATIN CALCIUM 20 MG TABLET PO SCH (21:22)
[2017-12-24] MEDS: MIRTAZAPINE 15 MG TABLET PO SCH (21:22)
[2017-12-25 06:00] VITALS: BP 119/73
[2017-12-25] MEDS: hydrOXYzine PAMOATE 25 MG CAPSULE PO SCH (06:11)
[2017-12-25 06:45] LABS: BASO # 0.1 x10^3/uL (0.0-0.2); BASO % 1 % (0-3); EOS # 0.4 x10^3/uL (0.0-0.7); EOS % 6 % (0-3); HEMATOCRIT 35.8 % (39.0-53.0); HEMOGLOBIN 11.6 g/dL (13.0-17.5); LYMPH # 2.1 x10^3/uL (1.0-4.8); LYMPH % 30 % (24-48); MEAN CORPUSCULAR HEMOGLOBIN 25 pg (25-35); MEAN CORPUSCULAR HGB CONC 32 g/dL (31-37); MEAN CORPUSCULAR VOLUME 76 fL (79-100); MONO # 0.7 x10^3/uL (0.0-1.1); MONO % 10 % (0-9); NEUT # 3.7 x10^3uL (1.8-7.7); NEUT % 53 % (31-73); PLATELET COUNT 366 x10^3/uL (140-400); RED CELL DISTRIBUTION WIDTH 14.7 % (11.5-14.5)
[2017-12-25 06:50] LABS: ALBUMIN 2.9 g/dL (3.4-5.0); ALBUMIN/GLOBULIN RATIO 0.7 (1.0-1.7); CALCIUM 8.8 mg/dL (8.5-10.1); CREATININE 1.6 mg/dL (0.7-1.3); GFR 41.9; POTASSIUM 4.8 mmol/L (3.5-5.1); TOTAL BILIRUBIN 0.3 mg/dL (0.2-1.0); TOTAL PROTEIN 6.9 g/dL (6.4-8.2)
[2017-12-25] MEDS: ASPIRIN ENTERIC COATED 325 MG TABLET.DR. PO SCH (09:14)
[2017-12-25] MEDS: busPIRone 10 MG TABLET. PO SCH (09:14)
[2017-12-25] MEDS: SODIUM BICARBONATE 650 MG TABLET PO SCH (09:14)
[2017-12-25] MEDS: FERROUS SULFATE 325 MG TABLET. PO SCH (09:14)
[2017-12-25] MEDS: PANTOPRAZOLE 40 MG TABLET. PO SCH (09:14)
[2017-12-25] MEDS: NEOMY/BACITR/POLYMYXIN OINT PACKET. TP SCH (09:14)
[2017-12-25] MEDS: GABAPENTIN 100 MG CAPSULE. PO SCH (09:14)
[2017-12-25] MEDS: MULTIVITAMIN with MINERAL TABLET. PO SCH (09:14)
[2017-12-25 09:15] VITALS: BP 119/73
[2017-12-25] MEDS: METOPROLOL TART IMMED RELEASE 25 MG TABLET PO SCH (09:15)
[2017-12-25] MEDS: glipiZIDE 5 MG TABLET PO SCH (09:15)
[2017-12-25] MEDS: QUEtiapine 25 MG TABLET. PO SCH (09:16)
--- NOTE | 2017-12-25 18:40 | PDOC ---
Exam Note: Mendez Note: Please also refer to the separate dictated note~for this date of service dictated separately.~Patient seen individually. Discussed the patient with Nursing staff reviewed the chart.~Reviewed interim history and current functioning. Reviewed vital signs,~Labs/ Radiology~and current medications noted below. Continue current treatment with the changes noted in the dictated addendum note Assessment: Vital Signs: Vital Signs Date Time Temp Pulse Resp B/P (MAP) Pulse Ox O2 Delivery O2 Flow Rate FiO2 12/25/17 09:15 80 119/73 12/25/17 06:00 97.5 18 95 Room Air I&O Intake and Output 12/25/17 07:00 Intake Total 1260 ml Balance 1260 ml Intake Oral 1260 ml # Voids 1 # Bowel Movements 1 Labs: Laboratory Tests Test 12/25/17 06:11 12/25/17 07:35 White Blood Count 7.0 x10^3/uL (4.0-11.0) Red Blood Count 4.70 x10^6/uL (4.30-5.70) Hemoglobin 11.6 g/dL (13.0-17.5) L Hematocrit 35.8 % (39.0-53.0) L Mean Corpuscular Volume 76 fL (79-100) L Mean Corpuscular Hemoglobin 25 pg (25-35) Mean Corpuscular Hemoglobin Concent 32 g/dL (31-37) Red Cell Distribution Width 14.7 % (11.5-14.5) H Platelet Count 366 x10^3/uL (140-400) Neutrophils (%) (Auto) 53 % (31-73) Lymphocytes (%) (Auto) 30 % (24-48) Monocytes (%) (Auto) 10 % (0-9) H Eosinophils (%) (Auto) 6 % (0-3) H Basophils (%) (Auto) 1 % (0-3) Neutrophils # (Auto) 3.7 x10^3uL (1.8-7.7) Lymphocytes # (Auto) 2.1 x10^3/uL (1.0-4.8) Monocytes # (Auto) 0.7 x10^3/uL (0.0-1.1) Eosinophils # (Auto) 0.4 x10^3/uL (0.0-0.7) Basophils # (Auto) 0.1 x10^3/uL (0.0-0.2) Sodium Level 137 mmol/L (136-145) Potassium Level 4.8 mmol/L (3.5-5.1) Chloride Level 102 mmol/L (98-107) Carbon Dioxide Level 34 mmol/L (21-32) H Anion Gap 1 (6-14) L Blood Urea Nitrogen 29 mg/dL (8-26) H Creatinine 1.6 mg/dL (0.7-1.3) H Estimated GFR (Cockcroft-Gault) 41.9 BUN/Creatinine Ratio 18 (6-20) Glucose Level 171 mg/dL (70-99) H Calcium Level 8.8 mg/dL (8.5-10.1) Total Bilirubin 0.3 mg/dL (0.2-1.0) Aspartate Amino Transferase (AST) 18 U/L (15-37) Alanine Aminotransferase (ALT) 23 U/L (16-63) Alkaline Phosphatase 112 U/L (46-116) Total Protein 6.9 g/dL (6.4-8.2) Albumin 2.9 g/dL (3.4-5.0) L Albumin/Globulin Ratio 0.7 (1.0-1.7) L Glucose (Fingerstick) 148 mg/dL (70-99) H Current Medications: Meds: Current Medications Acetaminophen (Tylenol) 650 mg PRN Q6HRS PRN PO PAIN / TEMP; Start 12/11/17 at 22:00; Status Cancel Multi-Ingredient Ointment (Analgesic [place]) 1 asher PRN QID PRN TP MUSCLE PAIN; Start 12/11/17 at 22:00; Stop 12/25/17 at 11:47; Status DC Al Hydroxide/Mg Hydroxide (Mylanta Plus Xs) 15 ml PRN AFTMEALHC PRN PO DYSPEPSIA; Start 12/11/17 at 22:00; Status Cancel Magnesium Hydroxide (Milk Of Magnesia) 2,400 mg PRN QHS PRN PO CONSTIPATION; Start 12/11/17 at 22:00; Stop 12/25/17 at 11:47; Status DC Buspirone HCl (Buspar) 5 mg BID PO ; Start 12/12/17 at 09:00; Stop 12/12/17 at 09: 00; Status DC Hydroxyzine Pamoate (Vistaril) 50 mg Q8HRS PO ; Start 12/12/17 at 06:00; Stop 12/12/17 at 06:00; Status DC Mirtazapine (Remeron) 15 mg QHS PO ; Start 12/12/17 at 21:00; Stop 12/12/17 at 21: 00; Status DC Acetaminophen (Tylenol) 650 mg PRN Q4HRS PRN PO PAIN / TEMP; Start 12/11/17 at 22:30; Stop 12/25/17 at 11:47; Status DC Aspirin (Aspirin Enteric Coated) 325 mg DAILY08 PO Last administered on at 09:14; Start 12/12/17 at 08:00; Stop 12/25/17 at 11:47; Status DC Ferrous Sulfate (Feosol) 325 mg DAILY PO Last administered on 12/25/17at 09:14; Start 12/12/17 at 09:00; Stop 12/25/17 at 11:47; Status DC Gabapentin (Neurontin) 100 mg TID PO ; Start 12/12/17 at 09:00; Stop 12/12/17 at 09:00; Status DC Al Hydroxide/Mg Hydroxide (Mylanta Plus Xs) 30 ml PRN Q6HRS PRN PO Upset Stomach; Start 12/11/17 at 22:30; Stop 12/25/17 at 11:47; Status DC Metoprolol Tartrate (Lopressor) 37.5 mg BID PO Last administered on 12/25/17at 09:15; Start 12/12/17 at 09:00; Stop 12/25/17 at 11:47; Status DC Neomycin/ Polymyxin/ Bacitracin (Triple Antibiotic Ointment) 1 pkt TID TP Last administered on 12/25/17at 09:14; Start 12/12/17 at 09:00; Stop 12/25/17 at 11:47 ; Status DC Atorvastatin Calcium (Lipitor) 40 mg QHS PO Last administered on 12/24/17at 21: 22; Start 12/12/17 at 21:00; Stop 12/25/17 at 11:47; Status DC Glipizide (Glucotrol) 5 mg BIDBFRMEAL PO Last administered on 12/14/17at 10:18; Start 12/12/17 at 07:30; Stop 12/14/17 at 16:08; Status DC Multivitamins/ Calcium (Thera-M Plus) 1 tab DAILY PO Last administered on at 09:14; Start 12/12/17 at 09:00; Stop 12/25/17 at 11:47; Status DC Pantoprazole Sodium (Protonix) 40 mg DAILY PO Last administered on 12/25/17at 09 :14; Start 12/12/17 at 09:00; Stop 12/25/17 at 11:47; Status DC Fluvoxamine Maleate (Luvox) 75 mg DAILY PO Last administered on 12/14/17at 10:18 ; Start 12/12/17 at 09:00; Stop 12/14/17 at 12:24; Status DC Quetiapine Fumarate (SEROquel) 25 mg BID PO ; Start 12/12/17 at 09:00; Stop at 09:00; Status DC Buspirone HCl (Buspar) 5 mg BID PO Last administered on 12/12/17at 08:36; Start 12/12/17 at 02:30; Stop 12/12/17 at 18:30; Status DC Gabapentin (Neurontin) 100 mg TID PO Last administered on 12/25/17at 09:14; Start 12/12/17 at 02:30; Stop 12/25/17 at 11:47; Status DC Hydroxyzine Pamoate (Vistaril) 50 mg Q8HRS PO Last administered on 12/25/17at 06 :11; Start 12/12/17 at 02:30; Stop 12/25/17 at 11:48; Status DC Mirtazapine (Remeron) 15 mg QHS PO Last administered on 12/24/17at 21:22; Start 12/12/17 at 02:30; Stop 12/25/17 at 11:48; Status DC Quetiapine Fumarate (SEROquel) 25 mg BID PO Last administered on 12/13/17at 08:14 ; Start 12/12/17 at 02:30; Stop 12/13/17 at 17:14; Status DC Buspirone HCl (Buspar) 10 mg BID PO Last administered on 12/25/17at 09:14; Start 12/12/17 at 21:00; Stop 12/25/17 at 11:48; Status DC Trazodone HCl (Desyrel) 50 mg PRN DAILY PRN PO INSOMNIA, MAY REPEAT X1 Last administered on 12/23/17at 01:21; Start 12/12/17 at 18:30; Stop 12/25/17 at 11:48 ; Status DC Quetiapine Fumarate (SEROquel) 25 mg DAILY PO Last administered on 12/14/17at 10: 19; Start 12/14/17 at 09:00; Stop 12/14/17 at 12:09; Status DC Quetiapine Fumarate (SEROquel) 50 mg QHS PO Last administered on 12/23/17at 19: 59; Start 12/13/17 at 21:00; Stop 12/23/17 at 21:16; Status DC Fluvoxamine Maleate (Luvox) 100 mg QHS PO ; Start 12/14/17 at 21:00; Stop at 21:00; Status DC Divalproex Sodium (Depakote Sprinkles) 125 mg BID@0900,1700 PO Last administered on 12/18/17at 17:20; Start 12/14/17 at 17:00; Stop 12/18/17 at 18:50; Status DC Olanzapine (ZyPREXA ZYDIS) 2.5 mg PRN Q2HR PRN PO PSYCHOSIS/AGITATION; Start at 12:15; Stop 12/25/17 at 11:48; Status DC Quetiapine Fumarate (SEROquel) 25 mg DAILY PO Last administered on 12/25/17at 09 :16; Start 12/15/17 at 09:00; Stop 12/25/17 at 11:48; Status DC Fluvoxamine Maleate (Luvox) 100 mg DAILY PO Last administered on 12/25/17at 09: 14; Start 12/15/17 at 09:00; Stop 12/25/17 at 11:48; Status DC Glipizide (Glucotrol) 10 mg DAILY PO Last administered on 12/25/17at 09:15; Start 12/15/17 at 09:00; Stop 12/25/17 at 11:48; Status DC Glipizide (Glucotrol) 5 mg QHS PO Last administered on 12/24/17at 21:22; Start 12/14/17 at 21:00; Stop 12/25/17 at 11:48; Status DC Insulin Glargine (Lantus) 10 units QHS SQ Last administered on 12/22/17at 19:57 ; Start 12/14/17 at 21:00; Stop 12/25/17 at 11:48; Status DC Divalproex Sodium (Depakote Sprinkles) 250 mg HS PO Last administered on at 21:22; Start 12/18/17 at 21:00; Stop 12/25/17 at 11:48; Status DC Sodium Bicarbonate 650 mg TID PO Last administered on 12/25/17at 09:14; Start at 21:00; Stop 12/25/17 at 11:48; Status DC Quetiapine Fumarate (SEROquel) 62.5 mg QHS PO ; Start 12/24/17 at 21:00; Stop at 11:48; Status DC Active Scripts Active Protonix (Pantoprazole Sodium) 40 Mg Tablet.dr 1 Tab PO DAILY Reported Trazodone Hcl 50 Mg Tablet 50 Mg PO PRN QHS PRN Glipizide 10 Mg Tablet 10 Mg PO DAILY Sodium Bicarbonate 650 Mg Tablet 650 Mg PO TID Seroquel (Quetiapine Fumarate) 50 Mg Tablet 50 Mg PO HS Protonix (Pantoprazole Sodium) 40 Mg Tablet.dr 40 Mg PO DAILY Zyprexa Zydis (Olanzapine) 5 Mg Tab.rapdis 2.5 Mg PO PRN Q2HR PRN [place] (Menthol) 113 Gm Gel..gram. 1 Asher TP PRN QID PRN Milk Of Magnesia (Magnesium Hydroxide) 2,400 Mg/10 Ml Oral.susp 2,400 Mg PO PRN QHS PRN Lantus Solostar (Insulin Glargine,Hum.rec.anlog) 100 Unit/1 Ml Insuln.pen 10 Unit SQ QHS Depakote Sprinkle (Divalproex Sodium) 125 Mg Cap.sprink 250 Mg PO HS Glipizide 5 Mg Tablet 5 Mg PO HS Fluvoxamine Maleate 50 Mg Tablet 100 Mg PO DAILY Multivitamins (Multivitamin) 1 Each Tablet 1 Each PO DAILY LAST DOSE GIVEN: DATE: TODAY TIME: AM NEXT DOSE DUE: DATE: ORR TIME: AM Quetiapine Fumarate 25 Mg Tablet 25 Mg PO DAILY LAST DOSE GIVEN: DATE: YES TIME: AT BEDTIME NEXT DOSE DUE: DATE: TODAY TIME: AT BEDTIME Aspirin Ec (Aspirin) 325 Mg Tablet.dr 325 Mg PO DAILY08 LAST DOSE GIVEN: DATE: TIME: AM NEXT DOSE DUE: DATE: TIME: AM Buspirone Hcl 5 Mg Tablet 10 Mg PO BID LAST DOSE GIVEN: DATE: TIME: AM NEXT DOSE DUE: DATE: TODAY TIME: PM Triple Antibiotic Ointment (Neomy Sulf/Bacitra/Polymyxin B) 1 Each Packet 1 Each TP TID LAST DOSE GIVEN: DATE: TIME: AM NEXT DOSE DUE: DATE: TIME: AFTERNOON Maalox Maximum Strength Susp (Mag Hydrox/Al Hydrox/Simeth) 355 Ml Oral.susp 30 Ml PO PRN Q6HRS PRN LAST DOSE GIVEN: DATE: NOT GIVEN TODAY NEXT DOSE DUE: DATE: TIME: IF AND WHEN NEEDED Tylenol (Acetaminophen) 325 Mg Tablet 650 Mg PO PRN Q4HRS PRN LAST DOSE GIVEN: DATE: NOT GIVEN TODAY TIME: NEXT DOSE DUE: DATE: TIME: IF AND WHEN NEEDED Hydroxyzine Pamoate 50 Mg Capsule 50 Mg PO Q8HRS LAST DOSE GIVEN: DATE: TIME: 0600 NEXT DOSE DUE: DATE: TIME: 1400 Gabapentin 100 Mg Capsule 100 Mg PO TID LAST DOSE GIVEN: DATE: TIME: AM NEXT DOSE DUE: DATE: TIME: AFTERNOON Ferrous Sulfate 325 Mg Tablet 325 Mg PO DAILY LAST DOSE GIVEN: DATE: TIME: AM NEXT DOSE DUE: DATE: TIME: AM Atorvastatin Calcium 40 Mg Tablet 40 Mg PO QHS LAST DOSE GIVEN: DATE: YES TIME: AT BEDTIME NEXT DOSE DUE: DATE: TIME: AT BEDTIME Mirtazapine 15 Mg Tablet 15 Mg PO HS LAST DOSE GIVEN: DATE: TIME: AT BEDTIME NEXT DOSE DUE: DATE: TODAY TIME: AT BEDTIME Metoprolol Tartrate 25 Mg Tablet 37.5 Mg PO BID LAST DOSE GIVEN: DATE: TIME: AM NEXT DOSE DUE: DATE: TODAY TIME: PM I have reviewed the current psychotropics carefully including drug interactions. Risk benefit ratio favors no change other than as noted in my dictated progress note. 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
--- NOTE | 2017-12-25 19:29 | PN ---
DATE: 12/24/2017 PSYCHIATRIC PROGRESS NOTE This is a late entry for 12/24/2017, covers elements not covered in my initial note. SUBJECTIVE: I met with the patient in the evening in his room. He has refused his insulin and blood sugar was 142. Remains confused, withdrawn. REVIEW OF SYSTEMS: No CV, , pulmonary, eye system symptoms on review. Extremely hard of hearing. MENTAL STATUS EXAM: Oriented to himself. Insight, judgment, recent and remote memory, attention, concentration, fund of knowledge poor, consistent with his diagnosis mentioned in my initial note. PLAN: Continue psychotropics from initial note. Adjust as clinically indicated. AZEEM GEORGE MD DR: FERMÍN/tiny JOB#: [id number] / [id number]
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
== END 2017-12-25 11:47 | DRG 57 ==
LOC: GEROPSY 20:15
PROVIDERS: ADMIT Psychiatry & Neurology Psychiatry; ATTEND Psychiatry & Neurology Psychiatry
DX: G30.9 Alzheimer's disease, unspecified (principal); F01.51 Vascular dementia, unspecified severity, with behavioral disturbance; F02.81 Dementia in other diseases classified elsewhere, unspecified severity, with behavioral disturbance; D50.9 Iron deficiency anemia, unspecified; E11.22 Type 2 diabetes mellitus with diabetic chronic kidney disease; E78.5 Hyperlipidemia, unspecified; F32.9 Major depressive disorder, single episode, unspecified; F41.9 Anxiety disorder, unspecified; F63.9 Impulse disorder, unspecified; H91.90 Unspecified hearing loss, unspecified ear; I12.9 Hypertensive chronic kidney disease with stage 1 through stage 4 chronic kidney disease, or unspecified chronic kidney disease; G47.00 Insomnia, unspecified; I25.10 Atherosclerotic heart disease of native coronary artery without angina pectoris; N18.9 Chronic kidney disease, unspecified; N40.0 Benign prostatic hyperplasia without lower urinary tract symptoms; Z66 Do not resuscitate; I48.2 Chronic atrial fibrillation; I25.2 Old myocardial infarction; Z79.899 Other long term (current) drug therapy; Z86.73 Personal history of transient ischemic attack (TIA), and cerebral infarction without residual deficits; Z95.2 Presence of prosthetic heart valve; Z95.1 Presence of aortocoronary bypass graft
CPT/HCPCS: 36415; 80053; 80061; 80164; 81001; 82306; 82607; 82947; 83036; 83540; 83550; 83735; 84436; 84443; 84480; 85025; 86592; 93005; J1815; Q0177

== ENCOUNTER 2018-04-22 17:15 | Inpatient (IN) | payer MEDICARE, OTHER ==
[~2018-04-22] VITALS: Ht 165.1 cm; Wt 79.5 kg
[~2018-04-22 17:15] MED LIST changes: +DIVA125C2 PO; +GLIP10TA13 PO; +INSU100I13 SQ; +MAGN2400 PO; +MENT113G6 TP; +METF500T16 PO; -METF500T5 PO; +OLAN5TAB5 PO; +SODI650T PO; +TRAZ-85 PO
[2018-04-22 18:00] LABS: BASO % 1 % (0-3); EOS # 0.3 x10^3/uL (0.0-0.7); EOS % 5 % (0-3); HEMATOCRIT 37.2 % (39.0-53.0); LYMPH # 1.2 x10^3/uL (1.0-4.8); LYMPH % 17 % (24-48); MEAN CORPUSCULAR HEMOGLOBIN 26 pg (25-35); MEAN CORPUSCULAR HGB CONC 32 g/dL (31-37); MEAN CORPUSCULAR VOLUME 79 fL (79-100); MONO # 0.6 x10^3/uL (0.0-1.1); MONO % 9 % (0-9); NEUT # 4.9 x10^3uL (1.8-7.7); NEUT % 69 % (31-73); PLATELET COUNT 422 x10^3/uL (140-400); RED BLOOD COUNT 4.69 x10^6/uL (4.30-5.70); WHITE BLOOD COUNT 7.1 x10^3/uL (4.0-11.0)
--- NOTE | 2018-04-22 18:01 | EKG ---
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
[2018-04-22 18:14] LABS: ALBUMIN 3.1 g/dL (3.4-5.0); ALBUMIN/GLOBULIN RATIO 0.7 (1.0-1.7); CALCIUM 8.4 mg/dL (8.5-10.1); GFR 32.3; TOTAL BILIRUBIN 0.2 mg/dL (0.2-1.0); TOTAL PROTEIN 7.7 g/dL (6.4-8.2)
--- NOTE | 2018-04-22 18:25 | RAD ---
Single view chest 04/22/2018 CLINICAL INDICATION: Short of breath. COMPARISON: Chest 04/12/2017 FINDINGS: Prior median sternotomy and aortic valvular repair. Cardiac enlargement with pulmonary venous congestion diffuse interstitial opacities. Medium bilateral pleural effusions with bibasilar consolidation and atelectasis. No pneumothorax. IMPRESSION: 1. Findings of CHF or volume overload with cardiomegaly, pulmonary edema and medium bilateral pleural effusions. 2. Bibasilar consolidation, may represent atelectasis, pneumonitis, and/or multifocal infection. Electronically signed by: Timoteo Pepper MD (04/22/2018 6:22 PM) [facility]
--- NOTE | 2018-04-22 18:46 | PHYS DOC ---
Past History Past Medical History: A-Fib Past Surgical History: Other Alcohol Use: None Drug Use: None Adult General Chief Complaint Chief Complaint: SHORTNESS OF BREATH HPI HPI Patient is an 78-year-old male who presents via EMS with reports of shortness of breath. Patient on evaluation does admit to some shortness of breath but states that he doesn't know why he is in the emergency room. He denies having any pain anywhere. Specifically he denies any chest pain or abdominal pain. He indicates that he does not think that he has had a cough. Additional history is very limited as patient is very poor historian likely due to dementia. Review of Systems Review of Systems Constitutional: Denies chills [] Respiratory: Admits to shortness of breath [] Cardiovascular: Denies chest pain [] GI: Denies abdominal pain [] Musculoskeletal: Denies back pain [] A full review of systems is limited as patient is very poor historian, likely due to dementia.. Allergies Allergies Allergies Coded Allergies Type Severity Reaction Last Updated Verified No Known Drug Allergies 09/27/16 No Physical Exam Physical Exam Constitutional: Well developed, well nourished, no acute distress, non-toxic appearance. [] HENT: Normocephalic, atraumatic, bilateral external ears normal, oropharynx dry , no oral exudates, nose normal. [] Eyes: PERRLA, EOMI, conjunctiva normal, no discharge. [] Neck: Normal range of motion, no tenderness, supple, no stridor. [] Cardiovascular:Heart rate regular rhythm [] Lungs & Thorax: Fairly good air movement is noted throughout. There are bibasilar fine rhonchi noted. [] Abdomen: Bowel sounds normal, soft, with reported generalized tenderness when asked. No grimace or other signs of discomfort is noted however with palpation. [] Skin: Warm, dry, no erythema, no rash. [] Extremities: No tenderness, no cyanosis, no clubbing, ROM intact. There is 1-2+ pitting edema noted to the lower extremities bilaterally extending to mid murray. [] Neurologic: Disoriented X 3, normal motor function, no obvious focal deficits noted. [] Current Patient Data Vital Signs Vital Signs Date Time Temp Pulse Resp B/P (MAP) Pulse Ox O2 Delivery O2 Flow Rate FiO2 04/22/18 17:19 97.8 85 20 91 Room Air Lab Results Laboratory Tests Test 04/22/18 17:40 White Blood Count 7.1 x10^3/uL (4.0-11.0) Red Blood Count 4.69 x10^6/uL (4.30-5.70) Hemoglobin 12.0 g/dL (13.0-17.5) L Hematocrit 37.2 % (39.0-53.0) L Mean Corpuscular Volume 79 fL (79-100) Mean Corpuscular Hemoglobin 26 pg (25-35) Mean Corpuscular Hemoglobin Concent 32 g/dL (31-37) Red Cell Distribution Width 18.0 % (11.5-14.5) H Platelet Count 422 x10^3/uL (140-400) H Neutrophils (%) (Auto) 69 % (31-73) Lymphocytes (%) (Auto) 17 % (24-48) L Monocytes (%) (Auto) 9 % (0-9) Eosinophils (%) (Auto) 5 % (0-3) H Basophils (%) (Auto) 1 % (0-3) Neutrophils # (Auto) 4.9 x10^3uL (1.8-7.7) Lymphocytes # (Auto) 1.2 x10^3/uL (1.0-4.8) Monocytes # (Auto) 0.6 x10^3/uL (0.0-1.1) Eosinophils # (Auto) 0.3 x10^3/uL (0.0-0.7) Basophils # (Auto) 0.0 x10^3/uL (0.0-0.2) Sodium Level 135 mmol/L (136-145) L Potassium Level 5.0 mmol/L (3.5-5.1) Chloride Level 99 mmol/L (98-107) Carbon Dioxide Level 28 mmol/L (21-32) Anion Gap 8 (6-14) Blood Urea Nitrogen 25 mg/dL (8-26) Creatinine 2.0 mg/dL (0.7-1.3) H Estimated GFR (Cockcroft-Gault) 32.3 BUN/Creatinine Ratio 13 (6-20) Glucose Level 200 mg/dL (70-99) H Calcium Level 8.4 mg/dL (8.5-10.1) L Total Bilirubin 0.2 mg/dL (0.2-1.0) Aspartate Amino Transferase (AST) 19 U/L (15-37) Alanine Aminotransferase (ALT) 26 U/L (16-63) Alkaline Phosphatase 108 U/L (46-116) Troponin I Quantitative < 0.017 ng/mL (0-0.055) IG-Yrw-M-Type Natriuretic Peptide 4592 pg/mL (0-449) H Total Protein 7.7 g/dL (6.4-8.2) Albumin 3.1 g/dL (3.4-5.0) L Albumin/Globulin Ratio 0.7 (1.0-1.7) L EKG EKG EKG demonstrates normal sinus rhythm with rate of 72. There is right bundle- branch block.[] Radiology/Procedures Radiology/Procedures [] Impressions: PROCEDURE: PORTABLE CHEST 1V Single view chest 04/22/2018 CLINICAL INDICATION: Short of breath. COMPARISON: Chest 04/12/2017 FINDINGS: Prior median sternotomy and aortic valvular repair. Cardiac enlargement with pulmonary venous congestion diffuse interstitial opacities. Medium bilateral pleural effusions with bibasilar consolidation and atelectasis. No pneumothorax. IMPRESSION: 1. Findings of CHF or volume overload with cardiomegaly, pulmonary edema and medium bilateral pleural effusions. 2. Bibasilar consolidation, may represent atelectasis, pneumonitis, and/or multifocal infection. Electronically signed by: Timoteo Pepper MD (04/22/2018 6:22 PM) [facility] Course & Med Decision Making Course & Med Decision Making Pertinent Labs and Imaging studies reviewed. (See chart for details) [] Dragon Disclaimer Dragon Disclaimer This electronic medical record was generated, in whole or in part, using a voice recognition dictation system. Departure Departure: Impression: Primary Impression: Congestive heart failure Disposition: 09 ADMITTED INPATIENT Admitting Physician: Other (Dr. Shah) Condition: GOOD Referrals: GABBY NESS MD (PCP) Problem Qualifiers Primary Impression: Congestive heart failure Heart failure type: unspecified Heart failure chronicity: unspecified Qualified Codes: I50.9 - Heart failure, unspecified CHELE FRANKLIN Jr. DO Apr 22, 2018 18:46
[2018-04-22] MEDS ORDERED: FUROSEMIDE 40 MG/4 ML VIAL IVP ONE (20:30)
[2018-04-22 21:01] LABS: BACTERIA,URINE 0 /HPF (0-FEW); BILIRUBIN,URINE NEG (NEG); CLARITY,URINE CLEAR; COLOR,URINE YELLOW; GLUCOSE,URINE 100 mg/dL (NEG); NITRITE,URINE NEG (NEG); RBC,URINE OCC /HPF (0-2); UROBILINOGEN,URINE 1 mg/dL (0.2 mg/dL); WBC,URINE 0 /HPF (0-4)
[2018-04-22 22:06] VITALS: BP 178/112
[2018-04-22] MEDS ORDERED: ACETAMINOPHEN 325 MG TABLET PO PRN (23:00)
[2018-04-22] MEDS ORDERED: MAG HYDROX/AL HYDROX/SIMETH 30 ML ORAL.SUSP PO PRN (23:00)
[2018-04-22] MEDS ORDERED: DEXTROSE 50% 25 GM / 50ML DISP.SYRIN. IV PRN (23:15)
[2018-04-22] MEDS ORDERED: METHYL SALICYLATE/MENTHOL TOPICAL OINTMENT 29GM TUBE. TP PRN (23:30)
[2018-04-22 23:40] VITALS: BP 165/91
[2018-04-23 02:55] LABS: BASO # 0.1 x10^3/uL (0.0-0.2); BASO % 1 % (0-3); EOS # 0.3 x10^3/uL (0.0-0.7); EOS % 4 % (0-3); HEMATOCRIT 37.3 % (39.0-53.0); LYMPH # 1.2 x10^3/uL (1.0-4.8); LYMPH % 15 % (24-48); MEAN CORPUSCULAR HEMOGLOBIN 25 pg (25-35); MEAN CORPUSCULAR HGB CONC 32 g/dL (31-37); MEAN CORPUSCULAR VOLUME 79 fL (79-100); MONO # 0.8 x10^3/uL (0.0-1.1); MONO % 10 % (0-9); NEUT # 5.7 x10^3uL (1.8-7.7); NEUT % 70 % (31-73); PLATELET COUNT 432 x10^3/uL (140-400); RED BLOOD COUNT 4.75 x10^6/uL (4.30-5.70); RED CELL DISTRIBUTION WIDTH 17.3 % (11.5-14.5); WHITE BLOOD COUNT 8.1 x10^3/uL (4.0-11.0)
[2018-04-23 03:08] LABS: ALBUMIN 2.9 g/dL (3.4-5.0); ALBUMIN/GLOBULIN RATIO 0.6 (1.0-1.7); CALCIUM 8.3 mg/dL (8.5-10.1); CREATININE 1.9 mg/dL (0.7-1.3); GFR 34.3; POTASSIUM 4.4 mmol/L (3.5-5.1); TOTAL BILIRUBIN 0.4 mg/dL (0.2-1.0); TOTAL PROTEIN 7.4 g/dL (6.4-8.2)
[2018-04-23 05:31] VITALS: BP 159/80
[2018-04-23] MEDS: INSULIN LISPRO 300 UNITS/3 ML INSULN.PEN. SQ SCH ×3 (08:00→17:00)
[2018-04-23] MEDS ORDERED: NON FORMULARY ITEM (Glipizide 10 MG) PO SCH (09:00)
[2018-04-23] MEDS: MULTIVITAMIN with MINERAL TABLET. PO SCH (09:19)
[2018-04-23] MEDS: METOPROLOL TART IMMED RELEASE 25 MG TABLET PO SCH ×2 (09:20→20:55)
[2018-04-23] MEDS: NEOMY/BACITR/POLYMYXIN OINT PACKET. TP SCH ×3 (09:20→20:54)
[2018-04-23] MEDS: GABAPENTIN 100 MG CAPSULE. PO SCH ×3 (09:20→20:54)
[2018-04-23] MEDS: PANTOPRAZOLE 40 MG TABLET. PO SCH (09:20)
[2018-04-23] MEDS: ASPIRIN ENTERIC COATED 325 MG TABLET.DR. PO SCH (09:20)
[2018-04-23] MEDS: SODIUM BICARBONATE 650 MG TABLET PO SCH ×3 (09:20→18:20)
[2018-04-23] MEDS: FUROSEMIDE 40 MG/4 ML VIAL IVP SCH (09:22)
[2018-04-23] MEDS ORDERED: MAGNESIUM HYDROXIDE 2,400 MG/30 ML ORAL.SUSP. PO PRN (09:30)
--- NOTE | 2018-04-23 10:15 | HP ---
ADMIT DATE: 04/22/2018 HISTORY OF PRESENT ILLNESS: The patient is an 78-year-old male patient, a resident at [facility], who was brought by emergency medical service personnel with the report of shortness of breath. The patient is demented but did admit to shortness of breath and stated he does not know why he is in the Emergency Room. He denies having any chest pain. He denied any chills, rigors or fever. He does have cough that seems to be productive, but the patient still is very poor historian, does not give much information. He was evaluated in the Emergency Room and the lab work showed that he was afebrile; however, he is hypoxic. His chemistry showed that he has mild hyperkalemia and apparently has chronic kidney disease. His BNP was high at 4591 and the urinalysis was unremarkable. Chest x-ray; however, did show that he has cardiac enlargement with pulmonary venous congestion, diffuse interstitial opacities, medium bilateral pleural effusion, bibasilar consolidation, atelectasis, but no pneumothorax. The patient was admitted with diagnosis of congestive heart failure for which he received IV Lasix and was continued on his other medication. His first set of cardiac enzyme was less than 0.017. We will do 2 more sets of cardiac enzymes and we would consult the cardiology team. PAST MEDICAL HISTORY: His past medical history is significant for transient ischemic attack, type 2 diabetes, benign prostatic hypertrophy, hyperlipidemia, hypertension, coronary artery disease, atrial fibrillation and repeated falls and history of scabies. PAST SURGICAL HISTORY: Past surgical history is significant for coronary artery bypass graft surgery x 5. FAMILY HISTORY: Family history is unremarkable. 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 He does not smoke, or drink alcohol, or use any recreational drugs. REVIEW OF SYSTEMS: As per history of present illness. ALLERGIES: He has no known drug allergies. MEDICATIONS: He is currently on following medications: He is on metoprolol tartrate 25 mg p.o. b.i.d., aspirin 325 mg once a day, acetaminophen 650 mg every 4 hours, Depakote Sprinkles 250 mg at bedtime. He is on gabapentin 100 mg 3 times a day, fluvoxamine maleate 100 mg daily, mirtazapine 15 mg at bedtime, quetiapine fumarate 25 mg daily, buspirone 10 mg twice a day. He is on Mylanta 30 mL p.o. every 6 hours as needed for upset stomach, sodium bicarbonate 650 mg 3 times a day, magnesium hydroxide for milk of magnesia 30 mL p.o. daily p.r.n. for constipation, Protonix 40 mg once a day. He is on Lantus insulin 15 units at bedtime, and glipizide 5 mg at bedtime and glipizide 10 mg daily. He is on Triple Antibiotic ointment topically to his skin lesions. He is also on multivitamin 1 tablet once a day, and Menthol for Bengay apply topically 4 times a day. PHYSICAL EXAMINATION: GENERAL: On arrival to the Emergency Room, he looked well and was not really in any respiratory distress, pale, but no jaundice, cyanosis, or thyromegaly. No jugular venous distention, but mild bilateral lower limb edema. VITAL SIGNS: His heart rate was 85, blood pressure was 156/98, temperature was 97.8, respiratory rate 20, and oxygen saturation was 91% on room air that improved to 98% on 3 liters of oxygen. HEENT: Examination of the head, eyes, ears, nose and throat showed normocephalic, atraumatic. NECK: Supple. HEART: Showed normal first and second heart sounds with no gallop, rub or murmur. CHEST: Showed central trachea, equal bilateral expansion, air entry, vesicular sounds with bilateral basal crepitation. I could not appreciate any rhonchi. ABDOMEN: Distended, soft, nontender. No guarding or rigidity. No organomegaly. Hernial orifices are intact. Bowel sounds normal. NEUROLOGIC: He is awake, alert, but very confused, demented; however, all his cranial nerves are intact. EXTREMITIES: He moves extremities without difficulty. LABORATORY DATA AND IMAGING STUDIES: His lab work on arrival showed serum sodium 135, potassium 5, chloride 99, bicarbonate 28, anion gap of 8, BUN 25, creatinine 2, estimated GFR was 32 mL per minute. His glucose was 200, calcium was 8.4. Total bilirubin, AST, ALT, alkaline phosphatase were normal. His troponin was less than 0.017, beta-natriuretic peptide was 4592, total protein was 7.7, albumin 3.1. His white cell count was 7100, hemoglobin 12, hematocrit 37, MCV was 79, and the platelet count was 122,000 with manual differential showed 69% polymorphs, 17% lymphocytes and 9% monocytes. His urinalysis showed the urine was yellow, clear with the pH of 7, specific gravity of 1.020. There is small amount of protein, mild glucosuria. The urine was negative for ketones, blood, nitrite and leukocyte esterase. There is occasional RBCs, no WBCs, and no bacteria and his chest x-ray showed that he has prior median sternotomy and aortic valvular repair, cardiac enlargement with pulmonary venous congestion, diffuse interstitial opacities, medium bilateral pleural effusion with bibasilar consolidation, atelectasis, no pneumothorax. IMPRESSION: The findings are consistent with congestive heart failure or volume overload with cardiomegaly and pulmonary edema and medium bilateral pleural effusion. He has bibasilar consolidation, may represent atelectasis, pneumothorax, pneumonitis and/or multifocal infection. So, basically, the patient was admitted with congestive heart failure. His most recent echocardiogram was done in 04/2017. It showed that the left ventricular systolic function is normal, ejection fraction was 50-55%, he has normal left ventricular segmental wall motion, left atrium is moderately dilated, mild valvular aortic stenosis, mild mitral regurgitation, mild tricuspid regurgitation. His pulmonary artery pressure was estimated at 21 mmHg. There is no evidence of significant pericardial effusion at that time. PLAN: The plan is to continue all his current medication and I will do 2 more sets of cardiac enzyme. We will consult the cardiology team. I will also add antibiotics for possible healthcare-associated pneumonia and also cellulitis of his lower extremities. PIO GIPSON MD DR: [email or web address]/tiny JOB#: [id number] / [id number]
[2018-04-23 10:37] VITALS: BP 138/80
[2018-04-23] MEDS ORDERED: LIDOCAINE WITH 8.4% SOD BICARB 3 ML DISP.SYRIN. IJ ONE (11:30)
--- NOTE | 2018-04-23 11:37 | PDOC2 ---
GEORGETTE SOSA APRN 04/23/18 1137: CONSULT Date of Admission DATE: 04/23/18 TIME: 11:34 Reason for Consult: chf Problem List Problems Medical Problems: (1) Congestive heart failure Status: Acute History of Present Illness Mr Govea is an 78-year-old male who presented to the ED via EMS with complaints of shortness of breath. He has baseline dementia and is unable to give history which is obtained from the chart. He apparently did report to the ED complaints of shortness of breath and denied other symptoms. He is currently sitting up in chair after about 3 liter diuresis with IV lasix. He smiles an agrees when asked if he is feeling better but is unable to tell me why he is here. He denies any discomfort or dyspnea currently. Past Medical History echo 04/13/17 Left ventricle systolic function is normal. The Ejection Fraction is 50-55%. There is normal LV segmental wall motion. The left atrium is moderately dilated. Mild valvular aortic stenosis. Mild mitral regurgitation. Mild tricuspid regurgitation. The PA pressure was estimated at 21 mmHg. There is no evidence of significant pericardial effusion. Cardiovascular: AFIB, CAD, HTN, hyperipidemia CENTRAL NERVOUS SYSTEM: Dementia, TIA GI: GERD Psych: Depression, Other (alzheimers disease, affective disorder) Renal/: Chronic renal insuff, Benign prostatic enlarg. 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, no illicit drugs Current Medications Current Medications Furosemide (Lasix) 40 mg 1X ONCE IVP Last administered on 04/22/18at 20:40; Start 04/22/18 at 20:30; Stop 04/22/18 at 20:31; Status DC Acetaminophen (Tylenol) 650 mg PRN Q4HRS PRN PO PAIN / TEMP; Start 04/22/18 at 23:00 Aspirin (Aspirin Enteric Coated) 325 mg DAILY08 PO Last administered on at 09:20; Start 04/23/18 at 08:00 Insulin Glargine (Lantus) 15 units QHS SQ ; Start 04/23/18 at 21:00 Al Hydroxide/Mg Hydroxide (Mylanta Plus Xs) 30 ml PRN Q6HRS PRN PO Upset Stomach; Start 04/22/18 at 23:00; Status Cancel Metoprolol Tartrate (Lopressor) 37.5 mg BID PO Last administered on 04/23/18 09:20; Start 04/23/18 at 09:00 Neomycin/ Polymyxin/ Bacitracin (Triple Antibiotic Ointment) 1 pkt TID TP Last administered on 04/23/18at 09:20; Start 04/23/18 at 09:00 Fluvoxamine Maleate (Luvox) 100 mg DAILY PO Last administered on 04/23/18 09: 19; Start 04/23/18 at 09:00; Stop 04/23/18 at 09:35; Status DC Multi-Ingredient Ointment (Analgesic Bardolph) 1 asher PRN QID PRN TP MUSCLE PAIN; Start 04/22/18 at 23:30 Multivitamins/ Calcium (Thera-M Plus) 1 tab DAILY PO Last administered on 04/23at 09:19; Start 04/23/18 at 09:00 Pantoprazole Sodium (Protonix) 40 mg DAILYAC PO Last administered on at 09:20; Start 04/23/18 at 07:30 Sodium Bicarbonate 650 mg TIDWMEALS PO Last administered on 04/23/18at 09:20; Start 04/23/18 at 08:00 Insulin Human Lispro (HumaLOG) 0-7 UNITS TIDWMEALS SQ ; Start 04/23/18 at 08:00 Dextrose 12.5 gm PRN Q15MIN PRN IV SEE COMMENTS; Start 04/22/18 at 23:15 Gabapentin (Neurontin) 100 mg TID PO Last administered on 04/23/18at 09:20; Start 04/23/18 at 09:00 Glipizide (Glucotrol) 10 mg DAILY PO ; Start 04/23/18 at 09:30 Divalproex Sodium (Depakote Sprinkles) 250 mg QHS PO ; Start 04/23/18 at 21:00 Glipizide (Glucotrol) 5 mg QHS PO ; Start 04/23/18 at 21:00 Non-Formulary Medication (Glipizide ) 10 mg DAILY PO ; Start 04/23/18 at 09:00 ; Stop 04/23/18 at 09:29; Status DC Magnesium Hydroxide (Milk Of Magnesia) 2,400 mg PRN QHS PRN PO CONSTIPATION; Start 04/23/18 at 09:30 Non-Formulary Medication (Mirtazapine ) 15 mg HS PO ; Start 04/23/18 at 21:00; Stop 04/23/18 at 21:00; Status DC Quetiapine Fumarate (SEROquel) 25 mg DAILY PO ; Start 04/23/18 at 09:30 Linezolid 300 ml @ 300 mls/hr Q12HR IV ; Start 04/23/18 at 09:00 Piperacillin Sod/ Tazobactam Sod 2.25 gm/Sodium Chloride 50 ml @ 100 mls/hr Q8H IV ; Start 04/23/18 at 12:00 Furosemide (Lasix) 40 mg DAILY IVP Last administered on 04/23/18at 09:22; Start 04/23/18 at 09:00 Heparin Sodium (Porcine) (Heparin Sq) 5,000 unit Q8HRS SQ ; Start 04/23/18 at 14:00 Lidocaine/Sodium Bicarbonate (Buffered Lidocaine 1%) 3 ml 1X ONCE IJ ; Start 04/23/18 at 11:30; Stop 04/23/18 at 11:31; Status DC Active Scripts Active Protonix (Pantoprazole Sodium) 40 Mg Tablet. 1 Tab PO DAILY Reported Glipizide 10 Mg Tablet 10 Mg PO DAILY Sodium Bicarbonate 650 Mg Tablet 650 Mg PO TID Bengay (Menthol) 113 Gm Gel..gram. 1 Asher TP PRN QID PRN Milk Of Magnesia (Magnesium Hydroxide) 2,400 Mg/10 Ml Oral.susp 2,400 Mg PO PRN QHS PRN Lantus Solostar (Insulin Glargine,Hum.rec.anlog) 100 Unit/1 Ml Insuln.pen 15 Unit SQ QHS Depakote Sprinkle (Divalproex Sodium) 125 Mg Cap.sprink 250 Mg PO HS Glipizide 5 Mg Tablet 5 Mg PO HS Fluvoxamine Maleate 50 Mg Tablet 100 Mg PO DAILY Multivitamins (Multivitamin) 1 Each Tablet 1 Each PO DAILY LAST DOSE GIVEN: DATE: TODAY TIME: AM NEXT DOSE DUE: DATE: TOMORROW TIME: AM Quetiapine Fumarate 25 Mg Tablet 25 Mg PO DAILY LAST DOSE GIVEN: DATE: YESTERDAY TIME: AT BEDTIME NEXT DOSE DUE: DATE: TODAY TIME: AT BEDTIME Aspirin Ec (Aspirin) 325 Mg Tablet. 325 Mg PO DAILY08 LAST DOSE GIVEN: DATE: TODAY TIME: AM NEXT DOSE DUE: DATE: TOMORROW TIME: AM Buspirone Hcl 5 Mg Tablet 10 Mg PO BID LAST DOSE GIVEN: DATE: TODAY TIME: AM NEXT DOSE DUE: DATE: TODAY TIME: PM Triple Antibiotic Ointment (Neomy Sulf/Bacitra/Polymyxin B) 1 Each Packet 1 Each TP TID LAST DOSE GIVEN: DATE: TODAY TIME: AM NEXT DOSE DUE: DATE: TODAY TIME: AFTERNOON Maalox Maximum Strength Susp (Mag Hydrox/Al Hydrox/Simeth) 355 Ml Oral.susp 30 Ml PO PRN Q6HRS PRN LAST DOSE GIVEN: DATE: NOT GIVEN TODAY NEXT DOSE DUE: DATE: TODAY TIME: IF AND WHEN NEEDED Tylenol (Acetaminophen) 325 Mg Tablet 650 Mg PO PRN Q4HRS PRN LAST DOSE GIVEN: DATE: NOT GIVEN TODAY TIME: NEXT DOSE DUE: DATE: TODAY TIME: IF AND WHEN NEEDED Gabapentin 100 Mg Capsule 100 Mg PO TID LAST DOSE GIVEN: DATE: TODAY TIME: AM NEXT DOSE DUE: DATE: TODAY TIME: AFTERNOON Mirtazapine 15 Mg Tablet 15 Mg PO HS LAST DOSE GIVEN: DATE: YESTER TIME: AT BEDTIME NEXT DOSE DUE: DATE: TODAY TIME: AT BEDTIME Metoprolol Tartrate 25 Mg Tablet 37.5 Mg PO BID LAST DOSE GIVEN: DATE: TODAY TIME: AM NEXT DOSE DUE: DATE: TODAY TIME: PM Allergies: Coded Allergies: No Known Drug Allergies (Unverified , 09/27/16) Review of System as per HPI otherwise unobtainable due to patient mental status General: Alert, Cooperative, No acute distress HEENT: Atraumatic, EOMI Lungs: Other (bibasilar crackles) Heart: Normal S1, Normal S2, Other (+S3) Extremities: No cyanosis, Other (2+ edema bilateral lower extremities ) Neuro: Normal speech, Strength at 5/5 X4 ext Psych/Mental Status: Mood NL, Other (pleasantly confused) VITALS Vital Signs Date Time Temp Pulse Resp B/P (MAP) Pulse Ox O2 Delivery O2 Flow Rate FiO2 04/23/18 10:37 97.8 74 20 138/80 (99) 97 Nasal Cannula 3.0 Labs Laboratory Tests Test 04/22/18 17:40 04/22/18 20:37 04/22/18 23:30 04/23/18 02:34 White Blood Count 7.1 x10^3/uL (4.0-11.0) 8.1 x10^3/uL (4.0-11.0) Red Blood Count 4.69 x10^6/uL (4.30-5.70) 4.75 x10^6/uL (4.30-5.70) Hemoglobin 12.0 g/dL (13.0-17.5) 12.0 g/dL (13.0-17.5) Hematocrit 37.2 % (39.0-53.0) 37.3 % (39.0-53.0) Mean Corpuscular Volume 79 fL (79-100) 79 fL (79-100) Mean Corpuscular Hemoglobin 26 pg (25-35) 25 pg (25-35) Mean Corpuscular Hemoglobin Concent 32 g/dL (31-37) 32 g/dL (31-37) Red Cell Distribution Width 18.0 % (11.5-14.5) 17.3 % (11.5-14.5) Platelet Count 422 x10^3/uL (140-400) 432 x10^3/uL (140-400) Neutrophils (%) (Auto) 69 % (31-73) 70 % (31-73) Lymphocytes (%) (Auto) 17 % (24-48) 15 % (24-48) Monocytes (%) (Auto) 9 % (0-9) 10 % (0-9) Eosinophils (%) (Auto) 5 % (0-3) 4 % (0-3) Basophils (%) (Auto) 1 % (0-3) 1 % (0-3) Neutrophils # (Auto) 4.9 x10^3uL (1.8-7.7) 5.7 x10^3uL (1.8-7.7) Lymphocytes # (Auto) 1.2 x10^3/uL (1.0-4.8) 1.2 x10^3/uL (1.0-4.8) Monocytes # (Auto) 0.6 x10^3/uL (0.0-1.1) 0.8 x10^3/uL (0.0-1.1) Eosinophils # (Auto) 0.3 x10^3/uL (0.0-0.7) 0.3 x10^3/uL (0.0-0.7) Basophils # (Auto) 0.0 x10^3/uL (0.0-0.2) 0.1 x10^3/uL (0.0-0.2) Sodium Level 135 mmol/L (136-145) 137 mmol/L (136-145) Potassium Level 5.0 mmol/L (3.5-5.1) 4.4 mmol/L (3.5-5.1) Chloride Level 99 mmol/L (98-107) 100 mmol/L (98-107) Carbon Dioxide Level 28 mmol/L (21-32) 27 mmol/L (21-32) Anion Gap 8 (6-14) 10 (6-14) Blood Urea Nitrogen 25 mg/dL (8-26) 25 mg/dL (8-26) Creatinine 2.0 mg/dL (0.7-1.3) 1.9 mg/dL (0.7-1.3) Estimated GFR (Cockcroft-Gault) 32.3 34.3 BUN/Creatinine Ratio 13 (6-20) 13 (6-20) Glucose Level 200 mg/dL (70-99) 149 mg/dL (70-99) Calcium Level 8.4 mg/dL (8.5-10.1) 8.3 mg/dL (8.5-10.1) Total Bilirubin 0.2 mg/dL (0.2-1.0) 0.4 mg/dL (0.2-1.0) Aspartate Amino Transf (AST/SGOT) 19 U/L (15-37) 16 U/L (15-37) Alanine Aminotransferase (ALT/SGPT) 26 U/L (16-63) 24 U/L (16-63) Alkaline Phosphatase 108 U/L (46-116) 95 U/L (46-116) Troponin I Quantitative < 0.017 ng/mL (0-0.055) < 0.017 ng/mL (0-0.055) < 0.017 ng/mL (0-0.055) OM-Rsy-V-Type Natriuretic Peptide 4592 pg/mL (0-449) Total Protein 7.7 g/dL (6.4-8.2) 7.4 g/dL (6.4-8.2) Albumin 3.1 g/dL (3.4-5.0) 2.9 g/dL (3.4-5.0) Albumin/Globulin Ratio 0.7 (1.0-1.7) 0.6 (1.0-1.7) Urine Collection Type U cath Urine Color Yellow Urine Clarity Clear Urine pH 7.0 Urine Specific [place] 1.020 Urine Protein 30 mg/dl (NEG-TRACE) Urine Glucose (UA) 100 mg/dL (NEG) Urine Ketones (Stick) Neg mg/dL (NEG) Urine Blood Neg (NEG) Urine Nitrite Neg (NEG) Urine Bilirubin Neg (NEG) Urine Urobilinogen Dipstick 1 mg/dL (0.2 mg/dL) Urine Leukocyte Esterase Neg (NEG) Urine RBC Occ /HPF (0-2) Urine WBC 0 /HPF (0-4) Urine Squamous Epithelial Cells None /LPF Urine Renal Epithelial Cells Occ /LPF Urine Bacteria 0 /HPF (0-FEW) Test 04/23/18 07:40 Glucose (Fingerstick) 138 mg/dL (70-99) Images CXR - IMPRESSION: 1. Findings of CHF or volume overload with cardiomegaly, pulmonary edema and medium bilateral pleural effusions. 2. Bibasilar consolidation, may represent atelectasis, pneumonitis, and/or multifocal infection. Assessment/Plan 1. acute on chronic likely diastolic heart failure - good diuresis with IV lasix. Continue to monitor closely 2. uncontrolled hypertension 3. CAD / cabg status - angina free, Edward negative. 4. CKD - cr appears to be about baseline, monitor with diuresis 5. HLD 6. Diabetes mellitus type 2 Continue diuresis with IV lasix, monitoring serum Cr. Continue beta hossein, aspirin, check lipids, check echo. Add hydralazine for BP control and consider ACEI if cr remains stable. JOSEFA TRACY MD 04/23/18 1333: CONSULT Assessment/Plan Pt. seen and examined. 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 78 y.o male with acute on chronic diastolic HF Continue diuresis. GEORGETTE SOSA APRN Apr 23, 2018 11:37 JOSEFA TRACY MD Apr 23, 2018 13:33
[2018-04-23] MEDS: QUEtiapine 25 MG TABLET. PO SCH (11:40)
[2018-04-23] MEDS: glipiZIDE 5 MG TABLET PO SCH ×2 (11:40→20:54)
[2018-04-23] MEDS: PIPERACILLIN/TAZOBACTAM 2.25 GM in IV NORMAL SALINE 50ML 50 ML IV SCH ×2 (12:46→20:09)
[2018-04-23] MEDS: HEPARIN PF for SUB-Q USE 5,000 UNIT/0.5 ML VIAL. SQ SCH ×2 (13:29→21:05)
--- NOTE | 2018-04-23 13:44 | PN ---
DATE: 04/23/2018 SUBJECTIVE: The patient is an 78-year-old male patient, a resident at [facility]. He was brought in by emergency medical service because of increasing shortness of breath, cough, was found to be in congestive heart failure as well as bilateral pneumonic infiltrate and cellulitis, right lower extremity. He was treated with IV Lasix and his first set of cardiac enzyme was less than 0.07. He was admitted to do 2 more sets of cardiac enzyme. Continue with IV antibiotics. Fortunately, he complained of severe pain and his Castellon catheter had to be removed. When I saw him this morning, he continued to have shortness of breath and cough, this seems to be moist; however, he denied any chest pain. PHYSICAL EXAMINATION: GENERAL: When I examined him, he looked pale, but no jaundice, cyanosis, or thyromegaly. No jugular venous distension. He had mild bilateral lower limb edema. VITAL SIGNS: His heart rate was 83, blood pressure was 159/80, temperature was 98.6, respiratory rate was 24, and oxygen saturation was 90% on 3 liters of oxygen by nasal cannula. HEAD, EYES, EARS, NOSE AND THROAT: Showed normocephalic, atraumatic. NECK: Supple. HEART: Showed normal first and second heart sounds with no gallop, rub or murmur. CHEST: Clear to auscultation. No crepitation or rhonchi. ABDOMEN: Distended, soft, nontender. No guarding or rigidity. No organomegaly. Hernial orifice intact. Bowel sounds normal. NEUROLOGIC: He was demented, but without any obvious lateralizing sign. All his cranial nerves are intact. He moves extremities without difficulty. His intake was incompletely recorded, output was 3150. LABORATORY DATA: As of this morning, his white cell count was 8100, hemoglobin 12, hematocrit 37, MCV 79 and platelet count of 132,000. His chemistry this morning showed a serum sodium of 137, potassium 4.4, chloride 100, bicarbonate 27, anion gap of 10, BUN 25, creatinine 1.9, estimated GFR was 34 mL per minute, his glucose 149, calcium was 8.3. Total bilirubin, AST, ALT, alkaline phosphatase were normal. He has 2 more sets of cardiac enzymes, both of them were less than 0.017. His total protein was 7.4, albumin 2.9. ASSESSMENT: 1. This is an 78-year-old male patient, a resident at [facility], who came in with [id number] systolic congestive heart failure. 2. Bilateral pulmonary infiltrate. 3. Right lower extremity cellulitis. 4. Acute on chronic kidney injury. His serum creatinine was 1.4 in 04/2017 and now it is 2. 5. Benign prostatic hypertrophy. 6. Coronary artery disease, status post coronary bypass graft surgery as well as aortic valve repair. He is also known to have atrial fibrillation, currently rate controlled, not on anticoagulation, hyperlipidemia, and type 2 diabetes. I did add Zyvox and Zosyn, Lasix 40 mg IV daily and we will start him on heparin 5000 units subcutaneously for DVT prophylaxis. As kidney function is impaired, I will also arrange for ultrasound of both kidneys to rule out possibility of obstructive nephropathy. PIO GIPSON MD DR: KELLIE/tiny JOB#: [id number] / [id number]
[2018-04-23] MEDS: hydrALAZINE 25 MG TABLET PO SCH ×2 (14:00→20:54)
[2018-04-23 14:13] VITALS: BP 100/55
--- NOTE | 2018-04-23 14:26 | RAD ---
Bilateral Lower Extremity Venous Doppler Ultrasound Indication: Bilateral lower extremity swelling. Shortness of breath. Comparison: None. Procedure: Color Doppler, spectral Doppler, and grayscale images with and without compression are obtained in the area of the common femoral vein, superficial femoral vein - femoral vein junction, main femoral vein (superficial femoral vein) and popliteal vein. Veins of the proximal calf are also imaged. Findings: There is normal duplex flow, color flow and compressibility of all visualized vein segments. There is no evidence of deep venous thrombosis. Impression: No evidence of lower extremity deep venous thrombosis. Electronically signed by: Eris Taylor MD (04/23/2018 2:23 PM) [place] [id number]
--- NOTE | 2018-04-23 16:01 | CARD ---
MR#: [id number] Date of Study: 04/23/2018 Ordering Physician: GEORGETTE SOSA, Referring Physician: SCOOTER WISDOM Tech: Tiffani Garrett RDCS APPROVED REPORT EXAM: Two-dimensional and M-mode echocardiogram with Doppler and color Doppler. Other Information Quality : Good INDICATION Congestive Heart Failure Surgery/Intervention Status/Post Aortic Valve Replacement: Mechanical Type: Unknown 2D DIMENSIONS RVDd3.0 (2.9-3.5cm)Left Atrium(2D)4.3 (1.6-4.0cm) IVSd1.3 (0.7-1.1cm)Aortic Root(2D)2.6 (2.0-3.7cm) LVDd3.6 (3.9-5.9cm)LVOT Diameter2.0 (1.8-2.4cm) PWd1.4 (0.7-1.1cm) Aortic Valve AoV Peak Harjit.176.0cm/sAoV VTI25.6cm AO Peak GR.12.4mmHgLVOT VTI 153.00cm AO Mean GR.5mmHgAVA (VTI)1.89cm2 Tricuspid Valve TR P. [id number]/sRAP OCHIOVOD5ftRk TR Peak Gr.[id number] LEFT VENTRICLE The left ventricle is normal size. There is mild concentric left ventricular hypertrophy. The left ve ntricular systolic function is normal and the ejection fraction is within normal range. The Ejection Fraction is 55-60%. There is normal LV segmental wall motion. RIGHT VENTRICLE The right ventricle is mildly dilated. Systolic function is mildly reduced. ATRIA The left atrium is mildly dilated. The right atrium is mildly dilated. The interatrial septum is inta ct with no evidence for an atrial septal defect or patent foramen ovale as noted on 2-D or Doppler im aging. AORTIC VALVE The aortic valve is mildly calcified. Doppler and Color Flow revealed trace aortic regurgitation. The re is no significant aortic valvular stenosis. Calculated aortic valve area is 1.9 cm2 with maximum p ressure gradient of 12 mmHg and mean pressure gradient of 5 mmHg. There is no aortic valvular vegetat ion. The prosthetic aortic valve is not well visualized. MITRAL VALVE The mitral valve is calcified but opens well. There is no evidence of mitral valve prolapse. There is no mitral valve stenosis. Doppler and Color Flow revealed trace mitral valve regurgitation. TRICUSPID VALVE The tricuspid valve is normal in structure and function. Doppler and Color Flow revealed mild tricusp id regurgitation. The PA pressure was estimated at 62 mmHg. There is no tricuspid valve stenosis. PULMONIC VALVE The pulmonic valve is not well visualized. Doppler and Color Flow revealed mild pulmonic valvular reg urgitation. There is no pulmonic valvular stenosis. GREAT VESSELS The aortic root is normal in size. The ascending aorta is not well seen. The IVC is normal in size an d collapses >50% with inspiration. PERICARDIAL EFFUSION There is no evidence of significant pericardial effusion. Critical Notification Critical Value: No <Conclusion> The left ventricle is normal size. The left ventricular systolic function is normal and the ejection fraction is within normal range. The Ejection Fraction is 55-60%. There is mild concentric left ventricular hypertrophy. The right ventricle is mildly dilated. RV systolic function is mildly reduced. There is no significant aortic valvular stenosis. Calculated aortic valve area is 1.9 cm2 with maximum pressure gradient of 12 mmHg and mean pressure g radient of 5 mmHg. Doppler and Color Flow revealed trace aortic regurgitation. Doppler and Color Flow revealed trace mitral valve regurgitation. Doppler and Color Flow revealed mild tricuspid regurgitation. The PA pressure was estimated at 62 mmHg. Signed by : Jonnathan Martin MD Electronically Approved : 04/23/2018 16:00:38
--- NOTE | 2018-04-23 18:49 | RAD ---
Renal ultrasound dated 04/23/2018. No comparison available. Clinical data indication: Acute on chronic renal failure. FINDINGS: Both kidneys are small and echogenic. The right kidney measures 7.7 cm in length. The left kidney measures 8.7 cm in length. No hydronephrosis. No apparent renal mass or shadowing calculus. Urinary bladder is not well evaluated. Bladder volume is estimated at 241 cc. Ureteral jets are not visualized. IMPRESSION: 1. Findings consistent with medical renal disease. No evidence of hydronephrosis. Electronically signed by: Eris Morse MD (04/23/2018 6:46 PM) [facility]
[2018-04-23 19:18] VITALS: BP 141/70
[2018-04-23] MEDS: LACTOBACILLUS RHAMNOSUS GG 1 CAPSULE. PO SCH (20:54)
[2018-04-23] MEDS: DIVALPROEX 125 MG CAP.SPRINK PO SCH (20:55)
[2018-04-23] MEDS ORDERED: MIRTAZAPINE 15 MG PO SCH (21:00)
[2018-04-23] MEDS: INSULIN GLARGINE 300 UNITS/3 ML INSULN.PEN. SQ SCH (21:05)
[2018-04-23 22:32] VITALS: BP 134/85
[2018-04-24] MEDS: PIPERACILLIN/TAZOBACTAM 2.25 GM in IV NORMAL SALINE 50ML 50 ML IV SCH ×3 (04:30→20:30)
[2018-04-24 05:03] VITALS: BP 119/69
[2018-04-24] MEDS: HEPARIN PF for SUB-Q USE 5,000 UNIT/0.5 ML VIAL. SQ SCH ×3 (05:17→21:23)
[2018-04-24 06:15] LABS: CALCIUM 7.8 mg/dL (8.5-10.1); GFR 32.3; MAGNESIUM 2.3 mg/dL (1.8-2.4); POTASSIUM 4.4 mmol/L (3.5-5.1)
[2018-04-24] MEDS: SODIUM BICARBONATE 650 MG TABLET PO SCH ×3 (08:00→17:00)
[2018-04-24] MEDS: INSULIN LISPRO 300 UNITS/3 ML INSULN.PEN. SQ SCH ×3 (08:00→17:00)
[2018-04-24] MEDS: NEOMY/BACITR/POLYMYXIN OINT PACKET. TP SCH ×3 (09:00→20:46)
[2018-04-24] MEDS: QUEtiapine 25 MG TABLET. PO SCH (09:00)
--- NOTE | 2018-04-24 09:13 | PDOC ---
PROGRESS NOTES Diagnosis Problem Problems Medical Problems: (1) Congestive heart failure Status: Acute Assessment Problems Medical Problems: (1) Congestive heart failure Status: Acute 1. acute on chronic diastolic heart failure - good diuresis with IV lasix, weight down 7 lbs. He appears to be close to euvolemic and Cr increased slightly this am. Change lasix to oral. 2. PHTN, PAS 60 mmHg 3. uncontrolled hypertension now well controlled. 4. CAD / cabg status - angina free, Edward negative. supportive care 5. CKD - cr appears to be about baseline, up to 2.0 today (from 1.9) 6. HLD - continue statin 7. Diabetes mellitus type 2 Subjective resting quietly, denies complaints, pleasantly confused, continues to require oxygen per nasal cannula at 2-3 liters Objective echo The left ventricle is normal size. The left ventricular systolic function is normal and the ejection fraction is within normal range. The Ejection Fraction is 55-60%. There is mild concentric left ventricular hypertrophy. The right ventricle is mildly dilated. RV systolic function is mildly reduced. There is no significant aortic valvular stenosis. Calculated aortic valve area is 1.9 cm2 with maximum pressure gradient of 12 mmHg and mean pressure gradient of 5 mmHg. Doppler and Color Flow revealed trace aortic regurgitation. Doppler and Color Flow revealed trace mitral valve regurgitation. Doppler and Color Flow revealed mild tricuspid regurgitation. The PA pressure was estimated at 62 mmHg. Vital Signs Date Time Temp Pulse Resp B/P (MAP) Pulse Ox O2 Delivery O2 Flow Rate FiO2 04/24/18 05:03 98.1 78 18 119/69 (86) 97 Nasal Cannula 3.0 Intake and Output 04/24/18 07:00 Intake Total 1130 ml Output Total 700 ml Balance 430 ml Intake Oral 640 ml IV Total 490 ml Output Urine Total 700 ml # Voids 1 Abdomen: Normal bowel sounds, Soft, No tenderness Heart: Normal S1, Normal S2, Other (S3 resolved) Extremities: No cyanosis, No edema General: Alert, Cooperative, No acute distress Lungs: Clear to auscultation Psych/Mental Status: Mood NL Review of Relevant I have reviewed the following items kai (where applicable) has been applied. Labs Laboratory Tests Test 04/22/18 17:40 04/22/18 20:37 04/22/18 23:30 04/23/18 02:34 White Blood Count 7.1 x10^3/uL (4.0-11.0) 8.1 x10^3/uL (4.0-11.0) Red Blood Count 4.69 x10^6/uL (4.30-5.70) 4.75 x10^6/uL (4.30-5.70) Hemoglobin 12.0 g/dL (13.0-17.5) 12.0 g/dL (13.0-17.5) Hematocrit 37.2 % (39.0-53.0) 37.3 % (39.0-53.0) Mean Corpuscular Volume 79 fL (79-100) 79 fL (79-100) Mean Corpuscular Hemoglobin 26 pg (25-35) 25 pg (25-35) Mean Corpuscular Hemoglobin Concent 32 g/dL (31-37) 32 g/dL (31-37) Red Cell Distribution Width 18.0 % (11.5-14.5) 17.3 % (11.5-14.5) Platelet Count 422 x10^3/uL (140-400) 432 x10^3/uL (140-400) Neutrophils (%) (Auto) 69 % (31-73) 70 % (31-73) Lymphocytes (%) (Auto) 17 % (24-48) 15 % (24-48) Monocytes (%) (Auto) 9 % (0-9) 10 % (0-9) Eosinophils (%) (Auto) 5 % (0-3) 4 % (0-3) Basophils (%) (Auto) 1 % (0-3) 1 % (0-3) Neutrophils # (Auto) 4.9 x10^3uL (1.8-7.7) 5.7 x10^3uL (1.8-7.7) Lymphocytes # (Auto) 1.2 x10^3/uL (1.0-4.8) 1.2 x10^3/uL (1.0-4.8) Monocytes # (Auto) 0.6 x10^3/uL (0.0-1.1) 0.8 x10^3/uL (0.0-1.1) Eosinophils # (Auto) 0.3 x10^3/uL (0.0-0.7) 0.3 x10^3/uL (0.0-0.7) Basophils # (Auto) 0.0 x10^3/uL (0.0-0.2) 0.1 x10^3/uL (0.0-0.2) Sodium Level 135 mmol/L (136-145) 137 mmol/L (136-145) Potassium Level 5.0 mmol/L (3.5-5.1) 4.4 mmol/L (3.5-5.1) Chloride Level 99 mmol/L (98-107) 100 mmol/L (98-107) Carbon Dioxide Level 28 mmol/L (21-32) 27 mmol/L (21-32) Anion Gap 8 (6-14) 10 (6-14) Blood Urea Nitrogen 25 mg/dL (8-26) 25 mg/dL (8-26) Creatinine 2.0 mg/dL (0.7-1.3) 1.9 mg/dL (0.7-1.3) Estimated GFR (Cockcroft-Gault) 32.3 34.3 BUN/Creatinine Ratio 13 (6-20) 13 (6-20) Glucose Level 200 mg/dL (70-99) 149 mg/dL (70-99) Calcium Level 8.4 mg/dL (8.5-10.1) 8.3 mg/dL (8.5-10.1) Total Bilirubin 0.2 mg/dL (0.2-1.0) 0.4 mg/dL (0.2-1.0) Aspartate Amino Transf (AST/SGOT) 19 U/L (15-37) 16 U/L (15-37) Alanine Aminotransferase (ALT/SGPT) 26 U/L (16-63) 24 U/L (16-63) Alkaline Phosphatase 108 U/L (46-116) 95 U/L (46-116) Troponin I Quantitative < 0.017 ng/mL (0-0.055) < 0.017 ng/mL (0-0.055) < 0.017 ng/mL (0-0.055) OU-Brr-K-Type Natriuretic Peptide 4592 pg/mL (0-449) Total Protein 7.7 g/dL (6.4-8.2) 7.4 g/dL (6.4-8.2) Albumin 3.1 g/dL (3.4-5.0) 2.9 g/dL (3.4-5.0) Albumin/Globulin Ratio 0.7 (1.0-1.7) 0.6 (1.0-1.7) Urine Collection Type U cath Urine Color Yellow Urine Clarity Clear Urine pH 7.0 Urine Specific [place] 1.020 Urine Protein 30 mg/dl (NEG-TRACE) Urine Glucose (UA) 100 mg/dL (NEG) Urine Ketones (Stick) Neg mg/dL (NEG) Urine Blood Neg (NEG) Urine Nitrite Neg (NEG) Urine Bilirubin Neg (NEG) Urine Urobilinogen Dipstick 1 mg/dL (0.2 mg/dL) Urine Leukocyte Esterase Neg (NEG) Urine RBC Occ /HPF (0-2) Urine WBC 0 /HPF (0-4) Urine Squamous Epithelial Cells None /LPF Urine Renal Epithelial Cells Occ /LPF Urine Bacteria 0 /HPF (0-FEW) Test 04/23/18 05:00 04/23/18 07:40 04/23/18 11:34 04/23/18 16:19 Nasal Screen MRSA (PCR) Negative (Negative) Glucose (Fingerstick) 138 mg/dL (70-99) 128 mg/dL (70-99) 169 mg/dL (70-99) Test 04/23/18 19:42 04/24/18 05:53 04/24/18 08:16 Glucose (Fingerstick) 260 mg/dL (70-99) 83 mg/dL (70-99) Sodium Level 137 mmol/L (136-145) Potassium Level 4.4 mmol/L (3.5-5.1) Chloride Level 100 mmol/L (98-107) Carbon Dioxide Level 31 mmol/L (21-32) Anion Gap 6 (6-14) Blood Urea Nitrogen 29 mg/dL (8-26) Creatinine 2.0 mg/dL (0.7-1.3) Estimated GFR (Cockcroft-Gault) 32.3 Glucose Level 124 mg/dL (70-99) Calcium Level 7.8 mg/dL (8.5-10.1) Magnesium Level 2.3 mg/dL (1.8-2.4) Medications Current Medications Furosemide (Lasix) 40 mg 1X ONCE IVP Last administered on 04/22/18at 20:40; Start 04/22/18 at 20:30; Stop 04/22/18 at 20:31; Status DC Acetaminophen (Tylenol) 650 mg PRN Q4HRS PRN PO PAIN / TEMP; Start 04/22/18 at 23:00 Aspirin (Aspirin Enteric Coated) 325 mg DAILY08 PO Last administered on at 09:20; Start 04/23/18 at 08:00 Insulin Glargine (Lantus) 15 units QHS SQ Last administered on 04/23/18at 21:05 ; Start 04/23/18 at 21:00 Al Hydroxide/Mg Hydroxide (Mylanta Plus Xs) 30 ml PRN Q6HRS PRN PO Upset Stomach; Start 04/22/18 at 23:00; Status Cancel Metoprolol Tartrate (Lopressor) 37.5 mg BID PO Last administered on 04/23/18at 20:55; Start 04/23/18 at 09:00 Neomycin/ Polymyxin/ Bacitracin (Triple Antibiotic Ointment) 1 pkt TID TP Last administered on 04/23/18at 20:54; Start 04/23/18 at 09:00 Fluvoxamine Maleate (Luvox) 100 mg DAILY PO Last administered on 04/23/18 09: 19; Start 04/23/18 at 09:00; Stop 04/23/18 at 09:35; Status DC Multi-Ingredient Ointment (Analgesic [place]) 1 asher PRN QID PRN TP MUSCLE PAIN; Start 04/22/18 at 23:30 Multivitamins/ Calcium (Thera-M Plus) 1 tab DAILY PO Last administered on 04/23at 09:19; Start 04/23/18 at 09:00 Pantoprazole Sodium (Protonix) 40 mg DAILYAC PO Last administered on at 09:20; Start 04/23/18 at 07:30 Sodium Bicarbonate 650 mg TIDWMEALS PO Last administered on 04/23/18at 18:20; Start 04/23/18 at 08:00 Insulin Human Lispro (HumaLOG) 0-7 UNITS TIDWMEALS SQ ; Start 04/23/18 at 08:00 Dextrose 12.5 gm PRN Q15MIN PRN IV SEE COMMENTS; Start 04/22/18 at 23:15 Gabapentin (Neurontin) 100 mg TID PO Last administered on 04/23/18at 20:54; Start 04/23/18 at 09:00 Glipizide (Glucotrol) 10 mg DAILY PO Last administered on 04/23/18at 11:40; Start 04/23/18 at 09:30 Divalproex Sodium (Depakote Sprinkles) 250 mg QHS PO Last administered on 04/23at 20:55; Start 04/23/18 at 21:00 Glipizide (Glucotrol) 5 mg QHS PO Last administered on 04/23/18 20:54; Start 04/23/18 at 21:00 Non-Formulary Medication (Glipizide ) 10 mg DAILY PO ; Start 04/23/18 at 09:00 ; Stop 04/23/18 at 09:29; Status DC Magnesium Hydroxide (Milk Of Magnesia) 2,400 mg PRN QHS PRN PO CONSTIPATION; Start 04/23/18 at 09:30 Non-Formulary Medication (Mirtazapine ) 15 mg HS PO ; Start 04/23/18 at 21:00; Stop 04/23/18 at 21:00; Status DC Quetiapine Fumarate (SEROquel) 25 mg DAILY PO Last administered on 04/23/18at 11:40; Start 04/23/18 at 09:30 Linezolid 300 ml @ 300 mls/hr Q12HR IV Last administered on 04/23/18at 20:54; Start 04/23/18 at 09:00 Piperacillin Sod/ Tazobactam Sod 2.25 gm/Sodium Chloride 50 ml @ 100 mls/hr Q8H IV Last administered on 04/24/18at 04:30; Start 04/23/18 at 12:00 Furosemide (Lasix) 40 mg DAILY IVP Last administered on 04/23/18at 09:22; Start 04/23/18 at 09:00 Heparin Sodium (Porcine) (Heparin Sq) 5,000 unit Q8HRS SQ Last administered on 04/24/18at 05:17; Start 04/23/18 at 14:00 Lidocaine/Sodium Bicarbonate (Buffered Lidocaine 1%) 3 ml 1X ONCE IJ ; Start 04/23/18 at 11:30; Stop 11/12/18 at 11:31; Status DC Hydralazine HCl (Apresoline) 25 mg TID PO Last administered on 04/23/18at 20:54 ; Start 04/23/18 at 14:00 Lactobacillus Rhamnosus (Culturelle) 1 cap BID PO Last administered on at 20:54; Start 04/23/18 at 21:00 Active Scripts Active Protonix (Pantoprazole Sodium) 40 Mg Tablet. 1 Tab PO DAILY Reported Glipizide 10 Mg Tablet 10 Mg PO DAILY Sodium Bicarbonate 650 Mg Tablet 650 Mg PO TID [place] (Menthol) 113 Gm Gel..gram. 1 Asher TP PRN QID PRN Milk Of Magnesia (Magnesium Hydroxide) 2,400 Mg/10 Ml Oral.susp 2,400 Mg PO PRN QHS PRN Lantus Solostar (Insulin Glargine,Hum.rec.anlog) 100 Unit/1 Ml Insuln.pen 15 Unit SQ QHS Depakote Sprinkle (Divalproex Sodium) 125 Mg Cap.sprink 250 Mg PO HS Glipizide 5 Mg Tablet 5 Mg PO HS Fluvoxamine Maleate 50 Mg Tablet 100 Mg PO DAILY Multivitamins (Multivitamin) 1 Each Tablet 1 Each PO DAILY LAST DOSE GIVEN: DATE: TODAY TIME: AM NEXT DOSE DUE: DATE: TOMORROW TIME: AM Quetiapine Fumarate 25 Mg Tablet 25 Mg PO DAILY LAST DOSE GIVEN: DATE: YESTERDAY TIME: AT BEDTIME NEXT DOSE DUE: DATE: TODAY TIME: AT BEDTIME Aspirin Ec (Aspirin) 325 Mg Tablet.dr 325 Mg PO DAILY08 LAST DOSE GIVEN: DATE: TODAY TIME: AM NEXT DOSE DUE: DATE: TOMORROW TIME: AM Buspirone Hcl 5 Mg Tablet 10 Mg PO BID LAST DOSE GIVEN: DATE: TODAY TIME: AM NEXT DOSE DUE: DATE: TODAY TIME: PM Triple Antibiotic Ointment (Neomy Sulf/Bacitra/Polymyxin B) 1 Each Packet 1 Each TP TID LAST DOSE GIVEN: DATE: TODAY TIME: AM NEXT DOSE DUE: DATE: TODAY TIME: AFTERNOON Maalox Maximum Strength Susp (Mag Hydrox/Al Hydrox/Simeth) 355 Ml Oral.susp 30 Ml PO PRN Q6HRS PRN LAST DOSE GIVEN: DATE: NOT GIVEN TODAY NEXT DOSE DUE: DATE: TODAY TIME: IF AND WHEN NEEDED Tylenol (Acetaminophen) 325 Mg Tablet 650 Mg PO PRN Q4HRS PRN LAST DOSE GIVEN: DATE: NOT GIVEN TODAY TIME: NEXT DOSE DUE: DATE: TODAY TIME: IF AND WHEN NEEDED Gabapentin 100 Mg Capsule 100 Mg PO TID LAST DOSE GIVEN: DATE: TODAY TIME: AM NEXT DOSE DUE: DATE: TODAY TIME: AFTERNOON Mirtazapine 15 Mg Tablet 15 Mg PO HS LAST DOSE GIVEN: DATE: YESTERDAY TIME: AT BEDTIME NEXT DOSE DUE: DATE: TODAY TIME: AT BEDTIME Metoprolol Tartrate 25 Mg Tablet 37.5 Mg PO BID LAST DOSE GIVEN: DATE: TODAY TIME: AM NEXT DOSE DUE: DATE: TODAY TIME: PM Vitals/I & O Vital Sign - Last 24 Hours 04/23/18 04/23/18 04/23/18 04/23/18 09:20 10:37 14:00 14:13 Temp 97.8 98.0 Pulse 83 74 62 62 Resp 20 18 B/P (MAP) 159/80 138/80 (99) 100/55 100/55 (70) Pulse Ox 97 92 O2 Delivery Nasal Cannula Nasal Cannula O2 Flow Rate 3.0 3.0 04/23/18 04/23/18 04/23/18 04/23/18 19:18 20:00 20:54 20:55 Temp 98.3 Pulse 77 77 77 Resp 20 B/P (MAP) 141/70 (93) 141/70 141/70 Pulse Ox 92 O2 Delivery Nasal Cannula Nasal Cannula O2 Flow Rate 2.0 3.0 04/23/18 04/24/18 04/24/18 22:32 03:11 05:03 Temp 97.8 98.1 Pulse 81 79 78 Resp 18 B/P (MAP) 134/85 (101) 119/69 (86) Pulse Ox 94 97 O2 Delivery Nasal Cannula Nasal Cannula O2 Flow Rate 3.0 3.0 Intake and Output 04/23/18 04/23/18 04/24/18 15:00 23:00 07:00 Intake Total 460 ml 530 ml 140 ml Output Total 500 ml 200 ml Balance -40 ml 330 ml 140 ml GEORGETTE SOSA APRN Apr 24, 2018 09:13
[2018-04-24] MEDS: GABAPENTIN 100 MG CAPSULE. PO SCH ×3 (09:18→20:31)
[2018-04-24] MEDS: FUROSEMIDE 40 MG/4 ML VIAL IVP SCH (09:18)
[2018-04-24] MEDS: glipiZIDE 5 MG TABLET PO SCH ×2 (09:18→20:30)
[2018-04-24] MEDS: METOPROLOL TART IMMED RELEASE 25 MG TABLET PO SCH ×2 (09:19→20:31)
[2018-04-24] MEDS: MULTIVITAMIN with MINERAL TABLET. PO SCH (09:19)
[2018-04-24] MEDS: LACTOBACILLUS RHAMNOSUS GG 1 CAPSULE. PO SCH ×2 (09:19→20:31)
[2018-04-24] MEDS: PANTOPRAZOLE 40 MG TABLET. PO SCH (09:20)
[2018-04-24] MEDS: ASPIRIN ENTERIC COATED 325 MG TABLET.DR. PO SCH (09:20)
[2018-04-24] MEDS: hydrALAZINE 25 MG TABLET PO SCH ×3 (09:20→20:31)
[2018-04-24 14:00] VITALS: BP 110/75
[2018-04-24 20:09] VITALS: BP 130/70
[2018-04-24] MEDS: DIVALPROEX 125 MG CAP.SPRINK PO SCH (20:31)
[2018-04-24] MEDS: INSULIN GLARGINE 300 UNITS/3 ML INSULN.PEN. SQ SCH (20:44)
--- NOTE | 2018-04-24 22:11 | PN ---
DATE: 04/24/2018 SUBJECTIVE: The patient is resting flat, comfortably in bed, in no apparent respiratory distress. He is awake, alert, but confused. Nursing staff did not voice any concerns that he had an uneventful night. He has had ultrasound done yesterday, which showed that both kidneys are small without evidence of any hydronephrosis. His right kidney is 7.7 cm and the left kidney is 8.7. OBJECTIVE: GENERAL: On examining him today, he looked pale, not jaundiced or cyanosed. No lymphadenopathy, no thyromegaly. No jugular venous distension. No lower limb edema. VITAL SIGNS: His heart rate was 78, blood pressure was 119/69, temperature was 98.1, respiratory rate was 18, and oxygen saturation was 97% on 3 liters of oxygen. HEAD, EYES, EARS, NOSE AND THROAT: Normocephalic, atraumatic. NECK: Supple. HEART: Showed normal first and second heart sounds with no gallop, rubs, or murmur. CHEST: Clear to auscultation. No crepitation or rhonchi. ABDOMEN: Distended, soft, nontender. No guarding or rigidity. No organomegaly. All hernial orifices were intact. Bowel sounds normal. NEUROLOGIC: He is demented, but without any obvious lateralizing sign. All his cranial nerves are intact. He moves extremities without difficulty, ambulates without assistance or assistive devices. His intake was incompletely recorded, output was 3150. LABORATORY DATA: As of yesterday, his white cell count was 8100, hemoglobin 12, hematocrit 37, MCV 79, and platelet count of 152,000. His serum sodium was 137, potassium 4.4, chloride 100, bicarbonate 31, anion gap of 6, BUN 29, creatinine 2, estimated GFR was 52 mL per minute, his glucose 124, calcium was 7.8, magnesium was 2.3. His nasal screen for MRSA PCR was negative. Urinalysis was essentially unremarkable. His blood and urine culture are still pending at the time of this dictation. PLAN: To continue with the IV Zosyn as well as linezolid for his pneumonia as well as cellulitis of right lower extremity. Continue with all his other medications. Continue to monitor his blood sugar and we will evaluate him again tomorrow. PIO GIPSON MD DR: Rodrigo JOB#: [id number] / [id number]
[2018-04-25] MEDS: PIPERACILLIN/TAZOBACTAM 2.25 GM in IV NORMAL SALINE 50ML 50 ML IV SCH ×2 (04:18→11:34)
[2018-04-25] MEDS: HEPARIN PF for SUB-Q USE 5,000 UNIT/0.5 ML VIAL. SQ SCH (05:05)
[2018-04-25 05:07] VITALS: BP 158/85
[2018-04-25 06:38] LABS: CALCIUM 8.4 mg/dL (8.5-10.1); CREATININE 2.1 mg/dL (0.7-1.3); GFR 30.5; POTASSIUM 4.2 mmol/L (3.5-5.1)
[2018-04-25 07:29] VITALS: BP 121/73
[2018-04-25] MEDS: SODIUM BICARBONATE 650 MG TABLET PO SCH ×2 (07:40→11:33)
[2018-04-25] MEDS: PANTOPRAZOLE 40 MG TABLET. PO SCH (07:40)
[2018-04-25] MEDS: INSULIN LISPRO 300 UNITS/3 ML INSULN.PEN. SQ SCH ×2 (07:41→11:27)
[2018-04-25] MEDS: ASPIRIN ENTERIC COATED 325 MG TABLET.DR. PO SCH (07:41)
[2018-04-25] MEDS: FUROSEMIDE 40 MG/4 ML VIAL IVP SCH (08:55)
[2018-04-25] MEDS: hydrALAZINE 25 MG TABLET PO SCH (08:56)
[2018-04-25] MEDS: glipiZIDE 5 MG TABLET PO SCH (08:57)
[2018-04-25] MEDS: LACTOBACILLUS RHAMNOSUS GG 1 CAPSULE. PO SCH (08:57)
[2018-04-25] MEDS: GABAPENTIN 100 MG CAPSULE. PO SCH ×2 (09:00→14:20)
[2018-04-25] MEDS: QUEtiapine 25 MG TABLET. PO SCH (09:00)
[2018-04-25] MEDS: METOPROLOL TART IMMED RELEASE 25 MG TABLET PO SCH (09:00)
[2018-04-25] MEDS: NEOMY/BACITR/POLYMYXIN OINT PACKET. TP SCH ×2 (09:01→14:20)
[2018-04-25] MEDS: MULTIVITAMIN with MINERAL TABLET. PO SCH (09:01)
--- NOTE | 2018-04-25 10:29 | PDOC ---
PROGRESS NOTES Diagnosis Problem Problems Medical Problems: (1) Congestive heart failure Status: Acute Assessment Problems Medical Problems: (1) Congestive heart failure Status: Acute 1. acute on chronic diastolic heart failure - clinically compensated. Change to oral lasix. Monitor Chem in 1 week. Outpatient follow up in 2-4 weeks. 2. PHTN, PAS 60 mmHg. Outpatient pulmonary evaluation. 3. uncontrolled hypertension now well controlled on current therapy. 4. CAD / cabg status - angina free, Edward negative. continue supportive care 5. CKD - cr appears to be about baseline, up to 22.1 today (from 1.9) 6. HLD - continue statin 7. Diabetes mellitus type 2 per PCP Subjective resting quietly , pleasantly confused. denies dyspnea, chest pain or palpitations. swelling improved Objective Vital Signs Date Time Temp Pulse Resp B/P (MAP) Pulse Ox O2 Delivery O2 Flow Rate FiO2 04/25/18 09:00 79 121/73 04/25/18 08:00 Nasal Cannula 3.0 04/25/18 07:29 97.7 24 90 Intake and Output 04/25/18 07:00 Intake Total 1240 ml Balance 1240 ml Intake Oral 700 ml IV Total 540 ml # Voids 8 # Bowel Movements 4 Abdomen: Normal bowel sounds, Soft Heart: Regular rate, Normal S1, Normal S2, Other (no gallops, clicks or rubs) Extremities: No cyanosis, Other (trace edema) General: Alert, Cooperative, No acute distress Lungs: Other (mildly decreased bases with few left basilar crackles otherwise clear) Neuro: Normal speech Psych/Mental Status: Mood NL Review of Relevant I have reviewed the following items kai (where applicable) has been applied. Labs Laboratory Tests Test 04/23/18 11:34 04/23/18 16:19 04/23/18 19:42 04/24/18 05:53 Glucose (Fingerstick) 128 mg/dL (70-99) 169 mg/dL (70-99) 260 mg/dL (70-99) Sodium Level 137 mmol/L (136-145) Potassium Level 4.4 mmol/L (3.5-5.1) Chloride Level 100 mmol/L (98-107) Carbon Dioxide Level 31 mmol/L (21-32) Anion Gap 6 (6-14) Blood Urea Nitrogen 29 mg/dL (8-26) Creatinine 2.0 mg/dL (0.7-1.3) Estimated GFR (Cockcroft-Gault) 32.3 Glucose Level 124 mg/dL (70-99) Calcium Level 7.8 mg/dL (8.5-10.1) Magnesium Level 2.3 mg/dL (1.8-2.4) Test 04/24/18 08:16 04/24/18 12:56 04/24/18 17:03 04/24/18 20:18 Glucose (Fingerstick) 83 mg/dL (70-99) 145 mg/dL (70-99) 121 mg/dL (70-99) 155 mg/dL (70-99) Test 04/25/18 05:55 04/25/18 07:22 Sodium Level 137 mmol/L (136-145) Potassium Level 4.2 mmol/L (3.5-5.1) Chloride Level 98 mmol/L (98-107) Carbon Dioxide Level 32 mmol/L (21-32) Anion Gap 7 (6-14) Blood Urea Nitrogen 26 mg/dL (8-26) Creatinine 2.1 mg/dL (0.7-1.3) Estimated GFR (Cockcroft-Gault) 30.5 Glucose Level 101 mg/dL (70-99) Calcium Level 8.4 mg/dL (8.5-10.1) Glucose (Fingerstick) 83 mg/dL (70-99) Medications Current Medications Furosemide (Lasix) 40 mg 1X ONCE IVP Last administered on 04/22/18at 20:40; Start 04/22/18 at 20:30; Stop 04/22/18 at 20:31; Status DC Acetaminophen (Tylenol) 650 mg PRN Q4HRS PRN PO PAIN / TEMP; Start 04/22/18 at 23:00 Aspirin (Aspirin Enteric Coated) 325 mg DAILY08 PO Last administered on at 07:41; Start 04/23/18 at 08:00 Insulin Glargine (Lantus) 15 units QHS SQ Last administered on 04/24/18at 20:44 ; Start 04/23/18 at 21:00 Al Hydroxide/Mg Hydroxide (Mylanta Plus Xs) 30 ml PRN Q6HRS PRN PO Upset Stomach; Start 04/22/18 at 23:00; Status Cancel Metoprolol Tartrate (Lopressor) 37.5 mg BID PO Last administered on 04/25/18 09:00; Start 04/23/18 at 09:00 Neomycin/ Polymyxin/ Bacitracin (Triple Antibiotic Ointment) 1 pkt TID TP Last administered on 04/25/18at 09:01; Start 04/23/18 at 09:00 Fluvoxamine Maleate (Luvox) 100 mg DAILY PO Last administered on 04/23/18at 09: 19; Start 04/23/18 at 09:00; Stop 04/23/18 at 09:35; Status DC Multi-Ingredient Ointment (Analgesic [place]) 1 asher PRN QID PRN TP MUSCLE PAIN; Start 04/22/18 at 23:30 Multivitamins/ Calcium (Thera-M Plus) 1 tab DAILY PO Last administered on 04/25at 09:01; Start 04/23/18 at 09:00 Pantoprazole Sodium (Protonix) 40 mg DAILYAC PO Last administered on at 07:40; Start 04/23/18 at 07:30 Sodium Bicarbonate 650 mg TIDWMEALS PO Last administered on 04/25/18at 07:40; Start 04/23/18 at 08:00 Insulin Human Lispro (HumaLOG) 0-7 UNITS TIDWMEALS SQ ; Start 04/23/18 at 08:00 Dextrose 12.5 gm PRN Q15MIN PRN IV SEE COMMENTS; Start 04/22/18 at 23:15 Gabapentin (Neurontin) 100 mg TID PO Last administered on 04/25/18at 09:00; Start 04/23/18 at 09:00 Glipizide (Glucotrol) 10 mg DAILY PO Last administered on 04/25/18at 08:57; Start 04/23/18 at 09:30 Divalproex Sodium (Depakote Sprinkles) 250 mg QHS PO Last administered on 04/24at 20:31; Start 04/23/18 at 21:00 Glipizide (Glucotrol) 5 mg QHS PO Last administered on 04/24/18at 20:30; Start 04/23/18 at 21:00 Non-Formulary Medication (Glipizide ) 10 mg DAILY PO ; Start 04/23/18 at 09:00 ; Stop 04/23/18 at 09:29; Status DC Magnesium Hydroxide (Milk Of Magnesia) 2,400 mg PRN QHS PRN PO CONSTIPATION; Start 04/23/18 at 09:30 Non-Formulary Medication (Mirtazapine ) 15 mg HS PO ; Start 04/23/18 at 21:00; Stop 04/23/18 at 21:00; Status DC Quetiapine Fumarate (SEROquel) 25 mg DAILY PO Last administered on 04/25/18at 09:00; Start 04/23/18 at 09:30 Linezolid 300 ml @ 300 mls/hr Q12HR IV Last administered on 04/25/18at 08:55; Start 04/23/18 at 09:00 Piperacillin Sod/ Tazobactam Sod 2.25 gm/Sodium Chloride 50 ml @ 100 mls/hr Q8H IV Last administered on 04/25/18at 04:18; Start 04/23/18 at 12:00 Furosemide (Lasix) 40 mg DAILY IVP Last administered on 04/25/18at 08:55; Start 04/23/18 at 09:00 Heparin Sodium (Porcine) (Heparin Sq) 5,000 unit Q8HRS SQ Last administered on 04/25/18at 05:05; Start 04/23/18 at 14:00 Lidocaine/Sodium Bicarbonate (Buffered Lidocaine 1%) 3 ml 1X ONCE IJ ; Start 04/23/18 at 11:30; Stop 04/23/18 at 11:31; Status DC Hydralazine HCl (Apresoline) 25 mg TID PO Last administered on 04/25/18at 08:56 ; Start 04/23/18 at 14:00 Lactobacillus Rhamnosus (Culturelle) 1 cap BID PO Last administered on at 08:57; Start 04/23/18 at 21:00 Active Scripts Active Protonix (Pantoprazole Sodium) 40 Mg Tablet.dr 1 Tab PO DAILY Reported Glipizide 10 Mg Tablet 10 Mg PO DAILY Sodium Bicarbonate 650 Mg Tablet 650 Mg PO TID Bengay (Menthol) 113 Gm Gel..gram. 1 Asher TP PRN QID PRN Milk Of Magnesia (Magnesium Hydroxide) 2,400 Mg/10 Ml Oral.susp 2,400 Mg PO PRN QHS PRN Lantus Solostar (Insulin Glargine,Hum.rec.anlog) 100 Unit/1 Ml Insuln.pen 15 Unit SQ QHS Depakote Sprinkle (Divalproex Sodium) 125 Mg Cap.sprink 250 Mg PO HS Glipizide 5 Mg Tablet 5 Mg PO HS Fluvoxamine Maleate 50 Mg Tablet 100 Mg PO DAILY Multivitamins (Multivitamin) 1 Each Tablet 1 Each PO DAILY LAST DOSE GIVEN: DATE: TODAY TIME: AM NEXT DOSE DUE: DATE: TOMORROW TIME: AM Quetiapine Fumarate 25 Mg Tablet 25 Mg PO DAILY LAST DOSE GIVEN: DATE: YESTERDAY TIME: AT BEDTIME NEXT DOSE DUE: DATE: TODAY TIME: AT BEDTIME Aspirin Ec (Aspirin) 325 Mg Tablet.dr 325 Mg PO DAILY08 LAST DOSE GIVEN: DATE: TODAY TIME: AM NEXT DOSE DUE: DATE: TOMORROW TIME: AM Buspirone Hcl 5 Mg Tablet 10 Mg PO BID LAST DOSE GIVEN: DATE: TODAY TIME: AM NEXT DOSE DUE: DATE: TODAY TIME: PM Triple Antibiotic Ointment (Neomy Sulf/Bacitra/Polymyxin B) 1 Each Packet 1 Each TP TID LAST DOSE GIVEN: DATE: TODAY TIME: AM NEXT DOSE DUE: DATE: TODAY TIME: AFTERNOON Maalox Maximum Strength Susp (Mag Hydrox/Al Hydrox/Simeth) 355 Ml Oral.susp 30 Ml PO PRN Q6HRS PRN LAST DOSE GIVEN: DATE: NOT GIVEN TODAY NEXT DOSE DUE: DATE: TODAY TIME: IF AND WHEN NEEDED Tylenol (Acetaminophen) 325 Mg Tablet 650 Mg PO PRN Q4HRS PRN LAST DOSE GIVEN: DATE: NOT GIVEN TODAY TIME: NEXT DOSE DUE: DATE: TODAY TIME: IF AND WHEN NEEDED Gabapentin 100 Mg Capsule 100 Mg PO TID LAST DOSE GIVEN: DATE: TODAY TIME: AM NEXT DOSE DUE: DATE: TODAY TIME: AFTERNOON Mirtazapine 15 Mg Tablet 15 Mg PO HS LAST DOSE GIVEN: DATE: YESTERDAY TIME: AT BEDTIME NEXT DOSE DUE: DATE: TODAY TIME: AT BEDTIME Metoprolol Tartrate 25 Mg Tablet 37.5 Mg PO BID LAST DOSE GIVEN: DATE: TODAY TIME: AM NEXT DOSE DUE: DATE: TODAY TIME: PM Vitals/I & O Vital Sign - Last 24 Hours 04/24/18 04/24/18 04/24/18 04/24/18 13:05 14:00 14:09 20:00 Pulse 65 82 82 Resp 18 B/P (MAP) 110/75 (87) 110/75 Pulse Ox 95 94 O2 Delivery Nasal Cannula Nasal Cannula O2 Flow Rate 2.0 3.0 04/24/18 04/24/18 04/24/18 04/24/18 20:09 20:31 20:31 23:06 Temp 97.9 Pulse 80 80 80 Resp 22 24 B/P (MAP) 130/70 (90) 130/70 130/70 Pulse Ox 93 O2 Delivery Nasal Cannula O2 Flow Rate 3.0 04/25/18 04/25/18 04/25/18 04/25/18 05:07 07:29 08:00 08:56 Temp 98.2 97.7 Pulse 82 79 79 Resp 24 24 B/P (MAP) 158/85 (109) 121/73 (89) 121/73 Pulse Ox 92 90 O2 Delivery Nasal Cannula Nasal Cannula Nasal Cannula O2 Flow Rate 3.0 3.0 3.0 04/25/18 09:00 Pulse 79 B/P (MAP) 121/73 Intake and Output 04/24/18 04/24/18 04/25/18 15:00 23:00 07:00 Intake Total 450 ml 410 ml 380 ml Balance 450 ml 410 ml 380 ml GEORGETTE SOSA CARE DIRECTOR RN Apr 25, 2018 10:29
[2018-04-25] MEDS ORDERED: FUROSEMIDE 40 MG TABLET PO SCH (10:30)
[2018-04-25 10:58] VITALS: BP 92/54
[2018-04-25] MEDS ORDERED: LINEZOLID 600 MG TABLET PO SCH (21:00)
--- NOTE | 2018-04-25 23:50 | DS ---
DATE OF DISCHARGE: 04/25/2018 HISTORY: The patient is an 78-year-old male patient, a resident at [facility], who was admitted with shortness of breath. He also was hypoxic. His chest x-ray showed that he has cardiac enlargement with pulmonary venous congestion, diffuse interstitial opacities, medium bilateral pleural effusion and bibasilar consolidation. He was treated with IV Lasix and was treated for possible healthcare-associated pneumonia and cellulitis. He was treated aggressively with IV diuretics and did very well. He was treated for possible healthcare-associated pneumonia as well as cellulitis. His kidney function was abnormal, so we did complete his previous lab work and also did ultrasound of his kidneys, both of them. Both kidneys were small. His right kidney measures 7.7 cm in length and left kidney measures 8.7 cm in length. No hydronephrosis and no apparent renal mass or shadowing calculus. A decision was made to discharge him back to [facility]. PHYSICAL EXAMINATION: GENERAL: When I saw him today, he looked well and was clearly in no apparent respiratory distress, slightly pale, but no jaundice, cyanosis, or thyromegaly. No jugular venous distension. No limb edema. VITAL SIGNS: His heart rate was 61, blood pressure was 92/54, temperature was 97.7, respiratory rate was 16, and oxygen saturation was 96% on 3 liters of oxygen by nasal cannula. HEAD, EYES, EARS, NOSE AND THROAT: Showed normocephalic, atraumatic. NECK: Supple. HEART: Showed normal first and second heart sounds with no gallop, rub or murmur. CHEST: Clear to auscultation. No crepitation or rhonchi. ABDOMEN: Distended, soft, and nontender. NEUROLOGIC: He is demented, but without any obvious lateralizing sign. All cranial nerves intact. EXTREMITIES: He moves extremities without difficulty, ambulates without assistance or assistive devices. LABORATORY DATA: Today showed a serum sodium of 137, potassium 4.2, chloride 98, bicarbonate 32, anion gap of 7, BUN 26, creatinine 2.1, estimated GFR was 30 mL per minute, his glucose 101, calcium was 8.4. His white cell count was 8100, hemoglobin 12, hematocrit 37, MCV 79 and platelet count of 432,000 with normal manual differential. DISCHARGE MEDICATIONS: He will be discharged back to [facility] to continue on acetaminophen 650 mg p.o. q.4 hourly p.r.n. for pain, aspirin 325 mg once a day, buspirone 10 mg p.o. b.i.d., divalproex sodium 250 mg at bedtime, fluvoxamine maleate 100 mg once a day, gabapentin 100 mg 3 times a day, glipizide 5 mg at bedtime, glipizide 10 mg once a day. He is on Lantus insulin 15 units at bedtime, ____ p.o. every 6 hours, milk of magnesia 30 mL p.o. daily p.r.n. for constipation, Bengay applied topically 4 times a day, metoprolol 37.5 mg twice a day, mirtazapine 15 mL p.o. at bedtime, multivitamin 1 tablet once a day, triple antibiotics apply topically three times a day to the lesions of the skin, Protonix 40 mg once a day, quetiapine fumarate 25 mg daily, sodium bicarbonate 650 mg 3 times a day. He was also discharged on oxygen at 2 liters by nasal cannula, to be titrated, to keep oxygen saturation more than 92%. He was also discharged on Augmentin 500/125 mg twice a day for 6 more days for possible healthcare-associated pneumonia. FINAL DISCHARGE DIAGNOSES: Acute on chronic diastolic congestive heart failure, diuresed very well, he has lost about 7 pounds, he is euvolemic clinically and his creatinine started rising up, so we switched him to oral Lasix. Pulmonary hypertension, hypertension seems to be much better controlled. Coronary artery disease, status post coronary artery bypass graft, angina free. Cardiac enzymes negative. Chronic kidney disease with creatinine that is stable at baseline. Hyperlipidemia, to continue statin. Type 2 diabetes mellitus, on glipizide and Lantus. He has also possible healthcare-associated pneumonia for which he was treated with IV Zosyn and Zyvox. He is now on Augmentin 500/125 one tablet p.o. b.i.d. for 6 more days. PIO GIPSON MD DR: [email or web address]/tiny JOB#: [id number] / [id number]
== END 2018-04-25 14:45 | DRG 291 ==
LOC: ER 17:15 → 1 SOUTH 20:36
PROVIDERS: ADMIT Neuromusculoskeletal Medicine & OMM; ATTEND Neuromusculoskeletal Medicine & OMM
DX: I13.0 Hypertensive heart and chronic kidney disease with heart failure and stage 1 through stage 4 chronic kidney disease, or unspecified chronic kidney disease (principal); I50.43 Acute on chronic combined systolic (congestive) and diastolic (congestive) heart failure; J18.9 Pneumonia, unspecified organism; L03.115 Cellulitis of right lower limb; F32.9 Major depressive disorder, single episode, unspecified; E11.22 Type 2 diabetes mellitus with diabetic chronic kidney disease; E78.5 Hyperlipidemia, unspecified; F02.80 Dementia in other diseases classified elsewhere, unspecified severity, without behavioral disturbance, psychotic disturbance, mood disturbance, and anxiety; G30.9 Alzheimer's disease, unspecified; I08.3 Combined rheumatic disorders of mitral, aortic and tricuspid valves; E87.5 Hyperkalemia; I27.20 Pulmonary hypertension, unspecified; I25.10 Atherosclerotic heart disease of native coronary artery without angina pectoris; I48.91 Unspecified atrial fibrillation; K21.9 Gastro-esophageal reflux disease without esophagitis; N18.9 Chronic kidney disease, unspecified; N40.0 Benign prostatic hyperplasia without lower urinary tract symptoms; R09.02 Hypoxemia; Y95 Nosocomial condition; Z86.73 Personal history of transient ischemic attack (TIA), and cerebral infarction without residual deficits; Z79.899 Other long term (current) drug therapy; Z91.81 History of falling; Z95.1 Presence of aortocoronary bypass graft
CPT/HCPCS: 36415; 71045; 76770; 80048; 80053; 80061; 81001; 82947; 83735; 83880; 84484; 85025; 87641; 93005; 93306; 93970; J1815; J1940; J2020; J2543; 97530